=== PATIENT | male | born 1955 | race Caucasian/White ===

== ENCOUNTER 2018-01-29 08:08 | Day surgery (SDC) | payer MEDICAID ==
[~2018-01-29 08:08] MED LIST: Bupivacaine 0.5% 50 ML MDV ONE; Lidocaine 1% with EPINEPHrine 1:100,000 50 ML MDV ONE
[2018-01-29] MEDS ORDERED: fentaNYL 100 MCG/2 ML SDV ONE (08:54)
[2018-01-29] MEDS ORDERED: Propofol 200 MG/20 ML SDV ONE ×2 (08:54→10:40)
[2018-01-29] MEDS ORDERED: Midazolam 1 MG/ML 2 ML SDV ONE (08:54)
[2018-01-29] MEDS ORDERED: Lactated Ringers 1,000 ML IV SCH (09:00)
[2018-01-29] MEDS ORDERED: ceFAZolin 2 GM in Sodium Chloride 0.9% 50 ML IV ONE (09:30)
[2018-01-29] MEDS ORDERED: Acetaminophen/HYDROcodone 325-5 MG Tab PO ONE (11:59)
[2018-01-29 12:17] VITALS: BP 117/72
--- NOTE | 2018-02-01 07:41 | OR ---
DATE OF PROCEDURE: 01/29/2018 PREOPERATIVE DIAGNOSIS: Reducible umbilical hernia. POSTOPERATIVE DIAGNOSIS: Reducible umbilical hernia. PROCEDURE: Repair of reducible umbilical hernia with a 6.4-cm Ventralex mesh patch with straps. SURGEON: Joaquin Carpio MD. ANESTHESIA: IV anesthesia with monitored anesthesia care. INDICATION: This 62-year-old white male has a reducible umbilical hernia. He also has a diastasis recti. He is more concerned about the diastasis recti than the umbilical hernia. He is here for umbilical hernia repair, possibly with mesh. I counseled him for surgery, including risks and alternatives, and he gave his informed consent to proceed. DESCRIPTION OF PROCEDURE: After adequate IV anesthesia was obtained, the patient's abdomen was prepped and draped in the usual sterile fashion. Time-out was held. Lidocaine 1% with epinephrine in a 50:50 mix with 0.5% Marcaine was infiltrated about the umbilicus. An infraumbilical semicircular umbilical incision was made. The umbilicus was divided from the underlying hernia sac and retracted superiorly. The hernia defect was large enough to allow index finger to be passed through it. The sac was excised and sent to pathology. A 6.4-cm Ventralex mesh patch with straps was obtained. This was placed down under the fascia through the defect. The straps were pulled up bringing the mesh to sit nicely against the posterior aspect of the anterior abdominal wall. The straps were cut to appropriate length and anchored to the anterior fascia with interrupted stitches of 2-0 Vicryl. An interrupted stitch of 2-0 Vicryl was used to close the fascia over the mesh. The umbilicus was reattached to the underlying fascia with interrupted stitch of 2-0 Vicryl; 4-0 Vicryl using a subcuticular stitch was placed to approximate the skin. Dermabond was applied. The patient tolerated the procedure well and was brought to the recovery room in good condition. Joaquin Carpio MD /[id number] MTDD
== END 2018-01-29 12:47 | disposition home or self-care (01) ==
LOC: JP.SDS 08:08
PROVIDERS: ATTEND Surgery
DX: K42.9 Umbilical hernia without obstruction or gangrene (principal); I10 Essential (primary) hypertension; E11.9 Type 2 diabetes mellitus without complications; E66.01 Morbid (severe) obesity due to excess calories; E78.5 Hyperlipidemia, unspecified; E03.9 Hypothyroidism, unspecified; G47.33 Obstructive sleep apnea (adult) (pediatric); Z99.89 Dependence on other enabling machines and devices; Z88.8 Allergy status to other drugs, medicaments and biological substances
CPT/HCPCS: 49585; A9270; C1781; J0690; J2250; J2704; J3010; J7050; J7120; 88302

== ENCOUNTER 2019-03-25 15:12 | Emergency (ER) | payer MEDICAID ==
[2019-03-25 15:27] VITALS: BP 126/77; PULSE 116
[2019-03-25] MEDS ORDERED: Lidocaine 2% Jelly 10 ML Urojet MUCMEM ONE (15:40)
--- NOTE | 2019-03-25 15:59 | EDM.PDOC ---
ED HPI GENERAL MEDICAL PROBLEM - General Chief Complaint: Genitourinary Problem Stated Complaint: HAVING TROUBLE GOING THE RESTROOM Time Seen by Provider: 03/25/19 15:45 Source of Information: Reports: Patient History Limitations: Reports: No Limitations - History of Present Illness INITIAL COMMENTS - FREE TEXT/NARRATIVE: Farrukh is a 63 year old male, presents to the ED today with urinary retention. Patient had a TURP procedure done on Thursday, has not been able to urinate since this morning, is passing some blood/clots. Patient denies any fever. Patient is on warfarin, hx of PE, states INR this morning was 3.1. Has not taken daily warfarin dose yet today. Onset: Today - Related Data Allergies Allergy/AdvReac Type Severity Reaction Status Date / Time buspirone HCl [From BuSpar] AdvReac Nausea Verified 03/25/19 15:29 Home Meds: Home Meds Benztropine [Cogentin] 1 mg PO BID 07/17/15 [History] Finasteride 5 mg PO DAILY 07/17/15 [History] Levothyroxine [Synthroid] 50 mcg PO DAILY 07/17/15 [History] Metoprolol Succinate [Toprol XL] 25 tab PO DAILY 07/17/15 [History] Miconazole [Miconazole 2% Crm] 1 dose TOP BID 07/17/15 [History] Sertraline HCl 50 mg PO DAILY 07/17/15 [History] Simvastatin [Zocor] 40 mg PO DAILY 07/17/15 [History] Tamsulosin [Flomax] 0.4 tab PO DAILY 07/17/15 [History] Triamcinolone Acetonide [Triamcinolone Acetonide 0.1% Crm] 1 dose TOP BID [History] Ziprasidone HCl [Geodon] 160 mg PO BID 07/17/15 [History] hydrOXYzine HCl [Atarax] 25 mg PO QID PRN 07/17/15 [History] Cholecalciferol (Vitamin D3) [Vitamin D3] 2,000 unit PO DAILY 11/03/17 [History] Clotrimazole [Clotrimazole 1%] 1 applic TOP BID 11/03/17 [History] Fesoterodine Fumarate [Toviaz] 1 tab PO DAILY 11/03/17 [History] Furosemide [Lasix] 1 - 2 tab PO DAILY PRN 11/03/17 [History] Ketoconazole [Nizoral 2% Crm] 1 applic TOP BID 11/03/17 [History] LORazepam [Ativan] 1 tab PO TID PRN 11/03/17 [History] Multivitamin [Multi-Vitamin Daily] 1 tab PO DAILY 11/03/17 [History] OLANZapine [ZyPREXA] 5 mg PO DAILY PRN 11/03/17 [History] Polyethylene Glycol 3350 [Miralax] 1 pack PO DAILY 11/03/17 [History] Potassium Chloride [Klor-Con M15] 15 meq PO TID 11/03/17 [History] Ranitidine HCl [Zantac] 150 mg PO DAILY 11/03/17 [History] Sertraline HCl [Zoloft] 100 mg PO DAILY 11/03/17 [History] Warfarin [Coumadin] 5 mg PO ASDIRECTED 11/03/17 [History] metFORMIN HCl [Metformin HCl] 500 mg PO BID 11/03/17 [History] metOLazone [Zaroxolyn] 2.5 tab PO ASDIRECTED 11/03/17 [History] Hydrogen Peroxide [Peroxyl Oral Cleanser] 236 ml MM ASDIRECTED 01/27/18 [History ] Triamterene/Hydrochlorothiazid [Dyazide 37.5-25] 1 cap PO DAILY 01/27/18 [ History] Vitamin B Complex [B Complex] 1 each PO DAILY 01/27/18 [History] Ziprasidone HCl [Geodon] 40 mg PO DAILY 01/27/18 [History] Past Medical History HEENT History: Reports: Cataract, Impaired Vision Cardiovascular History: Reports: High Cholesterol, Hypertension Respiratory History: Reports: Sleep Apnea Gastrointestinal History: Reports: Colon Polyp, Hiatal Hernia Other Genitourinary History: patient states "swollen prostate". Musculoskeletal History: Reports: Gout Neurological History: Reports: Vertigo Psychiatric History: Reports: Panic Attack Endocrine/Metabolic History: Reports: Diabetes, Type II, Hypothyroidism, Obesity /BMI 30+ Dermatologic History: Reports: Eczema - Infectious Disease History Infectious Disease History: Reports: Chicken Pox, Measles, Shingles - Past Surgical History Head Surgeries/Procedures: Reports: None HEENT Surgical History: Reports: None Cardiovascular Surgical History: Reports: None Respiratory Surgical History: Reports: None GI Surgical History: Reports: Colonoscopy, Hernia, Inguinal Male Surgical History: Reports: TURP-Transurethral Resection of Prostate Endocrine Surgical History: Reports: None Neurological Surgical History: Reports: None Musculoskeletal Surgical History: Reports: Arthroscopic Procedure, Other (See Below) Other Musculoskeletal Surgeries/Procedures:: right elbow Dermatological Surgical History: Reports: None Social & Family History - Family History Family Medical History: Noncontributory - Tobacco Use Smoking Status *Q: Never Smoker Second Hand Smoke Exposure: No - Caffeine Use Caffeine Use: Reports: Coffee - Recreational Drug Use Recreational Drug Use: No ED ROS GENERAL - Review of Systems Review Of Systems: ROS reveals no pertinent complaints other than HPI. ED EXAM, RENAL/ - Physical Exam Exam: See Below Exam Limited By: No Limitations General Appearance: Alert, WD/WN, Other (appears uncomfortable) Nose: Normal Inspection Throat/Mouth: Normal Inspection Head: Atraumatic Neck: Normal Inspection Respiratory/Chest: No Respiratory Distress Cardiovascular: Tachycardia GI/Abdominal: Normal Bowel Sounds, Soft, Tender (mild, supra-pubic, with mild distention, resolved after null) (Male) Exam: Circumcised, Other (Null catheter placed by nursing staff, clots returned followed by blood tinged urine, some blood from meatus, draining freely, patient tolerated well). No: Scrotum Tenderness (L), Scrotum Tenderness (R) Extremities: Normal Inspection Neurological: Alert, Oriented, CN II-XII Intact Psychiatric: Normal Affect, Normal Mood Skin Exam: Warm, Dry, Intact Course - Vital Signs Last Recorded V/S: Last Vital Signs Temp 35.8 C 03/25/19 15:34 Pulse 116 H 03/25/19 15:34 Resp 16 03/25/19 15:34 BP 126/77 03/25/19 15:34 Pulse Ox 94 L 03/25/19 15:34 Farrukh is a 63 year old male, hx of TURP on Thursday, had catheter removed Thursday , voiding fine until today then only passed clots into toilet this morning, mildly supratherapeutic INR at 3.1 per patient report with lab done this am. Patient tolerated null placement here without difficulty, blood tinged urine present, drainage freely at present time. UA obtained and sent, returns with 5- 10 WBC and small leukocyte esterase no bacteria to indicate contamination. Patient instructed to hold warfarin dose today and resume normal dosing tomorrow. INR recheck on Thursday as well as Null removal with primary or urological surgeon. Will cover for UTI pending culture with Cefdinir Hydration encouraged as well as reasons to return to the ED discussed. Patient agreeable to plan of care and discharged in stable condition. - Orders/Labs/Meds Orders: Active Orders 24 hr Category Date Time Status Bladder Scan [RC] ASDIRECTED Care 03/25/19 15:40 Active Null Catheter Insertion [Insert Urinary Catheter] [OM. Care 03/25/19 15:45 Ordered PC] Q24H Urinary Catheter Assessment [RC] ASDIRECTED Care 03/25/19 15:41 Active CULTURE URINE [RM] Stat Lab 03/25/19 16:18 Ordered Labs: Laboratory Tests 03/25/19 Range/Units 16:03 Urine Color Red A (YELLOW) Urine Appearance Cloudy A (CLEAR) Urine pH 7.0 (5.0-8.0) Ur Specific [place] 1.025 (1.008-1.030) Urine Protein >=300 H (NEGATIVE) mg/dL Urine Glucose (UA) Normal (NEGATIVE) mg/dL Urine Ketones Negative (NEGATIVE) mg/dL Urine Occult Blood Large (NEGATIVE) Urine Nitrite Negative (NEGATIVE) Urine Bilirubin Negative (NEGATIVE) Urine Urobilinogen 0.2 (0.2-1.0) EU/dL Ur Leukocyte Esterase Small (NEGATIVE) Urine RBC Packed H (0-5) Urine WBC 5-10 H (0-5) Ur Epithelial Cells Not seen Amorphous Sediment Few Urine Bacteria Not seen Urine Mucus Not seen Meds: Medications Discontinued Medications Generic Name Dose Route Start Last Admin Trade Name Freq PRN Reason Stop Dose Admin Lidocaine HCl 10 ml 03/25/19 15:40 03/25/19 15:50 Xylocaine 2% Jelly MUCMEM 03/25/19 15:41 10 ml ONETIME ONE Administration Departure - Departure Time of Disposition: 17:00 Disposition: Home, Self-Care 01 Condition: Good Clinical Impression: Urinary retention - Discharge Information Instructions: Acute Urinary Retention, Male, Urinary Tract Infection, Adult, [id number], Indwelling Urinary Catheter Care, Adult Referrals: Jourdan Fraser MD [Primary Care Provider] - Forms: ED Department Discharge Additional Instructions: You have a small infection in the urine, I am going to put you on Omnicef for 3 days, start this this afternoon. Do not take your Coumadin (Warfarin) today, you can resume your regular dosing tomorrow evening. Keep very well hydrated. Follow up on Thursday either at primary care clinic or primary urology clinic to have catheter removed. IF you develop any worsening or new symptoms please return here. Take care and good luck with everything. - My Orders Last 24 Hours: My Active Orders 03/25/19 15:40 Bladder Scan [RC] ASDIRECTED 03/25/19 15:41 Urinary Catheter Assessment [RC] ASDIRECTED 03/25/19 15:45 Null Catheter Insertion [Insert Urinary Catheter] [OM.PC] Q24H 03/25/19 16:18 CULTURE URINE [RM] Stat - Assessment/Plan Last 24 Hours: My Active Orders 03/25/19 15:40 Bladder Scan [RC] ASDIRECTED 03/25/19 15:41 Urinary Catheter Assessment [RC] ASDIRECTED 03/25/19 15:45 Null Catheter Insertion [Insert Urinary Catheter] [OM.PC] Q24H 03/25/19 16:18 CULTURE URINE [RM] Stat
== END 2019-03-25 16:48 | disposition home or self-care (01) ==
LOC: JP.ED 15:12
DX: R33.9 Retention of urine, unspecified (principal); I10 Essential (primary) hypertension; E11.9 Type 2 diabetes mellitus without complications; E03.9 Hypothyroidism, unspecified; M10.9 Gout, unspecified; Z68.36 Body mass index [BMI] 36.0-36.9, adult; E66.9 Obesity, unspecified; Z88.8 Allergy status to other drugs, medicaments and biological substances; Z79.899 Other long term (current) drug therapy; Z79.890 Hormone replacement therapy; Z79.83 Long term (current) use of bisphosphonates; Z79.84 Long term (current) use of oral hypoglycemic drugs; Z79.891 Long term (current) use of opiate analgesic; Z79.01 Long term (current) use of anticoagulants
CPT/HCPCS: 51702; 51798; 81001; 87086; 99283

== ENCOUNTER 2019-08-15 08:40 | Inpatient (IN) | payer MEDICAID ==
[~2019-08-15 08:40] MED LIST changes: -Bupivacaine 0.5% 50 ML MDV ONE; -Lidocaine 1% with EPINEPHrine 1:100,000 50 ML MDV ONE; +Povidone-Iodine 10% Soln 118.25 ML Bottle ONE
[2019-08-15] MEDS ORDERED: ceFAZolin 2 GM in Sodium Chloride 0.9% 50 ML IV ONE (09:15)
[2019-08-15] MEDS ORDERED: Lactated Ringers 1,000 ML IV SCH (09:15)
[2019-08-15] MEDS: Nozin Nasal Sanitizer NASBOTH SCH ×2 (09:45→21:40)
[2019-08-15] MEDS ORDERED: fentaNYL 100 MCG/2 ML SDV ONE (10:19)
[2019-08-15] MEDS ORDERED: Neostigmine Methylsulfate 1 MG/ML 5 ML Syringe ONE (10:20)
[2019-08-15] MEDS ORDERED: Dexamethasone 4 MG/ML SDV ONE (10:20)
[2019-08-15] MEDS ORDERED: Rocuronium 50 MG/5 ML Vial ONE (10:20)
[2019-08-15] MEDS ORDERED: Ondansetron 4 MG/2 ML SDV ONE (10:20)
[2019-08-15] MEDS ORDERED: Glycopyrrolate 0.2 MG/ML 5 ML MDV ONE (10:20)
[2019-08-15] MEDS ORDERED: Succinylcholine 200 MG/10 ML MDV ONE (10:20)
[2019-08-15] MEDS ORDERED: Propofol 200 MG/20 ML SDV ONE (10:20)
[2019-08-15] MEDS ORDERED: Bupivacaine 0.5% 30 ML SDV ONE ×2 (10:21→10:41)
[2019-08-15] MEDS ORDERED: Ondansetron 4 MG/2 ML SDV IVPUSH PRN (15:31)
[2019-08-15] MEDS ORDERED: Acetaminophen/oxyCODONE 325-5 MG Tab PO PRN (15:31)
[2019-08-15] MEDS ORDERED: Acetaminophen 325 MG Tab PO PRN (15:31)
[2019-08-15] MEDS ORDERED: Morphine 2 MG/ML Syringe IVPUSH PRN (15:31)
[2019-08-15] MEDS ORDERED: Furosemide 40 MG Tab PO PRN (15:41)
[2019-08-15] MEDS ORDERED: Ziprasidone HCl 20 MG Cap PO PRN (15:41)
[2019-08-15] MEDS ORDERED: LORazepam 1 MG Tab PO PRN (15:41)
[2019-08-15] MEDS ORDERED: hydrOXYzine HCl 25 MG Tab PO PRN (15:41)
[2019-08-15] MEDS ORDERED: Ketorolac 30 MG/ML SDV IVPUSH SCH (15:45)
[2019-08-15] MEDS ORDERED: Metolazone 2.5 MG Tab PO SCH (15:45)
[2019-08-15] MEDS: Sodium Chloride 0.9% 1,000 ML IV SCH (17:41)
[2019-08-15] MEDS: Ketorolac 30 MG/ML SDV IVPUSH SCH (17:42)
[2019-08-15] MEDS: metFORMIN 500 MG Tab PO SCH (17:42)
[2019-08-15] MEDS: ceFAZolin 1 GM in Premix Bag 1 BAG IV SCH (19:58)
[2019-08-15] MEDS ORDERED: metFORMIN 500 MG Tab PO SCH (21:00)
[2019-08-15] MEDS ORDERED: Ziprasidone HCl 20 MG Cap PO SCH (21:00)
[2019-08-15] MEDS ORDERED: ZIPRASIDONE HCL PO SCH (21:00)
[2019-08-15] MEDS: Benztropine 1 MG Tab PO SCH (21:41)
[2019-08-16] MEDS: Ketorolac 30 MG/ML SDV IVPUSH SCH ×2 (01:41→09:06)
[2019-08-16] MEDS: Sodium Chloride 0.9% 1,000 ML IV SCH (01:57)
[2019-08-16] MEDS: ceFAZolin 1 GM in Premix Bag 1 BAG IV SCH ×2 (04:09→11:13)
[2019-08-16] MEDS ORDERED: Levothyroxine 50 MCG Tab PO SCH ×2 (07:30→09:00)
[2019-08-16] MEDS: Acetaminophen/HYDROcodone 325-5 MG Tab PO PRN ×3 (08:46→14:49)
[2019-08-16] MEDS: metFORMIN 500 MG Tab PO SCH (08:48)
[2019-08-16] MEDS: Nozin Nasal Sanitizer NASBOTH SCH (08:51)
[2019-08-16] MEDS: Benztropine 1 MG Tab PO SCH (08:52)
[2019-08-16] MEDS ORDERED: Non-Formulary Medication 1 Each (Fesoterodine Fumarate [Toviaz] 8 MG) PO SCH (09:00)
[2019-08-16] MEDS ORDERED: Warfarin 5 MG Tab PO ONE (09:00)
[2019-08-16] MEDS ORDERED: Simvastatin 20 MG Tab PO SCH (09:00)
[2019-08-16] MEDS ORDERED: Non-Formulary Medication 1 Each (Simvastatin [Zocor] 40 MG) PO SCH (09:00)
[2019-08-16] MEDS ORDERED: Sertraline 50 MG Tab PO SCH (09:00)
[2019-08-16] MEDS ORDERED: Non-Formulary Medication 1 Each (Sertraline Hcl [Zoloft] 200 MG) PO SCH (09:00)
[2019-08-16] MEDS ORDERED: Metolazone 2.5 MG Tab PO SCH (09:00)
[2019-08-16] MEDS ORDERED: Finasteride 5 MG Tab PO SCH ×2 (09:00)
[2019-08-16] MEDS ORDERED: Enoxaparin 30 MG/0.3 ML Syringe SUBCUT SCH (09:00)
[2019-08-16] MEDS ORDERED: Polyethylene Glycol 3350 Powder 17 GM Packet PO SCH (09:00)
[2019-08-16] MEDS ORDERED: Famotidine 20 MG Tab PO SCH (09:00)
[2019-08-16] MEDS ORDERED: Trospium 20 MG Tab PO SCH (09:00)
[2019-08-16] MEDS ORDERED: Metoprolol Succinate 25 MG Tab.ER PO SCH (09:00)
[2019-08-16] MEDS ORDERED: FESOTERODINE FUMARATE 8 MG PO SCH (09:00)
[2019-08-16] MEDS ORDERED: Metoprolol Succinate 50 MG Tab.ER PO SCH (09:00)
[2019-08-16] MEDS ORDERED: Spironolactone 25 MG Tab PO SCH ×2 (09:00)
[2019-08-16 11:08] VITALS: BP 103/56; PULSE 82
--- NOTE | 2019-08-16 11:20 | CRLCR ---
INDICATION: Postoperative evaluation of shoulder repair. COMPARISON: 07/28/2019. TECHNIQUE: Left shoulder single portable view. IMPRESSION: Hardware components of left shoulder arthroplasty are seen on single view without evidence of immediate hardware complication. The glenoid component is incompletely imaged. AC joint osseous hypertrophy is again noted. Dictated by Sanjay Juan MD @ Aug 16 2019 11:14AM Signed by Dr. Sanjay Juan @ Aug 16 2019 11:17AM
--- NOTE | 2019-08-24 11:12 | PCM.DCSUM1 ---
Discharge Summary - Hospital Course HPI Initial Comments: 64 year old male with history of left reverse total shoulder and progressive pain. Work up is consistent with loosening of the glenoid component. He is admitted for removal and possible revision of the glenoid. Diagnosis: Stroke: No Modified Bridget Scale: No Symptoms at All Modified Dodge Scale Score: 0 - Discharge Data Discharge Date: 08/16/19 Discharge Disposition: Home, Self-Care 01 Condition: Good - Referral to Home Health Date of Face to Face Encounter: 08/16/19 Primary Care Physician: Jourdan Fraser MD - Discharge Diagnosis/Problem(s) (1) Aseptic loosening of prosthetic joint SNOMED Code(s): 631613574 ICD Code: T84.039A - MECHANICAL LOOSENING OF UNSP INTERNAL PROSTHETIC JOINT, INIT Status: Acute (2) S/p reverse total shoulder arthroplasty SNOMED Code(s): 521917301, 731528425 ICD Code: Z96.619 - PRESENCE OF UNSPECIFIED ARTIFICIAL SHOULDER JOINT Status: Acute Qualifiers: Laterality: left Qualified Code(s): Z96.612 - Presence of left artificial shoulder joint - Patient Summary/Data Operative Procedure(s) Performed: Removal of glenoid component, bone grafting of glenoid, conversion of humeral insert to humeral head Complications: none Consults: Consultations 08/15/19 15:31 OT Evaluation and Treatment [CONS] Routine Please Evaluate and Treat. OT Reason for Consult: ADL's Special Instructions: ROM to hand/wrist/elbow This query below is only for informational purposes and is not editable. 08/15/19 15:32 Consult to Case Management/Social Sciences Chair [CONS] Routine Comment: Physician Instructions: Service(s) to be Consulted: Case Management Reason for Consult: Plan for Discharge PT Evaluation and Treatment [CONS] Routine Please Evaluate and Treat. PT Reason for Consult: s/p LT total shoulder revision Pending Discharge: Yes, 1- 2 days Special Instructions: Schedule first outpatient PT appointment in 3-5 day post discharge. This query below is only for informational purposes and is not editable. PT Evaluation and Treatment [CONS] Routine Please Evaluate and Treat. PT Reason for Consult: Post op Ortho Surgery Special Instructions: ambulation This query below is only for informational purposes and is not editable. Hospital Course: Patient underwent procedure without complications and tolerated it well. Had no significant difficulties post-operatively. His pain was controlled and he was able to be up independently on POD#1. His dressing was changed and drain removed on POD#1. He was discharged to home. - Patient Instructions Diet: Usual Diet as Tolerated Activity: As Tolerated, No Lifting Over 10 Pounds Showering/Bathing: Shower in AM Notify Provider of: Fever, Increased Pain, Swelling and Redness, Drainage, Nausea and/or Vomiting - Discharge Plan *PRESCRIPTION DRUG MONITORING PROGRAM REVIEWED*: No *COPY OF PRESCRIPTION DRUG MONITORING REPORT IN PATIENT MARGARET: No Prescriptions/Med Rec: oxyCODONE HCl/Acetaminophen [Percocet 5-325 mg Tablet] 2 each PO Q6HR PRN #40 tablet PRN Reason: Pain Home Medications: Home Meds Benztropine [Cogentin] 1 mg PO BID 07/17/15 [History] Finasteride 5 mg PO DAILY 07/17/15 [History] Levothyroxine [Synthroid] 50 mcg PO DAILY 07/17/15 [History] Metoprolol Succinate [Toprol XL] 25 tab PO DAILY 07/17/15 [History] Miconazole [Miconazole 2% Crm] 1 dose TOP BID 07/17/15 [History] Simvastatin [Zocor] 40 mg PO DAILY 07/17/15 [History] Ziprasidone HCl [Geodon] 120 mg PO BEDTIME 07/17/15 [History] hydrOXYzine HCL [Atarax] 25 mg PO QID PRN 07/17/15 [History] Cholecalciferol (Vitamin D3) [Vitamin D3] 2,000 unit PO DAILY 11/03/17 [History] Clotrimazole [Clotrimazole 1%] 1 applic TOP BID 11/03/17 [History] Fesoterodine Fumarate [Toviaz] 8 mg PO DAILY 11/03/17 [History] Furosemide [Lasix] 1 - 2 tab PO DAILY PRN 18 [History] LORazepam [Ativan] 1 tab PO TID PRN 18 [History] Multivitamin [Multi-Vitamin Daily] 1 tab PO DAILY 11/03/17 [History] Polyethylene Glycol 3350 [Miralax] 1 pack PO DAILY 11/03/17 [History] Ranitidine HCl [Zantac] 150 mg PO DAILY 11/03/17 [History] Sertraline HCl [Zoloft] 200 mg PO DAILY 11/03/17 [History] Warfarin [Coumadin] 5 mg PO ASDIRECTED 11/03/17 [History] metFORMIN HCl [Metformin HCl] 500 mg PO BID 11/03/17 [History] metOLazone [Zaroxolyn] 2.5 tab PO ASDIRECTED 11/03/17 [History] Vitamin B Complex [B Complex] 1 each PO DAILY 01/27/18 [History] Ziprasidone HCl [Geodon] 40 mg PO DAILY PRN 01/27/18 [History] Ascorbic Acid [Vitamin C] 100 mg PO DAILY 06/09/19 [History] Calcium Carb/D3/Magnesium/Zinc [Luis Mag Zinc + D Tablet] 1 each PO DAILY [History] Clindamycin Phosphate 1 applic TOP BID 06/09/19 [History] Desonide 1 applic TOP DAILY 06/09/19 [History] Magnesium Oxide 400 mg PO DAILY 06/09/19 [History] Spironolactone [Aldactone] 25 mg PO DAILY 06/09/19 [History] Enoxaparin [Lovenox] 120 mg SUBCUT DAILY 08/15/19 [History] oxyCODONE HCl/Acetaminophen [Percocet 5-325 mg Tablet] 2 each PO Q6HR PRN #40 tablet 08/16/19 [Rx] Other Amb Orders: PT Evaluation and Treatment [CONS] Time Frame: 3 Days, Location: None Selected Oxygen Therapy Mode: Room Air Referrals: Damon Little MD [Physician] - 08/30/19 10:30 am - Discharge Summary/Plan Comment DC Time >30 min.: No - General Info Functional Status: Reports: Pain Controlled, Tolerating Diet, Ambulating, Urinating - Review of Systems General: Reports: No Symptoms HEENT: Reports: No Symptoms Pulmonary: Reports: No Symptoms Cardiovascular: Reports: No Symptoms Gastrointestinal: Reports: No Symptoms Genitourinary: Reports: No Symptoms Musculoskeletal: Reports: Arm Pain Skin: Reports: No Symptoms Neurological: Reports: No Symptoms Psychiatric: Reports: No Symptoms - Patient Data Vitals - Most Recent: Last Vital Signs Temp 36.1 C 08/16/19 11:07 Pulse 82 08/16/19 11:07 Resp 18 08/16/19 11:07 BP 103/56 L 08/16/19 11:07 Pulse Ox 93 L 08/16/19 11:07 Weight - Most Recent: 117.027 kg Med Orders - Current: Current Medications Discontinued Medications Acetaminophen (Tylenol) 650 mg PO Q4H PRN PRN Reason: Pain/Fever Last Admin: 08/16/19 02:00 Dose: 650 mg Hydrocodone Bitart/Acetaminophen ([place] 325-5 Mg) 1 tab PO Q3H PRN PRN Reason: Pain Last Admin: 08/16/19 14:49 Dose: 1 tab Bandage/Support Products ( Nasal Agricultural Adviser) 1 applic NASBOTH BID [facility] Last Admin: 08/16/19 08:51 Dose: 1 swab Benztropine Mesylate (Cogentin) 1 mg PO BID [facility] Last Admin: 08/16/19 08:52 Dose: 1 mg Bupivacaine HCl (Marcaine 0.5%) Confirm Administered Dose 60 ml .ROUTE .STK-MED ONE Stop: 08/15/19 10:22 Bupivacaine HCl (Marcaine 0.5%) Confirm Administered Dose 30 ml .ROUTE .STK-MED ONE Stop: 08/15/19 10:42 Dexamethasone (Dexamethasone) Confirm Administered Dose 4 mg .ROUTE .STK-MED ONE Stop: 08/15/19 10:21 Enoxaparin Sodium (Lovenox) 30 mg SUBCUT DAILY [facility] Last Admin: 08/16/19 08:50 Dose: 30 mg Famotidine (Pepcid) 20 mg PO DAILY [facility] Last Admin: 08/16/19 08:50 Dose: 20 mg Fentanyl (Sublimaze) Confirm Administered Dose 100 mcg .ROUTE .STK-MED ONE Stop: 08/15/19 10:20 Finasteride (Proscar) 5 mg PO DAILY [facility] Finasteride (Proscar) 5 mg PO DAILY [facility] Last Admin: 08/16/19 09:05 Dose: 5 mg Furosemide (Lasix) 40 mg PO DAILY PRN PRN Reason: Edema Glycopyrrolate (Robinul) Confirm Administered Dose 1 mg .ROUTE .STK-MED ONE Stop: 08/15/19 10:21 Hydroxyzine HCl (Atarax) 25 mg PO QID PRN PRN Reason: itching Cefazolin Sodium 2 gm/ Sodium (Chloride) 50 mls @ 100 mls/hr IV ONETIME ONE Stop: 08/15/19 09:44 Last Admin: 08/15/19 13:30 Dose: 100 mls/hr Lactated Ringer's (Ringers, Lactated) 1,000 mls @ 75 mls/hr IV ASDIRECTED [facility] Last Admin: 08/15/19 10:51 Dose: 75 mls/hr Cefazolin Sodium/Dextrose 1 gm (/ Premix) 50 mls @ 100 mls/hr IV Q8H [facility] Stop: 08/16/19 12:29 Last Admin: 08/16/19 11:13 Dose: 100 mls/hr Sodium Chloride (Normal Saline) 1,000 mls @ 125 mls/hr IV ASDIRECTED [facility] Last Admin: 08/16/19 01:57 Dose: 125 mls/hr Ketorolac Tromethamine (Toradol) 15 mg IVPUSH Q8H [facility] Stop: 08/16/19 07:46 Last Admin: 08/15/19 17:39 Dose: Not Given Ketorolac Tromethamine (Toradol) 15 mg IVPUSH Q8H [facility] Stop: 08/16/19 09:01 Last Admin: 08/16/19 09:06 Dose: 15 mg Levothyroxine Sodium (Synthroid) 50 mcg PO DAILY [facility] Levothyroxine Sodium (Synthroid) 50 mcg PO DAILY@0730 [facility] Last Admin: 08/16/19 07:17 Dose: 50 mcg Lorazepam (Ativan) 1 mg PO TID PRN PRN Reason: Anxiety Metformin HCl (Glucophage) 500 mg PO BID [facility] Metformin HCl (Glucophage) 500 mg PO BIDMEALS [facility] Last Admin: 08/16/19 08:48 Dose: 500 mg Metolazone (Zaroxolyn) 6.25 mg PO ASDIRECTED [facility] Metolazone (Zaroxolyn) 2.5 mg PO TuTh@0900 [facility] Last Admin: 08/16/19 09:07 Dose: 2.5 mg Metoprolol Succinate (Toprol Xl) 1,250 mg PO DAILY [facility] Metoprolol Succinate (Toprol Xl) 25 mg PO DAILY [facility] Last Admin: 08/16/19 08:49 Dose: 25 mg Morphine Sulfate (Morphine) 2 mg IVPUSH Q1H PRN PRN Reason: Breakthrough Pain Neostigmine Methylsulfate (Neostigmine) Confirm Administered Dose 5 mg .ROUTE .STK-MED ONE Stop: 08/15/19 10:21 Non-Formulary Medication (Fesoterodine Fumarate [Toviaz]) 8 mg PO DAILY [facility] Non-Formulary Medication (Sertraline Hcl [Zoloft]) 200 mg PO DAILY [facility] Non-Formulary Medication (Simvastatin [Zocor]) 40 mg PO DAILY [facility] Non-Formulary Medication (Ziprasidone Hcl [Geodon]) 120 mg PO BEDTIME [facility] Ondansetron HCl (Zofran) Confirm Administered Dose 4 mg .ROUTE .STK-MED ONE Stop: 08/15/19 10:21 Ondansetron HCl (Zofran) 4 mg IVPUSH Q6H PRN PRN Reason: Nausea/Vomiting Oxycodone/Acetaminophen (Percocet 325-5 Mg) 2 tab PO Q4H PRN PRN Reason: Pain Polyethylene Glycol (Miralax) 17 gm PO DAILY [facility] Last Admin: 08/16/19 08:50 Dose: 17 gm Povidone Iodine (Betadine 10% Soln) Confirm Administered Dose 1 ml .ROUTE .STK- MED ONE Stop: 08/15/19 06:54 Propofol (Diprivan 20 Ml) Confirm Administered Dose 200 mg .ROUTE .STK-MED ONE Stop: 08/15/19 10:21 Rocuronium [place] (Zemuron) Confirm Administered Dose 50 mg .ROUTE .STK-MED ONE Stop: 08/15/19 10:21 Sertraline HCl (Zoloft) 200 mg PO DAILY [facility] Last Admin: 08/16/19 09:08 Dose: 200 mg Simvastatin (Zocor) 40 mg PO DAILY [facility] Last Admin: 08/16/19 08:47 Dose: 40 mg Spironolactone (Aldactone) 25 mg PO DAILY [facility] Spironolactone (Aldactone) 25 mg PO DAILY [facility] Last Admin: 08/16/19 09:05 Dose: 25 mg Succinylcholine Chloride (Quelicin) Confirm Administered Dose 200 mg .ROUTE .STK -MED ONE Stop: 08/15/19 10:21 Trospium (Sanctura) 20 mg PO BID [facility] Last Admin: 08/16/19 10:05 Dose: 20 mg Warfarin Sodium (Coumadin) 10 mg PO ONETIME ONE Stop: 08/16/19 09:01 Last Admin: 08/16/19 08:52 Dose: 10 mg Ziprasidone (Geodon) 40 mg PO DAILY PRN PRN Reason: Hallucinations Ziprasidone (Geodon) 120 mg PO BEDTIME [facility] Last Admin: 08/15/19 21:41 Dose: 120 mg - Exam General: Reports: Alert, Oriented HEENT: Reports: Pupils Equal, Pupils Reactive, EOMI, Mucous Membr. Moist/[place] Neck: Reports: Supple Lungs: Reports: Clear to Auscultation, Normal Respiratory Effort Cardiovascular: Reports: Regular Rate, Regular Rhythm GI/Abdominal Exam: Normal Bowel Sounds, Non-Tender, No Distention (Male) Exam: Deferred Rectal (Males) Exam: Deferred Back Exam: Reports: Normal Inspection, Full Range of Motion Extremities: Arm Pain, Limited Range of Motion Skin: Reports: Warm, Dry Wound/Incisions: Reports: Healing Well, No Drainage Neurological: Reports: No New Focal Deficit Psy/Mental Status: Reports: Alert, Normal Affect, Normal Mood
--- NOTE | 2019-08-24 13:32 | OR ---
DATE OF PROCEDURE: 08/15/2019 SURGEON: Damon Little MD PREOPERATIVE DIAGNOSIS: Mechanical loosening, aseptic, glenoid component, left reverse total shoulder arthroplasty. POSTOPERATIVE DIAGNOSIS: PREOPERATIVE DIAGNOSIS: Mechanical loosening, aseptic, glenoid component, left reverse total shoulder arthroplasty. PROCEDURE: 1. Removal of glenoid component, left shoulder. 2. Bone grafting of the glenoid using allograft bone. 3. Conversion of humerus from reverse implant to a standard humeral head. ANESTHESIA: Interscalene block with general. INDICATIONS: Farrukh is a very pleasant 64-year-old gentleman, who underwent a left reverse total shoulder arthroplasty at another facility little over a year ago. Initially, he did fairly well, but has been having increasing pain over the past several months, particularly in the last 1 to 2 months where he has had difficulty with even any light motion or activities of daily living. Workup has revealed no evidence of infection and failure of ingrowth of the glenoid component with aseptic loosening. He now presents for evaluation of the left shoulder for potential revision of the total shoulder arthroplasty or removal of the glenoid component and conversion of the cup implant on the humerus to a standard humeral head implant leaving the glenoid component out. Risks, benefits, and potential complications of both these procedures were discussed at some length and indicated that decision would be made intraoperatively regarding the possibility of revision. PROCEDURE IN DETAIL: The patient was placed in a modified beach-chair position. Left arm was then prepped and draped in a sterile fashion. Previous incision was utilized on the anterior shoulder. This was carried down to the subcutaneous tissues. Significant scarring was noted in the deltopectoral interval. The cephalic vein could not be identified and was presumed to have clotted off either with previous surgery or subsequent to it. Deltopectoral interval was developed and significant scarring also noted in the joint capsule. A thick pseudocapsule was present. This was excised exposing the joint. Cultures were taken of the fluid. This did not have the gross appearance of any infection. Significant time was taken to excise the capsule and expose the prosthesis. He also has heterotopic bone present. Portions of this were removed for visualization, but no attempt was made to completely excise this. Once the prosthesis could be visualized, arm was taken through range of motion and obvious motion of the glenosphere was present. Humerus was dislocated from the glenosphere and the polyethylene was removed. The glenoid was then further exposed. Once the capsule was completely excised from around the glenosphere, the glenoid sphere was found to be completely loose and disengaged from the baseplate. This was removed. One of the locking caps the screw was also loose and this was removed. The inferior screw was completely loose and was removed without difficulty. The superior screw was broken and the head portion was removed. No attempt was made to retrieve the buried broken deeper portion of the screw. The area around the baseplate was then loosened with the [place] elevator. This did show gross motion. A [employer] was placed on the edge of the baseplate and the component was removed. This showed only some soft tissue growth around the trabecular metal peg with no bony ingrowth at all. Again, no evidence of any gross infection. Glenoid was thoroughly irrigated. Glenoid was then evaluated for bone stock. Due to the significant motion that had occurred both around the trabecular metal Peg and inferior screw, significant defect was present. It was felt that there was not enough bone to allow revision. Crushed cancellous bone allograft was then utilized. This was packed into the defects in the central portion of the glenoid creating a flush surface. Trial humeral heads were then placed into the humeral component, which was well fixed. A 52 mm diameter x 27 mm high modular humeral head was selected. The trials were removed. The glenoid graft was protected and the humerus was irrigated. A Dual Taper insert was then placed into the reverse humeral component. An offset modular 52 mm diameter head was then placed onto the taper and tapped into position. This was reduced and again taken through range of motion and found to be stable within the pseudoglenoid. It was irrigated again, again protecting the graft. The deltopectoral interval was then lightly closed with 0 Vicryl. There was no remaining subscapularis to repair. Skin was closed with 2 -0 Vicryl and a running 3-0 Monocryl. Prior to closure, a drain was placed and brought out through a separate stab incision. The wound was dressed with a sterile dressing. The patient tolerated the procedure very well. There were no complications. He was taken from the operating room in stable condition. Damon Little MD /[id number] KAREEM
== END 2019-08-16 16:07 | disposition home or self-care (01) | DRG 483 ==
LOC: JP.SDS 08:40 → JP.SDSSCHI 08:40 → EDSTATUS 09:30 → JP.MS 15:32
PROVIDERS: ADMIT Specialist; ATTEND Specialist
PROC: 0RRK0J7 Replacement of Left Shoulder Joint with Synthetic Substitute, Glenoid Surface, Open Approach (ICD-10-PCS; principal; 2019-08-15)
PROC: 0RPK0JZ Removal of Synthetic Substitute from Left Shoulder Joint, Open Approach (ICD-10-PCS; 2019-08-15)
DX: T84.038A Mechanical loosening of other internal prosthetic joint, initial encounter (principal); E11.9 Type 2 diabetes mellitus without complications; I10 Essential (primary) hypertension; E78.5 Hyperlipidemia, unspecified; E03.9 Hypothyroidism, unspecified; F25.9 Schizoaffective disorder, unspecified; G47.33 Obstructive sleep apnea (adult) (pediatric); Z86.711 Personal history of pulmonary embolism; Z86.718 Personal history of other venous thrombosis and embolism; Z79.890 Hormone replacement therapy; Z79.01 Long term (current) use of anticoagulants; Z79.899 Other long term (current) drug therapy
CPT/HCPCS: 36415; 73020-LT; 80053; 85027; 85610; 86850; 86900; 86901; 87070; 87075; 87077; 87186; 87205; 88304; 97161-GP; 97165-GO; 97530-GP; 97535-GP; A9270-GY; J0330; J0690; J1100; J1650; J1885; J2405; J2704; J2710; J3010; J3490; J7030; J7050; J7120

== ENCOUNTER 2020-06-27 17:24 | Emergency (ER) | payer MEDICAID ==
[2020-06-27] MEDS ORDERED: Sodium Chloride 0.9% 10 ML Syringe FLUSH PRN (17:42)
--- NOTE | 2020-06-27 18:37 | CRLCT ---
INDICATION: neuro deficit patient felt facial weirdness and slight lisp CT HEAD WITHOUT CONTRAST TECHNIQUE: Multiple axial CT images were performed through the head without intravenous contrast administration. COMPARISON: 06/25/[address] FINDINGS: No acute intracranial hemorrhage is identified. No extra-axial collections are evident and there is no mass effect or midline shift. There is mild diffuse age-related brain atrophy, as before. Ventricular size and configuration are within normal limits for the patient`s age. Hugo-white differentiation is within normal limits. There is unchanged very mild patchy hypodensity in the periventricular white matter, a nonspecific finding which most likely reflects chronic small vessel ischemic change. Osseous structures are within normal limits and no fractures are seen. Included portions of the paranasal sinuses and mastoid air cells are normally aerated. IMPRESSION: 1. No acute intracranial abnormality identified. 2. Mild age-related brain atrophy and white matter hypodensity consistent with chronic small vessel ischemic change. Results were called to Dr. Shaw at 6:26 p.m. on 06/27/2020. ROVERTO DOUGLASS MD [facility] Dictated by Sebastian Douglass MD @ 06/27/2020 6:36:05 PM Dictated by: Sebastian Douglass MD @ 06/27/2020 18:36:32 (Electronically Signed)
[2020-06-27] MEDS ORDERED: Sodium Chloride 0.9% 100 ML IV SCH (19:00)
[2020-06-27] MEDS ORDERED: Iopamidol 755 Mg/ML 100 ML Bottle IV SCH (19:00)
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
--- NOTE | 2020-06-27 20:27 | CRLCT ---
DATE: 06/27/2020. CLINICAL HISTORY: Patient with acute neurological deficit. TECHNIQUE: Standard helical CT image acquisition through the head and neck was performed after intravenous contrast bolus enhancement. Multiplanar reconstructed images were performed and interpreted. COMPARISON: None available. FINDINGS: The origins of the great vessels from the aortic arch are patent. The origins of the right and left vertebral arteries are patent. The common carotid arteries are patent. There is no significant stenosis at the origin of the right internal carotid artery. There is no significant stenosis at the origin of the left internal carotid artery. The rest of the cervical segments of the internal carotid arteries are patent up to their intracranial segments. The intracranial segments of the internal carotid arteries are patent. The right vertebral artery is dominant. The cervical segments of the vertebral arteries are patent. The intracranial segments of the vertebral arteries are patent, noting mild, non flow limiting atherosclerotic stenosis of the intracranial right vertebral artery. The anterior and middle cerebral arteries are patent. The anterior communicating artery is visualized and within normal limits. The basilar trunk and posterior cerebral arteries are patent. There is normal opacification of major intracranial venous structures. The visualized lung apices are unremarkable The thyroid gland is unremarkable. There are degenerative changes in the cervical spine. IMPRESSION: 1. No intracranial proximal large vessel occlusion or flow-limiting luminal stenosis. 2. Widely patent cervical arterial vasculature with no evidence of hemodynamically significant luminal stenosis. Please note that all CT scans at this facility use dose modulation, iterative reconstruction, and/or weight-based dosing when appropriate to reduce radiation dose to as low as reasonably achievable. Dictated by Caleb Scruggs MD @ Jun 28 2020 1:48PM Signed by Dr. Caleb Scruggs @ Jun 28 2020 1:56PM
[2020-06-27 21:06] VITALS: BP 140/82; PULSE 92
== END 2020-06-27 22:31 ==
LOC: JP.ED 17:24
DX: G45.9 Transient cerebral ischemic attack, unspecified (principal); E78.00 Pure hypercholesterolemia, unspecified; I10 Essential (primary) hypertension; M10.9 Gout, unspecified; F41.9 Anxiety disorder, unspecified; E11.9 Type 2 diabetes mellitus without complications; E03.9 Hypothyroidism, unspecified; E66.9 Obesity, unspecified; Z68.35 Body mass index [BMI] 35.0-35.9, adult; Z86.711 Personal history of pulmonary embolism; Z88.8 Allergy status to other drugs, medicaments and biological substances; Z79.899 Other long term (current) drug therapy; Z79.84 Long term (current) use of oral hypoglycemic drugs; Z79.01 Long term (current) use of anticoagulants
CPT/HCPCS: 36415; 70450; 70496; 70498; 80053; 81001; 85025; 85610; 93005; 99285; Q9967

== ENCOUNTER 2020-07-06 12:26 | Emergency (ER) | payer MEDICAID ==
[2020-07-06 12:46] VITALS: BP 120/82; PULSE 117
--- NOTE | 2020-07-06 13:05 | EDM.PDOC ---
ED HPI GENERAL MEDICAL PROBLEM - General Chief Complaint: General Stated Complaint: CONFUSED, MEDICATION ISSUES Time Seen by Provider: 07/06/20 12:59 Source of Information: Reports: Patient, Family, RN Notes Reviewed History Limitations: Reports: No Limitations - History of Present Illness INITIAL COMMENTS - FREE TEXT/NARRATIVE: 65-year-old gentleman presents emergency department a complaint of confusion, he was recently admitted to [facility] last week for stroke work-up CT CTA MRI echo no indication of stroke side effects was discharged with medications he does have medication list however they are not set up for ampm or time dosing. He was evaluated by home health care who recommended he report to the emergency department for his confusion about his medications - Related Data Allergies Allergy/AdvReac Type Severity Reaction Status Date / Time buspirone HCl [From BuSpar] AdvReac Nausea Verified 06/27/20 19:02 Home Meds: Home Meds Benztropine [Cogentin] 1 mg PO BID 07/17/15 [History] Finasteride 5 mg PO DAILY 07/17/15 [History] Levothyroxine [Synthroid] 50 mcg PO DAILY 07/17/15 [History] Metoprolol Succinate [Toprol XL] 25 tab PO DAILY 07/17/15 [History] Miconazole [Miconazole 2% Crm] 1 dose TOP BID 07/17/15 [History] Simvastatin [Zocor] 40 mg PO DAILY 07/17/15 [History] hydrOXYzine HCL [Atarax] 25 mg PO QID PRN 07/17/15 [History] ziprasidone HCL [Geodon] 120 mg PO BEDTIME 07/17/15 [History] Cholecalciferol (Vitamin D3) [Vitamin D3] 2,000 unit PO DAILY 11/03/17 [History] Clotrimazole [Clotrimazole 1%] 1 applic TOP BID 11/03/17 [History] Fesoterodine Fumarate [Toviaz] 8 mg PO DAILY 11/03/17 [History] Furosemide [Lasix] 1 - 2 tab PO DAILY PRN 11/03/17 [History] LORazepam [Ativan] 1 tab PO TID PRN 11/03/17 [History] Multivitamin [Multi-Vitamin Daily] 1 tab PO DAILY 11/03/17 [History] Ranitidine HCl [Zantac] 150 mg PO DAILY 11/03/17 [History] Sertraline HCl [Zoloft] 200 mg PO DAILY 11/03/17 [History] Warfarin [Coumadin] 5 mg PO ASDIRECTED 11/03/17 [History] metFORMIN HCl [Metformin HCl] 500 mg PO BID 11/03/17 [History] metOLazone [Zaroxolyn] 2.5 tab PO ASDIRECTED 11/03/17 [History] polyethylene glycoL 3350 [Miralax] 1 pack PO DAILY 11/03/17 [History] Vitamin B Complex [B Complex] 1 each PO DAILY 01/27/18 [History] ziprasidone HCL [Geodon] 40 mg PO DAILY PRN 01/27/18 [History] Ascorbic Acid [Vitamin C] 100 mg PO DAILY 06/09/19 [History] Calcium Carb/D3/Magnesium/Zinc [Luis Mag Zinc + D Tablet] 1 each PO DAILY 06/09/19 [History] Clindamycin Phosphate 1 applic TOP BID 06/09/19 [History] Desonide 1 applic TOP DAILY 06/09/19 [History] Magnesium Oxide 400 mg PO DAILY 06/09/19 [History] Spironolactone [Aldactone] 25 mg PO DAILY 06/09/19 [History] Enoxaparin [Lovenox] 120 mg SUBCUT DAILY 08/15/19 [History] Doxycycline [Vibramycin] 100 mg PO DAILY 30 Days #30 cap 08/30/19 [Rx] Past Medical History HEENT History: Reports: Cataract, Impaired Vision Cardiovascular History: Reports: High Cholesterol, Hypertension Respiratory History: Reports: PE, Sleep Apnea Gastrointestinal History: Reports: Chronic Constipation, Colon Polyp, GERD, Hiatal Hernia, Other (See Below) Other Gastrointestinal History: abdominal hernia Genitourinary History: Reports: BPH, Prostate Disorder, Urinary Incontinence Other Genitourinary History: patient states "swollen prostate". Musculoskeletal History: Reports: Fracture, Gout, Osteoarthritis Other Musculoskeletal History: left shoulder pain Neurological History: Reports: Vertigo Psychiatric History: Reports: Antisocial Behaviors, Anxiety, Hallucinations, Panic Attack, Schizophrenia Endocrine/Metabolic History: Reports: Diabetes, Type II, Hypothyroidism, Obesity/BMI 30+ Hematologic History: Reports: None Immunologic History: Reports: None Oncologic (Cancer) History: Reports: None Dermatologic History: Reports: Eczema, Psoriasis, Seborrheic Dermatitis - Infectious Disease History Infectious Disease History: Reports: Chicken Pox, Measles, Shingles - Past Surgical History Head Surgeries/Procedures: Reports: None HEENT Surgical History: Reports: None Cardiovascular Surgical History: Reports: None Respiratory Surgical History: Reports: None GI Surgical History: Reports: Colonoscopy, EGD, Hernia, Abdominal, Hernia, Inguinal Male Surgical History: Reports: TURP-Transurethral Resection of Prostate Endocrine Surgical History: Reports: None Neurological Surgical History: Reports: None Musculoskeletal Surgical History: Reports: Shoulder Replacement Other Musculoskeletal Surgeries/Procedures:: revision left total shoulder 08/15/19 Dermatological Surgical History: Reports: None Social & Family History - Family History Family Medical History: No Pertinent Family History - Tobacco Use Tobacco Use Status *Q: Never Tobacco User - Caffeine Use Caffeine Use: Reports: None - Recreational Drug Use Recreational Drug Use: No ED ROS GENERAL - Review of Systems Review Of Systems: See Below Constitutional: Reports: No Symptoms HEENT: Reports: No Symptoms Respiratory: Reports: No Symptoms Cardiovascular: Reports: No Symptoms GI/Abdominal: Reports: No Symptoms Neurological: Reports: No Symptoms ED EXAM, GENERAL - Physical Exam Exam: See Below Exam Limited By: No Limitations General Appearance: Alert, WD/WN, No Apparent Distress, Other (Orientated x3) Respiratory/Chest: No Respiratory Distress Neurological: Oriented Course - Vital Signs Last Recorded V/S: Last Vital Signs Temp 97.9 F 07/06/20 12:46 Pulse 117 H 07/06/20 12:46 Resp 16 07/06/20 12:46 BP 120/82 07/06/20 12:46 Pulse Ox 98 07/06/20 12:46 Departure - Departure Time of Disposition: 13:06 Disposition: Home, Self-Care 01 Condition: Fair Clinical Impression: Medication care plan discussed with patient - Discharge Information Referrals: Jourdan Frasre MD [Primary Care Provider] - Additional Instructions: Please report to your primary care at 130 take your current medication list and all your pills from home so the Drs. Fraser can help set up your medications Sepsis Event Note (ED) - Evaluation Sepsis Screening Result: No Definite Risk - Focused Exam Vital Signs: Vital Signs Temp Pulse Resp BP Pulse Ox 07/06/20 12:46 97.9 F 117 H 16 120/82 98 07/06/20 12:45 97.9 F 117 H 16 120/82 98 - Assessment/Plan Plan: Assessment Acuity = acute Site and laterality = confusion about medication list Etiology = poor discharge planning Manifestations = none Location of injury = Home Lab values = none Plan We did update his medication list he has a correct list he is can report to his primary care at 130 today with all of his medications from home and they are going to set up his pillboxes This note was dictated using [employer] voice recognition software please call with any questions on syntax or grammar.
== END 2020-07-06 13:19 | disposition home or self-care (01) ==
LOC: JP.ED 12:26
DX: I10 Essential (primary) hypertension (principal); E78.00 Pure hypercholesterolemia, unspecified; E11.9 Type 2 diabetes mellitus without complications; E03.9 Hypothyroidism, unspecified; F41.9 Anxiety disorder, unspecified; F20.9 Schizophrenia, unspecified; E66.9 Obesity, unspecified; Z68.35 Body mass index [BMI] 35.0-35.9, adult; Z88.8 Allergy status to other drugs, medicaments and biological substances; Z79.899 Other long term (current) drug therapy
CPT/HCPCS: 99281

== ENCOUNTER 2020-07-06 20:23 | Emergency (ER) | payer MEDICAID ==
--- NOTE | 2020-07-06 20:29 | EDM.PDOC ---
ED HPI GENERAL MEDICAL PROBLEM - General Chief Complaint: General Stated Complaint: MEDICAL [facility] Time Seen by Provider: 07/06/20 20:29 Source of Information: Reports: Patient, EMS History Limitations: Reports: No Limitations - History of Present Illness INITIAL COMMENTS - FREE TEXT/NARRATIVE: 65-year-old male who was seen 9 days ago for confusion, a thorough work-up was done for stroke which was negative. He still is having some persistent confusion and was seen earlier in the emergency room with some medication issues. He went over to see his primary provider and some blood was drawn, he was called [facility] and told to come into the emergency room because he had a critical value. Apparently his potassium returned 2.4. 9 days ago when he was in the emergency room it was 3.4, but he has been feeling constipated and taking laxatives over the past several days and according to his sister he has had loose stools. He really does not have any personal complaints. Onset: Unknown/Unsure Associated Symptoms: Reports: Confusion (Confusion has been ongoing for several weeks), Other (Patient has been treating constipation at home with laxatives) - Related Data Allergies Allergy/AdvReac Type Severity Reaction Status Date / Time buspirone HCl [From BuSpar] AdvReac Nausea Verified 07/06/20 20:27 Home Meds: Home Meds Benztropine [Cogentin] 1 mg PO BID 07/17/15 [History] Finasteride 5 mg PO DAILY 07/17/15 [History] Levothyroxine [Synthroid] 50 mcg PO DAILY 07/17/15 [History] Metoprolol Succinate [Toprol XL] 25 tab PO DAILY 07/17/15 [History] Simvastatin [Zocor] 40 mg PO DAILY 07/17/15 [History] hydrOXYzine HCL [Atarax] 25 mg PO QID PRN 07/17/15 [History] Cholecalciferol (Vitamin D3) [Vitamin D3] 2,000 unit PO DAILY 11/03/17 [History] Clotrimazole [Clotrimazole 1%] 1 applic TOP BID 11/03/17 [History] Fesoterodine Fumarate [Toviaz] 8 mg PO DAILY 11/03/17 [History] Furosemide [Lasix] 1 - 2 tab PO DAILY PRN 11/03/17 [History] LORazepam [Ativan] 1 tab PO TID PRN 11/03/17 [History] Sertraline HCl [Zoloft] 200 mg PO DAILY 11/03/17 [History] Warfarin [Coumadin] 5 mg PO ASDIRECTED 11/03/17 [History] metFORMIN HCl [Metformin HCl] 500 mg PO DAILY 11/03/17 [History] metOLazone [Zaroxolyn] 2.5 tab PO ASDIRECTED 11/03/17 [History] polyethylene glycoL 3350 [Miralax] 1 pack PO DAILY 11/03/17 [History] Vitamin B Complex [B Complex] 1 each PO DAILY 01/27/18 [History] Calcium Carb/D3/Magnesium/Zinc [Luis Mag Zinc + D Tablet] 1 each PO DAILY 06/09/19 [History] Magnesium Oxide 400 mg PO DAILY 06/09/19 [History] ARIPiprazole [Aripiprazole] 2.5 mg PO DAILY 07/06/20 [History] Lumateperone Tosylate [Caplyta] 42 mg PO WITHDINNER 07/06/20 [History] Potassium Chloride 20 meq PO QAM #14 tab.er.prt 07/06/20 [Rx] Spironolactone [Aldactone] 25 mg PO BID 07/06/20 [History] Past Medical History HEENT History: Reports: Cataract, Impaired Vision Cardiovascular History: Reports: High Cholesterol, Hypertension Respiratory History: Reports: PE, Sleep Apnea Gastrointestinal History: Reports: Chronic Constipation, Colon Polyp, GERD, Hiatal Hernia, Other (See Below) Other Gastrointestinal History: abdominal hernia Genitourinary History: Reports: BPH, Prostate Disorder, Urinary Incontinence Other Genitourinary History: patient states "swollen prostate". Musculoskeletal History: Reports: Fracture, Gout, Osteoarthritis Other Musculoskeletal History: left shoulder pain Neurological History: Reports: Vertigo Psychiatric History: Reports: Antisocial Behaviors, Anxiety, Hallucinations, Panic Attack, Schizophrenia Endocrine/Metabolic History: Reports: Diabetes, Type II, Hypothyroidism, Obesity/BMI 30+ Hematologic History: Reports: None Immunologic History: Reports: None Oncologic (Cancer) History: Reports: None Dermatologic History: Reports: Eczema, Psoriasis, Seborrheic Dermatitis - Infectious Disease History Infectious Disease History: Reports: Chicken Pox, Measles, Shingles - Past Surgical History Head Surgeries/Procedures: Reports: None HEENT Surgical History: Reports: None Cardiovascular Surgical History: Reports: None Respiratory Surgical History: Reports: None GI Surgical History: Reports: Colonoscopy, EGD, Hernia, Abdominal, Hernia, Inguinal Male Surgical History: Reports: TURP-Transurethral Resection of Prostate Endocrine Surgical History: Reports: None Neurological Surgical History: Reports: None Musculoskeletal Surgical History: Reports: Shoulder Replacement Other Musculoskeletal Surgeries/Procedures:: revision left total shoulder 08/15/19 Dermatological Surgical History: Reports: None Social & Family History - Family History Family Medical History: No Pertinent Family History - Caffeine Use Caffeine Use: Reports: None ED ROS GENERAL - Review of Systems Review Of Systems: See Below Constitutional: Denies: Fever, Chills, Malaise Respiratory: Denies: Shortness of Breath Cardiovascular: Denies: Chest Pain, Palpitations GI/Abdominal: Reports: Constipation : Reports: No Symptoms Neurological: Denies: Dizziness, Headache ED EXAM, GENERAL - Physical Exam Exam: See Below Exam Limited By: No Limitations General Appearance: Alert, No Apparent Distress Head: Atraumatic Respiratory/Chest: No Respiratory Distress, Lungs Clear Cardiovascular: Regular Rate, Rhythm Neurological: Alert, Oriented Psychiatric: Normal Affect, Normal Mood Skin Exam: Warm, Dry Course - Vital Signs Last Recorded V/S: Last Vital Signs Temp 95.5 F L 07/06/20 20:45 Pulse 85 07/06/20 21:50 Resp 19 07/06/20 21:50 BP 126/77 07/06/20 21:50 Pulse Ox 94 L 07/06/20 21:50 - Orders/Labs/Meds Labs: Laboratory Tests 07/06/20 Range/Units 20:28 Sodium 128 L (140-148) mmol/L Potassium 2.5 L* (3.6-5.2) mmol/L Chloride 87 L (100-108) mmol/L Carbon Dioxide 28 (21-32) mmol/L Anion Gap 15.5 H (5.0-14.0) mmol/L BUN 44 H D (7-18) mg/dL Creatinine 1.5 H (0.8-1.3) mg/dL Est Cr Clr Drug Dosing 49.10 mL/min Estimated GFR (MDRD) 47 L (>60) Glucose 120 H (74-106) mg/dL Calcium 9.2 (8.5-10.1) mg/dL Meds: Medications Discontinued Medications Generic Name Dose Route Start Last Admin Trade Name Freq PRN Reason Stop Dose Admin Potassium Chloride 20 meq/ 100 mls @ 50 mls/hr 07/06/20 21:06 07/06/20 21:16 Premix IV 07/06/20 23:05 50 mls/hr ONETIME ONE Administration Lidocaine HCl 2 ml 07/06/20 21:08 07/06/20 21:16 Xylocaine-Mpf 1% INJECT 07/06/20 21:09 2 ml ONETIME ONE Administration Potassium Chloride 20 meq 07/06/20 21:06 07/06/20 21:15 Klor-Con M20 PO 07/06/20 21:07 20 meq ONETIME ONE Administration Potassium Chloride 20 meq 07/06/20 23:10 07/06/20 23:14 Klor-Con M20 PO 07/06/20 23:11 20 meq ONETIME ONE Administration - Re-Assessments/Exams Free Text/Narrative Re-Assessment/Exam: 07/06/20 23:23 Patient was placed on cardiac monitoring and he is in a normal sinus rhythm without any obvious T wave abnormalities. He was kept on cardiac monitoring for 2 hours and had no ectopic or irregular rhythms. His potassium was redrawn for accuracy, it was 2.5. He was given 20 mEq orally of potassium, 20 mEq of IV potassium over 2 hours, and an additional 20 mEq orally prior to discharge. He had no symptoms while in the emergency room. 14 20 mEq doses were sent electronically to [facility] which he will fill tomorrow and take 1 daily until his potassium is rechecked next week at his primary care office. I encouraged the patient not to take any more laxatives as I think it is driving down his potassium level. He can return to the emergency room at any time if he develops palpitations, shortness of breath, chest pain, nausea or vomiting or other concerns. Departure - Departure Time of Disposition: 23:28 Disposition: Home, Self-Care 01 Clinical Impression: Hypokalemia - Discharge Information Prescriptions: Potassium Chloride 20 meq PO QAM #14 tab.er.prt Instructions: Hypokalemia Referrals: PCP,None [Primary Care Provider] - Forms: ED Department Discharge Care Plan Goals: Fill your potassium prescription tomorrow at [facility] and take 1 daily until you recheck with Dr. Fraser next week to recheck your potassium level. This can be done any day next week that he can fill you in for a recheck. Continue your other medications. Avoid any further laxatives while replacing your potassium. Return to the emergency room if any concerns or new symptoms such as chest pain or shortness of breath. Sepsis Event Note (ED) - Focused Exam Vital Signs: Vital Signs Temp Pulse Resp BP Pulse Ox 07/06/20 21:50 85 19 126/77 94 L 07/06/20 20:45 95.5 F L 88 20 139/74 97
[2020-07-06] MEDS ORDERED: Potassium Chloride 20 MEQ in Premix Bag 1 BAG IV ONE (21:06)
[2020-07-06] MEDS ORDERED: Potassium Chloride 20 MEQ Tab.ER PO ONE ×2 (21:06→23:10)
[2020-07-06 22:09] VITALS: BP 126/77; PULSE 85
== END 2020-07-06 23:33 | disposition home or self-care (01) ==
LOC: JP.ED 20:23
DX: E87.6 Hypokalemia (principal); I10 Essential (primary) hypertension; E78.00 Pure hypercholesterolemia, unspecified; F41.9 Anxiety disorder, unspecified; F20.9 Schizophrenia, unspecified; E11.9 Type 2 diabetes mellitus without complications; E03.9 Hypothyroidism, unspecified; E66.9 Obesity, unspecified; Z68.32 Body mass index [BMI] 32.0-32.9, adult; Z88.8 Allergy status to other drugs, medicaments and biological substances; Z79.899 Other long term (current) drug therapy
CPT/HCPCS: 36415; 80048; 96365; 96366; 99285; A9270; J2001; J3480

== ENCOUNTER 2020-07-24 13:13 | Inpatient (IN) | payer MEDICARE ==
[2020-07-24] MEDS ORDERED: Sodium Chloride 0.9% 10 ML Syringe FLUSH PRN ×2 (14:08→16:26)
--- NOTE | 2020-07-24 14:41 | EDM.PDOC ---
ED HPI GENERAL MEDICAL PROBLEM - General Chief Complaint: General Stated Complaint: LOSS OF APPETITE,WEAK Time Seen by Provider: 07/24/20 13:43 Source of Information: Reports: Patient, Family History Limitations: Reports: Other (poor historian) - History of Present Illness INITIAL COMMENTS - FREE TEXT/NARRATIVE: patient presents to ER today at request of his mental health provider (who called several hours ago to alert ER she was requesting him to come to ER for evaluation due to her concern about reported weakness/poor appetite/decreased ability to get around at home). Patient is a very poor historian and really can not give me much information about why he is here today. His sister (is also very limited and does not provide much more information than already known) states that she feels he is somewhat incoherent/confused the last couple of days, difficulty walking and decreased eating. although on further questioning regarding his eating this may be related to his teeth/dentures as she states if soft foods that can be mashed or soups he can eat just fine but when I point out his dry tongue she states he won't drink much because he's up during the night to the bathroom. the sister lives next door, he lives with his younger brother. patient does not provide his primary care but per sister relies on his siblings for his ADLs as well as assistance getting around house and his meals. PMH (as per EMR/medication list)--HTN, HLP, ELEANOR, DM2, GERD, Obesity, depression/anxiety/MH disorders otherwise unknown, hypothyroidism, constipation, BPH, chronic anticoagulation Meds--aripirazole, cogentin, toviaz, zoloft, potassium, magnesium, toprol, caplyta, syntorid, ativan, lasix, finasteride, calcium, vit D, colace, miralax, zaroxolyn, metformin, atarax, coumadin, B-complex, aldactone, zocor Allergies--buspirone - Related Data Allergies Allergy/AdvReac Type Severity Reaction Status Date / Time buspirone HCl [From BuSpar] AdvReac Nausea Verified 07/06/20 20:27 Home Meds: Home Meds Benztropine [Cogentin] 1 mg PO BID 07/17/15 [History] Finasteride 5 mg PO DAILY 07/17/15 [History] Levothyroxine [Synthroid] 50 mcg PO DAILY 07/17/15 [History] Metoprolol Succinate [Toprol XL] 25 tab PO DAILY 07/17/15 [History] Simvastatin [Zocor] 40 mg PO DAILY 07/17/15 [History] hydrOXYzine HCL [Atarax] 25 mg PO QID PRN 07/17/15 [History] Cholecalciferol (Vitamin D3) [Vitamin D3] 2,000 unit PO DAILY 11/03/17 [History] Clotrimazole [Clotrimazole 1%] 1 applic TOP BID 11/03/17 [History] Fesoterodine Fumarate [Toviaz] 8 mg PO DAILY 11/03/17 [History] Furosemide [Lasix] 1 - 2 tab PO DAILY PRN 11/03/17 [History] LORazepam [Ativan] 1 tab PO TID PRN 11/03/17 [History] Sertraline HCl [Zoloft] 200 mg PO DAILY 11/03/17 [History] Warfarin [Coumadin] 5 mg PO ASDIRECTED 11/03/17 [History] metFORMIN HCl [Metformin HCl] 500 mg PO DAILY 11/03/17 [History] metOLazone [Zaroxolyn] 2.5 tab PO ASDIRECTED 11/03/17 [History] polyethylene glycoL 3350 [Miralax] 1 pack PO DAILY 11/03/17 [History] Vitamin B Complex [B Complex] 1 each PO DAILY 01/27/18 [History] Calcium Carb/D3/Magnesium/Zinc [Luis Mag Zinc + D Tablet] 1 each PO DAILY 06/09/19 [History] Magnesium Oxide 400 mg PO DAILY 06/09/19 [History] ARIPiprazole [Aripiprazole] 2.5 mg PO DAILY 07/06/20 [History] Lumateperone Tosylate [Caplyta] 42 mg PO WITHDINNER 07/06/20 [History] Potassium Chloride 20 meq PO QAM #14 tab.er.prt 07/06/20 [Rx] Spironolactone [Aldactone] 25 mg PO BID 07/06/20 [History] Docusate Sodium [Dulcolax Stool Softener] 100 mg PO DAILY 07/24/20 [History] Past Medical History HEENT History: Reports: Cataract, Impaired Vision Cardiovascular History: Reports: High Cholesterol, Hypertension Respiratory History: Reports: PE, Sleep Apnea Gastrointestinal History: Reports: Chronic Constipation, Colon Polyp, GERD, Hiatal Hernia, Other (See Below) Other Gastrointestinal History: abdominal hernia Genitourinary History: Reports: BPH, Prostate Disorder, Urinary Incontinence Other Genitourinary History: patient states "swollen prostate". Musculoskeletal History: Reports: Fracture, Gout, Osteoarthritis Other Musculoskeletal History: left shoulder pain Neurological History: Reports: Vertigo Psychiatric History: Reports: Antisocial Behaviors, Anxiety, Hallucinations, Panic Attack, Schizophrenia Endocrine/Metabolic History: Reports: Diabetes, Type II, Hypothyroidism, Obesity/BMI 30+, Vitamin D Deficiency Hematologic History: Reports: Anticoagulation Therapy Immunologic History: Reports: None Oncologic (Cancer) History: Reports: None Dermatologic History: Reports: Eczema, Psoriasis, Seborrheic Dermatitis - Infectious Disease History Infectious Disease History: Reports: Chicken Pox, Measles, Shingles - Past Surgical History Head Surgeries/Procedures: Reports: None HEENT Surgical History: Reports: None Cardiovascular Surgical History: Reports: None Respiratory Surgical History: Reports: None GI Surgical History: Reports: Colonoscopy, EGD, Hernia, Abdominal, Hernia, Inguinal Male Surgical History: Reports: TURP-Transurethral Resection of Prostate Endocrine Surgical History: Reports: None Neurological Surgical History: Reports: None Musculoskeletal Surgical History: Reports: Shoulder Replacement Other Musculoskeletal Surgeries/Procedures:: revision left total shoulder 08/15/19 Dermatological Surgical History: Reports: None Social & Family History - Family History Family Medical History: No Pertinent Family History - Tobacco Use Tobacco Use Status *Q: Former Tobacco User Used Tobacco, but Quit: Yes Month/Year Tobacco Last Used: 08/1973 - Caffeine Use Caffeine Use: Reports: None ED ROS GENERAL - Review of Systems Review Of Systems: See Below Reason Not Obtained: poor historian, patient unable to provide complaints-see HPI ED EXAM, GENERAL - Physical Exam Exam: See Below Exam Limited By: Other (poor historian) General Appearance: Alert, No Apparent Distress Eye Exam: Bilateral Eye: EOMI, Normal Inspection, PERRL Ears: Normal External Exam, Hearing Grossly Normal, Normal TMs Nose: Normal Inspection Throat/Mouth: Normal Inspection, Normal Lips, Other (dry mucosa/tongue) Head: Atraumatic, Normocephalic Neck: Normal Inspection, Supple, Non-Tender, Full Range of Motion. No: Lymphadenopathy (R), Lymphadenopathy (L) Respiratory/Chest: No Respiratory Distress, Lungs Clear, Normal Breath Sounds, No Accessory Muscle Use Cardiovascular: Normal Peripheral Pulses, Regular Rate, Rhythm, No Edema, No Murmur Peripheral Pulses: 2+: Radial (L), Radial (R) GI/Abdominal: Normal Bowel Sounds, Soft, Non-Tender, No Distention (Male) Exam: Deferred Rectal (Males) Exam: Deferred Back Exam: Other (mild thoracic kyphosis). No: Paraspinal Tenderness, Vertebral Tenderness Extremities: No Pedal Edema, Normal Capillary Refill, Limited Range of Motion (gait was observed, slow steady with assistance of DIRECTOR OF OPERATIONS back from BR to bed with some assistance) Neurological: Alert, Oriented, Slow to Respond, Other (gait was observed, slow steady with assistance of DIRECTOR OF OPERATIONS back from BR to bed with some assistance) Psychiatric: Normal Affect, Normal Mood Skin Exam: Warm, Dry, Intact, Normal Color #1 Interpretation EKG Date: 07/24/20 Time: 14:13 (read @ 1416 no STEMI) Rhythm: NSR Rate (Beats/Min): 77 Hasty: Normal P-Wave: Present (DE 165) QRS: Other (QRS-127, nonspecific intraventricular conduction delay) ST-T: Depressed (anterior lateral depressed, minimaly I, aVL V2-6) QT: Normal (QT/QTc-512/580) Course - Vital Signs Text/Narrative:: 1448--received call from lab regarding critical labs Na-119 & K-2.5. will start IVF re-hydration and replace K; add Mag to labs; Head CT final report noted for no acute process 1500--d/w patient and sister at bedside today's ER findings and recommendation for admission at this time. verbalized understanding/agreement with plan of care 1525--call placed to hospitalist for admission, awaiting call back 1555--recieved call back from Dr Collins, Hospitalist. case was discussed and he accepts at this time for admission Last Recorded V/S: Last Vital Signs Temp 96.4 F L 07/24/20 14:08 Pulse 83 07/24/20 15:23 Resp 16 07/24/20 14:08 BP 91/65 07/24/20 15:23 Pulse Ox 96 07/24/20 15:23 - Orders/Labs/Meds Orders: Active Orders 24 hr Category Date Time Status EKG Documentation Completion [RC] ASDIRECTED Care 07/24/20 14:06 Active Magnesium Sulfate/Water [Magnesium Sulfate in Water Med 07/24/20 15:21 Active Premix] 2 gm in 50 ml IV ONETIME Potassium Chloride [KCL 20 MEQ in Water 100 ML] 20 meq Med 07/24/20 14:55 Active Premix Bag 1 bag IV ONETIME Potassium Chloride [Klor-Con M20] Med 07/24/20 15:54 Once 40 meq PO ONETIME ONE Sodium Chloride 0.9% [Normal Saline] 1,000 ml Med 07/24/20 15:00 Active IV ASDIRECTED Sodium Chloride 0.9% [Saline Flush] Med 07/24/20 14:08 Active 10 ml FLUSH ASDIRECTED PRN Saline Lock Insert [OM.PC] Routine Oth 07/24/20 14:08 Ordered EKG 12 Lead [EK] Routine Ther 07/24/20 14:06 Ordered Medication Orders Sodium Chloride (Normal Saline) 1,000 mls @ 125 mls/hr IV ASDIRECTED KENNEDY Last Admin: 07/24/20 15:20 Dose: 125 mls/hr Documented by: [id number] Potassium Chloride 20 meq/ (Premix) 100 mls @ 50 mls/hr IV ONETIME ONE Stop: 07/24/20 16:54 Last Admin: 07/24/20 15:20 Dose: 50 mls/hr Documented by: [id number] Magnesium Sulfate (Magnesium Sulfate In Water Premix) 2 gm in 50 mls @ 25 mls/hr IV ONETIME ONE Stop: 07/24/20 17:20 Last Admin: 07/24/20 15:46 Dose: 25 mls/hr Documented by: [id number] Potassium Chloride (Klor-Con M20) 40 meq PO ONETIME ONE Stop: 07/24/20 15:55 Sodium Chloride (Saline Flush) 10 ml FLUSH ASDIRECTED PRN PRN Reason: Keep Vein Open Last Admin: 07/24/20 14:21 Dose: 10 ml Documented by: [id number] Labs: Laboratory Tests 07/24/20 07/24/20 07/24/20 Range/Units 14:18 14:18 14:18 WBC 13.7 H (4.5-11.0) K/uL RBC 4.80 (4.30-5.90) M/uL Hgb 12.8 (12.0-15.0) g/dL Hct 37.3 L (40.0-54.0) % MCV 78 L (80-98) fL MCH 27 (27-31) pg MCHC 34 (32-36) % Plt Count 294 (150-400) K/uL Neut % (Auto) 82 H (36-66) % Lymph % (Auto) 9 L (24-44) % [place] % (Auto) 9 H (2-6) % Eos % (Auto) 0 L (2-4) % Baso % (Auto) 0 (0-1) % Sodium 119 L* (140-148) mmol/L Potassium 2.5 L* (3.6-5.2) mmol/L Chloride 75 L (100-108) mmol/L Carbon Dioxide 35 H (21-32) mmol/L Anion Gap 11.5 (5.0-14.0) mmol/L BUN 31 H (7-18) mg/dL Creatinine 1.3 (0.8-1.3) mg/dL Est Cr Clr Drug Dosing 56.65 mL/min Estimated GFR (MDRD) 55 L (>60) Glucose 120 H (74-106) mg/dL Calcium 9.7 (8.5-10.1) mg/dL Magnesium (1.8-2.4) mg/dL Total Bilirubin 0.6 D (0.2-1.0) mg/dL AST 30 (15-37) U/L ALT 26 (12-78) U/L Alkaline Phosphatase 91 (46-116) U/L Troponin I < 0.017 (0.000-0.056) ng/mL NT-Pro-B Natriuret Pep (5-125) pg/mL Total Protein 8.1 (6.4-8.2) g/dL Albumin 3.7 (3.4-5.0) g/dL Globulin 4.4 H (2.3-3.5) g/dL Albumin/Globulin Ratio 0.8 L (1.2-2.2) Urine Color (YELLOW) Urine Appearance (CLEAR) Urine pH (5.0-8.0) Ur Specific Howard (1.008-1.030) Urine Protein (NEGATIVE) mg/dL Urine Glucose (UA) (NEGATIVE) mg/dL Urine Ketones (NEGATIVE) mg/dL Urine Occult Blood (NEGATIVE) Urine Nitrite (NEGATIVE) Urine Bilirubin (NEGATIVE) Urine Urobilinogen (0.2-1.0) EU/dL Ur Leukocyte Esterase (NEGATIVE) Urine RBC (0-5) Urine WBC (0-5) Ur Epithelial Cells Amorphous Sediment Urine Bacteria Urine Mucus 07/24/20 07/24/20 07/24/20 Range/Units 14:18 14:18 15:36 WBC (4.5-11.0) K/uL RBC (4.30-5.90) M/uL Hgb (12.0-15.0) g/dL Hct (40.0-54.0) % MCV (80-98) fL MCH (27-31) pg MCHC (32-36) % Plt Count (150-400) K/uL Neut % (Auto) (36-66) % Lymph % (Auto) (24-44) % [place] % (Auto) (2-6) % Eos % (Auto) (2-4) % Baso % (Auto) (0-1) % Sodium (140-148) mmol/L Potassium (3.6-5.2) mmol/L Chloride (100-108) mmol/L Carbon Dioxide (21-32) mmol/L Anion Gap (5.0-14.0) mmol/L BUN (7-18) mg/dL Creatinine (0.8-1.3) mg/dL Est Cr Clr Drug Dosing mL/min Estimated GFR (MDRD) (>60) Glucose (74-106) mg/dL Calcium (8.5-10.1) mg/dL Magnesium 1.5 L (1.8-2.4) mg/dL Total Bilirubin (0.2-1.0) mg/dL AST (15-37) U/L ALT (12-78) U/L Alkaline Phosphatase (46-116) U/L Troponin I (0.000-0.056) ng/mL NT-Pro-B Natriuret Pep 155 H (5-125) pg/mL Total Protein (6.4-8.2) g/dL Albumin (3.4-5.0) g/dL Globulin (2.3-3.5) g/dL Albumin/Globulin Ratio (1.2-2.2) Urine Color Yellow (YELLOW) Urine Appearance Clear (CLEAR) Urine pH 6.5 (5.0-8.0) Ur Specific [place] 1.015 (1.008-1.030) Urine Protein Negative (NEGATIVE) mg/dL Urine Glucose (UA) Negative (NEGATIVE) mg/dL Urine Ketones Negative (NEGATIVE) mg/dL Urine Occult Blood Trace-intact H (NEGATIVE) Urine Nitrite Negative (NEGATIVE) Urine Bilirubin Negative (NEGATIVE) Urine Urobilinogen 0.2 (0.2-1.0) EU/dL Ur Leukocyte Esterase Negative (NEGATIVE) Urine RBC 0-5 (0-5) Urine WBC Not seen (0-5) Ur Epithelial Cells Not seen Amorphous Sediment Few Urine Bacteria Not seen Urine Mucus Not seen Meds: Medications Generic Name Dose Route Start Last Admin Trade Name Freq PRN Reason Stop Dose Admin Sodium Chloride 1,000 mls @ 125 mls/hr 07/24/20 15:00 07/24/20 15:20 Normal Saline IV 125 mls/hr ASDIRECTED KENNEDY Administration Potassium Chloride 20 meq/ 100 mls @ 50 mls/hr 07/24/20 14:55 07/24/20 15:20 Premix IV 07/24/20 16:54 50 mls/hr ONETIME ONE Administration Magnesium Sulfate 2 gm in 50 mls @ 25 mls/hr 07/24/20 15:21 07/24/20 15:46 Magnesium Sulfate In Water Premix IV 07/24/20 17:20 25 mls/hr ONETIME ONE Administration Potassium Chloride 40 meq 07/24/20 15:54 Klor-Con M20 PO 07/24/20 15:55 ONETIME ONE Sodium Chloride 10 ml 07/24/20 14:08 07/24/20 14:21 Saline Flush FLUSH 10 ml ASDIRECTED PRN Administration Keep Vein Open Departure - Departure Time of Disposition: 15:55 Disposition: Admitted As Inpatient 66 Clinical Impression: Generalized weakness, Hyponatremia, Hypomagnesemia, Hypokalemia, Leukocytosis, Dehydration - Discharge Information Referrals: Jourdan Fraser MD [Primary Care Provider] - Forms: ED Department Discharge Sepsis Event Note (ED) - Evaluation Sepsis Screening Result: No Definite Risk - Focused Exam Vital Signs: Vital Signs Temp Pulse Resp BP Pulse Ox 07/24/20 15:23 83 91/65 96 07/24/20 14:08 96.4 F L 88 16 123/77 97 07/24/20 13:56 88 16 123/77 97 07/24/20 13:32 96.4 F L 84 16 112/73 95 - My Orders Last 24 Hours: My Active Orders 07/24/20 14:06 EKG Documentation Completion [RC] ASDIRECTED EKG 12 Lead [EK] Routine 07/24/20 14:08 Sodium Chloride 0.9% [Saline Flush] 10 ml FLUSH ASDIRECTED PRN Saline Lock Insert [OM.PC] Routine 07/24/20 14:55 Potassium Chloride [KCL 20 MEQ in Water 100 ML] 20 meq Premix Bag 1 bag IV ONETIME 07/24/20 15:00 Sodium Chloride 0.9% [Normal Saline] 1,000 ml IV ASDIRECTED 07/24/20 15:21 Magnesium Sulfate/Water [Magnesium Sulfate in Water Premix] 2 gm in 50 ml IV ONETIME - Assessment/Plan Last 24 Hours: My Active Orders 07/24/20 14:06 EKG Documentation Completion [RC] ASDIRECTED EKG 12 Lead [EK] Routine 07/24/20 14:08 Sodium Chloride 0.9% [Saline Flush] 10 ml FLUSH ASDIRECTED PRN Saline Lock Insert [OM.PC] Routine 07/24/20 14:55 Potassium Chloride [KCL 20 MEQ in Water 100 ML] 20 meq Premix Bag 1 bag IV ONETIME 07/24/20 15:00 Sodium Chloride 0.9% [Normal Saline] 1,000 ml IV ASDIRECTED 07/24/20 15:21 Magnesium Sulfate/Water [Magnesium Sulfate in Water Premix] 2 gm in 50 ml IV ONETIME
--- NOTE | 2020-07-24 14:46 | CT ---
Head wo Cont CLINICAL HISTORY: Screening COMPARISON: June 2020 TECHNIQUE: Transverse scans were obtained from the base of the skull through the vertex without IV contrast on a multislice, multidetector CT scanner. Prescribed dose FINDINGS: No focal abnormal parenchymal density is identified. There is no mass effect, hemorrhage, or extraaxial collection. The basal cisterns and sulci over the convexities are prominent. The ventricles are mildly prominent. IMPRESSION: Mild age-related atrophy No acute intracranial findings
[2020-07-24] MEDS ORDERED: Potassium Chloride 20 MEQ in Premix Bag 1 BAG IV ONE (14:55)
--- NOTE | 2020-07-24 14:58 | CR ---
CHEST: Portable 07/24/2020 at 1431 CLINICAL HISTORY:Weakness COMPARISON:None FINDINGS: Heart size is upper limits of normal. There is mild vascular cephalization. This is exaggerated by portable level. There is mild generalized prominence the lung markings. This may be due to inspiration. IMPRESSION: Limited portable chest report for a level Borderline cardiomegaly with some mild vascular cephalization. This may represent some pulmonary venous hypertension.
[2020-07-24] MEDS ORDERED: Sodium Chloride 0.9% 1,000 ML IV SCH (15:00)
[2020-07-24] MEDS ORDERED: Magnesium Sulfate/Water 2 GM/50 ML BAG IV ONE (15:21)
--- NOTE | 2020-07-24 16:10 | PCM.HP.2 ---
H&P History of Present Illness - General Date of Service: 07/24/20 Admit Problem/Dx: Admission Diagnosis/Problem Admission Diagnosis/Problem Hyponatremia Source of Information: Patient, Old Records, Provider, RN Notes Reviewed History Limitations: Reports: No Limitations - History of Present Illness Initial Comments - Free Text/Narative: Mr. Apple is a 65-year-old gentleman who was admitted through the emergency department with progressive weakness and anorexia secondary to severe electrolyte abnormalities including hyponatremia, hypokalemia, and hypomagnesemia. He has struggled with electrolyte abnormalities for some time. Over the last 2 days has become progressively more weak with very poor appetite. He was seen and evaluated in the psychiatry clinic this morning and noted to be profoundly weak. He was referred to the emergency department for further evaluation and management. CT scan of the head obtained in the emergency department was unremarkable and there was no evidence of significant underlying infection. Sodium level was found to be low at 119, with a potassium level of 2.5, and a magnesium level of 1.5. - Related Data Allergies/Adverse Reactions: Allergies Allergy/AdvReac Type Severity Reaction Status Date / Time buspirone HCl [From BuSpar] AdvReac Nausea Verified 07/06/20 20:27 Home Medications: Home Meds Benztropine [Cogentin] 1 mg PO BID 07/17/15 [History] Finasteride 5 mg PO DAILY 07/17/15 [History] Levothyroxine [Synthroid] 50 mcg PO DAILY 07/17/15 [History] Metoprolol Succinate [Toprol XL] 25 tab PO DAILY 07/17/15 [History] Simvastatin [Zocor] 40 mg PO DAILY 07/17/15 [History] hydrOXYzine HCL [Atarax] 25 mg PO QID PRN 07/17/15 [History] Cholecalciferol (Vitamin D3) [Vitamin D3] 2,000 unit PO DAILY 11/03/17 [History] Clotrimazole [Clotrimazole 1%] 1 applic TOP BID 11/03/17 [History] Fesoterodine Fumarate [Toviaz] 8 mg PO DAILY 11/03/17 [History] Furosemide [Lasix] 1 - 2 tab PO DAILY PRN 11/03/17 [History] LORazepam [Ativan] 1 tab PO TID PRN 11/03/17 [History] Sertraline HCl [Zoloft] 200 mg PO DAILY 11/03/17 [History] Warfarin [Coumadin] 5 mg PO ASDIRECTED 11/03/17 [History] metFORMIN HCl [Metformin HCl] 500 mg PO DAILY 11/03/17 [History] metOLazone [Zaroxolyn] 2.5 tab PO ASDIRECTED 11/03/17 [History] polyethylene glycoL 3350 [Miralax] 1 pack PO DAILY 11/03/17 [History] Vitamin B Complex [B Complex] 1 each PO DAILY 01/27/18 [History] Calcium Carb/D3/Magnesium/Zinc [Luis Mag Zinc + D Tablet] 1 each PO DAILY 06/09/19 [History] Magnesium Oxide 400 mg PO DAILY 06/09/19 [History] ARIPiprazole [Aripiprazole] 2.5 mg PO DAILY 07/06/20 [History] Lumateperone Tosylate [Caplyta] 42 mg PO WITHDINNER 07/06/20 [History] Potassium Chloride 20 meq PO QAM #14 tab.er.prt 07/06/20 [Rx] Spironolactone [Aldactone] 25 mg PO BID 07/06/20 [History] Docusate Sodium [Dulcolax Stool Softener] 100 mg PO DAILY 07/24/20 [History] Past Medical History HEENT History: Reports: Cataract, Impaired Vision Cardiovascular History: Reports: High Cholesterol, Hypertension Respiratory History: Reports: PE, Sleep Apnea Gastrointestinal History: Reports: Chronic Constipation, Colon Polyp, GERD, Hiatal Hernia, Other (See Below) Other Gastrointestinal History: abdominal hernia Genitourinary History: Reports: BPH, Prostate Disorder, Urinary Incontinence Other Genitourinary History: patient states "swollen prostate". Musculoskeletal History: Reports: Fracture, Gout, Osteoarthritis Other Musculoskeletal History: left shoulder pain Neurological History: Reports: Vertigo Psychiatric History: Reports: Antisocial Behaviors, Anxiety, Hallucinations, Panic Attack, Schizophrenia Endocrine/Metabolic History: Reports: Diabetes, Type II, Hypothyroidism, Obesity/BMI 30+, Vitamin D Deficiency Hematologic History: Reports: Anticoagulation Therapy Immunologic History: Reports: None Oncologic (Cancer) History: Reports: None Dermatologic History: Reports: Eczema, Psoriasis, Seborrheic Dermatitis - Infectious Disease History Infectious Disease History: Reports: Chicken Pox, Measles, Shingles - Past Surgical History Head Surgeries/Procedures: Reports: None HEENT Surgical History: Reports: None Cardiovascular Surgical History: Reports: None Respiratory Surgical History: Reports: None GI Surgical History: Reports: Colonoscopy, EGD, Hernia, Abdominal, Hernia, Inguinal Male Surgical History: Reports: TURP-Transurethral Resection of Prostate Endocrine Surgical History: Reports: None Neurological Surgical History: Reports: None Musculoskeletal Surgical History: Reports: Shoulder Replacement Other Musculoskeletal Surgeries/Procedures:: revision left total shoulder 08/15/19 Dermatological Surgical History: Reports: None Social & Family History - Family History Family Medical History: No Pertinent Family History - Tobacco Use Tobacco Use Status *Q: Former Tobacco User Used Tobacco, but Quit: Yes Month/Year Tobacco Last Used: 08/1973 - Caffeine Use Caffeine Use: Reports: None H&P Review of Systems - Review of Systems: Review Of Systems: See Below General: Reports: Weakness, Fatigue, Decreased Appetite. Denies: Fever, Chills, Diaphoresis HEENT: Reports: No Symptoms Pulmonary: Reports: No Symptoms Cardiovascular: Reports: No Symptoms Gastrointestinal: Reports: No Symptoms Genitourinary: Reports: No Symptoms Musculoskeletal: Reports: No Symptoms Skin: Reports: No Symptoms Psychiatric: Reports: Hallucinations (Auditory), Hallucinations (Visual). Denies: Suicidal Ideation, Homicidal Ideation Neurological: Reports: Difficulty Walking, Weakness (Generalized). Denies: Confusion, Dizziness, Numbness, Paresthesia, Change in Speech Hematologic/Lymphatic: Reports: No Symptoms Immunologic: Reports: No Symptoms Exam - Exam Exam: See Below - Vital Signs Vital Signs: Last Vital Signs Temp 96.4 F L 07/24/20 14:08 Pulse 71 07/24/20 15:57 Resp 16 07/24/20 14:08 BP 102/71 07/24/20 15:57 Pulse Ox 96 07/24/20 15:57 Weight: 222 lb - Exam Quality Assessment: DVT Prophylaxis General: Alert, Oriented, Cooperative, Mild Distress HEENT: Conjunctiva Clear, Hearing Intact, Normal Nasal Septum, Posterior Pharynx Clear, Pupils Equal. No: Mucosa Moist & [place] Neck: Supple, Trachea Midline, +2 Carotid Pulse wo Bruit Lungs: Clear to Auscultation, Normal Respiratory Effort Cardiovascular: Regular Rate, Regular Rhythm, Normal S1, Normal S2. No: Systolic Murmur, Diastolic Murmur GI/Abdominal Exam: Soft, Non-Tender, No Organomegaly, No Distention Extremities: Non-Tender, No Pedal Edema Skin: Warm, Dry, Intact Neurological: Cranial Nerves Intact, Strength Equal Bilateral, Normal Speech, Normal Tone, Sensation Intact, Other (Generalized weakness). No: Focal Deficit - Patient Data Lab Results Last 24 hrs: Laboratory Results - last 24 hr 07/24/20 07/24/20 07/24/20 Range/Units 14:18 14:18 14:18 WBC 13.7 H (4.5-11.0) K/uL RBC 4.80 (4.30-5.90) M/uL Hgb 12.8 (12.0-15.0) g/dL Hct 37.3 L (40.0-54.0) % MCV 78 L (80-98) fL MCH 27 (27-31) pg MCHC 34 (32-36) % Plt Count 294 (150-400) K/uL Neut % (Auto) 82 H (36-66) % Lymph % (Auto) 9 L (24-44) % Mclean % (Auto) 9 H (2-6) % Eos % (Auto) 0 L (2-4) % Baso % (Auto) 0 (0-1) % Sodium 119 L* (140-148) mmol/L Potassium 2.5 L* (3.6-5.2) mmol/L Chloride 75 L (100-108) mmol/L Carbon Dioxide 35 H (21-32) mmol/L Anion Gap 11.5 (5.0-14.0) mmol/L BUN 31 H (7-18) mg/dL Creatinine 1.3 (0.8-1.3) mg/dL Est Cr Clr Drug Dosing 56.65 mL/min Estimated GFR (MDRD) 55 L (>60) Glucose 120 H (74-106) mg/dL Calcium 9.7 (8.5-10.1) mg/dL Magnesium (1.8-2.4) mg/dL Total Bilirubin 0.6 D (0.2-1.0) mg/dL AST 30 (15-37) U/L ALT 26 (12-78) U/L Alkaline Phosphatase 91 (46-116) U/L Troponin I < 0.017 (0.000-0.056) ng/mL NT-Pro-B Natriuret Pep (5-125) pg/mL Total Protein 8.1 (6.4-8.2) g/dL Albumin 3.7 (3.4-5.0) g/dL Globulin 4.4 H (2.3-3.5) g/dL Albumin/Globulin Ratio 0.8 L (1.2-2.2) Urine Color (YELLOW) Urine Appearance (CLEAR) Urine pH (5.0-8.0) Ur Specific [place] (1.008-1.030) Urine Protein (NEGATIVE) mg/dL Urine Glucose (UA) (NEGATIVE) mg/dL Urine Ketones (NEGATIVE) mg/dL Urine Occult Blood (NEGATIVE) Urine Nitrite (NEGATIVE) Urine Bilirubin (NEGATIVE) Urine Urobilinogen (0.2-1.0) EU/dL Ur Leukocyte Esterase (NEGATIVE) Urine RBC (0-5) Urine WBC (0-5) Ur Epithelial Cells Amorphous Sediment Urine Bacteria Urine Mucus 07/24/20 07/24/20 07/24/20 Range/Units 14:18 14:18 15:36 WBC (4.5-11.0) K/uL RBC (4.30-5.90) M/uL Hgb (12.0-15.0) g/dL Hct (40.0-54.0) % MCV (80-98) fL MCH (27-31) pg MCHC (32-36) % Plt Count (150-400) K/uL Neut % (Auto) (36-66) % Lymph % (Auto) (24-44) % Mclean % (Auto) (2-6) % Eos % (Auto) (2-4) % Baso % (Auto) (0-1) % Sodium (140-148) mmol/L Potassium (3.6-5.2) mmol/L Chloride (100-108) mmol/L Carbon Dioxide (21-32) mmol/L Anion Gap (5.0-14.0) mmol/L BUN (7-18) mg/dL Creatinine (0.8-1.3) mg/dL Est Cr Clr Drug Dosing mL/min Estimated GFR (MDRD) (>60) Glucose (74-106) mg/dL Calcium (8.5-10.1) mg/dL Magnesium 1.5 L (1.8-2.4) mg/dL Total Bilirubin (0.2-1.0) mg/dL AST (15-37) U/L ALT (12-78) U/L Alkaline Phosphatase (46-116) U/L Troponin I (0.000-0.056) ng/mL NT-Pro-B Natriuret Pep 155 H (5-125) pg/mL Total Protein (6.4-8.2) g/dL Albumin (3.4-5.0) g/dL Globulin (2.3-3.5) g/dL Albumin/Globulin Ratio (1.2-2.2) Urine Color Yellow (YELLOW) Urine Appearance Clear (CLEAR) Urine pH 6.5 (5.0-8.0) Ur Specific [place] 1.015 (1.008-1.030) Urine Protein Negative (NEGATIVE) mg/dL Urine Glucose (UA) Negative (NEGATIVE) mg/dL Urine Ketones Negative (NEGATIVE) mg/dL Urine Occult Blood Trace-intact H (NEGATIVE) Urine Nitrite Negative (NEGATIVE) Urine Bilirubin Negative (NEGATIVE) Urine Urobilinogen 0.2 (0.2-1.0) EU/dL Ur Leukocyte Esterase Negative (NEGATIVE) Urine RBC 0-5 (0-5) Urine WBC Not seen (0-5) Ur Epithelial Cells Not seen Amorphous Sediment Few Urine Bacteria Not seen Urine Mucus Not seen Result Diagrams: 07/24/20 14:18 07/24/20 14:18 Sepsis Event Note - Evaluation Sepsis Screening Result: No Definite Risk - Focused Exam Vital Signs: Vital Signs Temp Pulse Resp BP Pulse Ox 07/24/20 15:57 71 102/71 96 07/24/20 15:23 83 91/65 96 07/24/20 14:08 96.4 F L 88 16 123/77 97 07/24/20 13:56 88 16 123/77 97 07/24/20 13:32 96.4 F L 84 16 112/73 95 *Q Meaningful Use (ADM) - VTE Risk Assess *Q Each Risk Factor Represents 1 Point: Obesity ( BMI > 25 kg/m2) Total Score 1 Point Risk Factors: 1 Each Risk Factor Represents 2 Points: Age 60 - 74 Years Total Score 2 Point Risk Factors: 2 Each Risk Factor Represents 3 Points: None Total Score 3 Point Risk Factors: 0 Each Risk Factor Represents 5 Points: None Total Score 5 Point Risk Factors: 0 Venous Thromboembolism Risk Factor Score *Q: 3 Problem List Initiated/Reviewed/Updated: Yes Orders Last 24hrs: Active Orders 24 hr Category Date Time Status Patient Status Manage Transfer [TRANSFER] Routine ADT 07/24/20 15:55 Ordered EKG Documentation Completion [RC] ASDIRECTED Care 07/24/20 14:06 Active Magnesium Sulfate/Water [Magnesium Sulfate in Water Med 07/24/20 15:21 Active Premix] 2 gm in 50 ml IV ONETIME Potassium Chloride [KCL 20 MEQ in Water 100 ML] 20 meq Med 07/24/20 14:55 Active Premix Bag 1 bag IV ONETIME Potassium Chloride [Klor-Con M20] Med 07/24/20 16:15 Once 40 meq PO ONETIME ONE Sodium Chloride 0.9% [Normal Saline] 1,000 ml Med 07/24/20 15:00 Active IV ASDIRECTED Sodium Chloride 0.9% [Saline Flush] Med 07/24/20 14:08 Active 10 ml FLUSH ASDIRECTED PRN Saline Lock Insert [OM.PC] Routine Oth 07/24/20 14:08 Ordered Resuscitation Status Routine Resus Stat 07/24/20 16:03 Ordered EKG 12 Lead [EK] Routine Ther 07/24/20 14:06 Ordered Medication Orders Sodium Chloride (Normal Saline) 1,000 mls @ 125 mls/hr IV ASDIRECTED KENNEDY Last Admin: 07/24/20 15:20 Dose: 125 mls/hr Documented by: [email or web address] Potassium Chloride 20 meq/ (Premix) 100 mls @ 50 mls/hr IV ONETIME ONE Stop: 07/24/20 16:54 Last Admin: 07/24/20 15:20 Dose: 50 mls/hr Documented by: [id number] Magnesium Sulfate (Magnesium Sulfate In Water Premix) 2 gm in 50 mls @ 25 mls/hr IV ONETIME ONE Stop: 07/24/20 17:20 Last Admin: 07/24/20 15:46 Dose: 25 mls/hr Documented by: [email or web address] Potassium Chloride (Klor-Con M20) 40 meq PO ONETIME ONE Stop: 07/24/20 16:16 Sodium Chloride (Saline Flush) 10 ml FLUSH ASDIRECTED PRN PRN Reason: Keep Vein Open Last Admin: 07/24/20 14:21 Dose: 10 ml Documented by: VICKIE Assessment/Plan Comment:: ASSESSMENT AND PLAN GENERALIZED WEAKNESS-likely multifactorial related to severe electrolyte abnormalities and dehydration. -Correct underlying abnormalities HYPONATREMIA-likely associated with dehydration and diuretic use -IV normal saline -Closely monitor serial sodium levels HYPOKALEMIA-likely secondary to ongoing diuretic therapy and poor intake -IV and oral potassium replacement -Reassess potassium level later tonight and in a.m. HYPOMAGNESEMIA -IV and oral magnesium replacement -Reassess magnesium level in a.m. 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 At the time of this admission I do not reasonably expected evaluation and management of this problem will require more than a 96 hour hospital stay. DISPOSITION-anticipate discharge to home after the hospital stay. PRIMARY CARE PROVIDER-Drs. Fraser - Mortality Measure Prognosis:: Good
[2020-07-24] MEDS ORDERED: Potassium Chloride 20 MEQ Tab.ER PO ONE ×3 (16:15→22:22)
[2020-07-24] MEDS ORDERED: Glucose Gel 15 GM in 37.5 GM Tube PO PRN (16:26)
[2020-07-24] MEDS ORDERED: 50% Dextrose in Water 50 ML Syringe IV PRN (16:26)
[2020-07-24] MEDS ORDERED: Polyethylene Glycol 3350 Powder 17 GM Packet PO PRN (16:26)
[2020-07-24] MEDS ORDERED: Acetaminophen 325 MG Tab PO PRN (16:26)
[2020-07-24] MEDS ORDERED: LORazepam 2 MG/ML SDV IV PRN (16:26)
[2020-07-24] MEDS ORDERED: LUMATEPERONE TOSYLATE 42 MG PO SCH (17:00)
[2020-07-24] MEDS: Insulin Lispro 100 Unit/ML 3 ML KwikPen SUBCUT SCH ×2 (17:04→21:34)
[2020-07-24] MEDS: Magnesium Sulfate/Water 2 GM in Premix Bag 1 BAG IV SCH ×2 (17:29→22:12)
[2020-07-24] MEDS ORDERED: Pneumococcal Polyvalent-23 Vaccine 0.5 ML SDV SUBCUT ONE (17:32)
[2020-07-24] MEDS: Spironolactone 25 MG Tab PO SCH (21:35)
[2020-07-24] MEDS: Benztropine 1 MG Tab PO SCH (21:36)
[2020-07-24] MEDS: Simvastatin 20 MG Tab PO SCH (21:36)
[2020-07-24] MEDS: Magnesium Oxide 400 MG Tab PO SCH (21:36)
[2020-07-24] MEDS: Sodium Chloride 0.9% 1,000 ML IV SCH (23:26)
[2020-07-24] MEDS: Potassium Chloride 20 MEQ in Premix Bag 2 BAG IV SCH (23:46)
[2020-07-25] MEDS: Potassium Chloride 20 MEQ in Premix Bag 2 BAG IV SCH (01:53)
[2020-07-25] MEDS: Insulin Lispro 100 Unit/ML 3 ML KwikPen SUBCUT SCH ×4 (07:41→21:36)
[2020-07-25] MEDS: Levothyroxine 50 MCG Tab PO SCH (07:42)
[2020-07-25] MEDS: Sodium Chloride 0.9% 1,000 ML IV SCH (07:52)
[2020-07-25] MEDS ORDERED: Potassium Chloride 20 MEQ Tab.ER PO ONE ×3 (08:15→14:00)
[2020-07-25] MEDS: Sertraline 50 MG Tab PO SCH (09:32)
[2020-07-25] MEDS: Metoprolol Succinate 25 MG Tab.ER PO SCH (09:32)
[2020-07-25] MEDS: Benztropine 1 MG Tab PO SCH ×2 (09:35→21:40)
[2020-07-25] MEDS: Finasteride 5 MG Tab PO SCH (09:35)
[2020-07-25] MEDS: Docusate Sodium 100 MG Cap PO SCH (09:36)
[2020-07-25] MEDS: ARIPiprazole 10 MG Tab PO SCH (09:36)
[2020-07-25] MEDS: Trospium 20 MG Tab PO SCH ×2 (09:36→21:40)
[2020-07-25] MEDS: Magnesium Oxide 400 MG Tab PO SCH ×2 (09:36→21:40)
[2020-07-25] MEDS: metFORMIN 500 MG Tab PO SCH (09:36)
[2020-07-25] MEDS: Spironolactone 25 MG Tab PO SCH ×2 (09:37→21:40)
[2020-07-25] MEDS: Potassium Chloride 20 MEQ Tab.ER PO SCH (09:37)
[2020-07-25] MEDS: Polyethylene Glycol 3350 Powder 17 GM Packet PO SCH (09:37)
[2020-07-25] MEDS ORDERED: Warfarin 5 MG Tab PO SCH (13:00)
--- NOTE | 2020-07-25 13:27 | PCM.PN ---
- General Info Date of Service: 07/25/20 Subjective Update: Mr. Apple is somewhat improved with increase in energy and overall strength. Appetite is much better than it had been. Electrolyte abnormalities slowly correcting with current management. Functional Status: Reports: Tolerating Diet, Urinating. Denies: Ambulating - Review of Systems General: Reports: Weakness, Fatigue. Denies: Fever, Chills Pulmonary: Reports: No Symptoms Cardiovascular: Reports: No Symptoms Gastrointestinal: Reports: No Symptoms - Patient Data Vitals - Most Recent: Last Vital Signs Temp 96.8 F L 07/25/20 10:38 Pulse 67 07/25/20 10:38 Resp 16 07/25/20 10:38 BP 95/64 07/25/20 10:38 Pulse Ox 98 07/25/20 10:38 Weight - Most Recent: 206 lb I&O - Last 24 Hours: Intake & Output 07/24/20 07/25/20 07/25/20 22:59 06:59 14:59 Intake Total 716 337 4439 Output Total 350 1600 850 Balance 490 -1400 470 Lab Results Last 24 Hours: Laboratory Results - last 24 hr 07/24/20 07/24/20 07/24/20 Range/Units 14:18 14:18 14:18 WBC 13.7 H (4.5-11.0) K/uL RBC 4.80 (4.30-5.90) M/uL Hgb 12.8 (12.0-15.0) g/dL Hct 37.3 L (40.0-54.0) % MCV 78 L (80-98) fL MCH 27 (27-31) pg MCHC 34 (32-36) % Plt Count 294 (150-400) K/uL Neut % (Auto) 82 H (36-66) % Lymph % (Auto) 9 L (24-44) % [place] % (Auto) 9 H (2-6) % Eos % (Auto) 0 L (2-4) % Baso % (Auto) 0 (0-1) % PT (9.5-12.0) sec INR (0.80-1.20) Sodium 119 L* (140-148) mmol/L Potassium 2.5 L* (3.6-5.2) mmol/L Chloride 75 L (100-108) mmol/L Carbon Dioxide 35 H (21-32) mmol/L Anion Gap 11.5 (5.0-14.0) mmol/L BUN 31 H (7-18) mg/dL Creatinine 1.3 (0.8-1.3) mg/dL Est Cr Clr Drug Dosing 56.65 mL/min Estimated GFR (MDRD) 55 L (>60) Glucose 120 H (74-106) mg/dL POC Glucose (74-106) MG/DL Calcium 9.7 (8.5-10.1) mg/dL Magnesium (1.8-2.4) mg/dL Total Bilirubin 0.6 D (0.2-1.0) mg/dL AST 30 (15-37) U/L ALT 26 (12-78) U/L Alkaline Phosphatase 91 (46-116) U/L Troponin I < 0.017 (0.000-0.056) ng/mL NT-Pro-B Natriuret Pep (5-125) pg/mL Total Protein 8.1 (6.4-8.2) g/dL Albumin 3.7 (3.4-5.0) g/dL Globulin 4.4 H (2.3-3.5) g/dL Albumin/Globulin Ratio 0.8 L (1.2-2.2) Urine Color (YELLOW) Urine Appearance (CLEAR) Urine pH (5.0-8.0) Ur Specific [place] (1.008-1.030) Urine Protein (NEGATIVE) mg/dL Urine Glucose (UA) (NEGATIVE) mg/dL Urine Ketones (NEGATIVE) mg/dL Urine Occult Blood (NEGATIVE) Urine Nitrite (NEGATIVE) Urine Bilirubin (NEGATIVE) Urine Urobilinogen (0.2-1.0) EU/dL Ur Leukocyte Esterase (NEGATIVE) Urine RBC (0-5) Urine WBC (0-5) Ur Epithelial Cells Amorphous Sediment Urine Bacteria Urine Mucus 07/24/20 07/24/20 07/24/20 Range/Units 14:18 14:18 15:36 WBC (4.5-11.0) K/uL RBC (4.30-5.90) M/uL Hgb (12.0-15.0) g/dL Hct (40.0-54.0) % MCV (80-98) fL MCH (27-31) pg MCHC (32-36) % Plt Count (150-400) K/uL Neut % (Auto) (36-66) % Lymph % (Auto) (24-44) % [place] % (Auto) (2-6) % Eos % (Auto) (2-4) % Baso % (Auto) (0-1) % PT (9.5-12.0) sec INR (0.80-1.20) Sodium (140-148) mmol/L Potassium (3.6-5.2) mmol/L Chloride (100-108) mmol/L Carbon Dioxide (21-32) mmol/L Anion Gap (5.0-14.0) mmol/L BUN (7-18) mg/dL Creatinine (0.8-1.3) mg/dL Est Cr Clr Drug Dosing mL/min Estimated GFR (MDRD) (>60) Glucose (74-106) mg/dL POC Glucose (74-106) MG/DL Calcium (8.5-10.1) mg/dL Magnesium 1.5 L (1.8-2.4) mg/dL Total Bilirubin (0.2-1.0) mg/dL AST (15-37) U/L ALT (12-78) U/L Alkaline Phosphatase (46-116) U/L Troponin I (0.000-0.056) ng/mL NT-Pro-B Natriuret Pep 155 H (5-125) pg/mL Total Protein (6.4-8.2) g/dL Albumin (3.4-5.0) g/dL Globulin (2.3-3.5) g/dL Albumin/Globulin Ratio (1.2-2.2) Urine Color Yellow (YELLOW) Urine Appearance Clear (CLEAR) Urine pH 6.5 (5.0-8.0) Ur Specific [place] 1.015 (1.008-1.030) Urine Protein Negative (NEGATIVE) mg/dL Urine Glucose (UA) Negative (NEGATIVE) mg/dL Urine Ketones Negative (NEGATIVE) mg/dL Urine Occult Blood Trace-intact H (NEGATIVE) Urine Nitrite Negative (NEGATIVE) Urine Bilirubin Negative (NEGATIVE) Urine Urobilinogen 0.2 (0.2-1.0) EU/dL Ur Leukocyte Esterase Negative (NEGATIVE) Urine RBC 0-5 (0-5) Urine WBC Not seen (0-5) Ur Epithelial Cells Not seen Amorphous Sediment Few Urine Bacteria Not seen Urine Mucus Not seen 07/24/20 07/24/20 07/24/20 Range/Units 16:30 18:07 21:00 WBC (4.5-11.0) K/uL RBC (4.30-5.90) M/uL Hgb (12.0-15.0) g/dL Hct (40.0-54.0) % MCV (80-98) fL MCH (27-31) pg MCHC (32-36) % Plt Count (150-400) K/uL Neut % (Auto) (36-66) % Lymph % (Auto) (24-44) % [place] % (Auto) (2-6) % Eos % (Auto) (2-4) % Baso % (Auto) (0-1) % PT (9.5-12.0) sec INR (0.80-1.20) Sodium 119 L* (140-148) mmol/L Potassium (3.6-5.2) mmol/L Chloride (100-108) mmol/L Carbon Dioxide (21-32) mmol/L Anion Gap (5.0-14.0) mmol/L BUN (7-18) mg/dL Creatinine (0.8-1.3) mg/dL Est Cr Clr Drug Dosing mL/min Estimated GFR (MDRD) (>60) Glucose (74-106) mg/dL POC Glucose 125 H 117 H (74-106) MG/DL Calcium (8.5-10.1) mg/dL Magnesium (1.8-2.4) mg/dL Total Bilirubin (0.2-1.0) mg/dL AST (15-37) U/L ALT (12-78) U/L Alkaline Phosphatase (46-116) U/L Troponin I (0.000-0.056) ng/mL NT-Pro-B Natriuret Pep (5-125) pg/mL Total Protein (6.4-8.2) g/dL Albumin (3.4-5.0) g/dL Globulin (2.3-3.5) g/dL Albumin/Globulin Ratio (1.2-2.2) Urine Color (YELLOW) Urine Appearance (CLEAR) Urine pH (5.0-8.0) Ur Specific [place] (1.008-1.030) Urine Protein (NEGATIVE) mg/dL Urine Glucose (UA) (NEGATIVE) mg/dL Urine Ketones (NEGATIVE) mg/dL Urine Occult Blood (NEGATIVE) Urine Nitrite (NEGATIVE) Urine Bilirubin (NEGATIVE) Urine Urobilinogen (0.2-1.0) EU/dL Ur Leukocyte Esterase (NEGATIVE) Urine RBC (0-5) Urine WBC (0-5) Ur Epithelial Cells Amorphous Sediment Urine Bacteria Urine Mucus 07/24/20 07/25/20 07/25/20 Range/Units 21:57 05:35 05:35 WBC 10.3 (4.5-11.0) K/uL RBC 4.10 L (4.30-5.90) M/uL Hgb 11.0 L (12.0-15.0) g/dL Hct 32.7 L (40.0-54.0) % MCV 80 (80-98) fL MCH 27 (27-31) pg MCHC 34 (32-36) % Plt Count 236 (150-400) K/uL Neut % (Auto) 75 H (36-66) % Lymph % (Auto) 15 L (24-44) % [place] % (Auto) 9 H (2-6) % Eos % (Auto) 0 L (2-4) % Baso % (Auto) 0 (0-1) % PT 12.5 H (9.5-12.0) sec INR 1.15 (0.80-1.20) Sodium 119 L* (140-148) mmol/L Potassium 2.5 L* (3.6-5.2) mmol/L Chloride (100-108) mmol/L Carbon Dioxide (21-32) mmol/L Anion Gap (5.0-14.0) mmol/L BUN (7-18) mg/dL Creatinine (0.8-1.3) mg/dL Est Cr Clr Drug Dosing mL/min Estimated GFR (MDRD) (>60) Glucose (74-106) mg/dL POC Glucose (74-106) MG/DL Calcium (8.5-10.1) mg/dL Magnesium (1.8-2.4) mg/dL Total Bilirubin (0.2-1.0) mg/dL AST (15-37) U/L ALT (12-78) U/L Alkaline Phosphatase (46-116) U/L Troponin I (0.000-0.056) ng/mL NT-Pro-B Natriuret Pep (5-125) pg/mL Total Protein (6.4-8.2) g/dL Albumin (3.4-5.0) g/dL Globulin (2.3-3.5) g/dL Albumin/Globulin Ratio (1.2-2.2) Urine Color (YELLOW) Urine Appearance (CLEAR) Urine pH (5.0-8.0) Ur Specific [place] (1.008-1.030) Urine Protein (NEGATIVE) mg/dL Urine Glucose (UA) (NEGATIVE) mg/dL Urine Ketones (NEGATIVE) mg/dL Urine Occult Blood (NEGATIVE) Urine Nitrite (NEGATIVE) Urine Bilirubin (NEGATIVE) Urine Urobilinogen (0.2-1.0) EU/dL Ur Leukocyte Esterase (NEGATIVE) Urine RBC (0-5) Urine WBC (0-5) Ur Epithelial Cells Amorphous Sediment Urine Bacteria Urine Mucus 07/25/20 07/25/20 07/25/20 Range/Units 05:35 07:39 11:34 WBC (4.5-11.0) K/uL RBC (4.30-5.90) M/uL Hgb (12.0-15.0) g/dL Hct (40.0-54.0) % MCV (80-98) fL MCH (27-31) pg MCHC (32-36) % Plt Count (150-400) K/uL Neut % (Auto) (36-66) % Lymph % (Auto) (24-44) % [place] % (Auto) (2-6) % Eos % (Auto) (2-4) % Baso % (Auto) (0-1) % PT (9.5-12.0) sec INR (0.80-1.20) Sodium 122 L (140-148) mmol/L Potassium 3.0 L (3.6-5.2) mmol/L Chloride 83 L (100-108) mmol/L Carbon Dioxide 34 H (21-32) mmol/L Anion Gap 8.0 (5.0-14.0) mmol/L BUN 21 H (7-18) mg/dL Creatinine 1.1 (0.8-1.3) mg/dL Est Cr Clr Drug Dosing 66.95 mL/min Estimated GFR (MDRD) > 60 (>60) Glucose 99 (74-106) mg/dL POC Glucose 104 103 (74-106) MG/DL Calcium 8.4 L (8.5-10.1) mg/dL Magnesium 2.8 H (1.8-2.4) mg/dL Total Bilirubin (0.2-1.0) mg/dL AST (15-37) U/L ALT (12-78) U/L Alkaline Phosphatase (46-116) U/L Troponin I (0.000-0.056) ng/mL NT-Pro-B Natriuret Pep (5-125) pg/mL Total Protein (6.4-8.2) g/dL Albumin (3.4-5.0) g/dL Globulin (2.3-3.5) g/dL Albumin/Globulin Ratio (1.2-2.2) Urine Color (YELLOW) Urine Appearance (CLEAR) Urine pH (5.0-8.0) Ur Specific [place] (1.008-1.030) Urine Protein (NEGATIVE) mg/dL Urine Glucose (UA) (NEGATIVE) mg/dL Urine Ketones (NEGATIVE) mg/dL Urine Occult Blood (NEGATIVE) Urine Nitrite (NEGATIVE) Urine Bilirubin (NEGATIVE) Urine Urobilinogen (0.2-1.0) EU/dL Ur Leukocyte Esterase (NEGATIVE) Urine RBC (0-5) Urine WBC (0-5) Ur Epithelial Cells Amorphous Sediment Urine Bacteria Urine Mucus Med Orders - Current: Current Medications Acetaminophen (Tylenol) 650 mg PO Q4H PRN PRN Reason: Pain (Mild 1-3)/fever Aripiprazole (Abilify) 2.5 mg PO DAILY [facility] Last Admin: 07/25/20 09:36 Dose: 2.5 mg Documented by: Benztropine Mesylate (Cogentin) 1 mg PO BID [facility] Last Admin: 07/25/20 09:35 Dose: 1 mg Documented by: Dextrose (Glutose 15) 15 gm PO ONETIME PRN PRN Reason: Hypoglycemia Dextrose/Water (Dextrose 50% In Water) 50 ml IV ONETIME PRN PRN Reason: Hypoglycemia Docusate Sodium (Colace) 100 mg PO DAILY [facility] Last Admin: 07/25/20 09:36 Dose: 100 mg Documented by: Finasteride (Proscar) 5 mg PO DAILY [facility] Last Admin: 07/25/20 09:35 Dose: 5 mg Documented by: Insulin Human Lispro (Humalog) 0 unit SUBCUT QIDACANDBED [facility]; Protocol Last Admin: 07/25/20 11:41 Dose: Not Given Documented by: Levothyroxine Sodium (Synthroid) 50 mcg PO DAILY@0730 [facility] Last Admin: 07/25/20 07:42 Dose: 50 mcg Documented by: Lorazepam (Ativan) 0.5 mg IV Q4H PRN PRN Reason: Nausea/Vomiting Magnesium Oxide (Magnesium Oxide) 400 mg PO BID [facility] Last Admin: 07/25/20 09:36 Dose: 400 mg Documented by: Metformin HCl (Glucophage) 500 mg PO DAILY@0800 [facility] Last Admin: 07/25/20 09:36 Dose: 500 mg Documented by: Metoprolol Succinate (Toprol Xl) 12.5 mg PO DAILY [facility] Last Admin: 07/25/20 09:32 Dose: 12.5 mg Documented by: Non-Formulary Medication (Lumateperone Tosylate [Caplyta]) [facility] Polyethylene Glycol (Miralax) 17 gm PO DAILY [facility] Last Admin: 07/25/20 09:37 Dose: 17 gm Documented by: Polyethylene Glycol (Miralax) 17 gm PO DAILY PRN PRN Reason: Constipation Potassium Chloride (Klor-Con M20) 20 meq PO QAM [facility] Last Admin: 07/25/20 09:37 Dose: 20 meq Documented by: Potassium Chloride (Klor-Con M20) 40 meq PO ONETIME ONE Stop: 07/25/20 13:20 Sertraline HCl (Zoloft) 200 mg PO DAILY [facility] Last Admin: 07/25/20 09:32 Dose: 200 mg Documented by: Simvastatin (Zocor) 40 mg PO BEDTIME [facility] Last Admin: 07/24/20 21:36 Dose: 40 mg Documented by: Sodium Chloride (Saline Flush) 10 ml FLUSH ASDIRECTED PRN PRN Reason: Keep Vein Open Spironolactone (Aldactone) 25 mg PO BID [facility] Last Admin: 07/25/20 09:37 Dose: 25 mg Documented by: Trospium (Sanctura) 20 mg PO BID [facility] Last Admin: 12/09/20 09:36 Dose: 20 mg Documented by: Warfarin Sodium (Coumadin) 5 mg PO DAILY@1300 [facility] Discontinued Medications Sodium Chloride (Normal Saline) 1,000 mls @ 125 mls/hr IV ASDIRECTED [facility] Last Admin: 07/24/20 15:20 Dose: 125 mls/hr Documented by: Potassium Chloride 20 meq/ (Premix) 100 mls @ 50 mls/hr IV ONETIME ONE Stop: 07/24/20 16:54 Last Admin: 07/24/20 15:20 Dose: 50 mls/hr Documented by: Magnesium Sulfate (Magnesium Sulfate In Water Premix) 2 gm in 50 mls @ 25 mls/hr IV ONETIME ONE Stop: 07/24/20 17:20 Last Admin: 07/24/20 15:46 Dose: 25 mls/hr Documented by: Magnesium Sulfate 2 gm/ Premix 50 mls @ 25 mls/hr IV Q6H [facility] Stop: 07/25/20 00:59 Last Admin: 07/24/20 22:12 Dose: 25 mls/hr Documented by: Sodium Chloride (Normal Saline) 1,000 mls @ 125 mls/hr IV ASDIRECTED [facility] Last Admin: 07/25/20 07:52 Dose: 125 mls/hr Documented by: Potassium Chloride 20 meq/ (Premix) 0 mls @ 50 mls/hr IV ONETIME [facility] Last Admin: 07/25/20 01:53 Dose: 50 mls/hr Documented by: Lidocaine HCl (Xylocaine-Mpf 1%) 5 ml INJECT ONETIME [facility] Last Admin: 07/24/20 23:47 Dose: 2 ml Documented by: Pneumococcal Polyvalent Vaccine (Pneumovax 23) 0.5 ml SUBCUT .ONCE ONE Stop: 07/24/20 17:33 Last Admin: 07/24/20 19:37 Dose: 0.5 ml Documented by: Potassium Chloride (Klor-Con M20) 40 meq PO ONETIME ONE Stop: 07/24/20 16:16 Last Admin: 07/24/20 16:35 Dose: 40 meq Documented by: Potassium Chloride (Klor-Con M20) 40 meq PO ONETIME ONE Stop: 07/24/20 19:01 Last Admin: 07/24/20 19:24 Dose: 40 meq Documented by: Potassium Chloride (Klor-Con M20) 40 meq PO ONETIME ONE Stop: 07/24/20 22:23 Last Admin: 07/24/20 23:23 Dose: 40 meq Documented by: Potassium Chloride (Klor-Con M20) 40 meq PO ONETIME ONE Stop: 07/25/20 11:46 Last Admin: 07/25/20 11:40 Dose: 40 meq Documented by: Sodium Chloride (Saline Flush) 10 ml FLUSH ASDIRECTED PRN PRN Reason: Keep Vein Open Last Admin: 07/24/20 14:21 Dose: 10 ml Documented by: - Exam Quality Assessment: DVT Prophylaxis General: Alert, Oriented, Cooperative, Mild Distress Lungs: Clear to Auscultation, Normal Respiratory Effort Cardiovascular: Regular Rate, Regular Rhythm, No Murmurs GI/Abdominal Exam: Soft, Non-Tender, No Organomegaly, No Distention Extremities: Non-Tender, No Pedal Edema Sepsis Event Note - Evaluation Sepsis Screening Result: No Definite Risk - Focused Exam Vital Signs: Vital Signs Temp Pulse Pulse Resp BP BP Pulse Ox 07/25/20 10:38 96.8 F L 67 16 95/64 98 07/25/20 09:32 66 106/59 L 07/25/20 07:02 96.4 F L 61 16 106/67 94 L 07/25/20 03:00 97.4 F 64 15 107/67 96 - Problem List Review Problem List Initiated/Reviewed/Updated: Yes - My Orders Last 24 Hours: My Active Orders 07/24/20 16:03 Resuscitation Status Routine 07/24/20 16:26 Acetaminophen [TylenoL] 650 mg PO Q4H PRN Dextrose 50% in Water 50 ml IV ONETIME PRN Dextrose [Glutose 15] 15 gm PO ONETIME PRN LORazepam [Ativan] 0.5 mg IV Q4H PRN Sodium Chloride 0.9% [Saline Flush] 10 ml FLUSH ASDIRECTED PRN polyethylene glycoL 3350 [MiraLAX] 17 gm PO DAILY PRN 07/24/20 16:26 Patient Status [ADT] Routine Ambulate [RC] QID Cardiac Monitoring [RC] .As Directed Communication Order [RC] STAT Diabetes Education [RC] Click to Edit Height and Weight [RC] DAILY Intake and Output [RC] Q12H Notify Provider Vital Signs [RC] ASDIRECTED Notify Provider [RC] PRN Oxygen Therapy [RC] PRN Peripheral IV Care [RC] . DIRECTED Up With Assistance [RC] ASDIRECTED Up to Chair [RC] QID VTE/DVT Education [RC] Per Unit Routine Vital Signs [RC] Q4H Peripheral IV Insertion Adult [OM.PC] Routine 07/24/20 17:00 Insulin Lispro [HumaLOG] See Protocol SUBCUT QIDACANDBED Lumateperone Tosylate [Caplyta] 42 mg PO WITHDINNER 07/24/20 18:40 Communication Order [RC] ASDIRECTED 07/24/20 21:00 Benztropine [Cogentin] 1 mg PO BID Magnesium Oxide 400 mg PO BID Simvastatin [Zocor] 40 mg PO BEDTIME Spironolactone [Aldactone] 25 mg PO BID 07/25/20 07:30 Levothyroxine [Synthroid] 50 mcg PO DAILY@0730 07/25/20 08:00 metFORMIN [Glucophage] 500 mg PO DAILY@0800 07/25/20 09:00 ARIPiprazole [Abilify] 2.5 mg PO DAILY Docusate Sodium [Colace] 100 mg PO DAILY Finasteride [Proscar] 5 mg PO DAILY Metoprolol Succinate [Toprol XL] 12.5 mg PO DAILY Potassium Chloride [Klor-Con M20] 20 meq PO QAM Sertraline [Zoloft] 200 mg PO DAILY Trospium [Sanctura] 20 mg PO BID polyethylene glycoL 3350 [MiraLAX] 17 gm PO DAILY 07/25/20 13:00 Warfarin [Coumadin] 5 mg PO DAILY@1300 07/25/20 13:10 Consult to Physical Therapy [PT Evaluation and Treatment] [CONS] Routine 07/25/20 13:19 Potassium Chloride [Klor-Con M20] 40 meq PO ONETIME ONE 07/25/20 13:30 Sodium Chloride 0.9% @ 75 MLS/HR(1000ml) Sodium Chloride 0.9% [Normal Saline] 1,000 ml IV ASDIRECTED 07/25/20 16:30 GLUCOSE POC LAB TO COLLECT JPM [POC] QIDACANDBED 07/25/20 17:00 BASIC METABOLIC PANEL,BMP [CHEM] Stat 07/25/20 21:00 GLUCOSE POC LAB TO COLLECT JPM [POC] QIDACANDBED 07/26/20 05:00 BASIC METABOLIC PANEL,BMP [CHEM] Timed INR,PT,PROTHROMBIN TIME [COAG] Timed 07/26/20 07:30 GLUCOSE POC LAB TO COLLECT JPM [POC] QIDACANDBED 07/26/20 11:30 GLUCOSE POC LAB TO COLLECT JPM [POC] QIDACANDBED 07/26/20 16:30 GLUCOSE POC LAB TO COLLECT JPM [POC] QIDACANDBED 07/26/20 21:00 GLUCOSE POC LAB TO COLLECT JPM [POC] QIDACANDBED 07/27/20 07:30 GLUCOSE POC LAB TO COLLECT JPM [POC] QIDACANDBED 07/27/20 11:30 GLUCOSE POC LAB TO COLLECT JPM [POC] QIDACANDBED 07/27/20 16:30 GLUCOSE POC LAB TO COLLECT JPM [POC] QIDACANDBED 07/27/20 21:00 GLUCOSE POC LAB TO COLLECT JPM [POC] QIDACANDBED 07/28/20 07:30 GLUCOSE POC LAB TO COLLECT JPM [POC] QIDACANDBED 07/28/20 11:30 GLUCOSE POC LAB TO COLLECT JPM [POC] QIDACANDBED 07/28/20 16:30 GLUCOSE POC LAB TO COLLECT JPM [POC] QIDACANDBED 07/28/20 21:00 GLUCOSE POC LAB TO COLLECT JPM [POC] QIDACANDBED 07/29/20 07:30 GLUCOSE POC LAB TO COLLECT JPM [POC] QIDACANDBED 07/29/20 11:30 GLUCOSE POC LAB TO COLLECT JPM [POC] QIDACANDBED - Plan Plan:: ASSESSMENT AND PLAN GENERALIZED WEAKNESS-likely multifactorial related to severe electrolyte abnorm alities and dehydration. Overall strength mildly to moderately improved from admission -Correct underlying abnormalities -Physical therapy consult HYPONATREMIA-likely associated with dehydration and diuretic use -IV normal saline -Closely monitor serial sodium levels HYPOKALEMIA-likely secondary to ongoing diuretic therapy and poor intake -IV and oral potassium replacement -Reassess potassium level later tonight and in a.m. HYPOMAGNESEMIA -IV and oral magnesium replacement -Reassess magnesium level in a.m. 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 At the time of this admission I do not reasonably expected evaluation and management of this problem will require more than a 96 hour hospital stay. DISPOSITION-anticipate discharge to home after the hospital stay. PRIMARY CARE PROVIDER-Drs. Fraser
[2020-07-25] MEDS ORDERED: Sodium Chloride 0.9% 1,000 ML IV SCH (13:30)
[2020-07-25] MEDS: Simvastatin 20 MG Tab PO SCH (21:41)
[2020-07-26] MEDS: Magnesium Oxide 400 MG Tab PO SCH ×2 (08:12→21:28)
[2020-07-26] MEDS: Docusate Sodium 100 MG Cap PO SCH (08:12)
[2020-07-26] MEDS: Potassium Chloride 20 MEQ Tab.ER PO SCH (08:12)
[2020-07-26] MEDS: ARIPiprazole 10 MG Tab PO SCH (08:13)
[2020-07-26] MEDS: metFORMIN 500 MG Tab PO SCH (08:13)
[2020-07-26] MEDS: Trospium 20 MG Tab PO SCH ×2 (08:13→21:28)
[2020-07-26] MEDS: Levothyroxine 50 MCG Tab PO SCH (08:13)
[2020-07-26] MEDS: Finasteride 5 MG Tab PO SCH (08:13)
[2020-07-26] MEDS: Polyethylene Glycol 3350 Powder 17 GM Packet PO SCH (08:13)
[2020-07-26] MEDS: Spironolactone 25 MG Tab PO SCH ×2 (08:13→21:29)
[2020-07-26] MEDS: Benztropine 1 MG Tab PO SCH ×2 (08:13→21:28)
[2020-07-26] MEDS: Sertraline 50 MG Tab PO SCH (08:14)
[2020-07-26] MEDS: Metoprolol Succinate 25 MG Tab.ER PO SCH (08:14)
[2020-07-26] MEDS ORDERED: Potassium Chloride 20 MEQ Tab.ER PO ONE ×2 (09:00→17:00)
[2020-07-26] MEDS: Insulin Lispro 100 Unit/ML 3 ML KwikPen SUBCUT SCH ×4 (10:26→21:27)
--- NOTE | 2020-07-26 12:10 | PCM.PN ---
- General Info Date of Service: 07/26/20 Subjective Update: Mr. Apple experienced further improvement in overall strength over the last 24 hours. There have been recent difficulties with swallowing as well as progressive gait disturbance, which precedes current electrolyte abnormalities. Appetite has been somewhat poor and he has lost significant amount of weight over the past several months. CT scans obtained recently have shown no acute abnormalities, including recent CTA of the head and neck. Functional Status: Reports: Urinating - Review of Systems General: Reports: Weakness, Fatigue. Denies: Fever, Chills Pulmonary: Reports: No Symptoms Cardiovascular: Reports: No Symptoms Gastrointestinal: Reports: No Symptoms Neurological: Reports: Weakness, Gait Disturbance, Other (Difficulty swallowing) - Patient Data Vitals - Most Recent: Last Vital Signs Temp 97.5 F 07/26/20 10:52 Pulse 77 07/26/20 10:52 Resp 16 07/26/20 10:52 BP 104/63 07/26/20 10:52 Pulse Ox 98 07/26/20 10:52 Weight - Most Recent: 212 lb I&O - Last 24 Hours: Intake & Output 07/25/20 07/26/20 07/26/20 22:59 06:59 14:59 Intake Total 2900 948 900 Output Total 1450 1025 600 Balance 1450 -77 300 Lab Results Last 24 Hours: Laboratory Results - last 24 hr 07/25/20 07/25/20 07/25/20 Range/Units 16:30 16:59 21:00 PT (9.5-12.0) sec INR (0.80-1.20) Sodium 122 L (140-148) mmol/L Potassium 3.7 (3.6-5.2) mmol/L Chloride 84 L (100-108) mmol/L Carbon Dioxide 32 (21-32) mmol/L Anion Gap 9.7 (5.0-14.0) mmol/L BUN 18 (7-18) mg/dL Creatinine 0.9 (0.8-1.3) mg/dL Est Cr Clr Drug Dosing 81.83 mL/min Estimated GFR (MDRD) > 60 (>60) Glucose 101 (74-106) mg/dL POC Glucose 125 H 82 (74-106) MG/DL Calcium 8.2 L (8.5-10.1) mg/dL 07/26/20 07/26/20 07/26/20 Range/Units 05:30 05:30 07:30 PT 12.0 (9.5-12.0) sec INR 1.10 (0.80-1.20) Sodium 126 L (140-148) mmol/L Potassium 3.4 L (3.6-5.2) mmol/L Chloride 90 L (100-108) mmol/L Carbon Dioxide 30 (21-32) mmol/L Anion Gap 9.4 (5.0-14.0) mmol/L BUN 13 (7-18) mg/dL Creatinine 0.9 (0.8-1.3) mg/dL Est Cr Clr Drug Dosing 81.83 mL/min Estimated GFR (MDRD) > 60 (>60) Glucose 96 (74-106) mg/dL POC Glucose 92 (74-106) MG/DL Calcium 8.3 L (8.5-10.1) mg/dL 07/26/20 Range/Units 11:30 PT (9.5-12.0) sec INR (0.80-1.20) Sodium (140-148) mmol/L Potassium (3.6-5.2) mmol/L Chloride (100-108) mmol/L Carbon Dioxide (21-32) mmol/L Anion Gap (5.0-14.0) mmol/L BUN (7-18) mg/dL Creatinine (0.8-1.3) mg/dL Est Cr Clr Drug Dosing mL/min Estimated GFR (MDRD) (>60) Glucose (74-106) mg/dL POC Glucose 102 (74-106) MG/DL Calcium (8.5-10.1) mg/dL Med Orders - Current: Current Medications Acetaminophen (Tylenol) 650 mg PO Q4H PRN PRN Reason: Pain (Mild 1-3)/fever Aripiprazole (Abilify) 2.5 mg PO DAILY PENDING SALE TO [facility] Last Admin: 07/26/20 08:13 Dose: 2.5 mg Documented by: Benztropine Mesylate (Cogentin) 1 mg PO BID PENDING SALE TO [facility] Last Admin: 07/26/20 08:13 Dose: 1 mg Documented by: Dextrose (Glutose 15) 15 gm PO ONETIME PRN PRN Reason: Hypoglycemia Dextrose/Water (Dextrose 50% In Water) 50 ml IV ONETIME PRN PRN Reason: Hypoglycemia Docusate Sodium (Colace) 100 mg PO DAILY PENDING SALE TO [facility] Last Admin: 07/26/20 08:12 Dose: 100 mg Documented by: Finasteride (Proscar) 5 mg PO DAILY PENDING SALE TO [facility] Last Admin: 07/26/20 08:13 Dose: 5 mg Documented by: Insulin Human Lispro (Humalog) 0 unit SUBCUT QIDACANDBED PENDING SALE TO [facility]; Protocol Last Admin: 07/26/20 11:38 Dose: Not Given Documented by: Levothyroxine Sodium (Synthroid) 50 mcg PO DAILY@0730 PENDING SALE TO [facility] Last Admin: 07/26/20 08:13 Dose: 50 mcg Documented by: Lorazepam (Ativan) 0.5 mg IV Q4H PRN PRN Reason: Nausea/Vomiting Magnesium Oxide (Magnesium Oxide) 400 mg PO BID PENDING SALE TO [facility] Last Admin: 07/26/20 08:12 Dose: 400 mg Documented by: Metformin HCl (Glucophage) 500 mg PO DAILY@0800 PENDING SALE TO [facility] Last Admin: 07/26/20 08:13 Dose: 500 mg Documented by: Metoprolol Succinate (Toprol Xl) 12.5 mg PO DAILY PENDING SALE TO [facility] Last Admin: 07/26/20 08:14 Dose: 12.5 mg Documented by: Polyethylene Glycol (Miralax) 17 gm PO DAILY PENDING SALE TO [facility] Last Admin: 07/26/20 08:13 Dose: 17 gm Documented by: Polyethylene Glycol (Miralax) 17 gm PO DAILY PRN PRN Reason: Constipation Potassium Chloride (Klor-Con M20) 20 meq PO QAM PENDING SALE TO [facility] Last Admin: 07/26/20 08:12 Dose: 20 meq Documented by: Potassium Chloride (Klor-Con M20) 40 meq PO ONETIME ONE Stop: 07/26/20 17:01 Sertraline HCl (Zoloft) 200 mg PO DAILY PENDING SALE TO [facility] Last Admin: 07/26/20 08:14 Dose: 200 mg Documented by: Simvastatin (Zocor) 40 mg PO BEDTIME PENDING SALE TO [facility] Last Admin: 07/25/20 21:41 Dose: 40 mg Documented by: Sodium Chloride (Saline Flush) 10 ml FLUSH ASDIRECTED PRN PRN Reason: Keep Vein Open Spironolactone (Aldactone) 25 mg PO BID PENDING SALE TO [facility] Last Admin: 07/26/20 08:13 Dose: 25 mg Documented by: Trospium (Sanctura) 20 mg PO BID PENDING SALE TO [facility] Last Admin: 07/26/20 08:13 Dose: 20 mg Documented by: Warfarin Sodium (Coumadin) 5 mg PO DAILY PENDING SALE TO [facility] Discontinued Medications Sodium Chloride (Normal Saline) 1,000 mls @ 125 mls/hr IV ASDIRECTED PENDING SALE TO [facility] Last Admin: 07/24/20 15:20 Dose: 125 mls/hr Documented by: Potassium Chloride 20 meq/ (Premix) 100 mls @ 50 mls/hr IV ONETIME ONE Stop: 07/24/20 16:54 Last Admin: 07/24/20 15:20 Dose: 50 mls/hr Documented by: Magnesium Sulfate (Magnesium Sulfate In Water Premix) 2 gm in 50 mls @ 25 mls/hr IV ONETIME ONE Stop: 07/24/20 17:20 Last Admin: 07/24/20 15:46 Dose: 25 mls/hr Documented by: Magnesium Sulfate 2 gm/ Premix 50 mls @ 25 mls/hr IV Q6H PENDING SALE TO [facility] Stop: 07/25/20 00:59 Last Admin: 07/24/20 22:12 Dose: 25 mls/hr Documented by: Sodium Chloride (Normal Saline) 1,000 mls @ 125 mls/hr IV ASDIRECTED PENDING SALE TO [facility] Last Admin: 07/25/20 07:52 Dose: 125 mls/hr Documented by: Potassium Chloride 20 meq/ (Premix) 0 mls @ 50 mls/hr IV ONETIME PENDING SALE TO [facility] Last Admin: 07/25/20 01:53 Dose: 50 mls/hr Documented by: Sodium Chloride (Normal Saline) 1,000 mls @ 75 mls/hr IV ASDIRECTED PENDING SALE TO [facility] Last Admin: 07/25/20 16:40 Dose: 75 mls/hr Documented by: Lidocaine HCl (Xylocaine-Mpf 1%) 5 ml INJECT ONETIME PENDING SALE TO [facility] Last Admin: 07/24/20 23:47 Dose: 2 ml Documented by: Non-Formulary Medication (Lumateperone Tosylate [Caplyta]) 42 mg PO WITHDINNER PENDING SALE TO [facility] Last Admin: 07/25/20 15:34 Dose: Not Given Documented by: Pneumococcal Polyvalent Vaccine (Pneumovax 23) 0.5 ml SUBCUT .ONCE ONE Stop: 07/24/20 17:33 Last Admin: 07/24/20 19:37 Dose: 0.5 ml Documented by: Potassium Chloride (Klor-Con M20) 40 meq PO ONETIME ONE Stop: 07/24/20 16:16 Last Admin: 07/24/20 16:35 Dose: 40 meq Documented by: Potassium Chloride (Klor-Con M20) 40 meq PO ONETIME ONE Stop: 07/24/20 19:01 Last Admin: 07/24/20 19:24 Dose: 40 meq Documented by: Potassium Chloride (Klor-Con M20) 40 meq PO ONETIME ONE Stop: 07/24/20 22:23 Last Admin: 07/24/20 23:23 Dose: 40 meq Documented by: Potassium Chloride (Klor-Con M20) 40 meq PO ONETIME ONE Stop: 07/25/20 11:46 Last Admin: 07/25/20 11:40 Dose: 40 meq Documented by: Potassium Chloride (Klor-Con M20) 40 meq PO ONETIME ONE Stop: 07/25/20 14:01 Last Admin: 07/25/20 14:08 Dose: 40 meq Documented by: Potassium Chloride (Klor-Con M20) 40 meq PO ONETIME ONE Stop: 07/26/20 09:01 Last Admin: 07/26/20 11:38 Dose: 40 meq Documented by: Sodium Chloride (Saline Flush) 10 ml FLUSH ASDIRECTED PRN PRN Reason: Keep Vein Open Last Admin: 07/24/20 14:21 Dose: 10 ml Documented by: Warfarin Sodium (Coumadin) 5 mg PO DAILY@1300 PENDING SALE TO [facility] Stop: 07/25/20 16:00 Last Admin: 07/25/20 14:09 Dose: 5 mg Documented by: Warfarin Sodium (Coumadin) 5 mg PO MoWe@1300 PENDING SALE TO [facility] Warfarin Sodium (Coumadin) 2.5 mg PO SuTuThFrSa@1300 PENDING SALE TO [facility] - Exam Quality Assessment: DVT Prophylaxis General: Alert, Oriented, Cooperative, Mild Distress Lungs: Clear to Auscultation, Normal Respiratory Effort Cardiovascular: Regular Rate, Regular Rhythm, No Murmurs GI/Abdominal Exam: Soft, Non-Tender, No Organomegaly, No Distention Sepsis Event Note - Evaluation Sepsis Screening Result: No Definite Risk - Focused Exam Vital Signs: Vital Signs Temp Pulse Pulse Resp BP BP Pulse Ox 07/26/20 10:52 97.5 F 77 16 104/63 98 07/26/20 08:14 70 105/61 07/26/20 07:02 96.9 F 70 16 105/61 99 07/26/20 02:53 97.8 F 74 18 108/60 98 - Problem List Review Problem List Initiated/Reviewed/Updated: Yes - My Orders Last 24 Hours: My Active Orders 07/25/20 13:10 Consult to Physical Therapy [PT Evaluation and Treatment] [CONS] Routine 07/26/20 11:58 [employer]ENTICE Evaluation and Treatment [CONS] Routine 07/26/20 12:05 Convert IV to Saline Lock [OM.PC] Routine 07/26/20 16:30 GLUCOSE POC LAB TO COLLECT JPM [POC] QIDACANDBED 07/26/20 17:00 Potassium Chloride [Klor-Con M20] 40 meq PO ONETIME ONE 07/26/20 21:00 GLUCOSE POC LAB TO COLLECT JPM [POC] QIDACANDBED 07/27/20 05:00 BASIC METABOLIC PANEL,BMP [CHEM] Timed INR,PT,PROTHROMBIN TIME [COAG] Timed 07/27/20 07:30 GLUCOSE POC LAB TO COLLECT JPM [POC] QIDACANDBED 07/27/20 08:00 Brain w Cont [MR] Urgent 07/27/20 09:00 Warfarin [Coumadin] 5 mg PO DAILY 07/27/20 11:30 GLUCOSE POC LAB TO COLLECT JPM [POC] QIDACANDBED 07/27/20 16:30 GLUCOSE POC LAB TO COLLECT JPM [POC] QIDACANDBED 07/27/20 21:00 GLUCOSE POC LAB TO COLLECT JPM [POC] QIDACANDBED 07/28/20 07:30 GLUCOSE POC LAB TO COLLECT JPM [POC] QIDACANDBED 07/28/20 11:30 GLUCOSE POC LAB TO COLLECT JPM [POC] QIDACANDBED 07/28/20 16:30 GLUCOSE POC LAB TO COLLECT JPM [POC] QIDACANDBED 07/28/20 21:00 GLUCOSE POC LAB TO COLLECT JPM [POC] QIDACANDBED 07/29/20 07:30 GLUCOSE POC LAB TO COLLECT JPM [POC] QIDACANDBED 07/29/20 11:30 GLUCOSE POC LAB TO COLLECT JPM [POC] QIDACANDBED - Plan Plan:: ASSESSMENT AND PLAN GENERALIZED WEAKNESS-likely multifactorial related to severe electrolyte abnormalities and dehydration. Overall strength mildly to moderately improved from admission. History of progressive gait difficulty as well as swallowing abnormalities. -MRI of the brain -Speech pathology consult to evaluate swallowing -Correct underlying abnormalities -Physical therapy consult HYPONATREMIA-still low but improved from admission -Saline lock IV -Closely monitor serial sodium levels HYPOKALEMIA-mildly low today -oral potassium replacement -Reassess potassium level in a.m. 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 At the time of this admission I do not reasonably expected evaluation and management of this problem will require more than a 96 hour hospital stay. DISPOSITION-anticipate discharge to home after the hospital stay. PRIMARY CARE PROVIDER-Drs. Fraser
[2020-07-26] MEDS ORDERED: Warfarin 2.5 MG Tab PO SCH (13:00)
[2020-07-26] MEDS ORDERED: Gadoteridol 279.3 MG/ML 20 ML SDV IV SCH (13:15)
--- NOTE | 2020-07-26 14:29 | MR ---
Brain w wo Cont CLINICAL HISTORY: Progressive dysphagia and gait instability COMPARISON: CT brain 07/24/2020 TECHNIQUE: Multiple pulse sequences were obtained through the brain in the axial, coronal, and sagittal planes both pre-and post IV contrast infusion gadolinium-based contrast. All images were obtained on a 1.5 [place] unit. FINDINGS: Diffusion images show no abnormal signal. There is no focal mass lesion. There is no hemorrhage, edema, or extraaxial collection. There are scattered the T2 hyperintensities in the septum cortical and periventricular white matter. The basal cisterns and sulci over the convexities are prominent. The ventricles are mildly prominent. Postcontrast images show no enhancing lesions or abnormal vascular patterns. No cerebellar pontine angle lesions are seen IMPRESSION: Age-related atrophy. Scattered chronic ischemic microvascular changes
[2020-07-26] MEDS: Warfarin 5 MG Tab PO SCH (14:33)
[2020-07-26] MEDS: Simvastatin 20 MG Tab PO SCH (21:28)
[2020-07-26] MEDS ORDERED: Ondansetron 4 MG Tab.DIS PO PRN (23:18)
[2020-07-27] MEDS: Levothyroxine 50 MCG Tab PO SCH (07:12)
[2020-07-27] MEDS: Insulin Lispro 100 Unit/ML 3 ML KwikPen SUBCUT SCH (08:10)
[2020-07-27] MEDS: Docusate Sodium 100 MG Cap PO SCH (08:29)
[2020-07-27] MEDS: Potassium Chloride 20 MEQ Tab.ER PO SCH (08:29)
[2020-07-27] MEDS: Metoprolol Succinate 25 MG Tab.ER PO SCH (08:29)
[2020-07-27] MEDS: Sertraline 50 MG Tab PO SCH (08:29)
[2020-07-27] MEDS: Magnesium Oxide 400 MG Tab PO SCH (08:29)
[2020-07-27] MEDS: Benztropine 1 MG Tab PO SCH (08:29)
[2020-07-27] MEDS: Finasteride 5 MG Tab PO SCH (08:29)
[2020-07-27] MEDS: Polyethylene Glycol 3350 Powder 17 GM Packet PO SCH (08:30)
[2020-07-27] MEDS: Spironolactone 25 MG Tab PO SCH (08:30)
[2020-07-27] MEDS: metFORMIN 500 MG Tab PO SCH (08:30)
[2020-07-27] MEDS: Trospium 20 MG Tab PO SCH (08:30)
[2020-07-27] MEDS: ARIPiprazole 10 MG Tab PO SCH (08:30)
--- NOTE | 2020-07-27 09:43 | PCM.DCSUM1 ---
Discharge Summary - Hospital Course Brief History: Mr. Apple is a 65-year-old gentleman who was admitted through the emergency department with profound weakness secondary to electrolyte abnormalities including severe hyponatremia and hypokalemia, as well as hypomagnesemia. - Discharge Data Discharge Date: 07/27/20 Discharge Disposition: Home, W Home Health Agency 06 Condition: - Referral to Home Health Date of Face to Face Encounter: 07/27/20 Reason for Homebound Status: Generalized weakness, schizophrenia Primary Care Physician: Jourdan Fraser MD Skilled Need: Nursing care for medication regulation, home health aide, physical therapy and Occupational Therapy - Patient Summary/Data Consults: Consultations 07/25/20 13:10 Consult to Physical Therapy [PT Evaluation and Treatment] [CONS] Routine Please Evaluate and Treat. PT Reason for Consult: weakness This query below is only for informational purposes and is not editable. Admission Diagnosis/Problem: Hyponatremia 07/26/20 11:58 [employer] Evaluation and Treatment [CONS] Routine Please Evaluate and Treat [employer] Reason for Consult: Please evaluate swallowing This query below is only for informational purposes and is not editable. Admission Diagnosis/Problem: Hyponatremia Hospital Course: Mr. Apple is a 65-year-old gentleman who was admitted through the emergency department with progressive weakness and anorexia secondary to severe electrolyte abnormalities including hyponatremia, hypokalemia, and hypomagnesemia. He has struggled with electrolyte abnormalities for some time. Over the last 2 days has become progressively more weak with very poor appetite. He was seen and evaluated in the psychiatry clinic this morning and noted to be profoundly weak. He was referred to the emergency department for further evaluation and management. CT scan of the head obtained in the emergency department was unremarkable and there was no evidence of significant underlying infection. Sodium level was found to be low at 119, with a potassium level of 2.5, and a magnesium level of 1.5. On admission he was given IV fluids with normal saline as well as oral and IV potassium replacement, oral and IV magnesium replacement. Over the next few days of hospitalization sodium level improved significantly but had not normalized by the time of discharge. Potassium and magnesium levels had normalized. He will be discharged home with increased doses of oral potassium and magnesium replacement. He was seen and evaluated by physical therapy during his hospital stay. Speech pathology consult was also ordered to evaluate swallowing difficulties. He had had tyrel jaimes recent CT scans but because of his difficulty with ambulation and weakness as well as swallowing difficulty MRI of the brain was obtained with contrast. This showed age-related changes as well as changes related to microvascular disease but no other acute abnormalities. He has been prescribed long-term oral anticoagulation with warfarin. INR was normal at the time of admission indicating that he has not been taking this on a regular basis. He was restarted on warfarin during hospital stay, INR was still subtherapeutic at the time of discharge. Follow-up INR will be scheduled for July 30. He will be discharged home with home care including home physical therapy and Occupational Therapy. Given difficulties that he has had with progressive weakness and swallowing consider outpatient neurology assessment. Follow-up appointment will be scheduled with his primary care provider within 1 week, BMP and magnesium level should be obtained at the time of follow-up appointment. Activity will be as tolerated and he will resume his usual diet. - Patient Instructions Diet: Usual Diet as Tolerated Activity: As Tolerated Other/Special Instructions: Please arrange for home care services after discharge including home physical therapy and Occupational Therapy. Please schedule follow-up appointment with Drs. Fraser within 1 week. BMP and magnesium level should be obtained at the time of follow-up appointment. Please arrange for INR level to be obtained on July 30. - Discharge Plan *PRESCRIPTION DRUG MONITORING PROGRAM REVIEWED*: Not Applicable *COPY OF PRESCRIPTION DRUG MONITORING REPORT IN PATIENT MARGARET: Not Applicable Prescriptions/Med Rec: Magnesium Oxide 400 mg PO BID #60 tab Potassium Chloride 40 meq PO BID #120 tablet.er Home Medications: Home Meds Benztropine [Cogentin] 1 mg PO BID 07/17/15 [History] Finasteride 5 mg PO DAILY 07/17/15 [History] Levothyroxine [Synthroid] 50 mcg PO DAILY 07/17/15 [History] Metoprolol Succinate [Toprol XL] 25 tab PO DAILY 07/17/15 [History] Simvastatin [Zocor] 40 mg PO DAILY 07/17/15 [History] hydrOXYzine HCL [hydrOXYzine] 25 mg PO QID PRN 07/17/15 [History] Cholecalciferol (Vitamin D3) [Vitamin D3] 2,000 unit PO DAILY 11/03/17 [History] Clotrimazole [Clotrimazole 1%] 1 applic TOP BID 11/03/17 [History] Fesoterodine Fumarate [Toviaz] 8 mg PO DAILY 11/03/17 [History] Furosemide [Lasix] 2 tab PO DAILY 11/03/17 [History] LORazepam [Ativan] 1 tab PO TID PRN 11/03/17 [History] Sertraline HCl [Zoloft] 200 mg PO DAILY 11/03/17 [History] Warfarin [Coumadin] 5 mg PO ASDIRECTED 11/03/17 [History] metFORMIN HCl [Metformin HCl] 500 mg PO DAILY 11/03/17 [History] metOLazone [Zaroxolyn] 2.5 tab PO ASDIRECTED 11/03/17 [History] polyethylene glycoL 3350 [Miralax] 1 pack PO DAILY 11/03/17 [History] Vitamin B Complex [B Complex] 1 each PO DAILY 01/27/18 [History] Calcium Carb/D3/Magnesium/Zinc [Luis Mag Zinc + D Tablet] 1 each PO DAILY 06/09/19 [History] ARIPiprazole [Aripiprazole] 2.5 mg PO DAILY 07/06/20 [History] Potassium Chloride 20 meq PO QAM #14 tab.er.prt 07/06/20 [Rx] Spironolactone [Aldactone] 25 mg PO BID 07/06/20 [History] Docusate Sodium [Dulcolax Stool Softener] 100 mg PO DAILY 07/24/20 [History] OLANZapine [Olanzapine] 5 mg PO PRN 07/25/20 [History] Warfarin [Coumadin] 2.5 mg PO ASDIRECTED 07/25/20 [History] Magnesium Oxide 400 mg PO BID #60 tab 07/27/20 [Rx] Potassium Chloride 40 meq PO BID #120 tablet.er 07/27/20 [Rx] Referrals: Jourdan Fraser MD [Primary Care Provider] - - Discharge Summary/Plan Comment DC Time >30 min.: No - Patient Data Vitals - Most Recent: Last Vital Signs Temp 97 F 07/27/20 07:14 Pulse 77 07/27/20 08:29 Resp 16 07/27/20 07:14 BP 109/67 07/27/20 08:29 Pulse Ox 99 07/27/20 07:14 Weight - Most Recent: 212 lb I&O - Last 24 hours: Intake & Output 07/26/20 07/27/20 07/27/20 22:59 06:59 14:59 Intake Total 1030 0 480 Output Total 900 300 Balance 130 -300 480 Lab Results - Last 24 hrs: Laboratory Results - last 24 hr 07/26/20 07/26/20 07/26/20 Range/Units 11:30 16:30 21:00 PT (9.5-12.0) sec INR (0.80-1.20) Sodium (140-148) mmol/L Potassium (3.6-5.2) mmol/L Chloride (100-108) mmol/L Carbon Dioxide (21-32) mmol/L Anion Gap (5.0-14.0) mmol/L BUN (7-18) mg/dL Creatinine (0.8-1.3) mg/dL Est Cr Clr Drug Dosing mL/min Estimated GFR (MDRD) (>60) Glucose (74-106) mg/dL POC Glucose 102 94 91 (74-106) MG/DL Calcium (8.5-10.1) mg/dL 07/27/20 07/27/20 07/27/20 Range/Units 01:53 04:00 04:00 PT 13.8 H (9.5-12.0) sec INR 1.27 H (0.80-1.20) Sodium 131 L (140-148) mmol/L Potassium 4.2 (3.6-5.2) mmol/L Chloride 94 L (100-108) mmol/L Carbon Dioxide 27 (21-32) mmol/L Anion Gap 14.2 H (5.0-14.0) mmol/L BUN 9 (7-18) mg/dL Creatinine 0.9 (0.8-1.3) mg/dL Est Cr Clr Drug Dosing 81.83 mL/min Estimated GFR (MDRD) > 60 (>60) Glucose 93 (74-106) mg/dL POC Glucose 107 H (74-106) MG/DL Calcium 8.4 L (8.5-10.1) mg/dL 07/27/20 Range/Units 07:32 PT (9.5-12.0) sec INR (0.80-1.20) Sodium (140-148) mmol/L Potassium (3.6-5.2) mmol/L Chloride (100-108) mmol/L Carbon Dioxide (21-32) mmol/L Anion Gap (5.0-14.0) mmol/L BUN (7-18) mg/dL Creatinine (0.8-1.3) mg/dL Est Cr Clr Drug Dosing mL/min Estimated GFR (MDRD) (>60) Glucose (74-106) mg/dL POC Glucose 102 (74-106) MG/DL Calcium (8.5-10.1) mg/dL Med Orders - Current: Current Medications Acetaminophen (Tylenol) 650 mg PO Q4H PRN PRN Reason: Pain (Mild 1-3)/fever Aripiprazole (Abilify) 2.5 mg PO DAILY [facility] Last Admin: 07/27/20 08:30 Dose: 2.5 mg Documented by: Benztropine Mesylate (Cogentin) 1 mg PO BID [facility] Last Admin: 07/27/20 08:29 Dose: 1 mg Documented by: Dextrose (Glutose 15) 15 gm PO ONETIME PRN PRN Reason: Hypoglycemia Dextrose/Water (Dextrose 50% In Water) 50 ml IV ONETIME PRN PRN Reason: Hypoglycemia Docusate Sodium (Colace) 100 mg PO DAILY [facility] Last Admin: 07/27/20 08:29 Dose: 100 mg Documented by: Finasteride (Proscar) 5 mg PO DAILY [facility] Last Admin: 07/27/20 08:29 Dose: 5 mg Documented by: Insulin Human Lispro (Humalog) 0 unit SUBCUT QIDACANDBED [facility]; Protocol Last Admin: 07/27/20 08:10 Dose: Not Given Documented by: Levothyroxine Sodium (Synthroid) 50 mcg PO DAILY@0730 [facility] Last Admin: 07/27/20 07:12 Dose: 50 mcg Documented by: Lorazepam (Ativan) 0.5 mg IV Q4H PRN PRN Reason: Nausea/Vomiting Magnesium Oxide (Magnesium Oxide) 400 mg PO BID [facility] Last Admin: 07/27/20 08:29 Dose: 400 mg Documented by: Metformin HCl (Glucophage) 500 mg PO DAILY@0800 [facility] Last Admin: 07/27/20 08:30 Dose: 500 mg Documented by: Metoprolol Succinate (Toprol Xl) 12.5 mg PO DAILY [facility] Last Admin: 07/27/20 08:29 Dose: 12.5 mg Documented by: Ondansetron HCl (Zofran Odt) 4 mg PO Q4H PRN PRN Reason: Nausea/Vomiting Last Admin: 07/26/20 23:42 Dose: 4 mg Documented by: Polyethylene Glycol (Miralax) 17 gm PO DAILY [facility] Last Admin: 07/27/20 08:30 Dose: 17 gm Documented by: Polyethylene Glycol (Miralax) 17 gm PO DAILY PRN PRN Reason: Constipation Potassium Chloride (Klor-Con M20) 20 meq PO QAM [facility] Last Admin: 07/27/20 08:29 Dose: 20 meq Documented by: Sertraline HCl (Zoloft) 200 mg PO DAILY [facility] Last Admin: 07/27/20 08:29 Dose: 200 mg Documented by: Simvastatin (Zocor) 40 mg PO BEDTIME [facility] Last Admin: 07/26/20 21:28 Dose: 40 mg Documented by: Sodium Chloride (Saline Flush) 10 ml FLUSH ASDIRECTED PRN PRN Reason: Keep Vein Open Spironolactone (Aldactone) 25 mg PO BID [facility] Last Admin: 07/27/20 08:30 Dose: 25 mg Documented by: Trospium (Sanctura) 20 mg PO BID [facility] Last Admin: 07/27/20 08:30 Dose: 20 mg Documented by: Warfarin Sodium (Coumadin) 5 mg PO DAILY@1300 [facility] Last Admin: 07/26/20 14:33 Dose: 5 mg Documented by: Discontinued Medications Gadoteridol (Prohance) 20 ml IV . DIRECTED [facility] Stop: 07/26/20 14:00 Last Admin: 07/26/20 13:38 Dose: 20 ml Documented by: Sodium Chloride (Normal Saline) 1,000 mls @ 125 mls/hr IV ASDIRECTED [facility] Last Admin: 07/24/20 15:20 Dose: 125 mls/hr Documented by: Potassium Chloride 20 meq/ (Premix) 100 mls @ 50 mls/hr IV ONETIME ONE Stop: 07/24/20 16:54 Last Admin: 07/24/20 15:20 Dose: 50 mls/hr Documented by: Magnesium Sulfate (Magnesium Sulfate In Water Premix) 2 gm in 50 mls @ 25 mls/hr IV ONETIME ONE Stop: 07/24/20 17:20 Last Admin: 07/24/20 15:46 Dose: 25 mls/hr Documented by: Magnesium Sulfate 2 gm/ Premix 50 mls @ 25 mls/hr IV Q6H [facility] Stop: 07/25/20 00:59 Last Admin: 07/24/20 22:12 Dose: 25 mls/hr Documented by: Sodium Chloride (Normal Saline) 1,000 mls @ 125 mls/hr IV ASDIRECTED [facility] Last Admin: 07/25/20 07:52 Dose: 125 mls/hr Documented by: Potassium Chloride 20 meq/ (Premix) 0 mls @ 50 mls/hr IV ONETIME [facility] Last Admin: 07/25/20 01:53 Dose: 50 mls/hr Documented by: Sodium Chloride (Normal Saline) 1,000 mls @ 75 mls/hr IV ASDIRECTED [facility] Last Admin: 07/25/20 16:40 Dose: 75 mls/hr Documented by: Lidocaine HCl (Xylocaine-Mpf 1%) 5 ml INJECT ONETIME [facility] Last Admin: 07/24/20 23:47 Dose: 2 ml Documented by: Non-Formulary Medication (Lumateperone Tosylate [Caplyta]) 42 mg PO WITHDINNER [facility] Last Admin: 07/25/20 15:34 Dose: Not Given Documented by: Pneumococcal Polyvalent Vaccine (Pneumovax 23) 0.5 ml SUBCUT .ONCE ONE Stop: 07/24/20 17:33 Last Admin: 07/24/20 19:37 Dose: 0.5 ml Documented by: Potassium Chloride (Klor-Con M20) 40 meq PO ONETIME ONE Stop: 07/24/20 16:16 Last Admin: 07/24/20 16:35 Dose: 40 meq Documented by: Potassium Chloride (Klor-Con M20) 40 meq PO ONETIME ONE Stop: 07/24/20 19:01 Last Admin: 07/24/20 19:24 Dose: 40 meq Documented by: Potassium Chloride (Klor-Con M20) 40 meq PO ONETIME ONE Stop: 07/24/20 22:23 Last Admin: 07/24/20 23:23 Dose: 40 meq Documented by: Potassium Chloride (Klor-Con M20) 40 meq PO ONETIME ONE Stop: 07/25/20 11:46 Last Admin: 07/25/20 11:40 Dose: 40 meq Documented by: Potassium Chloride (Klor-Con M20) 40 meq PO ONETIME ONE Stop: 07/25/20 14:01 Last Admin: 07/25/20 14:08 Dose: 40 meq Documented by: Potassium Chloride (Klor-Con M20) 40 meq PO ONETIME ONE Stop: 07/26/20 09:01 Last Admin: 07/26/20 11:38 Dose: 40 meq Documented by: Potassium Chloride (Klor-Con M20) 40 meq PO ONETIME ONE Stop: 07/26/20 17:01 Last Admin: 07/26/20 17:25 Dose: 40 meq Documented by: Sodium Chloride (Saline Flush) 10 ml FLUSH ASDIRECTED PRN PRN Reason: Keep Vein Open Last Admin: 07/24/20 14:21 Dose: 10 ml Documented by: Warfarin Sodium (Coumadin) 5 mg PO DAILY@1300 [facility] Stop: 07/25/20 16:00 Last Admin: 07/25/20 14:09 Dose: 5 mg Documented by: Warfarin Sodium (Coumadin) 5 mg PO MoWe@1300 [facility] Warfarin Sodium (Coumadin) 2.5 mg PO SuTuThFrSa@1300 [facility] - Exam General: Reports: Alert, Oriented, Cooperative, No Acute Distress Lungs: Reports: Clear to Auscultation, Normal Respiratory Effort Cardiovascular: Reports: Regular Rate, Regular Rhythm, No Murmurs GI/Abdominal Exam: Soft, Non-Tender, No Organomegaly, No Distention Extremities: Non-Tender, No Pedal Edema
[2020-07-27 10:36] VITALS: BP 102/69; PULSE 76
[2020-07-27] MEDS: Warfarin 5 MG Tab PO SCH (11:34)
[2020-07-30] MEDS ORDERED: Warfarin 5 MG Tab PO SCH (13:00)
== END 2020-07-27 11:50 | disposition home health service (06) | DRG 641 ==
LOC: JP.ED 13:13 → JP.MS 15:55
PROVIDERS: ADMIT Hospitalist; ATTEND Hospitalist
DX: E87.1 Hypo-osmolality and hyponatremia (principal); R53.1 Weakness; E83.42 Hypomagnesemia; H54.7 Unspecified visual loss; E87.6 Hypokalemia; K59.09 Other constipation; K21.9 Gastro-esophageal reflux disease without esophagitis; E86.0 Dehydration; K44.9 Diaphragmatic hernia without obstruction or gangrene; Z88.8 Allergy status to other drugs, medicaments and biological substances; N39.498 Other specified urinary incontinence; M10.9 Gout, unspecified; Z79.01 Long term (current) use of anticoagulants; F41.0 Panic disorder [episodic paroxysmal anxiety]; E11.9 Type 2 diabetes mellitus without complications; E66.9 Obesity, unspecified; E03.9 Hypothyroidism, unspecified; Z96.619 Presence of unspecified artificial shoulder joint; Z79.84 Long term (current) use of oral hypoglycemic drugs; F20.9 Schizophrenia, unspecified; E78.5 Hyperlipidemia, unspecified; Z79.890 Hormone replacement therapy; F32.9 Major depressive disorder, single episode, unspecified; Z79.899 Other long term (current) drug therapy; E78.00 Pure hypercholesterolemia, unspecified; I10 Essential (primary) hypertension; Z87.891 Personal history of nicotine dependence; Z68.31 Body mass index [BMI] 31.0-31.9, adult; N40.1 Benign prostatic hyperplasia with lower urinary tract symptoms; R32 Unspecified urinary incontinence; M19.90 Unspecified osteoarthritis, unspecified site; Z86.711 Personal history of pulmonary embolism; G47.33 Obstructive sleep apnea (adult) (pediatric)
CPT/HCPCS: 36415; 70450 ×2; 71045 ×2; 80053; 81001; 83735; 83880; 84484; 85025; 93005; 93010; 96365; 96375; 99285 ×2; J3475; J3480; J7030; 70553; 70553-26; 80048; 82962; 84132; 84295; 85610; 90732; 92610-GN; 97110-GP; 97162-GP; 97530-GP; 97535-GP; 99222-AI; 99232; 99238; A9270-GY; A9579; G0009; J2001

== ENCOUNTER 2020-08-10 11:36 | Observation (INO) | payer MEDICAID, MEDICARE ==
[2020-08-10] MEDS ORDERED: Sodium Chloride 0.9% 1,000 ML IV SCH ×2 (13:15→14:30)
--- NOTE | 2020-08-10 14:08 | EDM.PDOC ---
ED HPI GENERAL MEDICAL PROBLEM - General Chief Complaint: General Stated Complaint: MENTAL HEALTH Time Seen by Provider: 08/10/20 11:50 Source of Information: Reports: Patient, EMS, Family History Limitations: Reports: No Limitations - History of Present Illness INITIAL COMMENTS - FREE TEXT/NARRATIVE: pt has not been taking his meds, he has not been drinking and eating normally. The family has been caring for him. He has been out of his thyroid meds. Onset: Gradual, Other ( this has been going on for several days. ) Duration: Hour(s): Location: Reports: Generalized Associated Symptoms: Reports: Weakness, Other (poor oral intake. ) - Related Data Allergies Allergy/AdvReac Type Severity Reaction Status Date / Time buspirone HCl [From BuSpar] AdvReac Nausea Verified 07/06/20 20:27 Home Meds: Home Meds Benztropine [Cogentin] 1 mg PO BID 07/17/15 [History] Finasteride 5 mg PO DAILY 07/17/15 [History] Levothyroxine [Synthroid] 50 mcg PO DAILY 07/17/15 [History] Metoprolol Succinate [Toprol XL] 25 tab PO DAILY 07/17/15 [History] Simvastatin [Zocor] 40 mg PO DAILY 07/17/15 [History] hydrOXYzine HCL [hydrOXYzine] 25 mg PO QID PRN 07/17/15 [History] Cholecalciferol (Vitamin D3) [Vitamin D3] 2,000 unit PO DAILY 11/03/17 [History] Clotrimazole [Clotrimazole 1%] 1 applic TOP BID 11/03/17 [History] Fesoterodine Fumarate [Toviaz] 8 mg PO DAILY 11/03/17 [History] Furosemide [Lasix] 20 - 40 tab PO DAILY 11/03/17 [History] LORazepam [Ativan] 1 tab PO TID PRN 11/03/17 [History] Sertraline HCl [Zoloft] 200 mg PO DAILY 11/03/17 [History] Warfarin [Coumadin] 5 mg PO ASDIRECTED 11/03/17 [History] metFORMIN HCl [Metformin HCl] 500 mg PO DAILY 11/03/17 [History] metOLazone [Zaroxolyn] 2.5 tab PO ASDIRECTED 11/03/17 [History] polyethylene glycoL 3350 [Miralax] 1 pack PO DAILY 11/03/17 [History] Vitamin B Complex [B Complex] 1 each PO DAILY 01/27/18 [History] Calcium Carb/D3/Magnesium/Zinc [Luis Mag Zinc + D Tablet] 1 each PO DAILY 06/09/19 [History] ARIPiprazole [Aripiprazole] 2.5 mg PO DAILY 07/06/20 [History] Spironolactone [Aldactone] 25 mg PO BID 07/06/20 [History] Docusate Sodium [Dulcolax Stool Softener] 100 mg PO DAILY 07/24/20 [History] OLANZapine [Olanzapine] 5 mg PO ASDIRECTED PRN 07/25/20 [History] Warfarin [Coumadin] 2.5 mg PO ASDIRECTED 07/25/20 [History] Magnesium Oxide 400 mg PO BID #60 tab 07/27/20 [Rx] Potassium Chloride 40 meq PO BID #120 tablet.er 07/27/20 [Rx] Ascorbic Acid [C-1000] 1,000 mg PO DAILY 08/10/20 [History] Cyanocobalamin (Vitamin B-12) [B-12] 500 mcg PO DAILY 08/10/20 [History] Lumateperone Tosylate [Caplyta] 42 mg PO ACDINNER 08/10/20 [History] Omeprazole 40 mg PO DAILY 08/10/20 [History] Past Medical History HEENT History: Reports: Cataract, Impaired Vision Cardiovascular History: Reports: High Cholesterol, Hypertension Respiratory History: Reports: PE, Sleep Apnea Gastrointestinal History: Reports: Chronic Constipation, Colon Polyp, GERD, Hiatal Hernia, Other (See Below) Other Gastrointestinal History: abdominal hernia Genitourinary History: Reports: BPH, Prostate Disorder, Urinary Incontinence Other Genitourinary History: patient states "swollen prostate". Musculoskeletal History: Reports: Fracture, Gout, Osteoarthritis Other Musculoskeletal History: left shoulder pain Neurological History: Reports: Vertigo Psychiatric History: Reports: Antisocial Behaviors, Anxiety, Hallucinations, Panic Attack, Schizophrenia Endocrine/Metabolic History: Reports: Diabetes, Type II, Hypothyroidism, Obesity/BMI 30+, Vitamin D Deficiency Hematologic History: Reports: Anticoagulation Therapy Immunologic History: Reports: None Oncologic (Cancer) History: Reports: None Dermatologic History: Reports: Eczema, Psoriasis, Seborrheic Dermatitis - Infectious Disease History Infectious Disease History: Reports: Chicken Pox, Measles, Shingles - Past Surgical History Head Surgeries/Procedures: Reports: None HEENT Surgical History: Reports: None Cardiovascular Surgical History: Reports: None Respiratory Surgical History: Reports: None GI Surgical History: Reports: Colonoscopy, EGD, Hernia, Abdominal, Hernia, Inguinal Male Surgical History: Reports: TURP-Transurethral Resection of Prostate Endocrine Surgical History: Reports: None Neurological Surgical History: Reports: None Musculoskeletal Surgical History: Reports: Shoulder Replacement Other Musculoskeletal Surgeries/Procedures:: revision left total shoulder 08/15/19 Dermatological Surgical History: Reports: None Social & Family History - Family History Family Medical History: No Pertinent Family History - Tobacco Use Tobacco Use Status *Q: Unknown Ever Used Tobacco - Caffeine Use Caffeine Use: Reports: None ED ROS GENERAL - Review of Systems Review Of Systems: See Below Constitutional: Reports: No Symptoms, Weakness HEENT: Reports: No Symptoms Respiratory: Reports: No Symptoms Cardiovascular: Reports: No Symptoms Endocrine: Reports: No Symptoms GI/Abdominal: Reports: Other (not eating and drinking , not taking his meds. Pt would not speak to any one this am. ) : Reports: No Symptoms Skin: Reports: Other ( Pt has an area of break down on his buttock area. ) ED EXAM, GENERAL - Physical Exam Exam: See Below Free Text/Narrative:: pt arrived with ahisorty of not eating and drinking and not taking his meds. The sister anfd brother take care of him. He would not speak to him. Exam Limited By: No Limitations General Appearance: Alert, No Apparent Distress, Anxious, Other (pt would not communicate at first but then did start to talk. The sister was here and she does not want him to go to the detention. ) Ears: Normal TMs Nose: Normal Inspection Throat/Mouth: Normal Inspection, Other (mouth does look very dry. ) Head: Atraumatic Neck: Normal Inspection Respiratory/Chest: No Respiratory Distress Cardiovascular: Regular Rate, Rhythm GI/Abdominal: Soft, No Mass (Male) Exam: Deferred Rectal (Males) Exam: Deferred Back Exam: Normal Inspection Extremities: Normal Inspection, Other (pt has generalized weakness. He was to have outpt neuro concult and he refused to go. ) Neurological: Alert, Other (pt will anser some questions. ) Psychiatric: Anxious Course - Vital Signs Last Recorded V/S: Last Vital Signs Temp 36.4 C 08/10/20 12:13 Pulse 78 08/10/20 14:41 Resp 14 08/10/20 12:13 BP 128/79 08/10/20 14:41 Pulse Ox 98 08/10/20 14:41 - Orders/Labs/Meds Orders: Active Orders 24 hr Category Date Time Status Chest 1V Frontal [CR] Stat Exams 08/10/20 13:11 Taken CORONAVIRUS COVID-19, SHANDA Stat Lab 08/10/20 14:54 Ordered CULTURE URINE [RM] Stat Lab 08/10/20 14:47 Ordered Sodium Chloride 0.9% [Normal Saline] 1,000 ml Med 08/10/20 13:15 Active IV ASDIRECTED Sodium Chloride 0.9% [Normal Saline] 1,000 ml Med 08/10/20 14:30 Active IV ASDIRECTED Medication Orders Sodium Chloride (Normal Saline) 1,000 mls @ 999 mls/hr IV ASDIRECTED KENNEDY Last Admin: 08/10/20 13:19 Dose: 999 mls/hr Documented by: [id number] Sodium Chloride (Normal Saline) 1,000 mls @ 500 mls/hr IV ASDIRECTED KENNEDY Last Admin: 08/10/20 14:27 Dose: 500 mls/hr Documented by: [id number] Labs: Laboratory Tests 08/10/20 08/10/20 08/10/20 Range/Units 12:18 12:28 12:28 WBC 11.1 H (4.5-11.0) K/uL RBC 4.29 L (4.30-5.90) M/uL Hgb 11.6 L (12.0-15.0) g/dL Hct 35.3 L (40.0-54.0) % MCV 82 (80-98) fL MCH 27 (27-31) pg MCHC 33 (32-36) % Plt Count 300 (150-400) K/uL Neut % (Auto) 80 H (36-66) % Lymph % (Auto) 11 L (24-44) % Benzie % (Auto) 9 H (2-6) % Eos % (Auto) 0 L (2-4) % Baso % (Auto) 0 (0-1) % PT (9.5-12.0) sec INR (0.80-1.20) Sodium (140-148) mmol/L Potassium (3.6-5.2) mmol/L Chloride (100-108) mmol/L Carbon Dioxide (21-32) mmol/L Anion Gap (5.0-14.0) mmol/L BUN (7-18) mg/dL Creatinine (0.8-1.3) mg/dL Est Cr Clr Drug Dosing mL/min Estimated GFR (MDRD) (>60) Glucose (74-106) mg/dL Calcium (8.5-10.1) mg/dL Magnesium (1.8-2.4) mg/dL Total Bilirubin (0.2-1.0) mg/dL AST (15-37) U/L ALT (12-78) U/L Alkaline Phosphatase (46-116) U/L Total Protein (6.4-8.2) g/dL Albumin (3.4-5.0) g/dL Globulin (2.3-3.5) g/dL Albumin/Globulin Ratio (1.2-2.2) TSH, Ultra Sensitive 1.711 (0.358-3.740) uIU/mL Urine Color Yellow (YELLOW) Urine Appearance Slightly cloudy A (CLEAR) Urine pH 6.5 (5.0-8.0) Ur Specific [place] 1.025 (1.008-1.030) Urine Protein Trace H (NEGATIVE) mg/dL Urine Glucose (UA) Negative (NEGATIVE) mg/dL Urine Ketones Trace H (NEGATIVE) mg/dL Urine Occult Blood Small H (NEGATIVE) Urine Nitrite Negative (NEGATIVE) Urine Bilirubin Negative (NEGATIVE) Urine Urobilinogen 0.2 (0.2-1.0) EU/dL Ur Leukocyte Esterase Negative (NEGATIVE) Urine RBC 10-20 H (0-5) Urine WBC 5-10 H (0-5) Ur Epithelial Cells Few Amorphous Sediment Not seen Urine Bacteria Moderate Urine Mucus Moderate 08/10/20 08/10/20 Range/Units 12:28 13:14 WBC (4.5-11.0) K/uL RBC (4.30-5.90) M/uL Hgb (12.0-15.0) g/dL Hct (40.0-54.0) % MCV (80-98) fL MCH (27-31) pg MCHC (32-36) % Plt Count (150-400) K/uL Neut % (Auto) (36-66) % Lymph % (Auto) (24-44) % Benzie % (Auto) (2-6) % Eos % (Auto) (2-4) % Baso % (Auto) (0-1) % PT 18.5 H (9.5-12.0) sec INR 1.72 H (0.80-1.20) Sodium 132 L (140-148) mmol/L Potassium 3.4 L (3.6-5.2) mmol/L Chloride 92 L (100-108) mmol/L Carbon Dioxide 31 (21-32) mmol/L Anion Gap 12.4 (5.0-14.0) mmol/L BUN 39 H D (7-18) mg/dL Creatinine 1.5 H D (0.8-1.3) mg/dL Est Cr Clr Drug Dosing 50.69 mL/min Estimated GFR (MDRD) 47 L (>60) Glucose 116 H (74-106) mg/dL Calcium 9.4 (8.5-10.1) mg/dL Magnesium 2.2 (1.8-2.4) mg/dL Total Bilirubin 0.4 (0.2-1.0) mg/dL AST 20 (15-37) U/L ALT 20 (12-78) U/L Alkaline Phosphatase 86 (46-116) U/L Total Protein 7.6 (6.4-8.2) g/dL Albumin 3.4 (3.4-5.0) g/dL Globulin 4.2 H (2.3-3.5) g/dL Albumin/Globulin Ratio 0.8 L (1.2-2.2) TSH, Ultra Sensitive (0.358-3.740) uIU/mL Urine Color (YELLOW) Urine Appearance (CLEAR) Urine pH (5.0-8.0) Ur Specific [place] (1.008-1.030) Urine Protein (NEGATIVE) mg/dL Urine Glucose (UA) (NEGATIVE) mg/dL Urine Ketones (NEGATIVE) mg/dL Urine Occult Blood (NEGATIVE) Urine Nitrite (NEGATIVE) Urine Bilirubin (NEGATIVE) Urine Urobilinogen (0.2-1.0) EU/dL Ur Leukocyte Esterase (NEGATIVE) Urine RBC (0-5) Urine WBC (0-5) Ur Epithelial Cells Amorphous Sediment Urine Bacteria Urine Mucus Meds: Medications Generic Name Dose Route Start Last Admin Trade Name Pretty PRN Reason Stop Dose Admin Sodium Chloride 1,000 mls @ 999 mls/hr 08/10/20 13:15 08/10/20 13:19 Normal Saline IV 999 mls/hr ASDIRECTED KENNEDY Administration Sodium Chloride 1,000 mls @ 500 mls/hr 08/10/20 14:30 08/10/20 14:27 Normal Saline IV 500 mls/hr ASDIRECTED KENNEDY Administration - Re-Assessments/Exams Free Text/Narrative Re-Assessment/Exam: 08/10/20 15:02 pt had no sig new findings on the chest xrya. His wbc is 11,000. His hg is 11. He is quite dehyudrated. He has been hydrated with 2 liters of fluid. His urine looks concentrated and possibly infected. He has some area of break down over the cocyx. Departure - Departure Time of Disposition: 15:04 Disposition: Admitted As Inpatient 66 Condition: Fair Clinical Impression: Dehydration, Poor compliance with medication, UTI (urinary tract infection), Decubitus skin ulcer - Discharge Information Referrals: PCP,None [Primary Care Provider] - Forms: ED Department Discharge Care Plan Goals: admit to Dr Collins Sepsis Event Note (ED) - Evaluation Sepsis Screening Result: No Definite Risk - Focused Exam Vital Signs: Vital Signs Temp Pulse Resp BP Pulse Ox 08/10/20 14:41 78 128/79 98 08/10/20 13:24 96 123/93 H 97 08/10/20 12:38 78 111/73 96 08/10/20 12:13 36.4 C 85 14 122/79 97 08/10/20 11:48 36.4 C 85 14 122/79 97 - My Orders Last 24 Hours: My Active Orders 08/10/20 13:11 Chest 1V Frontal [CR] Stat 08/10/20 13:15 Sodium Chloride 0.9% [Normal Saline] 1,000 ml IV ASDIRECTED 08/10/20 14:30 Sodium Chloride 0.9% [Normal Saline] 1,000 ml IV ASDIRECTED 08/10/20 14:47 CULTURE URINE [RM] Stat 08/10/20 14:54 CORONAVIRUS COVID-19, SHANDA Stat - Assessment/Plan Last 24 Hours: My Active Orders 08/10/20 13:11 Chest 1V Frontal [CR] Stat 08/10/20 13:15 Sodium Chloride 0.9% [Normal Saline] 1,000 ml IV ASDIRECTED 08/10/20 14:30 Sodium Chloride 0.9% [Normal Saline] 1,000 ml IV ASDIRECTED 08/10/20 14:47 CULTURE URINE [RM] Stat 08/10/20 14:54 CORONAVIRUS COVID-19, SHANDA Stat
[2020-08-10] MEDS ORDERED: Potassium Chloride 20 MEQ Tab.ER PO ONE ×2 (15:46→18:30)
--- NOTE | 2020-08-10 16:00 | PCM.HP.2 ---
H&P History of Present Illness - General Date of Service: 08/10/20 Admit Problem/Dx: Admission Diagnosis/Problem Admission Diagnosis/Problem Depression Source of Information: Old Records, Provider, RN Notes Reviewed. No: Patient History Limitations: Reports: Uncooperative - History of Present Illness Initial Comments - Free Text/Narative: Mr. Apple is a 65-year-old gentleman who was admitted through the emergency department to [facility] with weakness and dehydration, probable worsening depression. He is either unable or unwilling to provide much in the way of information concerning recent symptoms or events. Family reports that he has not been talking with them over the past few days and that he has not been eating or drinking. Because of progressive weakness he was brought into the emergency department for further evaluation. He was recently admitted to this facility with marked metabolic abnormalities including hyponatremia, hypokalemia, and hypomagnesemia. Labs obtained today show only mild hypokalemia with no other significant abnormalities. There are some white cells in the urine but no other evidence of significant infection. White blood cell count is only modestly elevated. There has been a history of aggressive physical decline with weakness and question of some swallowing difficulties. MRI of the brain was obtained during last admission and showed microvascular changes but no other significant abnormalities. No other focal neurologic abnormalities are identified on examination today. - Related Data Allergies/Adverse Reactions: Allergies Allergy/AdvReac Type Severity Reaction Status Date / Time buspirone HCl [From BuSpar] AdvReac Nausea Verified 07/06/20 20:27 Home Medications: Home Meds Benztropine [Cogentin] 1 mg PO BID 07/17/15 [History] Finasteride 5 mg PO DAILY 07/17/15 [History] Levothyroxine [Synthroid] 50 mcg PO DAILY 07/17/15 [History] Metoprolol Succinate [Toprol XL] 25 tab PO DAILY 07/17/15 [History] Simvastatin [Zocor] 40 mg PO DAILY 07/17/15 [History] hydrOXYzine HCL [hydrOXYzine] 25 mg PO QID PRN 07/17/15 [History] Cholecalciferol (Vitamin D3) [Vitamin D3] 2,000 unit PO DAILY 11/03/17 [History] Clotrimazole [Clotrimazole 1%] 1 applic TOP BID 11/03/17 [History] Fesoterodine Fumarate [Toviaz] 8 mg PO DAILY 11/03/17 [History] Furosemide [Lasix] 20 - 40 tab PO DAILY 11/03/17 [History] LORazepam [Ativan] 1 tab PO TID PRN 11/03/17 [History] Sertraline HCl [Zoloft] 200 mg PO DAILY 11/03/17 [History] Warfarin [Coumadin] 5 mg PO ASDIRECTED 11/03/17 [History] metFORMIN HCl [Metformin HCl] 500 mg PO DAILY 11/03/17 [History] metOLazone [Zaroxolyn] 2.5 tab PO ASDIRECTED 11/03/17 [History] polyethylene glycoL 3350 [Miralax] 1 pack PO DAILY 11/03/17 [History] Vitamin B Complex [B Complex] 1 each PO DAILY 01/27/18 [History] Calcium Carb/D3/Magnesium/Zinc [Luis Mag Zinc + D Tablet] 1 each PO DAILY 06/09/19 [History] ARIPiprazole [Aripiprazole] 2.5 mg PO DAILY 07/06/20 [History] Spironolactone [Aldactone] 25 mg PO BID 07/06/20 [History] Docusate Sodium [Dulcolax Stool Softener] 100 mg PO DAILY 07/24/20 [History] OLANZapine [Olanzapine] 5 mg PO ASDIRECTED PRN 07/25/20 [History] Warfarin [Coumadin] 2.5 mg PO ASDIRECTED 07/25/20 [History] Magnesium Oxide 400 mg PO BID #60 tab 07/27/20 [Rx] Potassium Chloride 40 meq PO BID #120 tablet.er 07/27/20 [Rx] Ascorbic Acid [C-1000] 1,000 mg PO DAILY 08/10/20 [History] Cyanocobalamin (Vitamin B-12) [B-12] 500 mcg PO DAILY 08/10/20 [History] Lumateperone Tosylate [Caplyta] 42 mg PO ACDINNER 08/10/20 [History] Omeprazole 40 mg PO DAILY 08/10/20 [History] Past Medical History HEENT History: Reports: Cataract, Impaired Vision Cardiovascular History: Reports: High Cholesterol, Hypertension Respiratory History: Reports: PE, Sleep Apnea Gastrointestinal History: Reports: Chronic Constipation, Colon Polyp, GERD, Hiatal Hernia, Other (See Below) Other Gastrointestinal History: abdominal hernia Genitourinary History: Reports: BPH, Prostate Disorder, Urinary Incontinence Other Genitourinary History: patient states "swollen prostate". Musculoskeletal History: Reports: Fracture, Gout, Osteoarthritis Other Musculoskeletal History: left shoulder pain Neurological History: Reports: Vertigo Psychiatric History: Reports: Antisocial Behaviors, Anxiety, Hallucinations, Panic Attack, Schizophrenia Endocrine/Metabolic History: Reports: Diabetes, Type II, Hypothyroidism, Obesity/BMI 30+, Vitamin D Deficiency Hematologic History: Reports: Anticoagulation Therapy Immunologic History: Reports: None Oncologic (Cancer) History: Reports: None Dermatologic History: Reports: Eczema, Psoriasis, Seborrheic Dermatitis - Infectious Disease History Infectious Disease History: Reports: Chicken Pox, Measles, Shingles - Past Surgical History Head Surgeries/Procedures: Reports: None HEENT Surgical History: Reports: None Cardiovascular Surgical History: Reports: None Respiratory Surgical History: Reports: None GI Surgical History: Reports: Colonoscopy, EGD, Hernia, Abdominal, Hernia, Inguinal Male Surgical History: Reports: TURP-Transurethral Resection of Prostate Endocrine Surgical History: Reports: None Neurological Surgical History: Reports: None Musculoskeletal Surgical History: Reports: Shoulder Replacement Other Musculoskeletal Surgeries/Procedures:: revision left total shoulder 08/15/19 Dermatological Surgical History: Reports: None Social & Family History - Family History Family Medical History: No Pertinent Family History - Tobacco Use Tobacco Use Status *Q: Unknown Ever Used Tobacco - Caffeine Use Caffeine Use: Reports: None H&P Review of Systems - Review of Systems: Review Of Systems: See Below General: Reports: ROS unobtainable (Is currently not communicating) Exam - Exam Exam: See Below - Vital Signs Vital Signs: Last Vital Signs Temp 97.6 F 08/10/20 12:13 Pulse 83 08/10/20 15:56 Resp 14 08/10/20 12:13 BP 125/80 08/10/20 15:56 Pulse Ox 99 08/10/20 15:56 Weight: 212 lb - Exam Quality Assessment: DVT Prophylaxis General: Alert, Mild Distress HEENT: Conjunctiva Clear, Hearing Intact, Normal Nasal Septum, Posterior Pharynx Clear, Pupils Equal. No: Mucosa Moist & [place] Neck: Supple, Trachea Midline, +2 Carotid Pulse wo Bruit Lungs: Clear to Auscultation, Normal Respiratory Effort Cardiovascular: Regular Rate, Regular Rhythm, Normal S1, Normal S2. No: Systolic Murmur, Diastolic Murmur GI/Abdominal Exam: Soft, Non-Tender, No Organomegaly, No Distention Back Exam: Normal Inspection, Full Range of Motion Extremities: Non-Tender, No Pedal Edema Skin: Warm, Dry, Intact Neurological: Cranial Nerves Intact, Strength Equal Bilateral, Normal Speech, Normal Tone, Sensation Intact. No: Focal Deficit Neuro Extensive - Mental Status: Alert, Oriented x3, Normal Mood/Affect, Normal Cognition, Memory Intact - Patient Data Lab Results Last 24 hrs: Laboratory Results - last 24 hr 08/10/20 08/10/20 08/10/20 Range/Units 12:18 12:28 12:28 WBC 11.1 H (4.5-11.0) K/uL RBC 4.29 L (4.30-5.90) M/uL Hgb 11.6 L (12.0-15.0) g/dL Hct 35.3 L (40.0-54.0) % MCV 82 (80-98) fL MCH 27 (27-31) pg MCHC 33 (32-36) % Plt Count 300 (150-400) K/uL Neut % (Auto) 80 H (36-66) % Lymph % (Auto) 11 L (24-44) % [place] % (Auto) 9 H (2-6) % Eos % (Auto) 0 L (2-4) % Baso % (Auto) 0 (0-1) % PT (9.5-12.0) sec INR (0.80-1.20) Sodium (140-148) mmol/L Potassium (3.6-5.2) mmol/L Chloride (100-108) mmol/L Carbon Dioxide (21-32) mmol/L Anion Gap (5.0-14.0) mmol/L BUN (7-18) mg/dL Creatinine (0.8-1.3) mg/dL Est Cr Clr Drug Dosing mL/min Estimated GFR (MDRD) (>60) Glucose (74-106) mg/dL Calcium (8.5-10.1) mg/dL Magnesium (1.8-2.4) mg/dL Total Bilirubin (0.2-1.0) mg/dL AST (15-37) U/L ALT (12-78) U/L Alkaline Phosphatase (46-116) U/L Total Protein (6.4-8.2) g/dL Albumin (3.4-5.0) g/dL Globulin (2.3-3.5) g/dL Albumin/Globulin Ratio (1.2-2.2) TSH, Ultra Sensitive 1.711 (0.358-3.740) uIU/mL Urine Color Yellow (YELLOW) Urine Appearance Slightly cloudy A (CLEAR) Urine pH 6.5 (5.0-8.0) Ur Specific [place] 1.025 (1.008-1.030) Urine Protein Trace H (NEGATIVE) mg/dL Urine Glucose (UA) Negative (NEGATIVE) mg/dL Urine Ketones Trace H (NEGATIVE) mg/dL Urine Occult Blood Small H (NEGATIVE) Urine Nitrite Negative (NEGATIVE) Urine Bilirubin Negative (NEGATIVE) Urine Urobilinogen 0.2 (0.2-1.0) EU/dL Ur Leukocyte Esterase Negative (NEGATIVE) Urine RBC 10-20 H (0-5) Urine WBC 5-10 H (0-5) Ur Epithelial Cells Few Amorphous Sediment Not seen Urine Bacteria Moderate Urine Mucus Moderate 08/10/20 08/10/20 Range/Units 12:28 13:14 WBC (4.5-11.0) K/uL RBC (4.30-5.90) M/uL Hgb (12.0-15.0) g/dL Hct (40.0-54.0) % MCV (80-98) fL MCH (27-31) pg MCHC (32-36) % Plt Count (150-400) K/uL Neut % (Auto) (36-66) % Lymph % (Auto) (24-44) % [place] % (Auto) (2-6) % Eos % (Auto) (2-4) % Baso % (Auto) (0-1) % PT 18.5 H (9.5-12.0) sec INR 1.72 H (0.80-1.20) Sodium 132 L (140-148) mmol/L Potassium 3.4 L (3.6-5.2) mmol/L Chloride 92 L (100-108) mmol/L Carbon Dioxide 31 (21-32) mmol/L Anion Gap 12.4 (5.0-14.0) mmol/L BUN 39 H D (7-18) mg/dL Creatinine 1.5 H D (0.8-1.3) mg/dL Est Cr Clr Drug Dosing 50.69 mL/min Estimated GFR (MDRD) 47 L (>60) Glucose 116 H (74-106) mg/dL Calcium 9.4 (8.5-10.1) mg/dL Magnesium 2.2 (1.8-2.4) mg/dL Total Bilirubin 0.4 (0.2-1.0) mg/dL AST 20 (15-37) U/L ALT 20 (12-78) U/L Alkaline Phosphatase 86 (46-116) U/L Total Protein 7.6 (6.4-8.2) g/dL Albumin 3.4 (3.4-5.0) g/dL Globulin 4.2 H (2.3-3.5) g/dL Albumin/Globulin Ratio 0.8 L (1.2-2.2) TSH, Ultra Sensitive (0.358-3.740) uIU/mL Urine Color (YELLOW) Urine Appearance (CLEAR) Urine pH (5.0-8.0) Ur Specific [place] (1.008-1.030) Urine Protein (NEGATIVE) mg/dL Urine Glucose (UA) (NEGATIVE) mg/dL Urine Ketones (NEGATIVE) mg/dL Urine Occult Blood (NEGATIVE) Urine Nitrite (NEGATIVE) Urine Bilirubin (NEGATIVE) Urine Urobilinogen (0.2-1.0) EU/dL Ur Leukocyte Esterase (NEGATIVE) Urine RBC (0-5) Urine WBC (0-5) Ur Epithelial Cells Amorphous Sediment Urine Bacteria Urine Mucus Result Diagrams: 08/10/20 12:28 08/10/20 12:28 Sepsis Event Note - Evaluation Sepsis Screening Result: No Definite Risk - Focused Exam Vital Signs: Vital Signs Temp Pulse Resp BP Pulse Ox 08/10/20 15:56 83 125/80 99 08/10/20 14:41 78 128/79 98 08/10/20 13:24 96 123/93 H 97 08/10/20 12:38 78 111/73 96 08/10/20 12:13 97.6 F 85 14 122/79 97 08/10/20 11:48 97.6 F 85 14 122/79 97 *Q Meaningful Use (ADM) - VTE Risk Assess *Q Each Risk Factor Represents 1 Point: None Total Score 1 Point Risk Factors: 0 Each Risk Factor Represents 2 Points: Age 60 - 74 Years Total Score 2 Point Risk Factors: 2 Each Risk Factor Represents 3 Points: None Total Score 3 Point Risk Factors: 0 Each Risk Factor Represents 5 Points: None Total Score 5 Point Risk Factors: 0 Venous Thromboembolism Risk Factor Score *Q: 2 Problem List Initiated/Reviewed/Updated: Yes Orders Last 24hrs: Active Orders 24 hr Category Date Time Status Patient Status Manage Transfer [TRANSFER] Routine ADT 08/10/20 15:48 Ordered Chest 1V Frontal [CR] Stat Exams 08/10/20 13:11 Taken CORONAVIRUS COVID-19, SHANDA Stat Lab 08/10/20 14:54 Ordered CULTURE URINE [RM] Stat Lab 08/10/20 14:54 Received Sodium Chloride 0.9% [Normal Saline] 1,000 ml Med 08/10/20 14:30 Active IV ASDIRECTED Resuscitation Status Routine Resus Stat 08/10/20 15:53 Ordered Medication Orders Sodium Chloride (Normal Saline) 1,000 mls @ 500 mls/hr IV ASDIRECTED KENNEDY Last Admin: 08/10/20 14:27 Dose: 500 mls/hr Documented by: CHARITY Assessment/Plan Comment:: ASSESSMENT AND PLAN WEAKNESS-unwilling or unable to eat or communicate over the past 3 days. Progressive weakness and dehydration. No significant evidence of underlying infection or metabolic abnormality. He has had a history of recent progression of weakness and possible swallowing difficulty. MRI obtained during his last admission showed only chronic changes and no acute abnormalities. Neurologic evaluation had been recommended which apparently the patient refused. -IV fluids for hydration -CT scan of the head without contrast -If no physical etiology identified consider transfer to [facility] unit TYPE 2 DIABETES MELLITUS -Continue Metformin -4 times daily glucometers -Low-dose sliding scale Humalog SCHIZOPHRENIA-he has not been taking his usual medications over the past 3 days -Resume usual outpatient medical therapy MAINTENANCE ISSUES -DVT prophylaxis; Lovenox 40 mg subcu daily -GI prophylaxis; not indicated -Cueva catheter; not indicated -Nutrition; consistent carbohydrate diet -Nicotine dependence; not indicated CODE STATUS-FULL CODE ADMISSION STATUS-this patient will be admitted to observation status, expect no more than a one night hospital stay for evaluation and management of problems as outlined above. DISPOSITION-anticipate discharge to home after the hospital stay. - Mortality Measure Prognosis:: Good
[2020-08-10] MEDS ORDERED: 50% Dextrose in Water 50 ML Syringe IV PRN (17:19)
[2020-08-10] MEDS ORDERED: LUMATEPERONE TOSYLATE 42 MG PO SCH (17:19)
[2020-08-10] MEDS ORDERED: OLANZapine 5 MG Tab PO PRN ×2 (17:19→21:08)
[2020-08-10] MEDS ORDERED: Ondansetron 4 MG/2 ML SDV IV PRN (17:19)
[2020-08-10] MEDS ORDERED: Glucose Gel 15 GM in 37.5 GM Tube PO PRN (17:19)
[2020-08-10] MEDS ORDERED: Sodium Chloride 0.9% 10 ML Syringe FLUSH PRN (17:19)
[2020-08-10] MEDS ORDERED: Acetaminophen 325 MG Tab PO PRN (17:19)
[2020-08-10] MEDS ORDERED: LORazepam 1 MG Tab PO PRN (17:19)
[2020-08-10] MEDS: Sodium Chloride 0.9% 1,000 ML IV SCH (17:24)
[2020-08-10] MEDS: Insulin Lispro 100 Unit/ML 3 ML KwikPen SUBCUT SCH ×2 (17:33→20:39)
--- NOTE | 2020-08-10 18:33 | CRLCT ---
Indication: New speech difficulty Technique: Noncontrast head CT Comparison: Head CT 06/27/2020 Findings: Axial images through the brain parenchyma demonstrates no acute intracranial hemorrhage or mass. There is no midline shift. No abnormal extra axial air-fluid collections. Paranasal sinuses mastoid air cells, skull and scalp appear unremarkable. Impression: No acute intracranial hemorrhage or mass. Please note that all CT scans at this facility use dose modulation, iterative reconstruction, and/or weight-based dosing when appropriate to reduce radiation dose to as low as reasonably achievable. Dictated by Ai Padilla MD @ Aug 10 2020 6:28PM Signed by Dr. Ai Padilla @ Aug 10 2020 6:31PM
[2020-08-10] MEDS: Magnesium Oxide 400 MG Tab PO SCH (20:40)
[2020-08-10] MEDS: Benztropine 1 MG Tab PO SCH (20:40)
[2020-08-10] MEDS: Spironolactone 25 MG Tab PO SCH (20:40)
[2020-08-10] MEDS ORDERED: Potassium Chloride 20 MEQ Tab.ER PO SCH (21:00)
[2020-08-11] MEDS: Sodium Chloride 0.9% 1,000 ML IV SCH (06:13)
[2020-08-11] MEDS: Pantoprazole 40 MG Tab.CR PO SCH (07:54)
[2020-08-11] MEDS: Levothyroxine 50 MCG Tab PO SCH (07:54)
[2020-08-11] MEDS ORDERED: Potassium Chloride 20 MEQ Tab.ER PO ONE ×2 (08:30→12:00)
[2020-08-11] MEDS: Insulin Lispro 100 Unit/ML 3 ML KwikPen SUBCUT SCH ×4 (08:48→21:46)
[2020-08-11] MEDS: Metoprolol Succinate 25 MG Tab.ER PO SCH (08:53)
[2020-08-11] MEDS: Potassium Chloride 20 MEQ Tab.ER PO SCH ×2 (08:53→16:57)
[2020-08-11] MEDS: Docusate Sodium 100 MG Cap PO SCH (08:53)
[2020-08-11] MEDS: Finasteride 5 MG Tab PO SCH (08:53)
[2020-08-11] MEDS: Sertraline 50 MG Tab PO SCH (08:54)
[2020-08-11] MEDS: Benztropine 1 MG Tab PO SCH ×2 (08:54→21:47)
[2020-08-11] MEDS: Magnesium Oxide 400 MG Tab PO SCH ×2 (08:54→21:47)
[2020-08-11] MEDS: metFORMIN 500 MG Tab PO SCH (08:54)
[2020-08-11] MEDS: Trospium 20 MG Tab PO SCH ×2 (08:54→21:48)
[2020-08-11] MEDS: Spironolactone 25 MG Tab PO SCH ×2 (08:54→21:47)
[2020-08-11] MEDS: ARIPiprazole 10 MG Tab PO SCH (08:55)
[2020-08-11] MEDS: Furosemide 20 MG Tab PO SCH (08:55)
[2020-08-11] MEDS ORDERED: Non-Formulary Medication 1 Each (Simvastatin [Zocor] 40 MG) PO SCH (09:00)
[2020-08-11] MEDS: Polyethylene Glycol 3350 Powder 17 GM Packet PO SCH (09:19)
--- NOTE | 2020-08-11 12:36 | PCM.PN ---
- General Info Date of Service: 08/11/20 Subjective Update: Mr. Apple has been stable since admission yesterday. CT scan of the head was obtained last night and showed no acute or new abnormalities. He is speaking somewhat more and did tell me today that he is choosing not to speak but that he is able to and has not noted any change in his speech. He has told nursing staff that he feels very depressed. Functional Status: Reports: Urinating - Review of Systems General: Reports: Weakness, Fatigue. Denies: Fever, Chills Pulmonary: Reports: No Symptoms Cardiovascular: Reports: No Symptoms Gastrointestinal: Reports: No Symptoms Psychiatric: Reports: Depression - Patient Data Vitals - Most Recent: Last Vital Signs Temp 98 F 08/11/20 11:49 Pulse 80 08/11/20 11:49 Resp 16 08/11/20 11:49 BP 114/78 08/11/20 11:49 Pulse Ox 93 L 08/11/20 11:49 Weight - Most Recent: 193 lb I&O - Last 24 Hours: Intake & Output 08/10/20 08/11/20 08/11/20 22:59 06:59 14:59 Intake Total 240 910 Output Total 275 350 Balance -35 560 Lab Results Last 24 Hours: Laboratory Results - last 24 hr 08/10/20 08/10/20 08/10/20 Range/Units 12:18 12:28 12:28 WBC 11.1 H (4.5-11.0) K/uL RBC 4.29 L (4.30-5.90) M/uL Hgb 11.6 L (12.0-15.0) g/dL Hct 35.3 L (40.0-54.0) % MCV 82 (80-98) fL MCH 27 (27-31) pg MCHC 33 (32-36) % Plt Count 300 (150-400) K/uL Neut % (Auto) 80 H (36-66) % Lymph % (Auto) 11 L (24-44) % [place] % (Auto) 9 H (2-6) % Eos % (Auto) 0 L (2-4) % Baso % (Auto) 0 (0-1) % PT (9.5-12.0) sec INR (0.80-1.20) Sodium (140-148) mmol/L Potassium (3.6-5.2) mmol/L Chloride (100-108) mmol/L Carbon Dioxide (21-32) mmol/L Anion Gap (5.0-14.0) mmol/L BUN (7-18) mg/dL Creatinine (0.8-1.3) mg/dL Est Cr Clr Drug Dosing mL/min Estimated GFR (MDRD) (>60) Glucose (74-106) mg/dL Calcium (8.5-10.1) mg/dL Magnesium (1.8-2.4) mg/dL Total Bilirubin (0.2-1.0) mg/dL AST (15-37) U/L ALT (12-78) U/L Alkaline Phosphatase (46-116) U/L Total Protein (6.4-8.2) g/dL Albumin (3.4-5.0) g/dL Globulin (2.3-3.5) g/dL Albumin/Globulin Ratio (1.2-2.2) TSH, Ultra Sensitive 1.711 (0.358-3.740) uIU/mL Urine Color Yellow (YELLOW) Urine Appearance Slightly cloudy A (CLEAR) Urine pH 6.5 (5.0-8.0) Ur Specific [place] 1.025 (1.008-1.030) Urine Protein Trace H (NEGATIVE) mg/dL Urine Glucose (UA) Negative (NEGATIVE) mg/dL Urine Ketones Trace H (NEGATIVE) mg/dL Urine Occult Blood Small H (NEGATIVE) Urine Nitrite Negative (NEGATIVE) Urine Bilirubin Negative (NEGATIVE) Urine Urobilinogen 0.2 (0.2-1.0) EU/dL Ur Leukocyte Esterase Negative (NEGATIVE) Urine RBC 10-20 H (0-5) Urine WBC 5-10 H (0-5) Ur Epithelial Cells Few Amorphous Sediment Not seen Urine Bacteria Moderate Urine Mucus Moderate SARS-CoV-2 RNA (SHANDA) (NEGATIVE) 08/10/20 08/10/20 08/10/20 Range/Units 12:28 13:14 16:11 WBC (4.5-11.0) K/uL RBC (4.30-5.90) M/uL Hgb (12.0-15.0) g/dL Hct (40.0-54.0) % MCV (80-98) fL MCH (27-31) pg MCHC (32-36) % Plt Count (150-400) K/uL Neut % (Auto) (36-66) % Lymph % (Auto) (24-44) % [place] % (Auto) (2-6) % Eos % (Auto) (2-4) % Baso % (Auto) (0-1) % PT 18.5 H (9.5-12.0) sec INR 1.72 H (0.80-1.20) Sodium 132 L (140-148) mmol/L Potassium 3.4 L (3.6-5.2) mmol/L Chloride 92 L (100-108) mmol/L Carbon Dioxide 31 (21-32) mmol/L Anion Gap 12.4 (5.0-14.0) mmol/L BUN 39 H D (7-18) mg/dL Creatinine 1.5 H D (0.8-1.3) mg/dL Est Cr Clr Drug Dosing 50.69 mL/min Estimated GFR (MDRD) 47 L (>60) Glucose 116 H (74-106) mg/dL Calcium 9.4 (8.5-10.1) mg/dL Magnesium 2.2 (1.8-2.4) mg/dL Total Bilirubin 0.4 (0.2-1.0) mg/dL AST 20 (15-37) U/L ALT 20 (12-78) U/L Alkaline Phosphatase 86 (46-116) U/L Total Protein 7.6 (6.4-8.2) g/dL Albumin 3.4 (3.4-5.0) g/dL Globulin 4.2 H (2.3-3.5) g/dL Albumin/Globulin Ratio 0.8 L (1.2-2.2) TSH, Ultra Sensitive (0.358-3.740) uIU/mL Urine Color (YELLOW) Urine Appearance (CLEAR) Urine pH (5.0-8.0) Ur Specific [place] (1.008-1.030) Urine Protein (NEGATIVE) mg/dL Urine Glucose (UA) (NEGATIVE) mg/dL Urine Ketones (NEGATIVE) mg/dL Urine Occult Blood (NEGATIVE) Urine Nitrite (NEGATIVE) Urine Bilirubin (NEGATIVE) Urine Urobilinogen (0.2-1.0) EU/dL Ur Leukocyte Esterase (NEGATIVE) Urine RBC (0-5) Urine WBC (0-5) Ur Epithelial Cells Amorphous Sediment Urine Bacteria Urine Mucus SARS-CoV-2 RNA (SHANDA) Negative (NEGATIVE) 08/11/20 08/11/20 08/11/20 Range/Units 04:16 04:16 04:16 WBC 8.1 (4.5-11.0) K/uL RBC 3.76 L (4.30-5.90) M/uL Hgb 10.1 L (12.0-15.0) g/dL Hct 31.6 L (40.0-54.0) % MCV 84 (80-98) fL MCH 27 (27-31) pg MCHC 32 (32-36) % Plt Count 268 (150-400) K/uL Neut % (Auto) 74 H (36-66) % Lymph % (Auto) 16 L (24-44) % [place] % (Auto) 9 H (2-6) % Eos % (Auto) 1 L (2-4) % Baso % (Auto) 0 (0-1) % PT 18.4 H (9.5-12.0) sec INR 1.71 H (0.80-1.20) Sodium 138 L (140-148) mmol/L Potassium 3.5 L (3.6-5.2) mmol/L Chloride 100 (100-108) mmol/L Carbon Dioxide 28 (21-32) mmol/L Anion Gap 13.5 (5.0-14.0) mmol/L BUN 31 H (7-18) mg/dL Creatinine 1.1 (0.8-1.3) mg/dL Est Cr Clr Drug Dosing 69.30 mL/min Estimated GFR (MDRD) > 60 (>60) Glucose 98 (74-106) mg/dL Calcium 8.7 (8.5-10.1) mg/dL Magnesium (1.8-2.4) mg/dL Total Bilirubin (0.2-1.0) mg/dL AST (15-37) U/L ALT (12-78) U/L Alkaline Phosphatase (46-116) U/L Total Protein (6.4-8.2) g/dL Albumin (3.4-5.0) g/dL Globulin (2.3-3.5) g/dL Albumin/Globulin Ratio (1.2-2.2) TSH, Ultra Sensitive (0.358-3.740) uIU/mL Urine Color (YELLOW) Urine Appearance (CLEAR) Urine pH (5.0-8.0) Ur Specific [place] (1.008-1.030) Urine Protein (NEGATIVE) mg/dL Urine Glucose (UA) (NEGATIVE) mg/dL Urine Ketones (NEGATIVE) mg/dL Urine Occult Blood (NEGATIVE) Urine Nitrite (NEGATIVE) Urine Bilirubin (NEGATIVE) Urine Urobilinogen (0.2-1.0) EU/dL Ur Leukocyte Esterase (NEGATIVE) Urine RBC (0-5) Urine WBC (0-5) Ur Epithelial Cells Amorphous Sediment Urine Bacteria Urine Mucus SARS-CoV-2 RNA (SHANDA) (NEGATIVE) Med Orders - Current: Current Medications Acetaminophen (Tylenol) 650 mg PO Q4H PRN PRN Reason: Pain (Mild 1-3)/fever Aripiprazole (Abilify) 2.5 mg PO DAILY [facility] Last Admin: 08/11/20 08:55 Dose: 2.5 mg Documented by: Benztropine Mesylate (Cogentin) 1 mg PO BID [facility] Last Admin: 08/11/20 08:54 Dose: 1 mg Documented by: Dextrose (Glutose 15) 15 gm PO ONETIME PRN PRN Reason: Hypoglycemia Dextrose/Water (Dextrose 50% In Water) 50 ml IV ONETIME PRN PRN Reason: Hypoglycemia Docusate Sodium (Colace) 100 mg PO DAILY [facility] Last Admin: 08/11/20 08:53 Dose: 100 mg Documented by: Finasteride (Proscar) 5 mg PO DAILY [facility] Last Admin: 08/11/20 08:53 Dose: 5 mg Documented by: Furosemide (Lasix) 20 mg PO DAILY [facility] Last Admin: 08/11/20 08:55 Dose: 20 mg Documented by: Insulin Human Lispro (Humalog) 0 unit SUBCUT QIDACANDBED [facility]; Protocol Last Admin: 08/11/20 12:07 Dose: Not Given Documented by: Levothyroxine Sodium (Synthroid) 50 mcg PO ACBREAKFAST [facility] Last Admin: 08/11/20 07:54 Dose: 50 mcg Documented by: Lorazepam (Ativan) 1 mg PO TID PRN PRN Reason: Anxiety Magnesium Oxide (Magnesium Oxide) 400 mg PO BID [facility] Last Admin: 08/11/20 08:54 Dose: 400 mg Documented by: Metformin HCl (Glucophage) 500 mg PO DAILY [facility] Last Admin: 08/11/20 08:54 Dose: 500 mg Documented by: Metoprolol Succinate (Toprol Xl) 25 mg PO DAILY [facility] Last Admin: 08/11/20 08:53 Dose: 25 mg Documented by: Non-Formulary Medication (Lumateperone Tosylate [Caplyta]) 42 mg PO ACDINNER [facility] Olanzapine (Zyprexa) 5 mg PO ASDIRECTED PRN PRN Reason: Hallucinations Ondansetron HCl (Zofran) 4 mg IV Q4H PRN PRN Reason: Nausea/Vomiting Pantoprazole Sodium (Protonix) 40 mg PO ACBREAKFAST [facility] Last Admin: 08/11/20 07:54 Dose: 40 mg Documented by: Polyethylene Glycol (Miralax) 17 gm PO DAILY [facility] Last Admin: 08/11/20 09:19 Dose: 17 gm Documented by: Potassium Chloride (Klor-Con M20) 40 meq PO BIDMEALS [facility] Last Admin: 08/11/20 08:53 Dose: 40 meq Documented by: Senna/Docusate Sodium (Senna Plus) 1 tab PO BID PRN PRN Reason: Constipation Sertraline HCl (Zoloft) 200 mg PO DAILY [facility] Last Admin: 08/11/20 08:54 Dose: 200 mg Documented by: Simvastatin (Zocor) 40 mg PO QPM [facility] Sodium Chloride (Saline Flush) 10 ml FLUSH ASDIRECTED PRN PRN Reason: Keep Vein Open Spironolactone (Aldactone) 25 mg PO BID [facility] Last Admin: 08/11/20 08:54 Dose: 25 mg Documented by: Trospium (Sanctura) 20 mg PO BID [facility] Last Admin: 08/11/20 08:54 Dose: 20 mg Documented by: Warfarin Sodium (Coumadin) 5 mg PO ONETIME ONE Stop: 08/11/20 12:27 Discontinued Medications Sodium Chloride (Normal Saline) 1,000 mls @ 999 mls/hr IV ASDIRECTED [facility] Last Admin: 08/10/20 13:19 Dose: 999 mls/hr Documented by: Sodium Chloride (Normal Saline) 1,000 mls @ 500 mls/hr IV ASDIRECTED [facility] Last Admin: 08/10/20 14:27 Dose: 500 mls/hr Documented by: Sodium Chloride (Normal Saline) 1,000 mls @ 75 mls/hr IV ASDIRECTED [facility] Last Admin: 08/11/20 06:13 Dose: 75 mls/hr Documented by: Olanzapine (Zyprexa) 5 mg PO ASDIRECTED PRN PRN Reason: Hallucinations Potassium Chloride (Klor-Con M20) 40 meq PO BID [facility] Last Admin: 08/10/20 20:40 Dose: 40 meq Documented by: Potassium Chloride (Klor-Con M20) 40 meq PO ONETIME ONE Stop: 08/10/20 18:31 Last Admin: 08/10/20 18:29 Dose: 40 meq Documented by: Potassium Chloride (Klor-Con M20) 40 meq PO ONETIME ONE Stop: 08/11/20 12:01 Last Admin: 08/11/20 12:09 Dose: 40 meq Documented by: - Exam Quality Assessment: DVT Prophylaxis General: Alert, Cooperative, Mild Distress Lungs: Clear to Auscultation, Normal Respiratory Effort Cardiovascular: Regular Rate, Regular Rhythm, No Murmurs GI/Abdominal Exam: Soft, Non-Tender, No Organomegaly, No Distention Extremities: Non-Tender, No Pedal Edema Sepsis Event Note - Evaluation Sepsis Screening Result: No Definite Risk - Focused Exam Vital Signs: Vital Signs Temp Pulse Pulse Resp BP BP Pulse Ox 08/11/20 11:49 98 F 80 16 114/78 93 L 08/11/20 08:53 83 133/78 08/11/20 07:56 97 F 75 16 133/78 93 L 08/11/20 04:00 97.5 F 81 14 117/75 96 - Problem List Review Problem List Initiated/Reviewed/Updated: Yes - My Orders Last 24 Hours: My Active Orders 08/10/20 Lunch Consistent Carbohydrate Diet [DIET] 08/10/20 15:53 Resuscitation Status Routine 08/10/20 17:19 Acetaminophen [TylenoL] 650 mg PO Q4H PRN Dextrose 50% in Water 50 ml IV ONETIME PRN Dextrose [Glutose 15] 15 gm PO ONETIME PRN Docusate Sodium/Sennosides [Senna Plus] 1 tab PO BID PRN Insulin Lispro [HumaLOG] See Protocol SUBCUT QIDACANDBED LORazepam [Ativan] 1 mg PO TID PRN Lumateperone Tosylate [Caplyta] 42 mg PO ACDINNER Ondansetron [Zofran] 4 mg IV Q4H PRN Sodium Chloride 0.9% [Saline Flush] 10 ml FLUSH ASDIRECTED PRN 08/10/20 17:19 Patient Status [ADT] Routine Ambulate [RC] QID Diabetes Education [RC] Click to Edit Height and Weight [RC] DAILY Intake and Output [RC] QSHIFT Notify Provider Vital Signs [RC] ASDIRECTED Notify Provider [RC] PRN Oxygen Therapy [RC] PRN Peripheral IV Care [RC] . DIRECTED Up With Assistance [RC] ASDIRECTED Up to Chair [RC] QID VTE/DVT Education [RC] Per Unit Routine Vital Signs [RC] Q4H Peripheral IV Insertion Adult [OM.PC] Routine VTE Pharmacological Contraindications [AST] Per Unit Routine 08/10/20 21:00 Benztropine [Cogentin] 1 mg PO BID Magnesium Oxide 400 mg PO BID Spironolactone [Aldactone] 25 mg PO BID 08/10/20 21:08 OLANZapine [ZyPREXA] 5 mg PO ASDIRECTED PRN 08/11/20 07:30 Levothyroxine [Synthroid] 50 mcg PO ACBREAKFAST Pantoprazole [ProTONIX] 40 mg PO ACBREAKFAST 08/11/20 08:00 Potassium Chloride [Klor-Con M20] 40 meq PO BIDMEALS 08/11/20 09:00 ARIPiprazole [Abilify] 2.5 mg PO DAILY Docusate Sodium [Colace] 100 mg PO DAILY Finasteride [Proscar] 5 mg PO DAILY Furosemide [Lasix] 20 mg PO DAILY Metoprolol Succinate [Toprol XL] 25 mg PO DAILY Sertraline [Zoloft] 200 mg PO DAILY Trospium [Sanctura] 20 mg PO BID metFORMIN [Glucophage] 500 mg PO DAILY polyethylene glycoL 3350 [MiraLAX] 17 gm PO DAILY 08/11/20 10:04 Air Mattress [Pressure Reduction Mattress] [OM.PC] Routine 08/11/20 12:26 Warfarin [Coumadin] 5 mg PO ONETIME ONE 08/11/20 12:27 Convert IV to Saline Lock [OM.PC] Routine 08/11/20 17:00 Simvastatin [Zocor] 40 mg PO QPM 08/12/20 05:00 BASIC METABOLIC PANEL,BMP [CHEM] Timed CBC WITH AUTO DIFF [HEME] Timed 08/12/20 05:11 INR,PT,PROTHROMBIN TIME [COAG] AM 08/12/20 07:30 GLUCOSE POC LAB TO COLLECT JPM [POC] QIDACANDBED 08/12/20 11:30 GLUCOSE POC LAB TO COLLECT JPM [POC] QIDACANDBED 08/12/20 16:30 GLUCOSE POC LAB TO COLLECT JPM [POC] QIDACANDBED 08/12/20 21:00 GLUCOSE POC LAB TO COLLECT JPM [POC] QIDACANDBED 08/13/20 07:30 GLUCOSE POC LAB TO COLLECT JPM [POC] QIDACANDBED 08/13/20 11:30 GLUCOSE POC LAB TO COLLECT JPM [POC] QIDACANDBED 08/13/20 16:30 GLUCOSE POC LAB TO COLLECT JPM [POC] QIDACANDBED 08/13/20 21:00 GLUCOSE POC LAB TO COLLECT JPM [POC] QIDACANDBED 08/14/20 07:30 GLUCOSE POC LAB TO COLLECT JPM [POC] QIDACANDBED 08/14/20 11:30 GLUCOSE POC LAB TO COLLECT JPM [POC] QIDACANDBED 08/14/20 16:30 GLUCOSE POC LAB TO COLLECT JPM [POC] QIDACANDBED 08/14/20 21:00 GLUCOSE POC LAB TO COLLECT JPM [POC] QIDACANDBED 08/15/20 07:30 GLUCOSE POC LAB TO COLLECT JPM [POC] QIDACANDBED 08/15/20 11:30 GLUCOSE POC LAB TO COLLECT JPM [POC] QIDACANDBED 08/15/20 16:30 GLUCOSE POC LAB TO COLLECT JPM [POC] QIDACANDBED - Plan Plan:: ASSESSMENT AND PLAN WEAKNESS-moderate oral intake, if fed by nursing staff. -Saline lock IV TYPE 2 DIABETES MELLITUS -Continue Metformin -4 times daily glucometers -Low-dose sliding scale Humalog SCHIZOPHRENIA-he has not been taking his usual medications over the past 3 days. He reports to nursing staff that he feels very depressed -Resume usual outpatient medical therapy -Inpatient psychiatric referral MAINTENANCE ISSUES -DVT prophylaxis; Lovenox 40 mg subcu daily -GI prophylaxis; not indicated -Cueva catheter; not indicated -Nutrition; consistent carbohydrate diet -Nicotine dependence; not indicated CODE STATUS-FULL CODE ADMISSION STATUS-this patient will be admitted to observation status, expect no more than a one night hospital stay for evaluation and management of problems as outlined above. DISPOSITION-anticipate discharge to home after the hospital stay.
[2020-08-11] MEDS ORDERED: Warfarin 5 MG Tab PO ONE (13:30)
[2020-08-11] MEDS ORDERED: OLANZapine 5 MG Tab PO PRN (13:54)
[2020-08-11] MEDS: CAPLYTA 42 MG PO SCH (16:57)
[2020-08-11] MEDS: Simvastatin 20 MG Tab PO SCH (16:58)
[2020-08-12] MEDS: Insulin Lispro 100 Unit/ML 3 ML KwikPen SUBCUT SCH ×4 (08:08→21:02)
[2020-08-12] MEDS: Polyethylene Glycol 3350 Powder 17 GM Packet PO SCH (08:17)
[2020-08-12] MEDS: Docusate Sodium 100 MG Cap PO SCH (08:17)
[2020-08-12] MEDS: Trospium 20 MG Tab PO SCH ×2 (08:17→21:03)
[2020-08-12] MEDS: Metoprolol Succinate 25 MG Tab.ER PO SCH (08:18)
[2020-08-12] MEDS: Pantoprazole 40 MG Tab.CR PO SCH (08:18)
[2020-08-12] MEDS: Benztropine 1 MG Tab PO SCH ×2 (08:18→21:02)
[2020-08-12] MEDS: Potassium Chloride 20 MEQ Tab.ER PO SCH ×2 (08:18→17:46)
[2020-08-12] MEDS: Magnesium Oxide 400 MG Tab PO SCH ×2 (08:18→21:02)
[2020-08-12] MEDS: ARIPiprazole 10 MG Tab PO SCH (08:18)
[2020-08-12] MEDS: Levothyroxine 50 MCG Tab PO SCH (08:19)
[2020-08-12] MEDS: metFORMIN 500 MG Tab PO SCH (08:19)
[2020-08-12] MEDS: Furosemide 20 MG Tab PO SCH (08:19)
[2020-08-12] MEDS: Finasteride 5 MG Tab PO SCH (08:19)
[2020-08-12] MEDS: Sertraline 50 MG Tab PO SCH (08:19)
[2020-08-12] MEDS: Spironolactone 25 MG Tab PO SCH ×2 (08:19→21:02)
[2020-08-12] MEDS ORDERED: Warfarin 5 MG Tab PO ONE (11:00)
--- NOTE | 2020-08-12 12:06 | PCM.PN ---
- General Info Date of Service: 08/12/20 Subjective Update: Mr. Apple has remained fairly stable over the last 24 hours. He is more conversant, but still minimal conversation. He is obviously confused and experiencing hallucinations. Oral intake has been somewhat better but staff needs to feed him and offer fluids on a regular basis. He is unable at this time to provide meaningful information concerning symptoms or review of systems. - Patient Data Vitals - Most Recent: Last Vital Signs Temp 98 F 08/12/20 10:55 Pulse 78 08/12/20 10:55 Resp 16 08/12/20 10:55 BP 96/63 08/12/20 10:55 Pulse Ox 96 08/12/20 10:55 Weight - Most Recent: 193 lb I&O - Last 24 Hours: Intake & Output 08/11/20 08/12/20 08/12/20 22:59 06:59 14:59 Intake Total 480 400 Balance 480 400 Lab Results Last 24 Hours: Laboratory Results - last 24 hr 08/11/20 08/11/20 08/12/20 Range/Units 16:58 21:00 04:00 WBC (4.5-11.0) K/uL RBC (4.30-5.90) M/uL Hgb (12.0-15.0) g/dL Hct (40.0-54.0) % MCV (80-98) fL MCH (27-31) pg MCHC (32-36) % Plt Count (150-400) K/uL Neut % (Auto) (36-66) % Lymph % (Auto) (24-44) % [place] % (Auto) (2-6) % Eos % (Auto) (2-4) % Baso % (Auto) (0-1) % PT 20.1 H (9.5-12.0) sec INR 1.87 H (0.80-1.20) Sodium (140-148) mmol/L Potassium (3.6-5.2) mmol/L Chloride (100-108) mmol/L Carbon Dioxide (21-32) mmol/L Anion Gap (5.0-14.0) mmol/L BUN (7-18) mg/dL Creatinine (0.8-1.3) mg/dL Est Cr Clr Drug Dosing mL/min Estimated GFR (MDRD) (>60) Glucose (74-106) mg/dL POC Glucose 86 100 (74-106) MG/DL Calcium (8.5-10.1) mg/dL 08/12/20 08/12/20 08/12/20 Range/Units 04:00 04:00 07:30 WBC 7.4 (4.5-11.0) K/uL RBC 3.78 L (4.30-5.90) M/uL Hgb 10.0 L (12.0-15.0) g/dL Hct 32.5 L (40.0-54.0) % MCV 86 (80-98) fL MCH 27 (27-31) pg MCHC 31 L (32-36) % Plt Count 244 (150-400) K/uL Neut % (Auto) 65 (36-66) % Lymph % (Auto) 23 L (24-44) % [place] % (Auto) 11 H (2-6) % Eos % (Auto) 2 (2-4) % Baso % (Auto) 0 (0-1) % PT (9.5-12.0) sec INR (0.80-1.20) Sodium 138 L (140-148) mmol/L Potassium 3.9 (3.6-5.2) mmol/L Chloride 103 (100-108) mmol/L Carbon Dioxide 30 (21-32) mmol/L Anion Gap 8.9 (5.0-14.0) mmol/L BUN 22 H (7-18) mg/dL Creatinine 1.0 (0.8-1.3) mg/dL Est Cr Clr Drug Dosing 76.23 mL/min Estimated GFR (MDRD) > 60 (>60) Glucose 91 (74-106) mg/dL POC Glucose 86 (74-106) MG/DL Calcium 8.8 (8.5-10.1) mg/dL 08/12/20 Range/Units 11:30 WBC (4.5-11.0) K/uL RBC (4.30-5.90) M/uL Hgb (12.0-15.0) g/dL Hct (40.0-54.0) % MCV (80-98) fL MCH (27-31) pg MCHC (32-36) % Plt Count (150-400) K/uL Neut % (Auto) (36-66) % Lymph % (Auto) (24-44) % [place] % (Auto) (2-6) % Eos % (Auto) (2-4) % Baso % (Auto) (0-1) % PT (9.5-12.0) sec INR (0.80-1.20) Sodium (140-148) mmol/L Potassium (3.6-5.2) mmol/L Chloride (100-108) mmol/L Carbon Dioxide (21-32) mmol/L Anion Gap (5.0-14.0) mmol/L BUN (7-18) mg/dL Creatinine (0.8-1.3) mg/dL Est Cr Clr Drug Dosing mL/min Estimated GFR (MDRD) (>60) Glucose (74-106) mg/dL POC Glucose 110 H (74-106) MG/DL Calcium (8.5-10.1) mg/dL Miquel Results Last 24 Hours: Microbiology 08/10/20 14:54 Urine Culture - Preliminary Urine, Bladder NO GROWTH AFTER 1 DAY Med Orders - Current: Current Medications Acetaminophen (Tylenol) 650 mg PO Q4H PRN PRN Reason: Pain (Mild 1-3)/fever Aripiprazole (Abilify) 2.5 mg PO DAILY [facility] Last Admin: 08/12/20 08:18 Dose: 2.5 mg Documented by: Benztropine Mesylate (Cogentin) 1 mg PO BID [facility] Last Admin: 08/12/20 08:18 Dose: 1 mg Documented by: Dextrose (Glutose 15) 15 gm PO ONETIME PRN PRN Reason: Hypoglycemia Dextrose/Water (Dextrose 50% In Water) 50 ml IV ONETIME PRN PRN Reason: Hypoglycemia Docusate Sodium (Colace) 100 mg PO DAILY [facility] Last Admin: 08/12/20 08:17 Dose: 100 mg Documented by: Finasteride (Proscar) 5 mg PO DAILY [facility] Last Admin: 08/12/20 08:19 Dose: 5 mg Documented by: Furosemide (Lasix) 20 mg PO DAILY [facility] Last Admin: 08/12/20 08:19 Dose: 20 mg Documented by: Insulin Human Lispro (Humalog) 0 unit SUBCUT QIDACANDBED [facility]; Protocol Last Admin: 08/12/20 08:08 Dose: Not Given Documented by: Levothyroxine Sodium (Synthroid) 50 mcg PO ACBREAKFAST [facility] Last Admin: 08/12/20 08:19 Dose: 50 mcg Documented by: Lorazepam (Ativan) 1 mg PO TID PRN PRN Reason: Anxiety Magnesium Oxide (Magnesium Oxide) 400 mg PO BID [facility] Last Admin: 08/12/20 08:18 Dose: 400 mg Documented by: Metformin HCl (Glucophage) 500 mg PO DAILY [facility] Last Admin: 08/12/20 08:19 Dose: 500 mg Documented by: Metoprolol Succinate (Toprol Xl) 25 mg PO DAILY [facility] Last Admin: 08/12/20 08:18 Dose: 25 mg Documented by: Olanzapine (Zyprexa) 5 mg PO BID PRN PRN Reason: Hallucinations Ondansetron HCl (Zofran) 4 mg IV Q4H PRN PRN Reason: Nausea/Vomiting Pantoprazole Sodium (Protonix) 40 mg PO ACBREAKFAST [facility] Last Admin: 08/12/20 08:18 Dose: 40 mg Documented by: Caplyta 42mg Cap ( (Ptom)) 1 each PO QPM [facility] Last Admin: 08/11/20 16:57 Dose: 1 each Documented by: Polyethylene Glycol (Miralax) 17 gm PO DAILY [facility] Last Admin: 08/12/20 08:17 Dose: 17 gm Documented by: Potassium Chloride (Klor-Con M20) 40 meq PO BIDMEALS [facility] Last Admin: 08/12/20 08:18 Dose: 40 meq Documented by: Senna/Docusate Sodium (Senna Plus) 1 tab PO BID PRN PRN Reason: Constipation Sertraline HCl (Zoloft) 200 mg PO DAILY [facility] Last Admin: 08/12/20 08:19 Dose: 200 mg Documented by: Simvastatin (Zocor) 40 mg PO QPM [facility] Last Admin: 08/11/20 16:58 Dose: 40 mg Documented by: Sodium Chloride (Saline Flush) 10 ml FLUSH ASDIRECTED PRN PRN Reason: Keep Vein Open Spironolactone (Aldactone) 25 mg PO BID [facility] Last Admin: 08/12/20 08:19 Dose: 25 mg Documented by: Trospium (Sanctura) 20 mg PO BID [facility] Last Admin: 08/12/20 08:17 Dose: 20 mg Documented by: Discontinued Medications Sodium Chloride (Normal Saline) 1,000 mls @ 999 mls/hr IV ASDIRECTED [facility] Last Admin: 08/10/20 13:19 Dose: 999 mls/hr Documented by: Sodium Chloride (Normal Saline) 1,000 mls @ 500 mls/hr IV ASDIRECTED [facility] Last Admin: 08/10/20 14:27 Dose: 500 mls/hr Documented by: Sodium Chloride (Normal Saline) 1,000 mls @ 75 mls/hr IV ASDIRECTED [facility] Last Admin: 08/11/20 06:13 Dose: 75 mls/hr Documented by: Olanzapine (Zyprexa) 5 mg PO ASDIRECTED PRN PRN Reason: Hallucinations Potassium Chloride (Klor-Con M20) 40 meq PO BID [facility] Last Admin: 08/10/20 20:40 Dose: 40 meq Documented by: Potassium Chloride (Klor-Con M20) 40 meq PO ONETIME ONE Stop: 08/10/20 18:31 Last Admin: 08/10/20 18:29 Dose: 40 meq Documented by: Potassium Chloride (Klor-Con M20) 40 meq PO ONETIME ONE Stop: 08/11/20 12:01 Last Admin: 08/11/20 12:09 Dose: 40 meq Documented by: Warfarin Sodium (Coumadin) 5 mg PO ONETIME ONE Stop: 08/11/20 13:31 Last Admin: 08/11/20 14:08 Dose: 5 mg Documented by: Warfarin Sodium (Coumadin) 5 mg PO ONETIME ONE Stop: 08/12/20 11:01 - Exam Quality Assessment: DVT Prophylaxis General: Alert, Mild Distress. No: Oriented, Cooperative Lungs: Clear to Auscultation, Normal Respiratory Effort Cardiovascular: Regular Rate, Regular Rhythm, No Murmurs GI/Abdominal Exam: Soft, Non-Tender, No Organomegaly, No Distention Extremities: Non-Tender, No Pedal Edema Sepsis Event Note - Evaluation Sepsis Screening Result: No Definite Risk - Focused Exam Vital Signs: Vital Signs Temp Temp Pulse Pulse Resp BP BP 08/12/20 10:55 98 F 78 16 96/63 08/12/20 08:18 72 109/68 08/12/20 07:17 96.8 F L 59 L 16 109/68 08/12/20 04:40 97.8 F 67 16 100/69 08/12/20 01:12 96.6 F L 75 18 112/73 Pulse Ox 12/27/20 10:55 96 08/12/20 08:18 08/12/20 07:17 95 08/12/20 04:40 91 L 08/12/20 01:12 98 - Problem List Review Problem List Initiated/Reviewed/Updated: Yes - My Orders Last 24 Hours: My Active Orders 08/11/20 12:27 Convert IV to Saline Lock [OM.PC] Routine 08/11/20 13:54 OLANZapine [ZyPREXA] 5 mg PO BID PRN 08/11/20 17:00 Patient's Own Medication [Ptom] 1 each PO QPM Simvastatin [Zocor] 40 mg PO QPM 08/12/20 16:30 GLUCOSE POC LAB TO COLLECT JPM [POC] QIDACANDBED 08/12/20 21:00 GLUCOSE POC LAB TO COLLECT JPM [POC] QIDACANDBED 08/13/20 05:11 INR,PT,PROTHROMBIN TIME [COAG] AM 08/13/20 07:30 GLUCOSE POC LAB TO COLLECT JPM [POC] QIDACANDBED GLUCOSE POC LAB TO COLLECT JPM [POC] QIDACANDBED 08/13/20 11:30 GLUCOSE POC LAB TO COLLECT JPM [POC] QIDACANDBED GLUCOSE POC LAB TO COLLECT JPM [POC] QIDACANDBED 08/13/20 16:30 GLUCOSE POC LAB TO COLLECT JPM [POC] QIDACANDBED GLUCOSE POC LAB TO COLLECT JPM [POC] QIDACANDBED 08/13/20 21:00 GLUCOSE POC LAB TO COLLECT JPM [POC] QIDACANDBED GLUCOSE POC LAB TO COLLECT JPM [POC] QIDACANDBED 08/14/20 07:30 GLUCOSE POC LAB TO COLLECT JPM [POC] QIDACANDBED GLUCOSE POC LAB TO COLLECT JPM [POC] QIDACANDBED 08/14/20 11:30 GLUCOSE POC LAB TO COLLECT JPM [POC] QIDACANDBED GLUCOSE POC LAB TO COLLECT JPM [POC] QIDACANDBED 08/14/20 16:30 GLUCOSE POC LAB TO COLLECT JPM [POC] QIDACANDBED GLUCOSE POC LAB TO COLLECT JPM [POC] QIDACANDBED 08/14/20 21:00 GLUCOSE POC LAB TO COLLECT JPM [POC] QIDACANDBED GLUCOSE POC LAB TO COLLECT JPM [POC] QIDACANDBED 08/15/20 07:30 GLUCOSE POC LAB TO COLLECT JPM [POC] QIDACANDBED GLUCOSE POC LAB TO COLLECT JPM [POC] QIDACANDBED 08/15/20 11:30 GLUCOSE POC LAB TO COLLECT JPM [POC] QIDACANDBED GLUCOSE POC LAB TO COLLECT JPM [POC] QIDACANDBED 08/15/20 16:30 GLUCOSE POC LAB TO COLLECT JPM [POC] QIDACANDBED GLUCOSE POC LAB TO COLLECT JPM [POC] QIDACANDBED 08/15/20 21:00 GLUCOSE POC LAB TO COLLECT JPM [POC] QIDACANDBED 08/16/20 07:30 GLUCOSE POC LAB TO COLLECT JPM [POC] QIDACANDBED 08/16/20 11:30 GLUCOSE POC LAB TO COLLECT JPM [POC] QIDACANDBED - Plan Plan:: ASSESSMENT AND PLAN WEAKNESS-oral intake, if fed by nursing staff. -Saline lock IV TYPE 2 DIABETES MELLITUS -Continue Metformin -4 times daily glucometers -Low-dose sliding scale Humalog SCHIZOPHRENIA-depressed and having difficulty with hallucinations -Resume usual outpatient medical therapy -Inpatient psychiatric referral MAINTENANCE ISSUES -DVT prophylaxis; Lovenox 40 mg subcu daily -GI prophylaxis; not indicated -Cueva catheter; not indicated -Nutrition; consistent carbohydrate diet -Nicotine dependence; not indicated CODE STATUS-FULL CODE ADMISSION STATUS-this patient will be admitted to observation status, expect no more than a one night hospital stay for evaluation and management of problems as outlined above. DISPOSITION-anticipate discharge to home after the hospital stay.
[2020-08-12] MEDS: CAPLYTA 42 MG PO SCH (17:45)
[2020-08-12] MEDS: Simvastatin 20 MG Tab PO SCH (17:46)
[2020-08-13] MEDS: Insulin Lispro 100 Unit/ML 3 ML KwikPen SUBCUT SCH ×4 (07:59→21:49)
[2020-08-13] MEDS: Sertraline 50 MG Tab PO SCH (08:21)
[2020-08-13] MEDS: Pantoprazole 40 MG Tab.CR PO SCH (08:21)
[2020-08-13] MEDS: metFORMIN 500 MG Tab PO SCH (08:21)
[2020-08-13] MEDS: Furosemide 20 MG Tab PO SCH (08:22)
[2020-08-13] MEDS: Potassium Chloride 20 MEQ Tab.ER PO SCH ×2 (08:22→16:19)
[2020-08-13] MEDS: Trospium 20 MG Tab PO SCH ×2 (08:22→21:25)
[2020-08-13] MEDS: Docusate Sodium 100 MG Cap PO SCH (08:22)
[2020-08-13] MEDS: Levothyroxine 50 MCG Tab PO SCH (08:22)
[2020-08-13] MEDS: Magnesium Oxide 400 MG Tab PO SCH ×2 (08:22→21:25)
[2020-08-13] MEDS: Spironolactone 25 MG Tab PO SCH ×2 (08:23→21:25)
[2020-08-13] MEDS: ARIPiprazole 10 MG Tab PO SCH (08:23)
[2020-08-13] MEDS: Benztropine 1 MG Tab PO SCH ×2 (08:23→21:25)
[2020-08-13] MEDS: Metoprolol Succinate 25 MG Tab.ER PO SCH (08:24)
[2020-08-13] MEDS: Polyethylene Glycol 3350 Powder 17 GM Packet PO SCH (08:24)
[2020-08-13] MEDS: Finasteride 5 MG Tab PO SCH (08:24)
--- NOTE | 2020-08-13 10:27 | CR ---
CHEST: Portable 08/10/2020 at 1:31 PM CLINICAL HISTORY:Weakness, cough COMPARISON:07/24/2020 FINDINGS: There is less than optimal lung expansion. Some mild patchy density in the left midlung. There are no effusions. There are atherosclerotic changes in the aorta. IMPRESSION: LESS than optimal study due to poor inspiratory level. Mild increase in left lung markings. This may be artifactual. Minimal infiltrate is not excluded. If clinical symptomatology persists or worsens a repeat exam is recommended.
--- NOTE | 2020-08-13 11:19 | PCM.PN ---
- General Info Date of Service: 08/13/20 Subjective Update: Mr. Apple pain stable over the last 24 hours. He has shown some improvement with more interaction. Now able to feed himself and take him liquids. Vital signs have remained stable and he has been afebrile. Reports ongoing difficulty with depression and hallucinations. Functional Status: Reports: Tolerating Diet, Urinating - Review of Systems General: Reports: Weakness Pulmonary: Reports: No Symptoms Cardiovascular: Reports: No Symptoms Gastrointestinal: Reports: No Symptoms - Patient Data Vitals - Most Recent: Last Vital Signs Temp 97.1 F 08/13/20 10:33 Pulse 75 08/13/20 10:33 Resp 18 08/13/20 10:33 BP 110/63 08/13/20 10:33 Pulse Ox 99 08/13/20 10:33 Weight - Most Recent: 193 lb I&O - Last 24 Hours: Intake & Output 08/12/20 08/13/20 08/13/20 22:59 06:59 14:59 Intake Total 640 720 Balance 640 720 Lab Results Last 24 Hours: Laboratory Results - last 24 hr 08/12/20 08/12/20 08/12/20 Range/Units 11:30 16:50 21:16 PT (9.5-12.0) sec INR (0.80-1.20) POC Glucose 110 H 87 102 (74-106) MG/DL 08/13/20 08/13/20 Range/Units 05:50 07:30 PT 33.4 H (9.5-12.0) sec INR 3.13 H (0.80-1.20) POC Glucose 82 (74-106) MG/DL Miquel Results Last 24 Hours: Microbiology 08/10/20 14:54 Urine Culture - Final Urine, Bladder NO GROWTH AFTER 2 DAYS Med Orders - Current: Current Medications Acetaminophen (Tylenol) 650 mg PO Q4H PRN PRN Reason: Pain (Mild 1-3)/fever Aripiprazole (Abilify) 2.5 mg PO DAILY [facility] Last Admin: 08/13/20 08:23 Dose: 2.5 mg Documented by: Benztropine Mesylate (Cogentin) 1 mg PO BID [facility] Last Admin: 08/13/20 08:23 Dose: 1 mg Documented by: Dextrose (Glutose 15) 15 gm PO ONETIME PRN PRN Reason: Hypoglycemia Dextrose/Water (Dextrose 50% In Water) 50 ml IV ONETIME PRN PRN Reason: Hypoglycemia Docusate Sodium (Colace) 100 mg PO DAILY [facility] Last Admin: 08/13/20 08:22 Dose: 100 mg Documented by: Finasteride (Proscar) 5 mg PO DAILY [facility] Last Admin: 08/13/20 08:24 Dose: 5 mg Documented by: Furosemide (Lasix) 20 mg PO DAILY [facility] Last Admin: 08/13/20 08:22 Dose: 20 mg Documented by: Insulin Human Lispro (Humalog) 0 unit SUBCUT QIDACANDBED [facility]; Protocol Last Admin: 08/13/20 07:59 Dose: Not Given Documented by: Levothyroxine Sodium (Synthroid) 50 mcg PO ACBREAKFAST [facility] Last Admin: 08/13/20 08:22 Dose: 50 mcg Documented by: Lorazepam (Ativan) 1 mg PO TID PRN PRN Reason: Anxiety Magnesium Oxide (Magnesium Oxide) 400 mg PO BID [facility] Last Admin: 08/13/20 08:22 Dose: 400 mg Documented by: Metformin HCl (Glucophage) 500 mg PO DAILY [facility] Last Admin: 08/13/20 08:21 Dose: 500 mg Documented by: Metoprolol Succinate (Toprol Xl) 25 mg PO DAILY [facility] Last Admin: 08/13/20 08:24 Dose: 25 mg Documented by: Olanzapine (Zyprexa) 5 mg PO BID PRN PRN Reason: Hallucinations Ondansetron HCl (Zofran) 4 mg IV Q4H PRN PRN Reason: Nausea/Vomiting Pantoprazole Sodium (Protonix) 40 mg PO ACBREAKFAST [facility] Last Admin: 08/13/20 08:21 Dose: 40 mg Documented by: Caplyta 42mg Cap ( (Ptom)) 1 each PO QPM [facility] Last Admin: 08/12/20 17:45 Dose: 1 each Documented by: Polyethylene Glycol (Miralax) 17 gm PO DAILY [facility] Last Admin: 08/13/20 08:24 Dose: 17 gm Documented by: Potassium Chloride (Klor-Con M20) 40 meq PO BIDMEALS [facility] Last Admin: 08/13/20 08:22 Dose: 40 meq Documented by: Senna/Docusate Sodium (Senna Plus) 1 tab PO BID PRN PRN Reason: Constipation Sertraline HCl (Zoloft) 200 mg PO DAILY [facility] Last Admin: 08/13/20 08:21 Dose: 200 mg Documented by: Simvastatin (Zocor) 40 mg PO QPM [facility] Last Admin: 08/12/20 17:46 Dose: 40 mg Documented by: Sodium Chloride (Saline Flush) 10 ml FLUSH ASDIRECTED PRN PRN Reason: Keep Vein Open Spironolactone (Aldactone) 25 mg PO BID [facility] Last Admin: 08/13/20 08:23 Dose: 25 mg Documented by: Trospium (Sanctura) 20 mg PO BID [facility] Last Admin: 08/13/20 08:22 Dose: 20 mg Documented by: Discontinued Medications Sodium Chloride (Normal Saline) 1,000 mls @ 999 mls/hr IV ASDIRECTED [facility] Last Admin: 08/10/20 13:19 Dose: 999 mls/hr Documented by: Sodium Chloride (Normal Saline) 1,000 mls @ 500 mls/hr IV ASDIRECTED [facility] Last Admin: 08/10/20 14:27 Dose: 500 mls/hr Documented by: Sodium Chloride (Normal Saline) 1,000 mls @ 75 mls/hr IV ASDIRECTED [facility] Last Admin: 08/11/20 06:13 Dose: 75 mls/hr Documented by: Olanzapine (Zyprexa) 5 mg PO ASDIRECTED PRN PRN Reason: Hallucinations Potassium Chloride (Klor-Con M20) 40 meq PO BID [facility] Last Admin: 08/10/20 20:40 Dose: 40 meq Documented by: Potassium Chloride (Klor-Con M20) 40 meq PO ONETIME ONE Stop: 08/10/20 18:31 Last Admin: 08/10/20 18:29 Dose: 40 meq Documented by: Potassium Chloride (Klor-Con M20) 40 meq PO ONETIME ONE Stop: 08/11/20 12:01 Last Admin: 08/11/20 12:09 Dose: 40 meq Documented by: Warfarin Sodium (Coumadin) 5 mg PO ONETIME ONE Stop: 08/11/20 13:31 Last Admin: 08/11/20 14:08 Dose: 5 mg Documented by: Warfarin Sodium (Coumadin) 5 mg PO ONETIME ONE Stop: 08/12/20 11:01 Last Admin: 08/12/20 12:18 Dose: 5 mg Documented by: - Exam Quality Assessment: DVT Prophylaxis General: Alert, Mild Distress Lungs: Clear to Auscultation, Normal Respiratory Effort Cardiovascular: Regular Rate, Regular Rhythm, No Murmurs GI/Abdominal Exam: Soft, Non-Tender, No Organomegaly, No Distention Extremities: Non-Tender, No Pedal Edema Sepsis Event Note - Evaluation Sepsis Screening Result: No Definite Risk - Focused Exam Vital Signs: Vital Signs Temp Pulse Pulse Resp BP BP Pulse Ox 08/13/20 10:33 97.1 F 75 18 110/63 99 08/13/20 08:24 65 126/76 08/13/20 07:00 97.1 F 65 18 126/76 94 L 08/13/20 03:00 96.4 F L 64 16 123/76 98 08/12/20 23:30 95.9 F L 89 18 123/79 98 - Problem List Review Problem List Initiated/Reviewed/Updated: Yes - My Orders Last 24 Hours: My Active Orders 08/13/20 11:30 GLUCOSE POC LAB TO COLLECT JPM [POC] QIDACANDBED 08/13/20 16:30 GLUCOSE POC LAB TO COLLECT JPM [POC] QIDACANDBED 08/13/20 21:00 GLUCOSE POC LAB TO COLLECT JPM [POC] QIDACANDBED 08/14/20 07:30 GLUCOSE POC LAB TO COLLECT JPM [POC] QIDACANDBED GLUCOSE POC LAB TO COLLECT JPM [POC] QIDACANDBED 08/14/20 11:30 GLUCOSE POC LAB TO COLLECT JPM [POC] QIDACANDBED GLUCOSE POC LAB TO COLLECT JPM [POC] QIDACANDBED 08/14/20 16:30 GLUCOSE POC LAB TO COLLECT JPM [POC] QIDACANDBED GLUCOSE POC LAB TO COLLECT JPM [POC] QIDACANDBED 08/14/20 21:00 GLUCOSE POC LAB TO COLLECT JPM [POC] QIDACANDBED GLUCOSE POC LAB TO COLLECT JPM [POC] QIDACANDBED 08/15/20 07:30 GLUCOSE POC LAB TO COLLECT JPM [POC] QIDACANDBED GLUCOSE POC LAB TO COLLECT JPM [POC] QIDACANDBED 08/15/20 11:30 GLUCOSE POC LAB TO COLLECT JPM [POC] QIDACANDBED GLUCOSE POC LAB TO COLLECT JPM [POC] QIDACANDBED 08/15/20 16:30 GLUCOSE POC LAB TO COLLECT JPM [POC] QIDACANDBED GLUCOSE POC LAB TO COLLECT JPM [POC] QIDACANDBED 08/15/20 21:00 GLUCOSE POC LAB TO COLLECT JPM [POC] QIDACANDBED 08/16/20 07:30 GLUCOSE POC LAB TO COLLECT JPM [POC] QIDACANDBED 08/16/20 11:30 GLUCOSE POC LAB TO COLLECT JPM [POC] QIDACANDBED - Plan Plan:: ASSESSMENT AND PLAN WEAKNESS-oral intake is improving and he is now feeding himself. He is medically stable and ready for transfer to inpatient psychiatric care once a bed is available. -Saline lock IV TYPE 2 DIABETES MELLITUS -Continue Metformin -4 times daily glucometers -Low-dose sliding scale Humalog SCHIZOPHRENIA-depressed and having difficulty with hallucinations -Resume usual outpatient medical therapy -Inpatient psychiatric referral MAINTENANCE ISSUES -DVT prophylaxis; Lovenox 40 mg subcu daily -GI prophylaxis; not indicated -Cueva catheter; not indicated -Nutrition; consistent carbohydrate diet -Nicotine dependence; not indicated CODE STATUS-FULL CODE ADMISSION STATUS-this patient will be admitted to observation status, expect no more than a one night hospital stay for evaluation and management of problems as outlined above. DISPOSITION-anticipate discharge to home after the hospital stay.
[2020-08-13] MEDS: CAPLYTA 42 MG PO SCH (16:18)
[2020-08-13] MEDS: Simvastatin 20 MG Tab PO SCH (16:19)
[2020-08-14] MEDS: Potassium Chloride 20 MEQ Tab.ER PO SCH ×2 (08:00→16:48)
[2020-08-14] MEDS: Levothyroxine 50 MCG Tab PO SCH (08:00)
[2020-08-14] MEDS: Pantoprazole 40 MG Tab.CR PO SCH (08:00)
[2020-08-14] MEDS: Insulin Lispro 100 Unit/ML 3 ML KwikPen SUBCUT SCH ×2 (08:15→12:16)
[2020-08-14] MEDS: Docusate Sodium 100 MG Cap PO SCH (09:07)
[2020-08-14] MEDS: Furosemide 20 MG Tab PO SCH (09:08)
[2020-08-14] MEDS: ARIPiprazole 10 MG Tab PO SCH (09:08)
[2020-08-14] MEDS: metFORMIN 500 MG Tab PO SCH (09:08)
[2020-08-14] MEDS: Benztropine 1 MG Tab PO SCH ×2 (09:08→21:18)
[2020-08-14] MEDS: Sertraline 50 MG Tab PO SCH (09:09)
[2020-08-14] MEDS: Spironolactone 25 MG Tab PO SCH ×2 (09:09→21:18)
[2020-08-14] MEDS: Finasteride 5 MG Tab PO SCH (09:09)
[2020-08-14] MEDS: Magnesium Oxide 400 MG Tab PO SCH ×2 (09:09→21:19)
[2020-08-14] MEDS: Trospium 20 MG Tab PO SCH ×2 (09:09→21:19)
[2020-08-14] MEDS: Metoprolol Succinate 25 MG Tab.ER PO SCH (09:10)
[2020-08-14] MEDS: Polyethylene Glycol 3350 Powder 17 GM Packet PO SCH (09:10)
[2020-08-14] MEDS: CAPLYTA 42 MG PO SCH (16:48)
--- NOTE | 2020-08-14 17:14 | PCM.PN ---
- General Info Date of Service: 08/14/20 Subjective Update: No acute events overnight. [place] is minimally interactive today and does not provide any reliable history. He does say that he does not feel too bad today but that was about all I got out of him. He sits and stares blankly. His vital signs have been stable. He has not had any fevers. He was more interactive earlier in the day but now is fairly quiet. His blood sugars have all been good. I did talk to the neurology folks over in [place] and they did not have any new ideas beyond what has already been done this far as a work-up other than possibly an MRI of the cervical spine to figure out why he has weak legs. - Patient Data Vitals - Most Recent: Last Vital Signs Temp 36.2 C 08/14/20 15:16 Pulse 87 08/14/20 15:16 Resp 20 08/14/20 15:16 BP 106/68 08/14/20 15:16 Pulse Ox 96 08/14/20 15:16 Weight - Most Recent: 90.038 kg I&O - Last 24 Hours: Intake & Output 08/14/20 08/14/20 08/14/20 06:59 14:59 22:59 Intake Total 725 Balance 725 Lab Results Last 24 Hours: Laboratory Results - last 24 hr 08/13/20 08/14/20 08/14/20 Range/Units 21:44 07:30 11:30 POC Glucose 97 84 94 (74-106) MG/DL Med Orders - Current: Current Medications Acetaminophen (Tylenol) 650 mg PO Q4H PRN PRN Reason: Pain (Mild 1-3)/fever Benztropine Mesylate (Cogentin) 1 mg PO BID [facility] Last Admin: 08/14/20 09:08 Dose: 1 mg Documented by: Dextrose (Glutose 15) 15 gm PO ONETIME PRN PRN Reason: Hypoglycemia Dextrose/Water (Dextrose 50% In Water) 50 ml IV ONETIME PRN PRN Reason: Hypoglycemia Docusate Sodium (Colace) 100 mg PO DAILY [facility] Last Admin: 08/14/20 09:07 Dose: 100 mg Documented by: Finasteride (Proscar) 5 mg PO DAILY [facility] Last Admin: 08/14/20 09:09 Dose: 5 mg Documented by: Furosemide (Lasix) 20 mg PO DAILY [facility] Last Admin: 08/14/20 09:08 Dose: 20 mg Documented by: Levothyroxine Sodium (Synthroid) 50 mcg PO ACBREAKFAST [facility] Last Admin: 08/14/20 08:00 Dose: 50 mcg Documented by: Lorazepam (Ativan) 1 mg PO TID PRN PRN Reason: Anxiety Magnesium Oxide (Magnesium Oxide) 400 mg PO BID [facility] Last Admin: 08/14/20 09:09 Dose: 400 mg Documented by: Metformin HCl (Glucophage) 500 mg PO DAILY [facility] Last Admin: 08/14/20 09:08 Dose: 500 mg Documented by: Metoprolol Succinate (Toprol Xl) 25 mg PO DAILY [facility] Last Admin: 08/14/20 09:10 Dose: 25 mg Documented by: Ondansetron HCl (Zofran) 4 mg IV Q4H PRN PRN Reason: Nausea/Vomiting Pantoprazole Sodium (Protonix) 40 mg PO ACBREAKFAST [facility] Last Admin: 08/14/20 08:00 Dose: 40 mg Documented by: Caplyta 42mg Cap ( (Ptom)) 1 each PO QPM [facility] Last Admin: 08/14/20 16:48 Dose: 1 each Documented by: Polyethylene Glycol (Miralax) 17 gm PO DAILY [facility] Last Admin: 08/14/20 09:10 Dose: 17 gm Documented by: Potassium Chloride (Klor-Con M20) 40 meq PO BIDMEALS [facility] Last Admin: 08/14/20 16:48 Dose: 40 meq Documented by: Senna/Docusate Sodium (Senna Plus) 1 tab PO BID PRN PRN Reason: Constipation Sertraline HCl (Zoloft) 200 mg PO DAILY [facility] Last Admin: 08/14/20 09:09 Dose: 200 mg Documented by: Sodium Chloride (Saline Flush) 10 ml FLUSH ASDIRECTED PRN PRN Reason: Keep Vein Open Spironolactone (Aldactone) 25 mg PO BID [facility] Last Admin: 08/14/20 09:09 Dose: 25 mg Documented by: Trospium (Sanctura) 20 mg PO BID [facility] Last Admin: 08/14/20 09:09 Dose: 20 mg Documented by: Discontinued Medications Aripiprazole (Abilify) 2.5 mg PO DAILY [facility] Last Admin: 08/14/20 09:08 Dose: 2.5 mg Documented by: Sodium Chloride (Normal Saline) 1,000 mls @ 999 mls/hr IV ASDIRECTED [facility] Last Admin: 08/10/20 13:19 Dose: 999 mls/hr Documented by: Sodium Chloride (Normal Saline) 1,000 mls @ 500 mls/hr IV ASDIRECTED [facility] Last Admin: 08/10/20 14:27 Dose: 500 mls/hr Documented by: Sodium Chloride (Normal Saline) 1,000 mls @ 75 mls/hr IV ASDIRECTED [facility] Last Admin: 08/11/20 06:13 Dose: 75 mls/hr Documented by: Insulin Human Lispro (Humalog) 0 unit SUBCUT QIDACANDBED [facility]; Protocol Last Admin: 08/14/20 12:16 Dose: Not Given Documented by: Olanzapine (Zyprexa) 5 mg PO ASDIRECTED PRN PRN Reason: Hallucinations Olanzapine (Zyprexa) 5 mg PO BID PRN PRN Reason: Hallucinations Potassium Chloride (Klor-Con M20) 40 meq PO BID [facility] Last Admin: 08/10/20 20:40 Dose: 40 meq Documented by: Potassium Chloride (Klor-Con M20) 40 meq PO ONETIME ONE Stop: 08/10/20 18:31 Last Admin: 08/10/20 18:29 Dose: 40 meq Documented by: Potassium Chloride (Klor-Con M20) 40 meq PO ONETIME ONE Stop: 08/11/20 12:01 Last Admin: 08/11/20 12:09 Dose: 40 meq Documented by: Simvastatin (Zocor) 40 mg PO QPM [facility] Last Admin: 08/13/20 16:19 Dose: 40 mg Documented by: Warfarin Sodium (Coumadin) 5 mg PO ONETIME ONE Stop: 08/11/20 13:31 Last Admin: 08/11/20 14:08 Dose: 5 mg Documented by: Warfarin Sodium (Coumadin) 5 mg PO ONETIME ONE Stop: 08/12/20 11:01 Last Admin: 08/12/20 12:18 Dose: 5 mg Documented by: - Exam Quality Assessment: No: Supplemental Oxygen General: Alert, No Acute Distress, Lethargic. No: Cooperative HEENT: Pupils Equal Lungs: Normal Respiratory Effort Cardiovascular: Regular Rate, Regular Rhythm GI/Abdominal Exam: Soft, No Distention Extremities: No Pedal Edema. No: Increased Warmth Skin: Warm, Dry Psy/Mental Status: Alert, Other (Flat affect). No: Agitated Sepsis Event Note - Evaluation Sepsis Screening Result: No Definite Risk - Focused Exam Vital Signs: Vital Signs Temp Pulse Pulse Resp BP BP Pulse Ox 08/14/20 15:16 36.2 C 87 20 106/68 96 08/14/20 10:07 36.1 C 87 18 111/72 95 08/14/20 09:10 70 108/67 08/14/20 07:00 36.3 C 67 18 108/67 95 - Problem List Review Problem List Initiated/Reviewed/Updated: Yes - My Orders Last 24 Hours: My Active Orders 08/14/20 09:35 OT Evaluation and Treatment [CONS] Routine PT Evaluation and Treatment [CONS] Routine 08/15/20 05:00 BASIC METABOLIC PANEL,BMP [CHEM] Timed CRP [C-REACTIVE PROTEIN] [CHEM] Timed INR,PT,PROTHROMBIN TIME [COAG] Timed - Plan Plan:: ASSESSMENT AND PLAN Neurodegenerative disorder versus exacerbation of mental illness-fairly rapid decline over the last few months. He has gait difficulty, concentration difficulties, apathy, difficulty swallowing at times as well as significant jose ght loss and hallucinations. I am concerned about neurodegenerative disorder such as dementia with Lewy bodies. Suboptimally controlled psychiatric illness could also be considered. -Consult with telepsychiatry tomorrow -Hold antipsychotics WEAKNESS-oral intake is improving and he is now feeding himself. -Saline lock IV TYPE 2 DIABETES MELLITUS-well controlled. -Continue Metformin SCHIZOPHRENIA-he does appear depressed and has been having difficulty with hallucinations. -Resume usual outpatient medical therapy other than antipsychotics and benzos -Tele psych tomorrow MAINTENANCE ISSUES -DVT prophylaxis; Lovenox 40 mg subcu daily -GI prophylaxis; not indicated -Cueva catheter; not indicated -Nutrition; consistent carbohydrate diet ADMISSION STATUS-this patient will be admitted to observation status, expect no more than a one night hospital stay for evaluation and management of problems as outlined above. DISPOSITION-anticipate discharge to home after the hospital stay. Frank Loera MD
[2020-08-15] MEDS: Levothyroxine 50 MCG Tab PO SCH (08:02)
[2020-08-15] MEDS: Potassium Chloride 20 MEQ Tab.ER PO SCH ×2 (08:05→17:44)
[2020-08-15] MEDS: Polyethylene Glycol 3350 Powder 17 GM Packet PO SCH (08:06)
[2020-08-15] MEDS: Metoprolol Succinate 25 MG Tab.ER PO SCH (09:50)
[2020-08-15] MEDS: Pantoprazole 40 MG Tab.CR PO SCH (09:50)
[2020-08-15] MEDS: Docusate Sodium 100 MG Cap PO SCH (09:51)
[2020-08-15] MEDS: metFORMIN 500 MG Tab PO SCH (09:51)
[2020-08-15] MEDS: Magnesium Oxide 400 MG Tab PO SCH ×2 (09:51→20:00)
[2020-08-15] MEDS: Sertraline 50 MG Tab PO SCH (09:52)
[2020-08-15] MEDS: Trospium 20 MG Tab PO SCH ×2 (09:52→20:00)
[2020-08-15] MEDS: Finasteride 5 MG Tab PO SCH (09:53)
--- NOTE | 2020-08-15 10:19 | PCM.PN ---
- General Info Date of Service: 08/15/20 Subjective Update: There were no acute events overnight. Patient is a little bit more interactive today but still minimally interactive. When I asked him if he is having pain he said something about a depth charge. He did not answer if he was having a headache. He was able to get up and walk with physical therapy in the hallway. His vital signs have been stable other than low normal blood pressures. No behavior issues. Functional Status: Reports: Pain Controlled - Review of Systems General: Reports: Weakness. Denies: Fever Neurological: Reports: Confusion - Patient Data Vitals - Most Recent: Last Vital Signs Temp 35.6 C L 08/15/20 08:03 Pulse 70 08/15/20 09:50 Resp 18 08/15/20 08:03 BP 106/69 08/15/20 09:50 Pulse Ox 96 08/15/20 08:03 Weight - Most Recent: 90.038 kg I&O - Last 24 Hours: Intake & Output 08/14/20 08/15/20 08/15/20 22:59 06:59 14:59 Intake Total 1365 Balance 1365 Lab Results Last 24 Hours: Laboratory Results - last 24 hr 08/14/20 08/15/20 08/15/20 Range/Units 11:30 05:30 05:30 PT 20.1 H (9.5-12.0) sec INR 1.87 H (0.80-1.20) Sodium 136 L (140-148) mmol/L Potassium 4.2 (3.6-5.2) mmol/L Chloride 101 (100-108) mmol/L Carbon Dioxide 26 (21-32) mmol/L Anion Gap 13.2 (5.0-14.0) mmol/L BUN 18 (7-18) mg/dL Creatinine 1.0 (0.8-1.3) mg/dL Est Cr Clr Drug Dosing 76.23 mL/min Estimated GFR (MDRD) > 60 (>60) Glucose 90 (74-106) mg/dL POC Glucose 94 (74-106) MG/DL Calcium 8.8 (8.5-10.1) mg/dL C-Reactive Protein 0.72 H (0.0-0.3) mg/dL Med Orders - Current: Current Medications Acetaminophen (Tylenol) 650 mg PO Q4H PRN PRN Reason: Pain (Mild 1-3)/fever Benztropine Mesylate (Cogentin) 1 mg PO BID [facility] Last Admin: 08/14/20 21:18 Dose: 1 mg Documented by: Dextrose (Glutose 15) 15 gm PO ONETIME PRN PRN Reason: Hypoglycemia Dextrose/Water (Dextrose 50% In Water) 50 ml IV ONETIME PRN PRN Reason: Hypoglycemia Docusate Sodium (Colace) 100 mg PO DAILY [facility] Last Admin: 08/15/20 09:51 Dose: 100 mg Documented by: Finasteride (Proscar) 5 mg PO DAILY [facility] Last Admin: 08/15/20 09:53 Dose: 5 mg Documented by: Furosemide (Lasix) 20 mg PO DAILY [facility] Last Admin: 08/14/20 09:08 Dose: 20 mg Documented by: Levothyroxine Sodium (Synthroid) 50 mcg PO ACBREAKFAST [facility] Last Admin: 08/15/20 08:02 Dose: 50 mcg Documented by: Magnesium Oxide (Magnesium Oxide) 400 mg PO BID [facility] Last Admin: 08/15/20 09:51 Dose: 400 mg Documented by: Metformin HCl (Glucophage) 500 mg PO DAILY [facility] Last Admin: 08/15/20 09:51 Dose: 500 mg Documented by: Metoprolol Succinate (Toprol Xl) 25 mg PO DAILY [facility] Last Admin: 08/15/20 09:50 Dose: 25 mg Documented by: Ondansetron HCl (Zofran) 4 mg IV Q4H PRN PRN Reason: Nausea/Vomiting Pantoprazole Sodium (Protonix) 40 mg PO ACBREAKFAST [facility] Last Admin: 08/15/20 09:50 Dose: 40 mg Documented by: Polyethylene Glycol (Miralax) 17 gm PO DAILY [facility] Last Admin: 08/15/20 08:06 Dose: 17 gm Documented by: Potassium Chloride (Klor-Con M20) 40 meq PO BIDMEALS [facility] Last Admin: 08/15/20 08:05 Dose: 40 meq Documented by: Senna/Docusate Sodium (Senna Plus) 1 tab PO BID PRN PRN Reason: Constipation Last Admin: 08/15/20 08:06 Dose: 1 tab Documented by: Sertraline HCl (Zoloft) 200 mg PO DAILY [facility] Last Admin: 08/15/20 09:52 Dose: 200 mg Documented by: Sodium Chloride (Saline Flush) 10 ml FLUSH ASDIRECTED PRN PRN Reason: Keep Vein Open Spironolactone (Aldactone) 25 mg PO BID [facility] Last Admin: 08/14/20 21:18 Dose: 25 mg Documented by: Trospium (Sanctura) 20 mg PO BID [facility] Last Admin: 08/15/20 09:52 Dose: 20 mg Documented by: Discontinued Medications Aripiprazole (Abilify) 2.5 mg PO DAILY [facility] Last Admin: 08/14/20 09:08 Dose: 2.5 mg Documented by: Sodium Chloride (Normal Saline) 1,000 mls @ 999 mls/hr IV ASDIRECTED [facility] Last Admin: 08/10/20 13:19 Dose: 999 mls/hr Documented by: Sodium Chloride (Normal Saline) 1,000 mls @ 500 mls/hr IV ASDIRECTED [facility] Last Admin: 08/10/20 14:27 Dose: 500 mls/hr Documented by: Sodium Chloride (Normal Saline) 1,000 mls @ 75 mls/hr IV ASDIRECTED [facility] Last Admin: 08/11/20 06:13 Dose: 75 mls/hr Documented by: Insulin Human Lispro (Humalog) 0 unit SUBCUT QIDACANDBED [facility]; Protocol Last Admin: 08/14/20 12:16 Dose: Not Given Documented by: Lorazepam (Ativan) 1 mg PO TID PRN PRN Reason: Anxiety Olanzapine (Zyprexa) 5 mg PO ASDIRECTED PRN PRN Reason: Hallucinations Olanzapine (Zyprexa) 5 mg PO BID PRN PRN Reason: Hallucinations Caplyta 42mg Cap ( (Ptom)) 1 each PO QPM [facility] Last Admin: 08/14/20 16:48 Dose: 1 each Documented by: Potassium Chloride (Klor-Con M20) 40 meq PO BID [facility] Last Admin: 08/10/20 20:40 Dose: 40 meq Documented by: Potassium Chloride (Klor-Con M20) 40 meq PO ONETIME ONE Stop: 08/10/20 18:31 Last Admin: 08/10/20 18:29 Dose: 40 meq Documented by: Potassium Chloride (Klor-Con M20) 40 meq PO ONETIME ONE Stop: 08/11/20 12:01 Last Admin: 08/11/20 12:09 Dose: 40 meq Documented by: Simvastatin (Zocor) 40 mg PO QPM [facility] Last Admin: 08/13/20 16:19 Dose: 40 mg Documented by: Warfarin Sodium (Coumadin) 5 mg PO ONETIME ONE Stop: 08/11/20 13:31 Last Admin: 08/11/20 14:08 Dose: 5 mg Documented by: Warfarin Sodium (Coumadin) 5 mg PO ONETIME ONE Stop: 08/12/20 11:01 Last Admin: 08/12/20 12:18 Dose: 5 mg Documented by: - Exam Quality Assessment: No: Supplemental Oxygen General: Alert, Cooperative, No Acute Distress HEENT: Pupils Equal Lungs: Normal Respiratory Effort GI/Abdominal Exam: Soft, No Distention Extremities: No Pedal Edema Psy/Mental Status: Alert. No: Agitated Sepsis Event Note - Evaluation Sepsis Screening Result: No Definite Risk - Focused Exam Vital Signs: Vital Signs Temp Pulse Pulse Resp BP BP Pulse Ox 08/15/20 09:50 70 106/69 08/15/20 08:03 35.6 C L 71 18 106/69 96 08/15/20 02:43 35.8 C L 71 16 88/61 L 95 08/15/20 00:00 100/60 08/14/20 23:05 90/60 08/14/20 22:49 35.3 C L 70 16 80/46 L 92 L - Problem List Review Problem List Initiated/Reviewed/Updated: Yes - My Orders Last 24 Hours: My Active Orders 08/14/20 09:35 OT Evaluation and Treatment [CONS] Routine PT Evaluation and Treatment [CONS] Routine 08/15/20 13:00 Warfarin [Coumadin] 5 mg PO ONETIME ONE - Plan Plan:: ASSESSMENT AND PLAN Neurodegenerative disorder versus exacerbation of mental illness-fairly rapid decline over the last few months. Antipsychotics were stopped. We are planning psychiatric evaluation with Dr. Payan today. -Consult with telepsychiatry today -Hold antipsychotics and statin WEAKNESS-oral intake is improving and he is now feeding himself intermittently. -Continue physical and occupational therapy TYPE 2 DIABETES MELLITUS-well controlled. -Continue Metformin SCHIZOPHRENIA-he does appear depressed and has been having difficulty with hallucinations. -Continue antidepressant -Tele psych today MAINTENANCE ISSUES -DVT prophylaxis; Lovenox 40 mg subcu daily -GI prophylaxis; not indicated -Cueva catheter; not indicated -Nutrition; consistent carbohydrate diet ADMISSION STATUS-this patient will be admitted to observation status, expect no more than a one night hospital stay for evaluation and management of problems as outlined above. DISPOSITION-anticipate discharge to home after the hospital stay. Frank Loera MD
[2020-08-15] MEDS: Benztropine 1 MG Tab PO SCH ×2 (10:28→20:00)
[2020-08-15] MEDS ORDERED: Warfarin 5 MG Tab PO ONE (13:00)
[2020-08-16] MEDS: Pantoprazole 40 MG Tab.CR PO SCH (07:48)
[2020-08-16] MEDS: Levothyroxine 50 MCG Tab PO SCH (07:48)
[2020-08-16] MEDS: Furosemide 20 MG Tab PO SCH (09:01)
[2020-08-16] MEDS: Potassium Chloride 20 MEQ Tab.ER PO SCH ×2 (09:01→17:17)
[2020-08-16] MEDS: Benztropine 1 MG Tab PO SCH ×2 (09:01→20:25)
[2020-08-16] MEDS: Magnesium Oxide 400 MG Tab PO SCH ×2 (09:01→20:25)
[2020-08-16] MEDS: Finasteride 5 MG Tab PO SCH (09:01)
[2020-08-16] MEDS: Sertraline 50 MG Tab PO SCH (09:01)
[2020-08-16] MEDS: Spironolactone 25 MG Tab PO SCH ×2 (09:02→20:25)
[2020-08-16] MEDS: Docusate Sodium 100 MG Cap PO SCH (09:02)
[2020-08-16] MEDS: Polyethylene Glycol 3350 Powder 17 GM Packet PO SCH (09:02)
[2020-08-16] MEDS: metFORMIN 500 MG Tab PO SCH (09:02)
[2020-08-16] MEDS: Trospium 20 MG Tab PO SCH ×2 (09:02→20:25)
[2020-08-16] MEDS: Metoprolol Succinate 25 MG Tab.ER PO SCH (09:03)
--- NOTE | 2020-08-16 16:51 | PCM.PN ---
- General Info Date of Service: 08/16/20 Subjective Update: No acute events overnight. Patient is more alert and interactive today but not back to baseline. He is responding to questions quicker though there is still a slight delay. He is able to laugh and joke a little bit today. We did have a family conference to update his brother and sister today. Vitals have been stable. He has not had any fevers. Functional Status: Reports: Pain Controlled, Tolerating Diet - Patient Data Vitals - Most Recent: Last Vital Signs Temp 35.0 C L 08/16/20 15:00 Pulse 87 08/16/20 15:00 Resp 18 08/16/20 15:00 BP 99/65 08/16/20 15:00 Pulse Ox 97 08/16/20 15:00 Weight - Most Recent: 88.904 kg I&O - Last 24 Hours: Intake & Output 08/16/20 08/16/20 08/16/20 06:59 14:59 22:59 Intake Total 700 Balance 700 Med Orders - Current: Current Medications Acetaminophen (Tylenol) 650 mg PO Q4H PRN PRN Reason: Pain (Mild 1-3)/fever Benztropine Mesylate (Cogentin) 1 mg PO BID [facility] Last Admin: 08/16/20 09:01 Dose: 1 mg Documented by: Dextrose (Glutose 15) 15 gm PO ONETIME PRN PRN Reason: Hypoglycemia Dextrose/Water (Dextrose 50% In Water) 50 ml IV ONETIME PRN PRN Reason: Hypoglycemia Docusate Sodium (Colace) 100 mg PO DAILY [facility] Last Admin: 08/16/20 09:02 Dose: 100 mg Documented by: Finasteride (Proscar) 5 mg PO DAILY [facility] Last Admin: 08/16/20 09:01 Dose: 5 mg Documented by: Furosemide (Lasix) 20 mg PO DAILY [facility] Last Admin: 08/16/20 09:01 Dose: 20 mg Documented by: Levothyroxine Sodium (Synthroid) 50 mcg PO ACBREAKFAST [facility] Last Admin: 08/16/20 07:48 Dose: 50 mcg Documented by: Magnesium Oxide (Magnesium Oxide) 400 mg PO BID [facility] Last Admin: 08/16/20 09:01 Dose: 400 mg Documented by: Metformin HCl (Glucophage) 500 mg PO DAILY [facility] Last Admin: 08/16/20 09:02 Dose: 500 mg Documented by: Metoprolol Succinate (Toprol Xl) 25 mg PO DAILY [facility] Last Admin: 08/16/20 09:03 Dose: 25 mg Documented by: Ondansetron HCl (Zofran) 4 mg IV Q4H PRN PRN Reason: Nausea/Vomiting Pantoprazole Sodium (Protonix) 40 mg PO ACBREAKFAST [facility] Last Admin: 08/16/20 07:48 Dose: 40 mg Documented by: Polyethylene Glycol (Miralax) 17 gm PO DAILY [facility] Last Admin: 08/16/20 09:02 Dose: 17 gm Documented by: Potassium Chloride (Klor-Con M20) 40 meq PO BIDMEALS [facility] Last Admin: 08/16/20 09:01 Dose: 40 meq Documented by: Senna/Docusate Sodium (Senna Plus) 1 tab PO BID PRN PRN Reason: Constipation Last Admin: 08/15/20 08:06 Dose: 1 tab Documented by: Sertraline HCl (Zoloft) 100 mg PO DAILY [facility] Last Admin: 08/16/20 09:01 Dose: 100 mg Documented by: Sodium Chloride (Saline Flush) 10 ml FLUSH ASDIRECTED PRN PRN Reason: Keep Vein Open Spironolactone (Aldactone) 25 mg PO BID [facility] Last Admin: 08/16/20 09:02 Dose: 25 mg Documented by: Trospium (Sanctura) 20 mg PO BID [facility] Last Admin: 08/16/20 09:02 Dose: 20 mg Documented by: Discontinued Medications Aripiprazole (Abilify) 2.5 mg PO DAILY [facility] Last Admin: 08/14/20 09:08 Dose: 2.5 mg Documented by: Sodium Chloride (Normal Saline) 1,000 mls @ 999 mls/hr IV ASDIRECTED [facility] Last Admin: 08/10/20 13:19 Dose: 999 mls/hr Documented by: Sodium Chloride (Normal Saline) 1,000 mls @ 500 mls/hr IV ASDIRECTED [facility] Last Admin: 08/10/20 14:27 Dose: 500 mls/hr Documented by: Sodium Chloride (Normal Saline) 1,000 mls @ 75 mls/hr IV ASDIRECTED [facility] Last Admin: 08/11/20 06:13 Dose: 75 mls/hr Documented by: Insulin Human Lispro (Humalog) 0 unit SUBCUT QIDACANDBED [facility]; Protocol Last Admin: 08/14/20 12:16 Dose: Not Given Documented by: Lorazepam (Ativan) 1 mg PO TID PRN PRN Reason: Anxiety Olanzapine (Zyprexa) 5 mg PO ASDIRECTED PRN PRN Reason: Hallucinations Olanzapine (Zyprexa) 5 mg PO BID PRN PRN Reason: Hallucinations Caplyta 42mg Cap ( (Ptom)) 1 each PO QPM [facility] Last Admin: 08/14/20 16:48 Dose: 1 each Documented by: Potassium Chloride (Klor-Con M20) 40 meq PO BID [facility] Last Admin: 08/10/20 20:40 Dose: 40 meq Documented by: Potassium Chloride (Klor-Con M20) 40 meq PO ONETIME ONE Stop: 08/10/20 18:31 Last Admin: 08/10/20 18:29 Dose: 40 meq Documented by: Potassium Chloride (Klor-Con M20) 40 meq PO ONETIME ONE Stop: 08/11/20 12:01 Last Admin: 08/11/20 12:09 Dose: 40 meq Documented by: Sertraline HCl (Zoloft) 200 mg PO DAILY [facility] Last Admin: 08/15/20 09:52 Dose: 200 mg Documented by: Simvastatin (Zocor) 40 mg PO QPM [facility] Last Admin: 08/13/20 16:19 Dose: 40 mg Documented by: Warfarin Sodium (Coumadin) 5 mg PO ONETIME ONE Stop: 08/11/20 13:31 Last Admin: 08/11/20 14:08 Dose: 5 mg Documented by: Warfarin Sodium (Coumadin) 5 mg PO ONETIME ONE Stop: 08/12/20 11:01 Last Admin: 08/12/20 12:18 Dose: 5 mg Documented by: Warfarin Sodium (Coumadin) 5 mg PO ONETIME ONE Stop: 08/15/20 13:01 Last Admin: 08/15/20 12:54 Dose: 5 mg Documented by: - Exam Quality Assessment: No: Supplemental Oxygen General: Alert, Cooperative, No Acute Distress. No: Oriented Lungs: Normal Respiratory Effort GI/Abdominal Exam: Soft, No Distention Extremities: No Pedal Edema Skin: Warm, Dry Psy/Mental Status: Alert, Normal Affect Sepsis Event Note - Evaluation Sepsis Screening Result: No Definite Risk - Focused Exam Vital Signs: Vital Signs Temp Pulse Pulse Resp BP BP Pulse Ox 08/16/20 15:00 35.0 C L 87 18 99/65 97 08/16/20 11:00 35.3 C L 82 18 103/65 94 L 08/16/20 09:03 73 107/68 08/16/20 07:00 35.9 C L 73 18 107/68 94 L - Problem List Review Problem List Initiated/Reviewed/Updated: Yes - My Orders Last 24 Hours: My Active Orders 08/16/20 09:00 Sertraline [Zoloft] 100 mg PO DAILY - Plan Plan:: ASSESSMENT AND PLAN Adverse reaction to medication/medications-fairly rapid decline over the last couple of months. Antipsychotics were stopped after discussion with Dr. Payan yesterday. His SSRI dose was also decreased. He seems to be doing better today and I hope that the trend continues. -Hold antipsychotics and statin -Reduce dose of Zoloft WEAKNESS-strength is improving. Ability to feed himself is improving. -Continue physical and occupational therapy TYPE 2 DIABETES MELLITUS-well controlled. -Continue Metformin SCHIZOPHRENIA-there have been no behavior issues during the hospital stay. Family does not report any episodes of agitation, paranoia or psychosis that they are aware of. -Continue antidepressant MAINTENANCE ISSUES -DVT prophylaxis; Lovenox 40 mg subcu daily -GI prophylaxis; not indicated -Cueva catheter; not indicated -Nutrition; consistent carbohydrate diet ADMISSION STATUS-this patient will be admitted to observation status, expect no more than a one night hospital stay for evaluation and management of problems as outlined above. DISPOSITION-anticipate discharge to home with home care after the hospital stay. Frank Loera MD
[2020-08-17] MEDS: Pantoprazole 40 MG Tab.CR PO SCH (07:43)
[2020-08-17] MEDS: Levothyroxine 50 MCG Tab PO SCH (07:43)
[2020-08-17] MEDS: Benztropine 1 MG Tab PO SCH (09:55)
[2020-08-17] MEDS: Magnesium Oxide 400 MG Tab PO SCH ×2 (09:55→20:48)
[2020-08-17] MEDS: Docusate Sodium 100 MG Cap PO SCH (09:55)
[2020-08-17] MEDS: Trospium 20 MG Tab PO SCH (09:55)
[2020-08-17] MEDS: Metoprolol Succinate 25 MG Tab.ER PO SCH (09:55)
[2020-08-17] MEDS: Sertraline 50 MG Tab PO SCH (09:55)
[2020-08-17] MEDS: Potassium Chloride 20 MEQ Tab.ER PO SCH ×2 (09:55→16:00)
[2020-08-17] MEDS: Finasteride 5 MG Tab PO SCH (09:56)
[2020-08-17] MEDS: metFORMIN 500 MG Tab PO SCH (09:56)
[2020-08-17] MEDS: Spironolactone 25 MG Tab PO SCH ×2 (09:56→20:48)
[2020-08-17] MEDS: Furosemide 20 MG Tab PO SCH (09:56)
[2020-08-17] MEDS: Polyethylene Glycol 3350 Powder 17 GM Packet PO SCH (09:57)
--- NOTE | 2020-08-17 10:14 | PCM.PN ---
- General Info Date of Service: 08/17/20 Subjective Update: There were no acute events overnight. Patient has been stable. Strength seems to be slowly improving. When I saw him today he was not as talkative as yesterday but the nurses report that he has been more alert and interactive again today. He was able to ambulate in the [place]. Vital signs have been stable. No behavior issues. Functional Status: Reports: Pain Controlled, Tolerating Diet - Review of Systems General: Denies: Fever - Patient Data Vitals - Most Recent: Last Vital Signs Temp 36.3 C 08/17/20 07:18 Pulse 79 08/17/20 09:55 Resp 16 08/17/20 07:18 BP 116/68 08/17/20 09:55 Pulse Ox 95 08/17/20 07:18 Weight - Most Recent: 90.265 kg I&O - Last 24 Hours: Intake & Output 08/16/20 08/17/20 08/17/20 22:59 06:59 14:59 Intake Total 400 Balance 400 Med Orders - Current: Current Medications Acetaminophen (Tylenol) 650 mg PO Q4H PRN PRN Reason: Pain (Mild 1-3)/fever Benztropine Mesylate (Cogentin) 1 mg PO BID [facility] Last Admin: 08/17/20 09:55 Dose: 1 mg Documented by: Dextrose (Glutose 15) 15 gm PO ONETIME PRN PRN Reason: Hypoglycemia Dextrose/Water (Dextrose 50% In Water) 50 ml IV ONETIME PRN PRN Reason: Hypoglycemia Docusate Sodium (Colace) 100 mg PO DAILY [facility] Last Admin: 08/17/20 09:55 Dose: 100 mg Documented by: Finasteride (Proscar) 5 mg PO DAILY [facility] Last Admin: 08/17/20 09:56 Dose: 5 mg Documented by: Furosemide (Lasix) 20 mg PO DAILY [facility] Last Admin: 08/17/20 09:56 Dose: 20 mg Documented by: Levothyroxine Sodium (Synthroid) 50 mcg PO ACBREAKFAST [facility] Last Admin: 08/17/20 07:43 Dose: 50 mcg Documented by: Magnesium Oxide (Magnesium Oxide) 400 mg PO BID [facility] Last Admin: 08/17/20 09:55 Dose: 400 mg Documented by: Metformin HCl (Glucophage) 500 mg PO DAILY [facility] Last Admin: 08/17/20 09:56 Dose: 500 mg Documented by: Metoprolol Succinate (Toprol Xl) 25 mg PO DAILY [facility] Last Admin: 08/17/20 09:55 Dose: 25 mg Documented by: Ondansetron HCl (Zofran) 4 mg IV Q4H PRN PRN Reason: Nausea/Vomiting Pantoprazole Sodium (Protonix) 40 mg PO ACBREAKFAST [facility] Last Admin: 08/17/20 07:43 Dose: 40 mg Documented by: Polyethylene Glycol (Miralax) 17 gm PO DAILY [facility] Last Admin: 08/17/20 09:57 Dose: Not Given Documented by: Potassium Chloride (Klor-Con M20) 40 meq PO BIDMEALS [facility] Last Admin: 08/17/20 09:55 Dose: 40 meq Documented by: Senna/Docusate Sodium (Senna Plus) 1 tab PO BID PRN PRN Reason: Constipation Last Admin: 08/15/20 08:06 Dose: 1 tab Documented by: Sertraline HCl (Zoloft) 100 mg PO DAILY [facility] Last Admin: 08/17/20 09:55 Dose: 100 mg Documented by: Sodium Chloride (Saline Flush) 10 ml FLUSH ASDIRECTED PRN PRN Reason: Keep Vein Open Spironolactone (Aldactone) 25 mg PO BID [facility] Last Admin: 08/17/20 09:56 Dose: 25 mg Documented by: Trospium (Sanctura) 20 mg PO BID [facility] Last Admin: 08/17/20 09:55 Dose: 20 mg Documented by: Discontinued Medications Aripiprazole (Abilify) 2.5 mg PO DAILY [facility] Last Admin: 08/14/20 09:08 Dose: 2.5 mg Documented by: Sodium Chloride (Normal Saline) 1,000 mls @ 999 mls/hr IV ASDIRECTED [facility] Last Admin: 08/10/20 13:19 Dose: 999 mls/hr Documented by: Sodium Chloride (Normal Saline) 1,000 mls @ 500 mls/hr IV ASDIRECTED [facility] Last Admin: 08/10/20 14:27 Dose: 500 mls/hr Documented by: Sodium Chloride (Normal Saline) 1,000 mls @ 75 mls/hr IV ASDIRECTED [facility] Last Admin: 08/11/20 06:13 Dose: 75 mls/hr Documented by: Insulin Human Lispro (Humalog) 0 unit SUBCUT QIDACANDBED [facility]; Protocol Last Admin: 08/14/20 12:16 Dose: Not Given Documented by: Lorazepam (Ativan) 1 mg PO TID PRN PRN Reason: Anxiety Olanzapine (Zyprexa) 5 mg PO ASDIRECTED PRN PRN Reason: Hallucinations Olanzapine (Zyprexa) 5 mg PO BID PRN PRN Reason: Hallucinations Caplyta 42mg Cap ( (Ptom)) 1 each PO QPM [facility] Last Admin: 08/14/20 16:48 Dose: 1 each Documented by: Potassium Chloride (Klor-Con M20) 40 meq PO BID [facility] Last Admin: 08/10/20 20:40 Dose: 40 meq Documented by: Potassium Chloride (Klor-Con M20) 40 meq PO ONETIME ONE Stop: 08/10/20 18:31 Last Admin: 08/10/20 18:29 Dose: 40 meq Documented by: Potassium Chloride (Klor-Con M20) 40 meq PO ONETIME ONE Stop: 08/11/20 12:01 Last Admin: 08/11/20 12:09 Dose: 40 meq Documented by: Sertraline HCl (Zoloft) 200 mg PO DAILY [facility] Last Admin: 08/15/20 09:52 Dose: 200 mg Documented by: Simvastatin (Zocor) 40 mg PO QPM [facility] Last Admin: 08/13/20 16:19 Dose: 40 mg Documented by: Warfarin Sodium (Coumadin) 5 mg PO ONETIME ONE Stop: 08/11/20 13:31 Last Admin: 08/11/20 14:08 Dose: 5 mg Documented by: Warfarin Sodium (Coumadin) 5 mg PO ONETIME ONE Stop: 08/12/20 11:01 Last Admin: 08/12/20 12:18 Dose: 5 mg Documented by: Warfarin Sodium (Coumadin) 5 mg PO ONETIME ONE Stop: 08/15/20 13:01 Last Admin: 08/15/20 12:54 Dose: 5 mg Documented by: - Exam Quality Assessment: No: Supplemental Oxygen General: Alert, Oriented, Cooperative, No Acute Distress Lungs: Normal Respiratory Effort GI/Abdominal Exam: Soft, No Distention Extremities: No Pedal Edema Psy/Mental Status: Alert, Normal Affect Sepsis Event Note - Evaluation Sepsis Screening Result: No Definite Risk - Focused Exam Vital Signs: Vital Signs Temp Temp Pulse Pulse Resp BP BP 08/17/20 09:55 79 116/68 08/17/20 07:18 36.3 C 84 16 116/68 08/17/20 03:00 36.1 C 70 16 90/44 L 08/16/20 22:39 36.4 C 75 16 115/68 Pulse Ox 08/17/20 09:55 08/17/20 07:18 95 08/17/20 03:00 90 L 08/16/20 22:39 90 L - Problem List Review Problem List Initiated/Reviewed/Updated: Yes - Plan Plan:: ASSESSMENT AND PLAN Adverse reaction to medication/medications-fairly rapid decline over the last couple of months. Antipsychotics were stopped after discussion with Dr. Payan 08/15. His SSRI dose was also decreased. Also planning to stop his antispasmodic in case the anticholinergic effect is contributing. -Hold antipsychotics and statin -Hold Sanctura -Reduce dose of Zoloft WEAKNESS-strength is improving. He has been ambulating in the hallway. Feeding himself well for the most part though less effective this morning. -Continue physical and occupational therapy TYPE 2 DIABETES MELLITUS-well controlled. -Continue Metformin SCHIZOPHRENIA-there have been no behavior issues during the hospital stay. Family does not report any episodes of agitation, paranoia or psychosis that they are aware of. -Continue antidepressant MAINTENANCE ISSUES -DVT prophylaxis; Lovenox 40 mg subcu daily -GI prophylaxis; not indicated -Cueva catheter; not indicated -Nutrition; consistent carbohydrate diet ADMISSION STATUS-this patient will be admitted to observation status, expect no more than a one night hospital stay for evaluation and management of problems as outlined above. DISPOSITION-anticipate discharge to home with home care after the hospital stay. Frank Loera MD
--- NOTE | 2020-08-17 12:02 | CONS ---
DATE OF SERVICE: 08/15/2020 REFERRING PHYSICIAN: CONSULTING PHYSICIAN: Sanjay Payan MD Site where the services are provided is [facility] in [place], [place]. Site where the services are provided, from our offices in [facility]. Length of service for this 60-minute inpatient telemedicine event is 60 minutes. IDENTIFICATION: The patient is a 65-year-old male who is admitted to the inpatient medical unit at [facility] in [place], [place]. He is seen for psychiatric consultation per the request staff of attending, Dr. Loera, and his treatment team. CHIEF COMPLAINT: The patient does not respond when asked. HISTORY OF PRESENT ILLNESS: The patient is a 65-year-old male who is admitted through the medical unit on August 10, 2020, secondary to increased confusion, weakness, dehydration, and loss of memory. He is assessed now for loss of memory and possible paranoia. On interview, the patient is alert and oriented x1 to his name. When asked where he is or what the date is, the patient is not able to respond. The patient is also not able to respond and give his date when asked. The patient is cooperative overall for the interview in terms of trying to answer to questions, but he is not able to answer the questions even with the assistance of nursing staff who are in the room for the interview. MEDICATIONS AT THE TIME OF PRESENTATION: 1. Benztropine 1 mg b.i.d. 2. Hydroxyzine p.r.n. 3. Lorazepam p.r.n. 4. Abilify 2.5 mg daily, which was actually discontinued on August 14, 2020, per staff report. 5. Zyprexa 5 mg at bedtime, which had not been given to the patient since he has been on the unit. a. It should be noted that all these are home medications, and the only one that the patient has been receiving since the Abilify was discontinued is benztropine. 6. He also is getting Caplyta 42 mg daily and that was also discontinued on the . 7. Zoloft 200 mg daily. 8. Metformin. 9. Warfarin. ALLERGIES: NO KNOWN DRUG ALLERGIES. THE PATIENT DOES HAVE BUSPAR INTOLERANCE. THE BUSPAR APPARENTLY CAUSES NAUSEA. PAST MEDICAL HISTORY: 1. Hypertension. 2. High cholesterol. 3. Type 2 diabetes. 4. BPH. 5. Status post PE in the past. 6. Possible history of Lewy body dementia per staff report. REVIEW OF SYSTEMS: Aside from cardiovascular, endocrine, genitourinary, pulmonary, and possibly neurologic, all other major organ systems are negative at this point in time for acute difficulties or complications. FAMILY PSYCHIATRIC AND CD HISTORY: The patient's father has a history of Parkinson and there is a report that patient's brother has a history of schizophrenia. PAST PSYCHIATRIC AND CD HISTORY: Per staff report, essentially negative for past psychiatric hospitalizations or chemical dependency treatments. The patient is a non- tobacco user. Has no CD history. He does carry a diagnosis of schizophrenia that was well controlled apparently with past psychiatric medication history of Garo. Appears that he was recently put on Caplyta couple of months ago per staff report and then also taking some p.r.n. Zyprexa. Staff is reporting that patient's primary outpatient care provider is a nurse practitioner named, Jeff Pérez out at [facility]. SOCIAL HISTORY: The patient is born and raised in the [place], [place] area. He resides at [place] next to his brother and sister. 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 The patient is single and never been . He has no children. MENTAL STATUS EXAMINATION: The patient is a 65-year-old soft spoken, pleasant white male in no apparent distress. Speech is with increased latency of response, shortened duration of utterance. Mood is characterized as okay. Affect is cooperative overall for the purposes of the followup interview. He is alert and oriented x1 for person but not to place or to date or even to his date, but he attempts to answer the questions when asked. He appears to be making a good chidi effort to answer the questions. Not clear if he completely understands the questions but does seem that he understands the verbal cues that he has being asked questions and he is trying to respond. There is no behavioral or stated evidence of acute suicidal or homicidal ideation or acute psychotic, delusional, or paranoid symptoms. Thought processes certainly are impaired, and there maybe a dementia process going on that is contributing to his impairment. There are no manic symptoms evident. Judgement and insight do appear impaired at this point in time again, maybe likely to pseudodementia process. Motivation for help appears fair. PHYSICAL EXAMINATION: VITAL SIGNS: At time of presentation, 100/60, 70, 98.6 degrees, and respirations are regular. IMPRESSION: Bellwood I: 1. Dementia, not otherwise specified. [id number]. 2. Rule out pseudodementia. 3. Rule out psychosis, not otherwise specified. Bellwood II: None. Bellwood III: 1. Hypertension. 2. High cholesterol. 3. Type 2 diabetes. 4. BPH. 5. Status post pulmonary embolism. 6. Possible history of Lewy body dementia. Bellwood IV: Severe. Bellwood V: 55. PLAN: 1. Recommend discontinuing Caplyta since this medication was just started recently, and it appears that his behavior changes started around the time that the Caplyta was begun a couple of months ago per staff report. 2. Discontinue Zyprexa p.r.n. as this medication really should not be given either with the Caplyta or the Abilify secondary to the chance of increased side effects or NMS. 3. Can hold the Abilify for the time being to see if this also helps patient's sensorium clear. 4. We will decrease the Zoloft from 200 mg to 100 mg daily. The patient does not appear to be acutely clinically depressed. 5. We will continue the benztropine for the time being at 1 mg b.i.d. 6. Other medications as dosing prescribed by patient's inpatient primary medical treatment team. 7. Recommend the patient maintain good hydration status. 8. Social Work can obtain collateral information from patient's outpatient care providers in particular his mental health treatment team that would likely be hopeful as treatment options are considered and implemented going forward to help with patient's overall condition. 9. If patient does began to develop breakthrough psychiatric symptoms or paranoia, can restart the Abilify medication that he was taking for many years with good results at low dose again pending hopefully collateral information that is received from patient's primary outpatient care mental health provider. 10.We will continue to follow up with patient on an as needed basis while he remains on inpatient medical unit at [facility] in [place], [place]. 11.We will follow up with patient sooner if any complications. 12.Crisis plan is in place. Sanjay Payan MD /[phone]
[2020-08-17] MEDS ORDERED: Warfarin 5 MG Tab PO SCH (15:00)
[2020-08-18] MEDS: Pantoprazole 40 MG Tab.CR PO SCH (08:20)
[2020-08-18] MEDS: Docusate Sodium 100 MG Cap PO SCH (08:20)
[2020-08-18] MEDS: Potassium Chloride 20 MEQ Tab.ER PO SCH ×2 (08:20→16:52)
[2020-08-18] MEDS: Levothyroxine 50 MCG Tab PO SCH (08:20)
[2020-08-18] MEDS: Magnesium Oxide 400 MG Tab PO SCH ×2 (08:20→20:58)
[2020-08-18] MEDS: Spironolactone 25 MG Tab PO SCH (08:20)
[2020-08-18] MEDS: metFORMIN 500 MG Tab PO SCH (08:20)
[2020-08-18] MEDS: Sertraline 50 MG Tab PO SCH (08:20)
[2020-08-18] MEDS: Metoprolol Succinate 25 MG Tab.ER PO SCH (08:21)
[2020-08-18] MEDS: Finasteride 5 MG Tab PO SCH (08:21)
[2020-08-18] MEDS: Furosemide 20 MG Tab PO SCH (08:21)
[2020-08-18] MEDS: Polyethylene Glycol 3350 Powder 17 GM Packet PO SCH (08:22)
--- NOTE | 2020-08-18 10:58 | PCM.PN ---
- General Info Date of Service: 08/18/20 Subjective Update: There were no acute events overnight. Patient is a little bit more interactive today than he was yesterday. He knows he is in [place] and he knows where his hometown is. He was not sure who he lived with. He is able to walk short distances in the hallway. Vital signs have been stable. No fevers. Labs unremarkable other than a subtherapeutic INR. No behavior issues. Functional Status: Reports: Pain Controlled, Tolerating Diet - Review of Systems General: Denies: Fever Neurological: Reports: Confusion - Patient Data Vitals - Most Recent: Last Vital Signs Temp 36.6 C 08/18/20 10:03 Pulse 84 08/18/20 10:03 Resp 18 08/18/20 10:03 BP 113/69 08/18/20 10:03 Pulse Ox 92 L 08/18/20 10:03 Weight - Most Recent: 90.038 kg I&O - Last 24 Hours: Intake & Output 08/17/20 08/18/20 08/18/20 22:59 06:59 14:59 Intake Total 740 Balance 740 Lab Results Last 24 Hours: Laboratory Results - last 24 hr 08/18/20 08/18/20 Range/Units 04:24 04:24 PT 14.5 H (9.5-12.0) sec INR 1.34 H (0.80-1.20) Sodium 135 L (140-148) mmol/L Potassium 3.9 (3.6-5.2) mmol/L Chloride 101 (100-108) mmol/L Carbon Dioxide 25 (21-32) mmol/L Anion Gap 12.9 (5.0-14.0) mmol/L BUN 17 (7-18) mg/dL Creatinine 0.8 (0.8-1.3) mg/dL Est Cr Clr Drug Dosing 95.29 mL/min Estimated GFR (MDRD) > 60 (>60) Glucose 92 (74-106) mg/dL Calcium 8.6 (8.5-10.1) mg/dL Med Orders - Current: Current Medications Acetaminophen (Tylenol) 650 mg PO Q4H PRN PRN Reason: Pain (Mild 1-3)/fever Dextrose (Glutose 15) 15 gm PO ONETIME PRN PRN Reason: Hypoglycemia Dextrose/Water (Dextrose 50% In Water) 50 ml IV ONETIME PRN PRN Reason: Hypoglycemia Docusate Sodium (Colace) 100 mg PO DAILY [facility] Last Admin: 08/18/20 08:20 Dose: 100 mg Documented by: Finasteride (Proscar) 5 mg PO DAILY [facility] Last Admin: 08/18/20 08:21 Dose: 5 mg Documented by: Furosemide (Lasix) 20 mg PO DAILY [facility] Last Admin: 08/18/20 08:21 Dose: 20 mg Documented by: Levothyroxine Sodium (Synthroid) 50 mcg PO ACBREAKFAST [facility] Last Admin: 08/18/20 08:20 Dose: 50 mcg Documented by: Magnesium Oxide (Magnesium Oxide) 400 mg PO BID [facility] Last Admin: 08/18/20 08:20 Dose: 400 mg Documented by: Metformin HCl (Glucophage) 500 mg PO DAILY [facility] Last Admin: 08/18/20 08:20 Dose: 500 mg Documented by: Metoprolol Succinate (Toprol Xl) 25 mg PO DAILY [facility] Last Admin: 08/18/20 08:21 Dose: 25 mg Documented by: Ondansetron HCl (Zofran) 4 mg IV Q4H PRN PRN Reason: Nausea/Vomiting Pantoprazole Sodium (Protonix) 40 mg PO ACBREAKFAST [facility] Last Admin: 08/18/20 08:20 Dose: 40 mg Documented by: Polyethylene Glycol (Miralax) 17 gm PO DAILY [facility] Last Admin: 08/18/20 08:22 Dose: Not Given Documented by: Potassium Chloride (Klor-Con M20) 40 meq PO BIDMEALS [facility] Last Admin: 08/18/20 08:20 Dose: 40 meq Documented by: Senna/Docusate Sodium (Senna Plus) 1 tab PO BID PRN PRN Reason: Constipation Last Admin: 08/15/20 08:06 Dose: 1 tab Documented by: Sertraline HCl (Zoloft) 100 mg PO DAILY [facility] Last Admin: 08/18/20 08:20 Dose: 100 mg Documented by: Sodium Chloride (Saline Flush) 10 ml FLUSH ASDIRECTED PRN PRN Reason: Keep Vein Open Warfarin Sodium (Coumadin) 5 mg PO DAILY@1300 [facility] Warfarin Sodium (Coumadin) 10 mg PO ONETIME ONE Stop: 08/18/20 13:01 Discontinued Medications Aripiprazole (Abilify) 2.5 mg PO DAILY [facility] Last Admin: 08/14/20 09:08 Dose: 2.5 mg Documented by: Benztropine Mesylate (Cogentin) 1 mg PO BID [facility] Last Admin: 08/17/20 09:55 Dose: 1 mg Documented by: Sodium Chloride (Normal Saline) 1,000 mls @ 999 mls/hr IV ASDIRECTED [facility] Last Admin: 08/10/20 13:19 Dose: 999 mls/hr Documented by: Sodium Chloride (Normal Saline) 1,000 mls @ 500 mls/hr IV ASDIRECTED [facility] Last Admin: 08/10/20 14:27 Dose: 500 mls/hr Documented by: Sodium Chloride (Normal Saline) 1,000 mls @ 75 mls/hr IV ASDIRECTED [facility] Last Admin: 08/11/20 06:13 Dose: 75 mls/hr Documented by: Insulin Human Lispro (Humalog) 0 unit SUBCUT QIDACANDBED [facility]; Protocol Last Admin: 08/14/20 12:16 Dose: Not Given Documented by: Lorazepam (Ativan) 1 mg PO TID PRN PRN Reason: Anxiety Olanzapine (Zyprexa) 5 mg PO ASDIRECTED PRN PRN Reason: Hallucinations Olanzapine (Zyprexa) 5 mg PO BID PRN PRN Reason: Hallucinations Caplyta 42mg Cap ( (Ptom)) 1 each PO QPM [facility] Last Admin: 08/14/20 16:48 Dose: 1 each Documented by: Potassium Chloride (Klor-Con M20) 40 meq PO BID [facility] Last Admin: 08/10/20 20:40 Dose: 40 meq Documented by: Potassium Chloride (Klor-Con M20) 40 meq PO ONETIME ONE Stop: 08/10/20 18:31 Last Admin: 08/10/20 18:29 Dose: 40 meq Documented by: Potassium Chloride (Klor-Con M20) 40 meq PO ONETIME ONE Stop: 08/11/20 12:01 Last Admin: 08/11/20 12:09 Dose: 40 meq Documented by: Sertraline HCl (Zoloft) 200 mg PO DAILY [facility] Last Admin: 08/15/20 09:52 Dose: 200 mg Documented by: Simvastatin (Zocor) 40 mg PO QPM [facility] Last Admin: 08/13/20 16:19 Dose: 40 mg Documented by: Spironolactone (Aldactone) 25 mg PO BID [facility] Last Admin: 08/18/20 08:20 Dose: 25 mg Documented by: Trospium (Sanctura) 20 mg PO BID [facility] Last Admin: 08/17/20 09:55 Dose: 20 mg Documented by: Warfarin Sodium (Coumadin) 5 mg PO ONETIME ONE Stop: 08/11/20 13:31 Last Admin: 08/11/20 14:08 Dose: 5 mg Documented by: Warfarin Sodium (Coumadin) 5 mg PO ONETIME ONE Stop: 08/12/20 11:01 Last Admin: 08/12/20 12:18 Dose: 5 mg Documented by: Warfarin Sodium (Coumadin) 5 mg PO ONETIME ONE Stop: 08/15/20 13:01 Last Admin: 08/15/20 12:54 Dose: 5 mg Documented by: Warfarin Sodium (Coumadin) 5 mg PO DAILY@1300 [facility] Last Admin: 08/17/20 16:00 Dose: 5 mg Documented by: - Exam Quality Assessment: No: Supplemental Oxygen General: Alert, Cooperative, No Acute Distress. No: Oriented Lungs: Normal Respiratory Effort GI/Abdominal Exam: Soft, No Distention Extremities: No Pedal Edema Psy/Mental Status: Alert. No: Agitated Sepsis Event Note - Evaluation Sepsis Screening Result: No Definite Risk - Focused Exam Vital Signs: Vital Signs Temp Pulse Pulse Resp BP BP Pulse Ox 08/18/20 10:03 36.6 C 84 18 113/69 92 L 08/18/20 08:21 71 109/70 08/18/20 07:00 36.3 C 71 18 109/70 93 L 08/18/20 03:00 36.6 C 66 16 131/76 96 08/17/20 23:00 36.2 C 62 16 114/66 96 - Problem List Review Problem List Initiated/Reviewed/Updated: Yes - My Orders Last 24 Hours: My Active Orders 08/18/20 13:00 Warfarin [Coumadin] 10 mg PO ONETIME ONE 08/19/20 05:00 BASIC METABOLIC PANEL,BMP [CHEM] Timed CBC W/O DIFF,HEMOGRAM [HEME] Timed (1) INR,PT,PROTHROMBIN TIME [COAG] Timed 08/19/20 15:00 Warfarin [Coumadin] 5 mg PO DAILY@1300 - Plan Plan:: ASSESSMENT AND PLAN Adverse reaction to medication/medications-fairly rapid decline over the last couple of months. Medication reaction versus neurodegenerative disorder versus profound depression/mental illness. Dr. Payan consulted on 08/15. Multiple medications have been stopped. No impressive changes over the past 48 hours. -Hold antipsychotics, lorazepam, Toviaz, statin and spironolactone -Reduced dose of Zoloft WEAKNESS-strength is improving. He has been making some improvements with strength but seems to be limited by his cognition and difficulty with attention. -Continue physical and occupational therapy TYPE 2 DIABETES MELLITUS-well controlled. -Continue Metformin SCHIZOPHRENIA-there have been no behavior issues during the hospital stay. Family does not report any episodes of agitation, paranoia or psychosis that they are aware of. -Continue antidepressant MAINTENANCE ISSUES -DVT prophylaxis; Lovenox 40 mg subcu daily -GI prophylaxis; not indicated -Diet; consistent carbohydrate DISPOSITION-anticipate discharge to home with home care after the hospital stay. Frank Loera MD
[2020-08-18] MEDS ORDERED: Warfarin 5 MG Tab PO ONE (13:00)
[2020-08-18] MEDS: Benztropine 1 MG Tab PO SCH (20:58)
[2020-08-19] MEDS: Finasteride 5 MG Tab PO SCH (08:30)
[2020-08-19] MEDS: metFORMIN 500 MG Tab PO SCH (08:30)
[2020-08-19] MEDS: Levothyroxine 50 MCG Tab PO SCH (08:30)
[2020-08-19] MEDS: Sertraline 50 MG Tab PO SCH (08:30)
[2020-08-19] MEDS: Potassium Chloride 20 MEQ Tab.ER PO SCH ×2 (08:30→17:44)
[2020-08-19] MEDS: Polyethylene Glycol 3350 Powder 17 GM Packet PO SCH (08:30)
[2020-08-19] MEDS: Magnesium Oxide 400 MG Tab PO SCH ×3 (08:30→20:03)
[2020-08-19] MEDS: Pantoprazole 40 MG Tab.CR PO SCH (08:30)
[2020-08-19] MEDS: Furosemide 20 MG Tab PO SCH (08:31)
[2020-08-19] MEDS: Docusate Sodium 100 MG Cap PO SCH (08:31)
[2020-08-19] MEDS: Benztropine 1 MG Tab PO SCH ×3 (08:31→20:03)
[2020-08-19] MEDS: Metoprolol Succinate 25 MG Tab.ER PO SCH (08:31)
--- NOTE | 2020-08-19 11:15 | PCM.PN ---
- General Info Date of Service: 08/19/20 Subjective Update: There were no acute events overnight. [place] is a little bit more alert and interactive today than yesterday but not back to baseline. He is able to respond to most of the questions but does have some difficulty with responses at times. His responses are delayed as if he is thinking about what he is going to say. Sometimes he is very quick with his responses and has some funny comments that are appropriate to the conversation. Vital signs have been stable. Strength seems to be a little better. He was able to feed himself easily this morning. Functional Status: Reports: Tolerating Diet - Review of Systems General: Reports: Weakness Neurological: Reports: Confusion - Patient Data Vitals - Most Recent: Last Vital Signs Temp 37.0 C 08/19/20 07:21 Pulse 65 08/19/20 08:31 Resp 18 08/19/20 07:21 BP 112/72 08/19/20 08:31 Pulse Ox 97 08/19/20 07:21 Weight - Most Recent: 90.038 kg I&O - Last 24 Hours: Intake & Output 08/18/20 08/19/20 08/19/20 22:59 06:59 14:59 Intake Total 296 Balance 296 Lab Results Last 24 Hours: Laboratory Results - last 24 hr 08/19/20 08/19/20 08/19/20 Range/Units 05:30 05:30 05:30 WBC 8.1 (4.5-11.0) K/uL RBC 3.73 L (4.30-5.90) M/uL Hgb 10.0 L (12.0-15.0) g/dL Hct 31.3 L (40.0-54.0) % MCV 84 (80-98) fL MCH 27 (27-31) pg MCHC 32 (32-36) % Plt Count 296 (150-400) K/uL PT 23.1 H (9.5-12.0) sec INR 2.15 H (0.80-1.20) Sodium 135 L (140-148) mmol/L Potassium 4.1 (3.6-5.2) mmol/L Chloride 100 (100-108) mmol/L Carbon Dioxide 26 (21-32) mmol/L Anion Gap 13.1 (5.0-14.0) mmol/L BUN 15 (7-18) mg/dL Creatinine 0.9 (0.8-1.3) mg/dL Est Cr Clr Drug Dosing 84.70 mL/min Estimated GFR (MDRD) > 60 (>60) Glucose 94 (74-106) mg/dL Calcium 9.0 (8.5-10.1) mg/dL Med Orders - Current: Current Medications Acetaminophen (Tylenol) 650 mg PO Q4H PRN PRN Reason: Pain (Mild 1-3)/fever Benztropine Mesylate (Cogentin) 1 mg PO BID [facility] Last Admin: 08/19/20 08:31 Dose: 1 mg Documented by: Dextrose (Glutose 15) 15 gm PO ONETIME PRN PRN Reason: Hypoglycemia Dextrose/Water (Dextrose 50% In Water) 50 ml IV ONETIME PRN PRN Reason: Hypoglycemia Docusate Sodium (Colace) 100 mg PO DAILY [facility] Last Admin: 08/19/20 08:31 Dose: 100 mg Documented by: Finasteride (Proscar) 5 mg PO DAILY [facility] Last Admin: 08/19/20 08:30 Dose: 5 mg Documented by: Furosemide (Lasix) 20 mg PO DAILY [facility] Last Admin: 08/19/20 08:31 Dose: 20 mg Documented by: Levothyroxine Sodium (Synthroid) 50 mcg PO ACBREAKFAST [facility] Last Admin: 08/19/20 08:30 Dose: 50 mcg Documented by: Magnesium Oxide (Magnesium Oxide) 400 mg PO BID [facility] Last Admin: 08/19/20 08:30 Dose: 400 mg Documented by: Metformin HCl (Glucophage) 500 mg PO DAILY [facility] Last Admin: 08/19/20 08:30 Dose: 500 mg Documented by: Metoprolol Succinate (Toprol Xl) 25 mg PO DAILY [facility] Last Admin: 08/19/20 08:31 Dose: 25 mg Documented by: Ondansetron HCl (Zofran) 4 mg IV Q4H PRN PRN Reason: Nausea/Vomiting Pantoprazole Sodium (Protonix) 40 mg PO ACBREAKFAST [facility] Last Admin: 08/19/20 08:30 Dose: 40 mg Documented by: Polyethylene Glycol (Miralax) 17 gm PO DAILY [facility] Last Admin: 08/19/20 08:30 Dose: 17 gm Documented by: Potassium Chloride (Klor-Con M20) 40 meq PO BIDMEALS [facility] Last Admin: 08/19/20 08:30 Dose: 40 meq Documented by: Senna/Docusate Sodium (Senna Plus) 1 tab PO BID PRN PRN Reason: Constipation Last Admin: 08/15/20 08:06 Dose: 1 tab Documented by: Sertraline HCl (Zoloft) 100 mg PO DAILY [facility] Last Admin: 08/19/20 08:30 Dose: 100 mg Documented by: Sodium Chloride (Saline Flush) 10 ml FLUSH ASDIRECTED PRN PRN Reason: Keep Vein Open Warfarin Sodium (Coumadin) 5 mg PO DAILY@1300 [facility] Discontinued Medications Aripiprazole (Abilify) 2.5 mg PO DAILY [facility] Last Admin: 08/14/20 09:08 Dose: 2.5 mg Documented by: Benztropine Mesylate (Cogentin) 1 mg PO BID [facility] Last Admin: 08/17/20 09:55 Dose: 1 mg Documented by: Sodium Chloride (Normal Saline) 1,000 mls @ 999 mls/hr IV ASDIRECTED [facility] Last Admin: 08/10/20 13:19 Dose: 999 mls/hr Documented by: Sodium Chloride (Normal Saline) 1,000 mls @ 500 mls/hr IV ASDIRECTED [facility] Last Admin: 08/10/20 14:27 Dose: 500 mls/hr Documented by: Sodium Chloride (Normal Saline) 1,000 mls @ 75 mls/hr IV ASDIRECTED [facility] Last Admin: 08/11/20 06:13 Dose: 75 mls/hr Documented by: Insulin Human Lispro (Humalog) 0 unit SUBCUT QIDACANDBED [facility]; Protocol Last Admin: 08/14/20 12:16 Dose: Not Given Documented by: Lorazepam (Ativan) 1 mg PO TID PRN PRN Reason: Anxiety Olanzapine (Zyprexa) 5 mg PO ASDIRECTED PRN PRN Reason: Hallucinations Olanzapine (Zyprexa) 5 mg PO BID PRN PRN Reason: Hallucinations Caplyta 42mg Cap ( (Ptom)) 1 each PO QPM [facility] Last Admin: 08/14/20 16:48 Dose: 1 each Documented by: Potassium Chloride (Klor-Con M20) 40 meq PO BID [facility] Last Admin: 08/10/20 20:40 Dose: 40 meq Documented by: Potassium Chloride (Klor-Con M20) 40 meq PO ONETIME ONE Stop: 08/10/20 18:31 Last Admin: 08/10/20 18:29 Dose: 40 meq Documented by: Potassium Chloride (Klor-Con M20) 40 meq PO ONETIME ONE Stop: 08/11/20 12:01 Last Admin: 08/11/20 12:09 Dose: 40 meq Documented by: Sertraline HCl (Zoloft) 200 mg PO DAILY [facility] Last Admin: 08/15/20 09:52 Dose: 200 mg Documented by: Simvastatin (Zocor) 40 mg PO QPM [facility] Last Admin: 08/13/20 16:19 Dose: 40 mg Documented by: Spironolactone (Aldactone) 25 mg PO BID [facility] Last Admin: 08/18/20 08:20 Dose: 25 mg Documented by: Trospium (Sanctura) 20 mg PO BID [facility] Last Admin: 08/17/20 09:55 Dose: 20 mg Documented by: Warfarin Sodium (Coumadin) 5 mg PO ONETIME ONE Stop: 08/11/20 13:31 Last Admin: 08/11/20 14:08 Dose: 5 mg Documented by: Warfarin Sodium (Coumadin) 5 mg PO ONETIME ONE Stop: 08/12/20 11:01 Last Admin: 08/12/20 12:18 Dose: 5 mg Documented by: Warfarin Sodium (Coumadin) 5 mg PO ONETIME ONE Stop: 08/15/20 13:01 Last Admin: 08/15/20 12:54 Dose: 5 mg Documented by: Warfarin Sodium (Coumadin) 5 mg PO DAILY@1300 [facility] Last Admin: 08/17/20 16:00 Dose: 5 mg Documented by: Warfarin Sodium (Coumadin) 10 mg PO ONETIME ONE Stop: 08/18/20 13:01 Last Admin: 08/18/20 12:26 Dose: 10 mg Documented by: - Exam Quality Assessment: No: Supplemental Oxygen General: Alert, Cooperative, No Acute Distress. No: Oriented Lungs: Normal Respiratory Effort GI/Abdominal Exam: Soft, No Distention Extremities: No Pedal Edema Skin: Warm, Dry Psy/Mental Status: Alert, Normal Affect, Other (slow response to most but not all questions). No: Agitated Sepsis Event Note - Evaluation Sepsis Screening Result: No Definite Risk - Focused Exam Vital Signs: Vital Signs Temp Pulse Pulse Resp BP BP Pulse Ox 08/19/20 08:31 65 112/72 08/19/20 07:21 37.0 C 65 18 112/72 97 08/19/20 02:56 36.5 C 69 20 127/80 96 08/18/20 23:24 36.2 C 67 20 126/83 98 - Problem List Review Problem List Initiated/Reviewed/Updated: Yes - My Orders Last 24 Hours: My Active Orders 08/18/20 21:00 Benztropine [Cogentin] 1 mg PO BID 08/19/20 15:00 Warfarin [Coumadin] 5 mg PO DAILY@1300 08/20/20 05:00 INR,PT,PROTHROMBIN TIME [COAG] Timed - Plan Plan:: ASSESSMENT AND PLAN Adverse reaction to medication/medications versus neurodegenerative disorder - fairly rapid decline over the last couple of months. Dr. Payan consulted on 08/15. Multiple medications have been stopped. He does seem to be slowly getting better. But is not back anywhere near his baseline yet. -Hold antipsychotics, lorazepam, Toviaz, statin and spironolactone -Reduced dose of Zoloft -Continue Cogentin for apparent tardive dyskinesia WEAKNESS-strength is improving. He has been making some improvements with strength but seems to be limited by his cognition and difficulty with attention. -Continue physical and occupational therapy TYPE 2 DIABETES MELLITUS-well controlled. -Continue Metformin SCHIZOPHRENIA-there have been no behavior issues during the hospital stay. Family does not report any episodes of agitation, paranoia or psychosis that they are aware of. -Continue antidepressant MAINTENANCE ISSUES -DVT prophylaxis; Lovenox 40 mg subcu daily -GI prophylaxis; not indicated -Diet; consistent carbohydrate DISPOSITION-anticipate discharge to home with home care after the hospital stay. Frank Loera MD
[2020-08-19] MEDS ORDERED: Warfarin 5 MG Tab PO SCH (15:00)
[2020-08-20] MEDS: Benztropine 1 MG Tab PO SCH (08:25)
[2020-08-20] MEDS: Levothyroxine 50 MCG Tab PO SCH (08:25)
[2020-08-20] MEDS: metFORMIN 500 MG Tab PO SCH (08:25)
[2020-08-20] MEDS: Polyethylene Glycol 3350 Powder 17 GM Packet PO SCH (08:25)
[2020-08-20] MEDS: Pantoprazole 40 MG Tab.CR PO SCH (08:25)
[2020-08-20] MEDS: Sertraline 50 MG Tab PO SCH (08:25)
[2020-08-20] MEDS: Potassium Chloride 20 MEQ Tab.ER PO SCH (08:25)
[2020-08-20] MEDS: Docusate Sodium 100 MG Cap PO SCH (08:25)
[2020-08-20] MEDS: Magnesium Oxide 400 MG Tab PO SCH (08:26)
[2020-08-20] MEDS: Furosemide 20 MG Tab PO SCH (08:26)
[2020-08-20] MEDS: Finasteride 5 MG Tab PO SCH (08:26)
[2020-08-20] MEDS: Metoprolol Succinate 25 MG Tab.ER PO SCH (08:28)
[2020-08-20] MEDS ORDERED: Warfarin 2.5 MG Tab PO SCH (13:00)
--- NOTE | 2020-08-20 13:53 | PCM.DCSUM1 ---
Discharge Summary - Hospital Course Brief History: Mr. Apple is a 65-year-old gentleman who was admitted through the emergency department with progressive weakness, poor oral intake, and decreased level of responsiveness. - Discharge Data Discharge Date: 08/20/20 Discharge Disposition: Home, Self-Care 01 Condition: Fair - Referral to Home Health Primary Care Physician: Jourdan Fraser MD - Discharge Diagnosis/Problem(s) (1) Medication side effects SNOMED Code(s): 462300751 ICD Code: T88.7XXA - UNSP ADVERSE EFFECT OF DRUG OR MEDICAMENT, INIT ENCNTR Status: Acute Current Visit: Yes (2) Schizophrenia SNOMED Code(s): 18152298 ICD Code: F20.9 - SCHIZOPHRENIA, UNSPECIFIED Status: Acute Current Visit: Yes - Patient Summary/Data Consults: Consultations 08/14/20 09:35 OT Evaluation and Treatment [CONS] Routine Please Evaluate and Treat. OT Reason for Consult: weakness Pending Discharge: Yes This query below is only for informational purposes and is not editable. Admission Diagnosis/Problem: Depression PT Evaluation and Treatment [CONS] Routine Please Evaluate and Treat. PT Reason for Consult: weakness Pending Discharge: Yes This query below is only for informational purposes and is not editable. Admission Diagnosis/Problem: Depression Hospital Course: Mr. Apple is a 65-year-old gentleman who was admitted through the emergency department to [facility] with weakness and dehydration, probable worsening depression. He is either unable or unwilling to provide much in the way of information concerning recent symptoms or events. Family reports that he has not been talking with them over the past few days and that he has not been eating or drinking. Because of progressive weakness he was brought into the emergency department for further evaluation. He was recently admitted to this facility with marked metabolic abnormalities including hyponatremia, hypokalemia, and hypomagnesemia. Labs obtained today show only mild hypokalemia with no other significant abnormalities. There are some white cells in the urine but no other evidence of significant infection. White blood cell count is only modestly elevated. There has been a history of progressive physical decline with weakness and question of some swallowing difficulties. MRI of the brain was obtained during last admission and showed microvascular changes but no other significant abnormalities. No other focal neurologic abnormalities are identified on examination. First several days after admission he really showed no significant improvement with very limited speech and physical abilities. Was felt likely that this may be related to progressive depression. Attempts were made to find placement for him on inpatient psychiatric facility were all unsuccessful. Over a period of time it appeared more likely that this could potentially be secondary to medication side effects. Psychiatry consult was obtained with Dr. Payan who agreed that patient's current physical symptoms could be related to multiple medications. Dr. Payan recommended stopping Caplyta, Zyprexa, and Abilify. Also discontinued was the lorazepam, Toviaz, statin, and Spironolactone. Through these medication changes were made patient showed marked improvement in all aspects of daily living. He became more alert and interactive with more lucid and easy speech. Appetite improved and he was feeding himself prior to discharge and walking in the hallways with minimal assistance. Dr. Payan did mention that if he should start develop difficulty with his schizophrenia that the Abilify could be restarted as the patient is tolerated this over the past several years. His dose of Zoloft was decreased to 100 mg daily and this will also be continued after discharge. Activity will be as tolerated and he will resume his usual diet. Follow-up appointment will be scheduled with his primary care provider within 1 week. Follow-up INR level will be obtained on August 22. - Patient Instructions Diet: Usual Diet as Tolerated Activity: As Tolerated Other/Special Instructions: Please schedule follow-up appointment with primary care provider within 1 week. Please obtain INR level on August 22. - Discharge Plan *PRESCRIPTION DRUG MONITORING PROGRAM REVIEWED*: Not Applicable *COPY OF PRESCRIPTION DRUG MONITORING REPORT IN PATIENT MARGARET: Not Applicable Home Medications: Home Meds Benztropine [Cogentin] 1 mg PO BID 07/17/15 [History] Finasteride 5 mg PO DAILY 07/17/15 [History] Levothyroxine [Synthroid] 50 mcg PO DAILY 07/17/15 [History] Metoprolol Succinate [Toprol XL] 25 tab PO DAILY 07/17/15 [History] Cholecalciferol (Vitamin D3) [Vitamin D3] 2,000 unit PO DAILY 11/03/17 [History] Clotrimazole [Clotrimazole 1%] 1 applic TOP BID 11/03/17 [History] Furosemide [Lasix] 20 - 40 tab PO DAILY 11/03/17 [History] metFORMIN HCl [Metformin HCl] 500 mg PO DAILY 11/03/17 [History] metOLazone [Zaroxolyn] 2.5 tab PO ASDIRECTED 11/03/17 [History] polyethylene glycoL 3350 [Miralax] 1 pack PO DAILY 11/03/17 [History] Vitamin B Complex [B Complex] 1 each PO DAILY 01/27/18 [History] Calcium Carb/D3/Magnesium/Zinc [Luis Mag Zinc + D Tablet] 1 each PO DAILY 06/09/19 [History] Docusate Sodium [Dulcolax Stool Softener] 100 mg PO DAILY 07/24/20 [History] Magnesium Oxide 400 mg PO BID #60 tab 07/27/20 [Rx] Potassium Chloride 40 meq PO BID #120 tablet.er 07/27/20 [Rx] Ascorbic Acid [C-1000] 1,000 mg PO DAILY 08/10/20 [History] Cyanocobalamin (Vitamin B-12) [B-12] 500 mcg PO DAILY 08/10/20 [History] Omeprazole 40 mg PO DAILY 08/10/20 [History] Sertraline HCl [Zoloft] 100 mg PO DAILY #0 08/20/20 [Rx] Warfarin [Coumadin] 2.5 mg PO DAILY #0 08/20/20 [Rx] - Discharge Summary/Plan Comment DC Time >30 min.: No - Patient Data Vitals - Most Recent: Last Vital Signs Temp 97.0 F 08/20/20 11:15 Pulse 77 08/20/20 11:15 Resp 16 08/20/20 11:15 BP 106/74 08/20/20 11:15 Pulse Ox 96 08/20/20 11:15 Weight - Most Recent: 199 lb 9.6 oz I&O - Last 24 hours: Intake & Output 08/19/20 08/20/20 08/20/20 22:59 06:59 14:59 Intake Total 600 1080 Balance 600 1080 Lab Results - Last 24 hrs: Laboratory Results - last 24 hr 08/20/20 Range/Units 05:53 PT 37.5 H (9.5-12.0) sec INR 3.53 H (0.80-1.20) Med Orders - Current: Current Medications Acetaminophen (Tylenol) 650 mg PO Q4H PRN PRN Reason: Pain (Mild 1-3)/fever Benztropine Mesylate (Cogentin) 1 mg PO BID [facility] Last Admin: 08/20/20 08:25 Dose: 1 mg Documented by: Dextrose (Glutose 15) 15 gm PO ONETIME PRN PRN Reason: Hypoglycemia Dextrose/Water (Dextrose 50% In Water) 50 ml IV ONETIME PRN PRN Reason: Hypoglycemia Docusate Sodium (Colace) 100 mg PO DAILY [facility] Last Admin: 08/20/20 08:25 Dose: 100 mg Documented by: Finasteride (Proscar) 5 mg PO DAILY [facility] Last Admin: 08/20/20 08:26 Dose: 5 mg Documented by: Furosemide (Lasix) 20 mg PO DAILY [facility] Last Admin: 08/20/20 08:26 Dose: 20 mg Documented by: Levothyroxine Sodium (Synthroid) 50 mcg PO ACBREAKFAST [facility] Last Admin: 08/20/20 08:25 Dose: 50 mcg Documented by: Magnesium Oxide (Magnesium Oxide) 400 mg PO BID [facility] Last Admin: 08/20/20 08:26 Dose: 400 mg Documented by: Metformin HCl (Glucophage) 500 mg PO DAILY [facility] Last Admin: 08/20/20 08:25 Dose: 500 mg Documented by: Metoprolol Succinate (Toprol Xl) 25 mg PO DAILY [facility] Last Admin: 08/20/20 08:28 Dose: 25 mg Documented by: Ondansetron HCl (Zofran) 4 mg IV Q4H PRN PRN Reason: Nausea/Vomiting Pantoprazole Sodium (Protonix) 40 mg PO ACBREAKFAST [facility] Last Admin: 08/20/20 08:25 Dose: 40 mg Documented by: Polyethylene Glycol (Miralax) 17 gm PO DAILY [facility] Last Admin: 08/20/20 08:25 Dose: 17 gm Documented by: Potassium Chloride (Klor-Con M20) 40 meq PO BIDMEALS [facility] Last Admin: 08/20/20 08:25 Dose: 40 meq Documented by: Senna/Docusate Sodium (Senna Plus) 1 tab PO BID PRN PRN Reason: Constipation Last Admin: 08/15/20 08:06 Dose: 1 tab Documented by: Sertraline HCl (Zoloft) 100 mg PO DAILY [facility] Last Admin: 08/20/20 08:25 Dose: 100 mg Documented by: Sodium Chloride (Saline Flush) 10 ml FLUSH ASDIRECTED PRN PRN Reason: Keep Vein Open Warfarin Sodium (Coumadin) 2.5 mg PO DAILY@1300 [facility] Last Admin: 08/20/20 13:17 Dose: 2.5 mg Documented by: Discontinued Medications Aripiprazole (Abilify) 2.5 mg PO DAILY [facility] Last Admin: 08/14/20 09:08 Dose: 2.5 mg Documented by: Benztropine Mesylate (Cogentin) 1 mg PO BID [facility] Last Admin: 08/17/20 09:55 Dose: 1 mg Documented by: Sodium Chloride (Normal Saline) 1,000 mls @ 999 mls/hr IV ASDIRECTED [facility] Last Admin: 08/10/20 13:19 Dose: 999 mls/hr Documented by: Sodium Chloride (Normal Saline) 1,000 mls @ 500 mls/hr IV ASDIRECTED [facility] Last Admin: 08/10/20 14:27 Dose: 500 mls/hr Documented by: Sodium Chloride (Normal Saline) 1,000 mls @ 75 mls/hr IV ASDIRECTED [facility] Last Admin: 08/11/20 06:13 Dose: 75 mls/hr Documented by: Insulin Human Lispro (Humalog) 0 unit SUBCUT QIDACANDBED [facility]; Protocol Last Admin: 08/14/20 12:16 Dose: Not Given Documented by: Lorazepam (Ativan) 1 mg PO TID PRN PRN Reason: Anxiety Olanzapine (Zyprexa) 5 mg PO ASDIRECTED PRN PRN Reason: Hallucinations Olanzapine (Zyprexa) 5 mg PO BID PRN PRN Reason: Hallucinations Caplyta 42mg Cap ( (Ptom)) 1 each PO QPM [facility] Last Admin: 08/14/20 16:48 Dose: 1 each Documented by: Potassium Chloride (Klor-Con M20) 40 meq PO BID [facility] Last Admin: 08/10/20 20:40 Dose: 40 meq Documented by: Potassium Chloride (Klor-Con M20) 40 meq PO ONETIME ONE Stop: 08/10/20 18:31 Last Admin: 08/10/20 18:29 Dose: 40 meq Documented by: Potassium Chloride (Klor-Con M20) 40 meq PO ONETIME ONE Stop: 08/11/20 12:01 Last Admin: 08/11/20 12:09 Dose: 40 meq Documented by: Sertraline HCl (Zoloft) 200 mg PO DAILY [facility] Last Admin: 08/15/20 09:52 Dose: 200 mg Documented by: Simvastatin (Zocor) 40 mg PO QPM [facility] Last Admin: 08/13/20 16:19 Dose: 40 mg Documented by: Spironolactone (Aldactone) 25 mg PO BID [facility] Last Admin: 08/18/20 08:20 Dose: 25 mg Documented by: Trospium (Sanctura) 20 mg PO BID [facility] Last Admin: 08/17/20 09:55 Dose: 20 mg Documented by: Warfarin Sodium (Coumadin) 5 mg PO ONETIME ONE Stop: 08/11/20 13:31 Last Admin: 08/11/20 14:08 Dose: 5 mg Documented by: Warfarin Sodium (Coumadin) 5 mg PO ONETIME ONE Stop: 08/12/20 11:01 Last Admin: 08/12/20 12:18 Dose: 5 mg Documented by: Warfarin Sodium (Coumadin) 5 mg PO ONETIME ONE Stop: 08/15/20 13:01 Last Admin: 08/15/20 12:54 Dose: 5 mg Documented by: Warfarin Sodium (Coumadin) 5 mg PO DAILY@1300 [facility] Last Admin: 08/17/20 16:00 Dose: 5 mg Documented by: Warfarin Sodium (Coumadin) 5 mg PO DAILY@1300 [facility] Last Admin: 08/19/20 15:17 Dose: 5 mg Documented by: Warfarin Sodium (Coumadin) 10 mg PO ONETIME ONE Stop: 08/18/20 13:01 Last Admin: 08/18/20 12:26 Dose: 10 mg Documented by: - Exam Quality Assessment: Reports: DVT Prophylaxis General: Reports: Alert, Cooperative, No Acute Distress Lungs: Reports: Clear to Auscultation, Normal Respiratory Effort Cardiovascular: Reports: Regular Rate, Regular Rhythm, No Murmurs GI/Abdominal Exam: Soft, Non-Tender, No Organomegaly, No Distention *Q Meaningful Use (DIS) - VTE *Q VTE Pharmacological Contraindications *Q: High INR Value
[2020-08-20 14:40] VITALS: BP 116/72; PULSE 82
== END 2020-08-20 16:33 | disposition home or self-care (01) ==
LOC: JP.ED 11:36 → INTOOBSV 16:22 → JP.ICU 16:22 → JP.MS 08-11 15:00
PROVIDERS: ADMIT Hospitalist; ATTEND Hospitalist
DX: R53.1 Weakness (principal); E86.0 Dehydration; F03.90 Unspecified dementia, unspecified severity, without behavioral disturbance, psychotic disturbance, mood disturbance, and anxiety; E11.9 Type 2 diabetes mellitus without complications; N40.0 Benign prostatic hyperplasia without lower urinary tract symptoms; E78.00 Pure hypercholesterolemia, unspecified; I10 Essential (primary) hypertension; G47.30 Sleep apnea, unspecified; K21.9 Gastro-esophageal reflux disease without esophagitis; E03.9 Hypothyroidism, unspecified; F41.9 Anxiety disorder, unspecified; E66.9 Obesity, unspecified; F20.9 Schizophrenia, unspecified; Z20.828 Contact with and (suspected) exposure to other viral communicable diseases; Z88.8 Allergy status to other drugs, medicaments and biological substances; Z79.899 Other long term (current) drug therapy; Z79.84 Long term (current) use of oral hypoglycemic drugs; Z79.890 Hormone replacement therapy; Z98.890 Other specified postprocedural states
CPT/HCPCS: 36415; 70450; 71045; 80048; 80053; 81001; 82962; 83735; 84443; 85025; 85027; 85610; 86140; 87086; 87635; 97110; 97116; 97162; 97166; 97530; 97535; 99284; A9270; J7030; J1815; U0002

== ENCOUNTER 2020-08-26 20:38 | Emergency (ER) | payer MEDICAID, MEDICARE ==
[2020-08-26 21:12] VITALS: BP 126/85; PULSE 95
--- NOTE | 2020-08-26 21:43 | EDM.PDOC ---
ED HPI GENERAL MEDICAL PROBLEM - General Chief Complaint: Abdominal Pain Stated Complaint: VOMITING Time Seen by Provider: 08/26/20 21:30 Source of Information: Reports: Patient, Old Records History Limitations: Reports: Other (poor historian) - History of Present Illness INITIAL COMMENTS - FREE TEXT/NARRATIVE: 65 yo male presents with intermittent abdominal pain and nausea with occasional emesis over the past couple of weeks. He has seen Dr. Fraser twice in the last week for it he says but can't tell me much about what transpired at those visits. He does not think he has been given any tx for his sx's. His stools have been at times loose and other times hard recently. He actually has no pain at the time I examined him. He has a complicated medical hx and is historically pretty noncompliant. Currently living with his brother and sister. Onset: Gradual Duration: Week(s):, Waxing/Waning Location: Reports: Abdomen Quality: Reports: Other (none now) Severity: Moderate (when he has it) Improves with: Reports: Other (unknown) Worsens with: Reports: Other (unknown) Context: Reports: Other (See HPI) Associated Symptoms: Reports: Nausea/Vomiting (intermittent). Denies: Diaphoresis, Fever/Chills, Loss of Appetite Treatments ORGAN FIXER: Reports: Other (see below) (none) Denies pain Pain Score (Numeric/FACES): 0 - Related Data Allergies Allergy/AdvReac Type Severity Reaction Status Date / Time buspirone HCl [From BuSpar] AdvReac Nausea Verified 08/26/20 21:55 Home Meds: Home Meds Benztropine [Cogentin] 1 mg PO BID 07/17/15 [History] Finasteride 5 mg PO DAILY 07/17/15 [History] Levothyroxine [Synthroid] 50 mcg PO DAILY 07/17/15 [History] Metoprolol Succinate [Toprol XL] 25 tab PO DAILY 07/17/15 [History] Cholecalciferol (Vitamin D3) [Vitamin D3] 2,000 unit PO DAILY 11/03/17 [History] Clotrimazole [Clotrimazole 1%] 1 applic TOP BID 11/03/17 [History] Furosemide [Lasix] 20 - 40 tab PO DAILY 11/03/17 [History] metFORMIN HCl [Metformin HCl] 500 mg PO DAILY 11/03/17 [History] metOLazone [Zaroxolyn] 2.5 tab PO ASDIRECTED 11/03/17 [History] polyethylene glycoL 3350 [Miralax] 1 pack PO DAILY 11/03/17 [History] Vitamin B Complex [B Complex] 1 each PO DAILY 01/27/18 [History] Calcium Carb/D3/Magnesium/Zinc [Luis Mag Zinc + D Tablet] 1 each PO DAILY 06/09/19 [History] Docusate Sodium [Dulcolax Stool Softener] 100 mg PO DAILY 07/24/20 [History] Magnesium Oxide 400 mg PO BID #60 tab 07/27/20 [Rx] Potassium Chloride 40 meq PO BID #120 tablet.er 07/27/20 [Rx] Ascorbic Acid [C-1000] 1,000 mg PO DAILY 08/10/20 [History] Cyanocobalamin (Vitamin B-12) [B-12] 500 mcg PO DAILY 08/10/20 [History] Omeprazole 40 mg PO DAILY 08/10/20 [History] Sertraline HCl [Zoloft] 100 mg PO DAILY #0 08/20/20 [Rx] Warfarin [Coumadin] 2.5 mg PO DAILY #0 08/20/20 [Rx] Past Medical History HEENT History: Reports: Cataract, Impaired Vision Cardiovascular History: Reports: High Cholesterol, Hypertension Respiratory History: Reports: PE, Sleep Apnea Gastrointestinal History: Reports: Chronic Constipation, Colon Polyp, GERD, Hiatal Hernia, Other (See Below) Other Gastrointestinal History: abdominal hernia Genitourinary History: Reports: BPH, Prostate Disorder, Urinary Incontinence Other Genitourinary History: patient states "swollen prostate". Musculoskeletal History: Reports: Fracture, Gout, Osteoarthritis Other Musculoskeletal History: left shoulder pain Neurological History: Reports: Vertigo Psychiatric History: Reports: Antisocial Behaviors, Anxiety, Hallucinations, Panic Attack, Schizophrenia Endocrine/Metabolic History: Reports: Diabetes, Type II, Hypothyroidism, Obesity/BMI 30+, Vitamin D Deficiency Hematologic History: Reports: Anticoagulation Therapy Immunologic History: Reports: None Oncologic (Cancer) History: Reports: None Dermatologic History: Reports: Eczema, Psoriasis, Seborrheic Dermatitis - Infectious Disease History Infectious Disease History: Reports: Chicken Pox, Measles, Shingles - Past Surgical History Head Surgeries/Procedures: Reports: None HEENT Surgical History: Reports: None Cardiovascular Surgical History: Reports: None Respiratory Surgical History: Reports: None GI Surgical History: Reports: Colonoscopy, EGD, Hernia, Abdominal, Hernia, Inguinal Male Surgical History: Reports: TURP-Transurethral Resection of Prostate Endocrine Surgical History: Reports: None Neurological Surgical History: Reports: None Musculoskeletal Surgical History: Reports: Shoulder Replacement Other Musculoskeletal Surgeries/Procedures:: revision left total shoulder 08/15/19 Dermatological Surgical History: Reports: None Social & Family History - Family History Family Medical History: No Pertinent Family History - Caffeine Use Caffeine Use: Reports: None ED ROS GENERAL - Review of Systems Review Of Systems: See Below Constitutional: Reports: No Symptoms HEENT: Reports: No Symptoms Respiratory: Reports: No Symptoms Cardiovascular: Reports: No Symptoms Endocrine: Reports: No Symptoms GI/Abdominal: Reports: Abdominal Pain (intermittent), Constipation (at times), Diarrhea (at times), Flatus, Nausea, Vomiting (at times, twice today). Denies: Black Stool, Bloody Stool, Decreased Appetite, Hematemesis, Hematochezia, Melena : Reports: No Symptoms Musculoskeletal: Reports: No Symptoms Skin: Reports: No Symptoms Neurological: Reports: No Symptoms Psychiatric: Reports: No Symptoms ED EXAM, GI/ABD - Physical Exam Exam: See Below Exam Limited By: No Limitations General Appearance: Alert, WD/WN, No Apparent Distress Eyes: Bilateral: Normal Appearance Ears: Normal External Exam, Normal Canal, Hearing Grossly Normal Nose: Normal Inspection, No Blood Throat/Mouth: Normal Inspection, Normal Lips, Normal Oropharynx, Normal Voice, No Airway Compromise Head: Atraumatic, Normocephalic Neck: Normal Inspection Respiratory/Chest: No Respiratory Distress, Lungs Clear, Normal Breath Sounds, No Accessory Muscle Use Cardiovascular: Regular Rate, Rhythm, No Edema GI/Abdominal Exam: Normal Bowel Sounds, Soft, Non-Tender, Distended (? acute vs chronic), Other (some dullness to percussion). No: No Distention, Guarding, Rigid, Rebound, Tender Back Exam: Normal Inspection. No: CVA Tenderness (R), CVA Tenderness (L) Extremities: Normal Inspection, Normal Range of Motion, Non-Tender, Pedal Edema (trace to both legs below the knees.). No: No Pedal Edema Neurological: Alert, Oriented, CN II-XII Intact, Normal Cognition, No Motor/Sensory Deficits Psychiatric: Normal Affect, Normal Mood Skin Exam: Warm, Dry, Intact, Normal Color, No Rash Course - Vital Signs Text/Narrative:: Fco Toro called @ 1325h, will have hospitalist call back when available. Accepted by Dr. Mckeon @ 6877h Last Recorded V/S: Last Vital Signs Temp 36.5 C 08/26/20 21:55 Pulse 95 08/26/20 21:55 Resp 16 08/26/20 21:55 BP 126/85 08/26/20 21:55 Pulse Ox 97 08/26/20 21:55 - Orders/Labs/Meds Orders: Active Orders 24 hr Category Date Time Status Abdomen 2V AP Flat Upright [CR] Stat Exams 08/26/20 21:42 Taken CORONAVIRUS COVID-19 RAPID [MOLEC] Routine Lab 08/27/20 01:37 Received INR,PT,PROTHROMBIN TIME [COAG] Stat Lab 08/27/20 02:14 Ordered UA W/MICROSCOPIC [URIN] Stat Lab 08/27/20 02:11 Ordered NS + KCl 20mEq/L [Normal Saline with 20 mEq KCl] 1,000 Med 08/26/20 23:30 Active ml IV ASDIRECTED Sodium Chloride 0.9% [Saline Flush] Med 08/26/20 22:20 Active 10 ml FLUSH ASDIRECTED PRN Saline Lock Insert [OM.PC] Routine Oth 08/26/20 22:20 Ordered Medication Orders Potassium Chloride/Sodium Chloride (Normal Saline With 20 Meq Kcl) 1,000 mls @ 500 mls/hr IV ASDIRECTED KENNEDY Last Admin: 08/26/20 23:45 Dose: 500 mls/hr Documented by: AUDI Sodium Chloride (Saline Flush) 10 ml FLUSH ASDIRECTED PRN PRN Reason: Keep Vein Open Last Admin: 08/26/20 22:38 Dose: 10 ml Documented by: MARGY Labs: Laboratory Tests 08/26/20 08/26/20 08/26/20 Range/Units 22:34 22:34 23:19 WBC 14.2 H (4.5-11.0) K/uL RBC 4.13 L (4.30-5.90) M/uL Hgb 10.9 L (12.0-15.0) g/dL Hct 34.1 L (40.0-54.0) % MCV 83 (80-98) fL MCH 26 L (27-31) pg MCHC 32 (32-36) % Plt Count 337 (150-400) K/uL Sodium 130 L (140-148) mmol/L Potassium 2.6 L* (3.6-5.2) mmol/L Chloride 89 L (100-108) mmol/L Carbon Dioxide 35 H (21-32) mmol/L Anion Gap 8.6 (5.0-14.0) mmol/L BUN 26 H D (7-18) mg/dL Creatinine 1.1 (0.8-1.3) mg/dL Est Cr Clr Drug Dosing 71.31 mL/min Estimated GFR (MDRD) > 60 (>60) Glucose 112 H (74-106) mg/dL Calcium 9.1 (8.5-10.1) mg/dL Magnesium 1.8 (1.8-2.4) mg/dL Meds: Medications Generic Name Dose Route Start Last Admin Trade Name Pretty PRN Reason Stop Dose Admin Potassium Chloride/Sodium Chloride 1,000 mls @ 500 mls/hr 08/26/20 23:30 08/26/20 23:45 Normal Saline With 20 Meq Kcl IV 500 mls/hr ASDIRECTED KENNEDY Administration Sodium Chloride 10 ml 08/26/20 22:20 08/26/20 22:38 Saline Flush FLUSH 10 ml ASDIRECTED PRN Administration Keep Vein Open Discontinued Medications Generic Name Dose Route Start Last Admin Trade Name Pretty PRN Reason Stop Dose Admin Diphenhydramine HCl 50 mg 08/27/20 00:50 08/27/20 00:57 Benadryl IVPUSH 08/27/20 00:51 50 mg ONETIME ONE Administration Sodium Chloride 81 mls @ 3.5 mls/sec 08/27/20 00:18 08/27/20 00:35 Normal Saline IV 08/27/20 00:19 3.5 mls/sec ASDIRECTED STA Administration Iopamidol 130 ml 08/27/20 00:16 08/27/20 00:35 Isovue-300 (61%) IV 08/27/20 00:17 150 ml . DIRECTED STA Administration Simethicone 160 mg 08/26/20 22:20 08/26/20 22:37 Simethicone PO 08/26/20 22:21 160 mg ONETIME ONE Administration - Radiology Interpretation Free Text/Narrative:: Flat/upright abdominal X-rays-lot of air, no apparent air/fluid levels. CT scan abdomen and pelvis-IMPRESSION: 1. Obstructing 7 x 4 x 5 millimeter stone in the proximal left ureter producing mild left hydronephrosis. 2. Nonobstructing right intrarenal stone. 3. Nonspecific mild increase in bowel gas, favored to represent a mild ileus or gastroenteritis. 4. Nonacute additional findings as detailed above. ROVERTO DOUGLASS MD [employer] CT Results Date: 08/26/20 CT Results Time: 01:17 Departure - Departure Time of Disposition: 02:40 Disposition: DC/Tfer to Acute Hospital 02 Clinical Impression: Left ureteral stone, Hypokalemia, Mild dehydration, Ileus - Discharge Information Referrals: Jourdan Fraser MD [Primary Care Provider] - Forms: ED Department Discharge Sepsis Event Note (ED) - Focused Exam Vital Signs: Vital Signs Temp Pulse Resp BP Pulse Ox 08/26/20 21:55 36.5 C 95 16 126/85 97 08/26/20 21:10 36.5 C 95 16 126/85 97 - My Orders Last 24 Hours: My Active Orders 08/26/20 21:42 Abdomen 2V AP Flat Upright [CR] Stat 08/26/20 22:20 Sodium Chloride 0.9% [Saline Flush] 10 ml FLUSH ASDIRECTED PRN Saline Lock Insert [OM.PC] Routine 08/26/20 23:30 NS + KCl 20mEq/L [Normal Saline with 20 mEq KCl] 1,000 ml IV ASDIRECTED 08/27/20 01:37 CORONAVIRUS COVID-19 RAPID [MOLEC] Routine 08/27/20 02:11 UA W/MICROSCOPIC [URIN] Stat 08/27/20 02:14 INR,PT,PROTHROMBIN TIME [COAG] Stat - Assessment/Plan Last 24 Hours: My Active Orders 08/26/20 21:42 Abdomen 2V AP Flat Upright [CR] Stat 08/26/20 22:20 Sodium Chloride 0.9% [Saline Flush] 10 ml FLUSH ASDIRECTED PRN Saline Lock Insert [OM.PC] Routine 08/26/20 23:30 NS + KCl 20mEq/L [Normal Saline with 20 mEq KCl] 1,000 ml IV ASDIRECTED 08/27/20 01:37 CORONAVIRUS COVID-19 RAPID [MOLEC] Routine 08/27/20 02:11 UA W/MICROSCOPIC [URIN] Stat 08/27/20 02:14 INR,PT,PROTHROMBIN TIME [COAG] Stat
[2020-08-26] MEDS: Simethicone 80 MG Tab.Chew PO ONE (22:37)
[2020-08-26] MEDS: Sodium Chloride 0.9% 10 ML Syringe FLUSH PRN (22:38)
[2020-08-26] MEDS: NS + KCl 20mEq/L 1,000 ML IV SCH (23:45)
[2020-08-27] MEDS: Iopamidol 612 MG/ML 150 ML Bottle IV STA (00:35)
[2020-08-27] MEDS: diphenhydrAMINE 50 MG/ML SDV IVPUSH ONE (00:57)
--- NOTE | 2020-08-27 01:17 | CRLCT ---
INDICATION: Abdominal pain and distention. Vomiting. Elevated WBC. CT ABDOMEN AND PELVIS WITH CONTRAST TECHNIQUE: Multidetector CT imaging was performed through the abdomen and pelvis following intravenous contrast administration using 136 mL Isovue-300. Coronal and sagittal reconstructions were generated. COMPARISON: 01/19/2018 CT abdomen and pelvis. FINDINGS: Lower chest: Mild bibasilar lung atelectasis. Liver: Small hypodensity in the inferior liver on image 33 of series 2 appears unchanged consistent with a liver cyst. Tiny subcentimeter hypodensity in the anterior dome of the right hepatic lobe on image 4 of series 2 is not well characterized but likely benign. Gallbladder and bile ducts: No gallbladder wall thickening or calcified gallstones. No biliary dilation identified. Pancreas: Unremarkable. Spleen: Unremarkable aside from calcified granulomas. Adrenals: No nodules or masses. Kidneys, ureters, and urinary bladder: Obstructing 7 x 4 x 5 millimeter stone in the proximal left ureter a few centimeters below the ureteropelvic junction, producing mild dilation of the proximal ureter and mild left hydronephrosis. A small nonobstructing right intrarenal stone is noted. Diffuse wall thickening of the urinary bladder, slightly less than on the previous exam. Gastrointestinal tract: Postoperative changes at the esophagogastric junction consistent with Fransisco fundoplication. Nonspecific mild increase in bowel gas involving small bowel loops and portions of the colon, without definite caliber transition, favored to represent a mild ileus. The appendix is normal. Vascular structures: Normal for age. Peritoneum: No free air, abscess, or significant free fluid. Lymph nodes: No pathologically enlarged nodes identified. Reproductive organs: Small or absent prostate. Bones: Spinal degenerative changes. IMPRESSION: 1. Obstructing 7 x 4 x 5 millimeter stone in the proximal left ureter producing mild left hydronephrosis. 2. Nonobstructing right intrarenal stone. 3. Nonspecific mild increase in bowel gas, favored to represent a mild ileus or gastroenteritis. 4. Nonacute additional findings as detailed above. ROVERTO DOUGLASS MD [employer] Dictated by Sebastian Douglass MD @ 08/27/2020 1:15:54 AM Dictated by: Sebastian Douglass MD @ 08/27/2020 01:16:05 (Electronically Signed)
--- NOTE | 2020-08-27 10:47 | CR ---
Abdomen 2V AP Flat Upright CLINICAL HISTORY: Abdominal pain and vomiting FINDINGS: There is diffuse gaseous distention of small bowel in a nonspecific pattern. No significant air-fluid levels are identified. There is gas and feces are the colon. No free air is seen IMPRESSION: Moderate gaseous distention in a nonspecific pattern
== END 2020-08-27 03:42 ==
LOC: JP.ED 20:38
DX: E86.0 Dehydration (principal); N13.2 Hydronephrosis with renal and ureteral calculous obstruction; E87.6 Hypokalemia; K56.7 Ileus, unspecified; I10 Essential (primary) hypertension; Z86.711 Personal history of pulmonary embolism; K21.9 Gastro-esophageal reflux disease without esophagitis; E11.9 Type 2 diabetes mellitus without complications; E03.9 Hypothyroidism, unspecified; E66.9 Obesity, unspecified; Z68.27 Body mass index [BMI] 27.0-27.9, adult; Z88.8 Allergy status to other drugs, medicaments and biological substances; Z79.01 Long term (current) use of anticoagulants; Z79.899 Other long term (current) drug therapy; Z20.822 Contact with and (suspected) exposure to COVID-19
CPT/HCPCS: 36415; 74019; 74019-26; 74177; 80048; 81001; 83735; 85027; 85610; 96365; 96366; 96375; 99285; 99285-25; A9270-GY; J1200; J3480; Q9967; U0002

== ENCOUNTER 2020-11-11 20:32 | Emergency (ER) | payer MEDICARE ==
[2020-11-11 21:00] VITALS: BP 138/72; PULSE 80
[2020-11-11] MEDS ORDERED: Ketorolac 30 MG/ML SDV IM ONE (21:18)
--- NOTE | 2020-11-11 22:07 | EDM.PDOC ---
ED HPI GENERAL MEDICAL PROBLEM - General Chief Complaint: Headache Stated Complaint: HEADACHE Time Seen by Provider: 11/11/20 21:48 Source of Information: Reports: Patient History Limitations: Reports: No Limitations - History of Present Illness INITIAL COMMENTS - FREE TEXT/NARRATIVE: Farrukh is a 65-year-old male presenting to the ED for evaluation of worsening right-sided headache. He states that the pain started sometime ago in his neck and upper back and is now continued to go up into his scalp and skull. He reports that he has had reduced range of motion of his right shoulder because of the pain. He denies any trauma. He denies any vision changes, change in taste or smell, ability to swallow or talk, ringing in the ears, nausea or vomiting. Patient does have a history for TIAs and is on chronic anticoagulation with Coumadin. Headache Pain Score (Numeric/FACES): 5 - Related Data Allergies Allergy/AdvReac Type Severity Reaction Status Date / Time buspirone HCl [From BuSpar] AdvReac Nausea Verified 08/26/20 21:55 Home Meds: Home Meds Benztropine [Cogentin] 1 mg PO BID 07/17/15 [History] Finasteride 5 mg PO DAILY 07/17/15 [History] Levothyroxine [Synthroid] 50 mcg PO DAILY 07/17/15 [History] Metoprolol Succinate [Toprol XL] 25 tab PO DAILY 07/17/15 [History] Cholecalciferol (Vitamin D3) [Vitamin D3] 2,000 unit PO DAILY 11/03/17 [History] Clotrimazole [Clotrimazole 1%] 1 applic TOP BID 11/03/17 [History] Furosemide [Lasix] 20 - 40 tab PO DAILY 11/03/17 [History] metFORMIN HCl [Metformin HCl] 500 mg PO DAILY 11/03/17 [History] metOLazone [Zaroxolyn] 2.5 tab PO ASDIRECTED 11/03/17 [History] polyethylene glycoL 3350 [Miralax] 1 pack PO DAILY 11/03/17 [History] Vitamin B Complex [B Complex] 1 each PO DAILY 01/27/18 [History] Calcium Carb/D3/Magnesium/Zinc [Luis Mag Zinc + D Tablet] 1 each PO DAILY 06/09/19 [History] Docusate Sodium [Dulcolax Stool Softener] 100 mg PO DAILY 07/24/20 [History] Magnesium Oxide 400 mg PO BID #60 tab 07/27/20 [Rx] Potassium Chloride 40 meq PO BID #120 tablet.er 07/27/20 [Rx] Ascorbic Acid [C-1000] 1,000 mg PO DAILY 08/10/20 [History] Cyanocobalamin (Vitamin B-12) [B-12] 500 mcg PO DAILY 08/10/20 [History] Omeprazole 40 mg PO DAILY 08/10/20 [History] Sertraline HCl [Zoloft] 100 mg PO DAILY #0 08/20/20 [Rx] Warfarin [Coumadin] 2.5 mg PO DAILY #0 08/20/20 [Rx] methocarbamoL [Methocarbamol] 500 mg PO QID PRN #30 tablet 11/11/20 [Rx] Past Medical History HEENT History: Reports: Cataract, Impaired Vision Cardiovascular History: Reports: High Cholesterol, Hypertension Respiratory History: Reports: PE, Sleep Apnea Gastrointestinal History: Reports: Chronic Constipation, Colon Polyp, GERD, Hiatal Hernia, Other (See Below) Other Gastrointestinal History: abdominal hernia Genitourinary History: Reports: BPH, Prostate Disorder, Urinary Incontinence Other Genitourinary History: patient states "swollen prostate". Musculoskeletal History: Reports: Fracture, Gout, Osteoarthritis Other Musculoskeletal History: left shoulder pain Neurological History: Reports: Vertigo Psychiatric History: Reports: Antisocial Behaviors, Anxiety, Hallucinations, Panic Attack, Schizophrenia Endocrine/Metabolic History: Reports: Diabetes, Type II, Hypothyroidism, Obesity/BMI 30+, Vitamin D Deficiency Hematologic History: Reports: Anticoagulation Therapy Immunologic History: Reports: None Oncologic (Cancer) History: Reports: None Dermatologic History: Reports: Eczema, Psoriasis, Seborrheic Dermatitis - Infectious Disease History Infectious Disease History: Reports: Chicken Pox, Measles, Shingles - Past Surgical History Head Surgeries/Procedures: Reports: None HEENT Surgical History: Reports: None Cardiovascular Surgical History: Reports: None Respiratory Surgical History: Reports: None GI Surgical History: Reports: Colonoscopy, EGD, Hernia, Abdominal, Hernia, Inguinal Male Surgical History: Reports: TURP-Transurethral Resection of Prostate Endocrine Surgical History: Reports: None Neurological Surgical History: Reports: None Musculoskeletal Surgical History: Reports: Shoulder Replacement Other Musculoskeletal Surgeries/Procedures:: revision left total shoulder 08/15/19 Dermatological Surgical History: Reports: None Social & Family History - Family History Family Medical History: No Pertinent Family History - Tobacco Use Tobacco Use Status *Q: Former Tobacco User Used Tobacco, but Quit: Yes Month/Year Tobacco Last Used: 08/1972 - Caffeine Use Caffeine Use: Reports: Coffee, Soda, Tea - Recreational Drug Use Recreational Drug Use: No ED ROS GENERAL - Review of Systems Review Of Systems: See Below Constitutional: Reports: No Symptoms HEENT: Reports: No Symptoms Respiratory: Reports: No Symptoms Cardiovascular: Reports: No Symptoms Endocrine: Reports: No Symptoms GI/Abdominal: Reports: No Symptoms : Reports: No Symptoms Musculoskeletal: Reports: Neck Pain (Right sided), Shoulder Pain (Right sided), Back Pain (Upper right back) Skin: Reports: No Symptoms Neurological: Reports: Headache (Right occipital and parietal and dee type headache) Psychiatric: Reports: No Symptoms Hematologic/Lymphatic: Reports: No Symptoms Immunologic: Reports: No Symptoms - Physical Exam Exam: See Below Exam Limited By: No Limitations General Appearance: Alert, Mild Distress Eye Exam: Bilateral Eye: EOMI, PERRL Ears: Normal External Exam Nose: Normal Inspection, Normal Mucosa Throat/Mouth: Normal Inspection, Normal Lips Neck: Limited Range of Motion (Limited range of motion with turning the head towards the right secondary to trapezius and strap muscle spasm on the right.), Tender Lateral, Other (Significant right trapezius tenderness and spasm.). No: Lymphadenopathy (R), Lymphadenopathy (L), Tender Midline Respiratory/Chest: No Respiratory Distress, Lungs Clear, Normal Breath Sounds Cardiovascular: Normal Peripheral Pulses, Regular Rate, Rhythm Neuro Exam (Abbreviated): Alert, Oriented, CN II-XII Intact, Normal Cognition, No Motor/Sensory Deficits Back Exam: Muscle Spasm, Other (Significant right trapezius muscle spasm). No: CVA Tenderness (R), CVA Tenderness (L), Decreased Range of Motion, Paraspinal Tenderness, Vertebral Tenderness Extremities: Normal Inspection Psychiatric: Normal Affect, Normal Mood Skin Exam: Warm, Dry, Intact, Normal Color Course - Vital Signs Last Recorded V/S: Last Vital Signs Temp 36.8 C 11/11/20 20:59 Pulse 80 11/11/20 20:59 Resp 16 11/11/20 20:59 BP 138/72 11/11/20 20:59 Pulse Ox 95 11/11/20 20:59 - Orders/Labs/Meds Labs: Laboratory Tests 11/11/20 11/11/20 Range/Units 21:20 21:20 WBC 10.2 (4.5-11.0) K/uL RBC 4.23 L (4.30-5.90) M/uL Hgb 11.6 L (12.0-15.0) g/dL Hct 35.2 L (40.0-54.0) % MCV 83 (80-98) fL MCH 27 (27-31) pg MCHC 33 (32-36) % Plt Count 303 (150-400) K/uL Neut % (Auto) 69 H (36-66) % Lymph % (Auto) 18 L (24-44) % Calvert % (Auto) 12 H (2-6) % Eos % (Auto) 2 (2-4) % Baso % (Auto) 0 (0-1) % ESR 86 H (0-20) mm/hr Sodium 136 L (140-148) mmol/L Potassium 3.4 L (3.6-5.2) mmol/L Chloride 93 L (100-108) mmol/L Carbon Dioxide 32 (21-32) mmol/L Anion Gap 14.4 H (5.0-14.0) mmol/L BUN 37 H (7-18) mg/dL Creatinine 2.3 H D (0.8-1.3) mg/dL Est Cr Clr Drug Dosing 32.02 mL/min Estimated GFR (MDRD) 29 L (>60) Glucose 113 H (74-106) mg/dL Calcium 9.1 (8.5-10.1) mg/dL Total Bilirubin 0.2 (0.2-1.0) mg/dL AST 18 (15-37) U/L ALT 18 (12-78) U/L Alkaline Phosphatase 91 (46-116) U/L C-Reactive Protein 1.21 H (0.0-0.3) mg/dL Total Protein 8.0 (6.4-8.2) g/dL Albumin 3.5 (3.4-5.0) g/dL Globulin 4.5 H (2.3-3.5) g/dL Albumin/Globulin Ratio 0.8 L (1.2-2.2) Meds: Medications Discontinued Medications Generic Name Dose Route Start Last Admin Trade Name Freq PRN Reason Stop Dose Admin Ketorolac Tromethamine 30 mg 11/11/20 21:18 11/11/20 21:49 Ketorolac 30 Mg/Ml Sdv IM 11/11/20 21:19 30 mg ONETIME ONE Administration Methocarbamol 500 mg 11/11/20 22:12 11/11/20 22:17 Methocarbamol 500 Mg Tab PO 11/11/20 22:13 500 mg ONETIME ONE Administration - Radiology Interpretation Free Text/Narrative:: CT of the head was reviewed by me. There is no evidence for acute intracranial hemorrhage. There is no mass-effect or midline shift. Cranium appears to be intact. - Re-Assessments/Exams Free Text/Narrative Re-Assessment/Exam: 11/11/20 22:17 Farrukh is a 65-year-old male with a history significant for TIAs on chronic anticoagulation presenting to the ED with headache that initially started with right-sided neck pain ascending up until it hit his scalp causing tension type headache. Patient reports that his headache started sometime ago indicating several weeks and has been slowly worsening. He denies any trauma. His exam is consistent with acute torticollis or trapezius muscle spasm with reduced range of motion of the neck and right shoulder. He has very significant tenderness and spasm of the right trapezius muscle. The labs are reviewed and what is worrisome as the patient's creatinine has jumped up to 2.3. I am not certain of the cause of this as he is run as high as 1.5. He should follow-up with his primary care provider next week for recheck. He did get 1 shot of Toradol for his neck pain which did improve his pain and should not be a physician dose to cause any further kidney injury. Unfortunately this was given before I received his at 9. Patient is encouraged to drink plenty of fluids. For the torticollis, we are going to put him on methocarbamol 500 mg 4 times daily for 10 days. At this time, I have patient is improved and I believe he is stable to go home. Again I had like him to follow-up with his primary care provider next week for a recheck especially concerning his kidney function. Departure - Departure Time of Disposition: 22:30 Disposition: Home, Self-Care 01 Clinical Impression: Acute torticollis, Acute kidney injury Tension type headache Qualifiers: Headache chronicity pattern: acute headache Intractability: not intractable Qualified Code(s): G44.209 - Tension-type headache, unspecified, not intractable - Discharge Information Prescriptions: methocarbamoL [Methocarbamol] 500 mg PO QID PRN #30 tablet PRN Reason: Muscle Spasm Instructions: Acute Kidney Injury, Adult, Acute Torticollis, Adult Referrals: Jourdan Fraser MD [Primary Care Provider] - Forms: ED Department Discharge Care Plan Goals: I have placed you on a muscle relaxer called methocarbamol which she will take 4 times a day for the next 7 days. Take Tylenol for pain control. I would hold off on any ibuprofen at this time. Your labs today show some minor reduction in the function of your kidney. I had like you to follow-up with your primary care provider this week for recheck both of your neck and your kidney function. Sepsis Event Note (ED) - Evaluation Sepsis Screening Result: No Definite Risk - Focused Exam Vital Signs: Vital Signs Temp Pulse Resp BP Pulse Ox 11/11/20 20:59 36.8 C 80 16 138/72 95 - Problem List & Annotations (1) Acute kidney injury SNOMED Code(s): 99456515, 73612694 Code(s): N17.9 - ACUTE KIDNEY FAILURE, UNSPECIFIED Status: Acute Priority: High Current Visit: Yes (2) Acute torticollis SNOMED Code(s): 85179206, 97420426 Code(s): M43.6 - TORTICOLLIS Status: Acute Priority: Medium Current Visit: Yes (3) Tension type headache Status: Acute Priority: Medium Current Visit: Yes Qualifiers: Headache chronicity pattern: acute headache Intractability: not intractable Qualified Code(s): G44.209 - Tension-type headache, unspecified, not intractable - Problem List Review Problem List Initiated/Reviewed/Updated: Yes
[2020-11-11] MEDS ORDERED: Methocarbamol 500 MG Tab PO ONE (22:12)
--- NOTE | 2020-11-11 22:25 | CRLCT ---
INDICATION: Acute right-sided headache TECHNIQUE: CT head without contrast. COMPARISON: 08/10/2020 FINDINGS: CSF spaces: Within normal limits for age. Brain parenchyma and extra-axial spaces: The simons-white differentiation is normal. No sign of mass, hemorrhage, or midline shift. No extra-axial fluid collection. Skull base and calvarium: The visualized paranasal sinuses and mastoid air cells demonstrate no acute or significant findings. The visualized orbits are grossly unremarkable. No skull fractures. IMPRESSION: Unremarkable noncontrast head CT. Please note that all CT scans at this facility use dose modulation, iterative reconstruction, and/or weight-based dosing when appropriate to reduce radiation dose to as low as reasonably achievable. Dictated by Joey Nash MD @ Nov 11 2020 10:19PM Signed by Dr. Joey Nash @ Nov 11 2020 10:22PM
== END 2020-11-11 22:43 | disposition home or self-care (01) ==
LOC: JP.ED 20:32
DX: G44.209 Tension-type headache, unspecified, not intractable (principal); M43.6 Torticollis; N17.9 Acute kidney failure, unspecified; I10 Essential (primary) hypertension; K21.9 Gastro-esophageal reflux disease without esophagitis; E11.9 Type 2 diabetes mellitus without complications; E03.9 Hypothyroidism, unspecified; E66.9 Obesity, unspecified; Z68.33 Body mass index [BMI] 33.0-33.9, adult; Z79.01 Long term (current) use of anticoagulants; Z79.84 Long term (current) use of oral hypoglycemic drugs; Z88.8 Allergy status to other drugs, medicaments and biological substances; Z79.899 Other long term (current) drug therapy
CPT/HCPCS: 36415; 70450; 80053; 85025; 85651; 86140; 96372; 99283; 99284-25; A9270-GY; J1885

== ENCOUNTER 2021-07-12 09:47 | Emergency (ER) | payer MEDICARE ==
[2021-07-12 10:10] VITALS: BP 142/88; PULSE 100
[2021-07-12] MEDS ORDERED: Bacitracin Oint 1 GM U/D Packet TOP ONE (10:27)
--- NOTE | 2021-07-12 10:29 | EDM.PDOC ---
ED HPI GENERAL MEDICAL PROBLEM - General Chief Complaint: General Stated Complaint: FELL THIS MORNING AND BLEEDING Time Seen by Provider: 07/12/21 10:22 Source of Information: Reports: Patient, RN Notes Reviewed History Limitations: Reports: No Limitations - History of Present Illness INITIAL COMMENTS - FREE TEXT/NARRATIVE: 66-year-old gentleman presents emergency department today with bleeding on a lesion on his buttocks, he does take Coumadin fell earlier today and had some bleeding he is concerned about the amount of bleeding he has had did not hit his head no other injuries states his Coumadin was checked last week he thought it was okay but he is unsure - Related Data Allergies Allergy/AdvReac Type Severity Reaction Status Date / Time buspirone HCl [From BuSpar] AdvReac Nausea Verified 07/12/21 09:59 Home Meds: Home Meds Benztropine [Cogentin] 1 mg PO BID 07/17/15 [History] Finasteride 5 mg PO DAILY 07/17/15 [History] Levothyroxine [Synthroid] 50 mcg PO DAILY 07/17/15 [History] Metoprolol Succinate [Toprol XL] 25 tab PO DAILY 07/17/15 [History] Cholecalciferol (Vitamin D3) [Vitamin D3] 2,000 unit PO DAILY 11/03/17 [History] Clotrimazole [Clotrimazole 1%] 1 applic TOP BID 11/03/17 [History] Furosemide [Lasix] 20 - 40 tab PO DAILY 11/03/17 [History] metFORMIN HCl [Metformin HCl] 500 mg PO DAILY 11/03/17 [History] metOLazone [Zaroxolyn] 2.5 tab PO ASDIRECTED 11/03/17 [History] polyethylene glycoL 3350 [Miralax] 1 pack PO DAILY 11/03/17 [History] Vitamin B Complex [B Complex] 1 each PO DAILY 01/27/18 [History] Calcium Carb/D3/Magnesium/Zinc [Luis Mag Zinc + D Tablet] 1 each PO DAILY 06/09/19 [History] Docusate Sodium [Dulcolax Stool Softener] 100 mg PO DAILY 07/24/20 [History] Magnesium Oxide 400 mg PO BID #60 tab 07/27/20 [Rx] Potassium Chloride 40 meq PO BID #120 tablet.er 07/27/20 [Rx] Ascorbic Acid [C-1000] 1,000 mg PO DAILY 08/10/20 [History] Cyanocobalamin (Vitamin B-12) [B-12] 500 mcg PO DAILY 08/10/20 [History] Omeprazole 40 mg PO DAILY 08/10/20 [History] Sertraline HCl [Zoloft] 100 mg PO DAILY #0 08/20/20 [Rx] Warfarin [Coumadin] 2.5 mg PO DAILY #0 08/20/20 [Rx] methocarbamoL [Methocarbamol] 500 mg PO QID PRN #30 tablet 11/11/20 [Rx] Past Medical History HEENT History: Reports: Cataract, Impaired Vision Cardiovascular History: Reports: High Cholesterol, Hypertension Respiratory History: Reports: PE, Sleep Apnea Gastrointestinal History: Reports: Chronic Constipation, Colon Polyp, GERD, Hiatal Hernia, Other (See Below) Other Gastrointestinal History: abdominal hernia Genitourinary History: Reports: BPH, Prostate Disorder, Urinary Incontinence Other Genitourinary History: patient states "swollen prostate". Musculoskeletal History: Reports: Fracture, Gout, Osteoarthritis Other Musculoskeletal History: left shoulder pain Neurological History: Reports: Vertigo Psychiatric History: Reports: Antisocial Behaviors, Anxiety, Hallucinations, Panic Attack, Schizophrenia Endocrine/Metabolic History: Reports: Diabetes, Type II, Hypothyroidism, Obesity/BMI 30+, Vitamin D Deficiency Hematologic History: Reports: Anticoagulation Therapy Immunologic History: Reports: None Oncologic (Cancer) History: Reports: None Dermatologic History: Reports: Eczema, Psoriasis, Seborrheic Dermatitis - Infectious Disease History Infectious Disease History: Reports: Chicken Pox, Measles, Shingles - Past Surgical History Head Surgeries/Procedures: Reports: None HEENT Surgical History: Reports: None Cardiovascular Surgical History: Reports: None Respiratory Surgical History: Reports: None GI Surgical History: Reports: Colonoscopy, EGD, Hernia, Abdominal, Hernia, Inguinal Male Surgical History: Reports: TURP-Transurethral Resection of Prostate Endocrine Surgical History: Reports: None Neurological Surgical History: Reports: None Musculoskeletal Surgical History: Reports: Shoulder Replacement Other Musculoskeletal Surgeries/Procedures:: revision left total shoulder 08/15/19 Dermatological Surgical History: Reports: None Social & Family History - Family History Family Medical History: No Pertinent Family History - Tobacco Use Tobacco Use Status *Q: Never Tobacco User - Caffeine Use Caffeine Use: Reports: Coffee, Soda, Tea - Recreational Drug Use Recreational Drug Use: No ED ROS GENERAL - Review of Systems Review Of Systems: See Below Constitutional: Reports: No Symptoms Skin: Reports: Wound ED EXAM, GENERAL - Physical Exam Exam: See Below Free Text/Narrative:: examination of the buttocks area reveals superficial abrasion no appreciable bleeding is noted at this time it is about the size of a golf ball Exam Limited By: No Limitations General Appearance: Alert, WD/WN, No Apparent Distress Course - Vital Signs Last Recorded V/S: Last Vital Signs Temp 98.2 F 07/12/21 10:09 Pulse 100 07/12/21 10:09 Resp 20 07/12/21 10:09 BP 142/88 H 07/12/21 10:09 Pulse Ox 94 L 07/12/21 10:09 - Orders/Labs/Meds Labs: Laboratory Tests 07/12/21 Range/Units 10:27 PT 22.2 H (9.2-10.6) sec INR 2.2 Meds: Medications Discontinued Medications Generic Name Dose Route Start Last Admin Trade Name Freq PRN Reason Stop Dose Admin Bacitracin 1 dose 07/12/21 10:27 07/12/21 10:37 Bacitracin Oint 1 Gm U/D Packet TOP 07/12/21 10:28 1 dose ONETIME ONE Administration Departure - Departure Time of Disposition: 11:26 Disposition: Home, Self-Care 01 Condition: Fair Clinical Impression: Abrasion of buttock Qualifiers: Encounter type: initial encounter Qualified Code(s): S30.810A - Abrasion of lower back and pelvis, initial encounter - Discharge Information Instructions: Abrasion Referrals: Jourdan Fraser MD [Primary Care Provider] - Forms: ED Department Discharge Additional Instructions: Follow-up primary care as needed continue with wound care at home call or return to the emergency department with worsening of symptoms Sepsis Event Note (ED) - Evaluation Sepsis Screening Result: No Definite Risk - Focused Exam Vital Signs: Vital Signs Temp Pulse Resp BP Pulse Ox 07/12/21 10:09 98.2 F 100 20 142/88 H 94 L - Assessment/Plan Plan: Assessment Acuity = acute Site and laterality = superficial abrasion with bleeding now controlled Etiology = secondary to fall Manifestations = none Location of injury = Home Lab values = INR 2.2 Plan Keep follow-up appointments with primary care continue wound care at home This note was dictated using dragon voice recognition software please call with any questions on syntax or grammar.
== END 2021-07-12 11:37 | disposition home or self-care (01) ==
LOC: JP.ED 09:47
DX: S30.810A Abrasion of lower back and pelvis, initial encounter (principal); E78.00 Pure hypercholesterolemia, unspecified; I10 Essential (primary) hypertension; E11.9 Type 2 diabetes mellitus without complications; E03.9 Hypothyroidism, unspecified; E66.9 Obesity, unspecified; Z68.38 Body mass index [BMI] 38.0-38.9, adult; Z88.8 Allergy status to other drugs, medicaments and biological substances; Z79.84 Long term (current) use of oral hypoglycemic drugs; Z79.899 Other long term (current) drug therapy; Z79.01 Long term (current) use of anticoagulants; W18.39XA Other fall on same level, initial encounter
CPT/HCPCS: 36415; 85610; 99283

== ENCOUNTER 2021-09-19 16:35 | Emergency (ER) | payer MEDICARE ==
[2021-09-19 17:01] VITALS: BP 133/77; PULSE 95
[2021-09-19] MEDS ORDERED: Levofloxacin/Dextrose 5%-Water 750 MG in Premix Bag 1 BAG IV ONE (17:30)
== END 2021-09-19 19:52 | disposition home or self-care (01) ==
LOC: JP.ED 16:35
DX: N45.1 Epididymitis (principal); E11.9 Type 2 diabetes mellitus without complications; E78.00 Pure hypercholesterolemia, unspecified; I10 Essential (primary) hypertension; E03.9 Hypothyroidism, unspecified; N40.0 Benign prostatic hyperplasia without lower urinary tract symptoms; M10.9 Gout, unspecified; M19.90 Unspecified osteoarthritis, unspecified site; E66.9 Obesity, unspecified; Z88.8 Allergy status to other drugs, medicaments and biological substances; Z79.899 Other long term (current) drug therapy; Z79.01 Long term (current) use of anticoagulants; Z79.84 Long term (current) use of oral hypoglycemic drugs; Z68.37 Body mass index [BMI] 37.0-37.9, adult
CPT/HCPCS: 96365; 99283; J1956; 99284

== ENCOUNTER 2021-11-10 11:32 | Emergency (ER) | payer MEDICARE ==
[2021-11-10 11:51] VITALS: PULSE 80
[2021-11-10] MEDS ORDERED: Ondansetron 4 MG Tab.DIS PO ONE (12:26)
[2021-11-10] MEDS ORDERED: Magnesium Sulfate/Water 2 GM in Premix Bag 1 BAG IV ONE (13:26)
[2021-11-10] MEDS ORDERED: Sodium Chloride 0.9% 10 ML Syringe FLUSH PRN (13:27)
[2021-11-10] MEDS ORDERED: Potassium Chloride 10% 20 MEQ/15 ML Soln 15 ML UD Cup PO ONE (13:27)
[2021-11-10] MEDS ORDERED: POTASSIUM CHLORIDE IV SCH (13:30)
[2021-11-10] MEDS ORDERED: Sodium Chloride 0.9% with KCl 1,000 ML IV SCH (13:30)
[2021-11-10] MEDS ORDERED: LIDOCAINE 1% IV SCH (13:30)
[2021-11-10] MEDS ORDERED: SODIUM CHLORIDE 0.9% IV SCH (13:30)
[2021-11-10] MEDS ORDERED: Potassium Chloride 20 MEQ, Lidocaine 1% 2 ML in Sodium Chloride 0.9% 100 ML IV SCH (13:30)
[2021-11-10] MEDS ORDERED: Potassium Chloride 20 MEQ Tab.ER PO ONE ×3 (13:45→17:00)
[2021-11-10 16:18] VITALS: BP 103/61
[2021-11-10] MEDS ORDERED: Promethazine 25 MG Tab PO ONE (17:53)
== END 2021-11-10 19:12 | disposition home or self-care (01) ==
LOC: JP.ED 11:32
DX: R19.7 Diarrhea, unspecified (principal); E87.6 Hypokalemia; E87.1 Hypo-osmolality and hyponatremia; R11.2 Nausea with vomiting, unspecified; E78.00 Pure hypercholesterolemia, unspecified; I10 Essential (primary) hypertension; K21.9 Gastro-esophageal reflux disease without esophagitis; E11.9 Type 2 diabetes mellitus without complications; N40.0 Benign prostatic hyperplasia without lower urinary tract symptoms; M10.9 Gout, unspecified; M19.90 Unspecified osteoarthritis, unspecified site; E66.9 Obesity, unspecified; Z68.31 Body mass index [BMI] 31.0-31.9, adult; Z79.899 Other long term (current) drug therapy; Z79.01 Long term (current) use of anticoagulants; Z79.84 Long term (current) use of oral hypoglycemic drugs; Z88.8 Allergy status to other drugs, medicaments and biological substances
CPT/HCPCS: 36415; 80048; 80076; 81001; 83690; 85025; 86140; 93005; 93010; 96365; 96366; 96367; 99283; 99284-25; A9270-GY; J3475; J3480; Q0162

== ENCOUNTER 2021-11-13 13:25 | Inpatient (IN) | payer MEDICARE ==
[2021-11-13] MEDS ORDERED: Pantoprazole 40 MG Vial IVPUSH ONE (14:31)
[2021-11-13] MEDS ORDERED: Sodium Chloride 0.9% 10 ML Syringe FLUSH PRN ×2 (14:31→14:35)
[2021-11-13] MEDS ORDERED: Ondansetron 4 MG/2 ML SDV IVPUSH ONE (14:34)
[2021-11-13] MEDS ORDERED: Sodium Chloride 0.9% 500 ML IV SCH (14:45)
[2021-11-13] MEDS ORDERED: Octreotide 500 MCG in Sodium Chloride 0.9% 497.5 ML IV SCH ×2 (14:45→17:00)
[2021-11-13] MEDS ORDERED: Sodium Chloride 0.9% 10 ML Syringe FLUSH ONE (15:04)
[2021-11-13] MEDS ORDERED: Iopamidol 612 MG/ML 100 ML Bottle IV SCH (15:15)
[2021-11-13] MEDS ORDERED: Sodium Chloride 0.9% 50 ML IV SCH (15:15)
[2021-11-13] MEDS ORDERED: Factor IX Complex Human 500 UNIT VIAL IVPUSH ONE ×2 (15:30→16:30)
[2021-11-13] MEDS ORDERED: Phytonadione 10 MG in Sodium Chloride 0.9% 50 ML IV ONE (15:30)
[2021-11-13] MEDS ORDERED: Potassium Chloride 20 MEQ in Premix Bag 1 BAG IV ONE (15:31)
[2021-11-13] MEDS ORDERED: Potassium Chloride 20 MEQ Tab.ER PO ONE (15:31)
[2021-11-13] MEDS: Pantoprazole 80 MG in Sodium Chloride 0.9% 100 ML IV SCH (16:43)
[2021-11-13] MEDS: Meropenem 1 GM in Sodium Chloride 0.9% 100 ML IV SCH (17:24)
[2021-11-13] MEDS ORDERED: Glucose Gel 15 GM in 37.5 GM Tube PO PRN (18:17)
[2021-11-13] MEDS ORDERED: Albuterol 0.083% 2.5 MG/3 ML Neb Soln NEB PRN (18:17)
[2021-11-13] MEDS ORDERED: 50% Dextrose in Water 50 ML Syringe IV PRN (18:17)
[2021-11-13] MEDS: Potassium Chloride 20 MEQ, Lidocaine 1% 2 ML in Sodium Chloride 0.9% 100 ML IV SCH ×2 (20:04→22:20)
[2021-11-13] MEDS: Potassium Chloride 20 MEQ Tab.ER PO SCH (22:50)
[2021-11-13] MEDS: Insulin Lispro 100 Unit/ML 3 ML KwikPen SUBCUT SCH (23:01)
[2021-11-14] MEDS ORDERED: Lidocaine 1% 20 ML MDV INJECT ONE
[2021-11-14] MEDS: Meropenem 1 GM in Sodium Chloride 0.9% 100 ML IV SCH ×3 (00:27→17:34)
[2021-11-14] MEDS: Benztropine 1 MG Tab PO SCH ×3 (00:27→21:41)
[2021-11-14] MEDS: Potassium Chloride 20 MEQ in Premix Bag 1 BAG IV SCH ×3 (00:28→04:33)
[2021-11-14] MEDS: Lidocaine 1% 5 ML VIAL ONE ×2 (00:28→00:29)
[2021-11-14] MEDS: Pantoprazole 80 MG in Sodium Chloride 0.9% 100 ML IV SCH ×2 (01:52→11:34)
[2021-11-14] MEDS: Sodium Chloride 0.9% 1,000 ML IV SCH ×2 (01:52→17:27)
[2021-11-14] MEDS: HYDROmorphone 0.5 MG/0.5 ML Syringe IVPUSH PRN (05:07)
[2021-11-14] MEDS: Ondansetron 4 MG/2 ML SDV IV PRN (05:07)
[2021-11-14] MEDS: Levothyroxine 50 MCG Tab PO SCH ×2 (09:21→14:28)
[2021-11-14] MEDS: ARIPiprazole 10 MG Tab PO SCH ×2 (09:21→14:30)
[2021-11-14] MEDS: Potassium Chloride 20 MEQ Tab.ER PO SCH ×2 (09:21→21:41)
[2021-11-14] MEDS: Finasteride 5 MG Tab PO SCH ×2 (09:22→14:30)
[2021-11-14] MEDS: Sertraline 50 MG Tab PO SCH ×2 (09:22→14:29)
[2021-11-14] MEDS: Metoprolol Succinate 25 MG Tab.ER PO SCH (09:22)
[2021-11-14] MEDS: Potassium Chloride 20 MEQ, Lidocaine 1% 2 ML in Sodium Chloride 0.9% 100 ML IV SCH ×3 (09:22→14:43)
[2021-11-14] MEDS: Insulin Lispro 100 Unit/ML 3 ML KwikPen SUBCUT SCH ×4 (09:24→21:32)
[2021-11-14] MEDS ORDERED: fentaNYL 100 MCG/2 ML SDV ONE (11:07)
[2021-11-14] MEDS ORDERED: Propofol 200 MG/20 ML SDV ONE (11:07)
[2021-11-14] MEDS ORDERED: Midazolam 1 MG/ML 2 ML SDV ONE (11:08)
[2021-11-14] MEDS: Pantoprazole 40 MG Vial IVPUSH SCH (21:33)
[2021-11-14] MEDS: Potassium Phos in 0.9 % NaCl 250 ML IV SCH (21:36)
[2021-11-15] MEDS: Meropenem 1 GM in Sodium Chloride 0.9% 100 ML IV SCH ×3 (00:35→17:46)
[2021-11-15] MEDS: Potassium Phos in 0.9 % NaCl 250 ML IV SCH ×3 (00:48→07:50)
[2021-11-15] MEDS: HYDROmorphone 0.5 MG/0.5 ML Syringe IVPUSH PRN ×3 (01:22→06:34)
[2021-11-15] MEDS ORDERED: Meropenem 500 MG SDV ONE ×3 (07:03→13:43)
[2021-11-15] MEDS ORDERED: Lidocaine 1% with EPINEPHrine 1:100,000 50 ML MDV ONE (07:03)
[2021-11-15] MEDS ORDERED: Bupivacaine 0.5% 50 ML MDV ONE (07:03)
[2021-11-15] MEDS ORDERED: Succinylcholine 200 MG/10 ML MDV ONE (08:10)
[2021-11-15] MEDS ORDERED: Glycopyrrolate 0.2 MG/ML 5 ML MDV ONE (08:10)
[2021-11-15] MEDS ORDERED: Neostigmine Methylsulfate 1 MG/ML 5 ML Syringe ONE (08:10)
[2021-11-15] MEDS ORDERED: Dexamethasone 4 MG/ML SDV ONE (08:10)
[2021-11-15] MEDS ORDERED: fentaNYL 250 MCG/5 ML SDV ONE (08:10)
[2021-11-15] MEDS ORDERED: Propofol 200 MG/20 ML SDV ONE ×2 (08:10→11:32)
[2021-11-15] MEDS ORDERED: Ondansetron 4 MG/2 ML SDV ONE (08:10)
[2021-11-15] MEDS ORDERED: Rocuronium 50 MG/5 ML Vial ONE ×2 (08:10→12:15)
[2021-11-15] MEDS: Insulin Lispro 100 Unit/ML 3 ML KwikPen SUBCUT SCH ×4 (09:17→21:08)
[2021-11-15] MEDS: Levothyroxine 50 MCG Tab PO SCH (10:09)
[2021-11-15] MEDS: ARIPiprazole 10 MG Tab PO SCH (10:09)
[2021-11-15] MEDS: Benztropine 1 MG Tab PO SCH ×2 (10:10→21:08)
[2021-11-15] MEDS: Potassium Chloride 20 MEQ Tab.ER PO SCH ×2 (10:10→21:08)
[2021-11-15] MEDS: Finasteride 5 MG Tab PO SCH (10:11)
[2021-11-15] MEDS: Sertraline 50 MG Tab PO SCH (10:11)
[2021-11-15] MEDS: Metoprolol Succinate 25 MG Tab.ER PO SCH (10:18)
[2021-11-15] MEDS: Pantoprazole 40 MG Vial IVPUSH SCH ×2 (10:32→21:09)
[2021-11-15] MEDS ORDERED: cefOXitin 2 GM in Sodium Chloride 0.9% 50 ML IV ONE (11:00)
[2021-11-15] MEDS ORDERED: Ketamine 21 MG in Sodium Chloride 0.9% 19.79 ML IV SCH (11:00)
[2021-11-15] MEDS ORDERED: Ketamine 500 MG/5 ML MDV IV SCH (11:00)
[2021-11-15] MEDS ORDERED: Lactated Ringers 1,000 ML ONE (12:51)
[2021-11-15] MEDS ORDERED: Sodium Chloride 0.9% 10 ML ONE (13:40)
[2021-11-15] MEDS ORDERED: Naloxone 0.4 MG/ML SDV IVPUSH PRN (14:19)
[2021-11-15] MEDS ORDERED: Ondansetron 4 MG/2 ML SDV IVPUSH PRN (14:19)
[2021-11-15] MEDS ORDERED: diphenhydrAMINE 25 MG Cap PO PRN (14:19)
[2021-11-15] MEDS ORDERED: diphenhydrAMINE 50 MG/ML SDV IVPUSH PRN (14:19)
[2021-11-15] MEDS: HYDROmorphone/Normal Saline 6 MG/30 ML PCA Vial IV PRN (14:26)
[2021-11-15] MEDS ORDERED: hydrOXYzine HCL 100 MG/2 ML SDV IM PRN (15:36)
[2021-11-15] MEDS: Dextrose 5%-Lactated Ringers 1,000 ML IV SCH (17:45)
[2021-11-15] MEDS: Lactated Ringers 1,000 ML IV SCH (17:45)
[2021-11-15] MEDS: cefOXitin 2 GM in Sodium Chloride 0.9% 50 ML IV SCH (21:21)
[2021-11-16] MEDS: Meropenem 1 GM in Sodium Chloride 0.9% 100 ML IV SCH ×3 (00:42→16:00)
[2021-11-16] MEDS: cefOXitin 2 GM in Sodium Chloride 0.9% 50 ML IV SCH ×4 (02:28→19:42)
[2021-11-16] MEDS: Lactated Ringers 1,000 ML IV SCH (04:05)
[2021-11-16] MEDS: Dextrose 5%-Lactated Ringers 1,000 ML IV SCH (07:26)
[2021-11-16] MEDS: Insulin Lispro 100 Unit/ML 3 ML KwikPen SUBCUT SCH ×4 (08:01→21:17)
[2021-11-16] MEDS: Sertraline 50 MG Tab PO SCH (09:33)
[2021-11-16] MEDS: ARIPiprazole 10 MG Tab PO SCH (09:33)
[2021-11-16] MEDS: Potassium Chloride 20 MEQ Tab.ER PO SCH ×2 (09:33→21:20)
[2021-11-16] MEDS: Metoprolol Succinate 25 MG Tab.ER PO SCH (09:33)
[2021-11-16] MEDS: Levothyroxine 50 MCG Tab PO SCH (09:34)
[2021-11-16] MEDS: Finasteride 5 MG Tab PO SCH (09:34)
[2021-11-16] MEDS: Pantoprazole 40 MG Vial IVPUSH SCH ×2 (09:35→21:23)
[2021-11-16] MEDS: Benztropine 1 MG Tab PO SCH ×2 (09:35→21:20)
[2021-11-16] MEDS: Potassium Phos in 0.9 % NaCl 15 MMOL in Premix Bag 1 BAG IV SCH ×8 (09:49→19:26)
[2021-11-16] MEDS: HYDROmorphone/Normal Saline 6 MG/30 ML PCA Vial IV PRN (19:24)
[2021-11-17] MEDS: Dextrose 5%-Lactated Ringers 1,000 ML IV SCH ×2 (01:11→20:09)
[2021-11-17] MEDS: Meropenem 1 GM in Sodium Chloride 0.9% 100 ML IV SCH ×3 (01:12→16:00)
[2021-11-17] MEDS ORDERED: Meropenem 500 MG SDV ONE (06:56)
[2021-11-17] MEDS ORDERED: Bupivacaine 0.5% 50 ML MDV ONE (06:57)
[2021-11-17] MEDS ORDERED: Lidocaine 1% with EPINEPHrine 1:100,000 50 ML MDV ONE (06:57)
[2021-11-17] MEDS ORDERED: Propofol 200 MG/20 ML SDV ONE (07:44)
[2021-11-17] MEDS ORDERED: fentaNYL 100 MCG/2 ML SDV ONE (07:44)
[2021-11-17] MEDS ORDERED: Midazolam 1 MG/ML 2 ML SDV ONE (07:45)
[2021-11-17] MEDS: Insulin Lispro 100 Unit/ML 3 ML KwikPen SUBCUT SCH ×4 (07:52→21:15)
[2021-11-17] MEDS ORDERED: Lidocaine 1% with EPINEPHrine 1:100,000 50 ML MDV INJECT ONE (07:57)
[2021-11-17] MEDS: Levothyroxine 50 MCG Tab PO SCH (12:33)
[2021-11-17] MEDS: Finasteride 5 MG Tab PO SCH (12:34)
[2021-11-17] MEDS: ARIPiprazole 10 MG Tab PO SCH (12:34)
[2021-11-17] MEDS: Potassium Chloride 20 MEQ Tab.ER PO SCH ×2 (12:34→21:13)
[2021-11-17] MEDS: Benztropine 1 MG Tab PO SCH ×2 (12:34→21:13)
[2021-11-17] MEDS: Sertraline 50 MG Tab PO SCH (12:35)
[2021-11-17] MEDS: Metoprolol Succinate 25 MG Tab.ER PO SCH (12:35)
[2021-11-17] MEDS: Enoxaparin 40 MG/0.4 ML Syringe SUBCUT SCH ×2 (12:36→21:13)
[2021-11-17] MEDS: metFORMIN 500 MG Tab PO SCH ×2 (12:36→21:16)
[2021-11-17] MEDS: Pantoprazole 40 MG Vial IVPUSH SCH ×2 (12:55→21:14)
[2021-11-17] MEDS ORDERED: Warfarin 5 MG Tab PO ONE (13:00)
[2021-11-17] MEDS: Ondansetron 4 MG/2 ML SDV IV PRN (21:53)
[2021-11-18] MEDS: Meropenem 1 GM in Sodium Chloride 0.9% 100 ML IV SCH ×3 (01:02→16:01)
[2021-11-18] MEDS: Dextrose 5%-Lactated Ringers 1,000 ML IV SCH ×2 (06:22→16:19)
[2021-11-18] MEDS: Insulin Lispro 100 Unit/ML 3 ML KwikPen SUBCUT SCH ×4 (08:02→21:05)
[2021-11-18] MEDS: Ondansetron 4 MG/2 ML SDV IV PRN (08:11)
[2021-11-18] MEDS: metFORMIN 500 MG Tab PO SCH ×2 (08:46→10:21)
[2021-11-18] MEDS: Docusate Sodium 100 MG Cap PO SCH ×2 (08:46→21:43)
[2021-11-18] MEDS: Bisacodyl 5 MG Tab PO SCH ×2 (08:46→21:42)
[2021-11-18] MEDS: Potassium Chloride 20 MEQ Tab.ER PO SCH ×2 (08:46→10:20)
[2021-11-18] MEDS: Benztropine 1 MG Tab PO SCH ×3 (08:46→21:43)
[2021-11-18] MEDS: ARIPiprazole 10 MG Tab PO SCH (08:46)
[2021-11-18] MEDS: Metoprolol Succinate 25 MG Tab.ER PO SCH (08:47)
[2021-11-18] MEDS: Levothyroxine 50 MCG Tab PO SCH ×2 (08:47→16:16)
[2021-11-18] MEDS: Sertraline 50 MG Tab PO SCH (08:47)
[2021-11-18] MEDS: Enoxaparin 40 MG/0.4 ML Syringe SUBCUT SCH ×2 (08:48→21:22)
[2021-11-18] MEDS: Finasteride 5 MG Tab PO SCH (08:52)
[2021-11-18] MEDS ORDERED: Metoclopramide 10 MG/2 ML SDV IVPUSH ONE (10:30)
[2021-11-18] MEDS: Pantoprazole 40 MG Vial IVPUSH SCH ×2 (10:33→21:22)
[2021-11-18] MEDS: Magnesium Sulfate/Water 50 ML IV SCH ×3 (10:36→22:17)
[2021-11-18] MEDS ORDERED: Warfarin 5 MG Tab PO ONE (13:00)
[2021-11-18] MEDS: Metoclopramide 10 MG/2 ML SDV IVPUSH SCH ×2 (16:01→22:18)
[2021-11-19] MEDS: Meropenem 1 GM in Sodium Chloride 0.9% 100 ML IV SCH ×3 (01:03→16:09)
[2021-11-19] MEDS: Dextrose 5%-Lactated Ringers 1,000 ML IV SCH ×2 (03:02→13:18)
[2021-11-19] MEDS: Magnesium Sulfate/Water 50 ML IV SCH ×4 (04:34→21:08)
[2021-11-19] MEDS: Metoclopramide 10 MG/2 ML SDV IVPUSH SCH ×4 (04:35→21:09)
[2021-11-19] MEDS: Insulin Lispro 100 Unit/ML 3 ML KwikPen SUBCUT SCH ×4 (08:20→21:07)
[2021-11-19] MEDS: Enoxaparin 40 MG/0.4 ML Syringe SUBCUT SCH ×2 (08:50→20:50)
[2021-11-19] MEDS ORDERED: Bisacodyl 10 MG Supp RECTAL ONE (09:00)
[2021-11-19] MEDS: Levothyroxine 50 MCG Tab PO SCH (09:06)
[2021-11-19] MEDS: ARIPiprazole 10 MG Tab PO SCH (09:06)
[2021-11-19] MEDS: Benztropine 1 MG Tab PO SCH ×2 (09:07→20:46)
[2021-11-19] MEDS: Sertraline 50 MG Tab PO SCH (09:13)
[2021-11-19] MEDS: Finasteride 5 MG Tab PO SCH (09:13)
[2021-11-19] MEDS: Bisacodyl 5 MG Tab PO SCH ×2 (09:14→20:46)
[2021-11-19] MEDS: Metoprolol Succinate 25 MG Tab.ER PO SCH (09:14)
[2021-11-19] MEDS: Docusate Sodium 100 MG Cap PO SCH ×2 (09:15→20:46)
[2021-11-19] MEDS: Pantoprazole 40 MG Vial IVPUSH SCH ×2 (10:03→20:47)
[2021-11-19] MEDS: HYDROmorphone/Normal Saline 6 MG/30 ML PCA Vial IV PRN (10:04)
[2021-11-19] MEDS ORDERED: Bisacodyl 10 MG Supp RECTAL PRN (15:00)
[2021-11-20] MEDS: Meropenem 1 GM in Sodium Chloride 0.9% 100 ML IV SCH (01:05)
[2021-11-20] MEDS: Magnesium Sulfate/Water 50 ML IV SCH (03:15)
[2021-11-20] MEDS: Metoclopramide 10 MG/2 ML SDV IVPUSH SCH ×4 (03:16→21:00)
[2021-11-20] MEDS: Insulin Lispro 100 Unit/ML 3 ML KwikPen SUBCUT SCH ×4 (08:06→21:03)
[2021-11-20] MEDS: Levothyroxine 50 MCG Tab PO SCH (08:08)
[2021-11-20] MEDS: Benztropine 1 MG Tab PO SCH ×2 (08:08→20:47)
[2021-11-20] MEDS: ARIPiprazole 10 MG Tab PO SCH (08:08)
[2021-11-20] MEDS: Metoprolol Succinate 25 MG Tab.ER PO SCH (09:57)
[2021-11-20] MEDS: Bisacodyl 5 MG Tab PO SCH ×2 (09:57→20:47)
[2021-11-20] MEDS: Finasteride 5 MG Tab PO SCH (09:57)
[2021-11-20] MEDS: Sertraline 50 MG Tab PO SCH (09:57)
[2021-11-20] MEDS: Docusate Sodium 100 MG Cap PO SCH ×2 (09:57→20:47)
[2021-11-20] MEDS: Enoxaparin 40 MG/0.4 ML Syringe SUBCUT SCH ×2 (09:58→20:48)
[2021-11-20] MEDS: Pantoprazole 40 MG Vial IVPUSH SCH ×2 (10:05→20:48)
[2021-11-20] MEDS: Dextrose 5%-Lactated Ringers 1,000 ML IV SCH ×2 (10:06→20:51)
[2021-11-20] MEDS: Azithromycin 125 MG in Sodium Chloride 0.9% 150 ML IV SCH ×2 (10:06→20:58)
[2021-11-20] MEDS: Bisacodyl 10 MG Supp RECTAL SCH ×2 (14:16→20:48)
[2021-11-21] MEDS: Metoclopramide 10 MG/2 ML SDV IVPUSH SCH ×4 (04:10→20:59)
[2021-11-21] MEDS: HYDROmorphone/Normal Saline 6 MG/30 ML PCA Vial IV PRN (04:28)
[2021-11-21] MEDS: Insulin Lispro 100 Unit/ML 3 ML KwikPen SUBCUT SCH ×4 (07:56→20:58)
[2021-11-21] MEDS: Levothyroxine 50 MCG Tab PO SCH (07:57)
[2021-11-21] MEDS: ARIPiprazole 10 MG Tab PO SCH (08:42)
[2021-11-21] MEDS: Sertraline 50 MG Tab PO SCH (08:42)
[2021-11-21] MEDS: Docusate Sodium 100 MG Cap PO SCH ×2 (08:42→20:57)
[2021-11-21] MEDS: Finasteride 5 MG Tab PO SCH (08:42)
[2021-11-21] MEDS: Metoprolol Succinate 25 MG Tab.ER PO SCH (08:42)
[2021-11-21] MEDS: Bisacodyl 5 MG Tab PO SCH ×2 (08:43→20:57)
[2021-11-21] MEDS: Benztropine 1 MG Tab PO SCH ×2 (08:43→20:58)
[2021-11-21] MEDS: Ondansetron 4 MG/2 ML SDV IV PRN (09:04)
[2021-11-21] MEDS: Pantoprazole 40 MG Vial IVPUSH SCH ×2 (09:34→20:57)
[2021-11-21] MEDS: Azithromycin 125 MG in Sodium Chloride 0.9% 150 ML IV SCH ×2 (09:50→20:56)
[2021-11-21] MEDS: Enoxaparin 40 MG/0.4 ML Syringe SUBCUT SCH ×2 (09:51→20:58)
[2021-11-21] MEDS: Bisacodyl 10 MG Supp RECTAL SCH ×2 (11:29→20:59)
[2021-11-21] MEDS: Potassium Phos in 0.9 % NaCl 15 MMOL in Premix Bag 1 BAG IV SCH ×8 (11:33→22:11)
[2021-11-21] MEDS ORDERED: Warfarin 5 MG Tab PO ONE (13:00)
[2021-11-21] MEDS: Dextrose 5%-Lactated Ringers 1,000 ML IV SCH (18:38)
[2021-11-22] MEDS: Metoclopramide 10 MG/2 ML SDV IVPUSH SCH ×4 (03:33→21:05)
[2021-11-22] MEDS: Insulin Lispro 100 Unit/ML 3 ML KwikPen SUBCUT SCH ×4 (08:02→20:55)
[2021-11-22] MEDS: ARIPiprazole 10 MG Tab PO SCH (08:04)
[2021-11-22] MEDS: Bisacodyl 5 MG Tab PO SCH ×2 (08:05→21:05)
[2021-11-22] MEDS: Docusate Sodium 100 MG Cap PO SCH ×2 (08:05→21:05)
[2021-11-22] MEDS: Benztropine 1 MG Tab PO SCH ×2 (08:05→21:05)
[2021-11-22] MEDS: Bisacodyl 10 MG Supp RECTAL SCH ×2 (08:05→21:04)
[2021-11-22] MEDS: Sertraline 50 MG Tab PO SCH (08:06)
[2021-11-22] MEDS: Pantoprazole 40 MG Vial IVPUSH SCH ×2 (08:06→21:04)
[2021-11-22] MEDS: Finasteride 5 MG Tab PO SCH (08:06)
[2021-11-22] MEDS: Metoprolol Succinate 25 MG Tab.ER PO SCH (08:06)
[2021-11-22] MEDS: Levothyroxine 50 MCG Tab PO SCH (08:07)
[2021-11-22] MEDS: Azithromycin 125 MG in Sodium Chloride 0.9% 150 ML IV SCH ×2 (08:17→21:04)
[2021-11-22] MEDS: Enoxaparin 40 MG/0.4 ML Syringe SUBCUT SCH (11:00)
[2021-11-22] MEDS: Dextrose 5%-Lactated Ringers 1,000 ML IV SCH (13:58)
[2021-11-23] MEDS: Metoclopramide 10 MG/2 ML SDV IVPUSH SCH ×4 (03:24→20:59)
[2021-11-23] MEDS: Dextrose 5%-Lactated Ringers 1,000 ML IV SCH ×3 (03:26→22:30)
[2021-11-23] MEDS: Insulin Lispro 100 Unit/ML 3 ML KwikPen SUBCUT SCH ×4 (07:28→20:58)
[2021-11-23] MEDS ORDERED: cefOXitin 2 GM in Sodium Chloride 0.9% 50 ML IV ONE (08:00)
[2021-11-23] MEDS ORDERED: Phytonadione 5 MG in Sodium Chloride 0.9% 50 ML IV ONE (08:30)
[2021-11-23] MEDS: Bisacodyl 10 MG Supp RECTAL SCH ×2 (08:42→20:58)
[2021-11-23] MEDS: Levothyroxine 50 MCG Tab PO SCH (08:46)
[2021-11-23] MEDS: Sertraline 50 MG Tab PO SCH (08:46)
[2021-11-23] MEDS: Bisacodyl 5 MG Tab PO SCH ×2 (08:46→20:58)
[2021-11-23] MEDS: Finasteride 5 MG Tab PO SCH (08:46)
[2021-11-23] MEDS: ARIPiprazole 10 MG Tab PO SCH (08:47)
[2021-11-23] MEDS: Docusate Sodium 100 MG Cap PO SCH ×2 (08:47→20:58)
[2021-11-23] MEDS: Benztropine 1 MG Tab PO SCH ×2 (08:47→20:58)
[2021-11-23] MEDS: Pantoprazole 40 MG Vial IVPUSH SCH ×2 (08:47→20:57)
[2021-11-23] MEDS: Metoprolol Succinate 25 MG Tab.ER PO SCH (08:48)
[2021-11-23] MEDS: Azithromycin 125 MG in Sodium Chloride 0.9% 150 ML IV SCH ×2 (10:05→20:57)
[2021-11-23] MEDS: Magnesium Sulfate/Water 50 ML IV SCH ×3 (11:49→22:30)
[2021-11-24] MEDS: Magnesium Sulfate/Water 50 ML IV SCH ×4 (03:54→21:41)
[2021-11-24] MEDS: Metoclopramide 10 MG/2 ML SDV IVPUSH SCH ×4 (03:54→21:20)
[2021-11-24] MEDS ORDERED: fentaNYL 100 MCG/2 ML SDV ONE (07:19)
[2021-11-24] MEDS ORDERED: Midazolam 1 MG/ML 2 ML SDV ONE (07:19)
[2021-11-24] MEDS ORDERED: Propofol 200 MG/20 ML SDV ONE ×3 (07:19→09:30)
[2021-11-24] MEDS ORDERED: cefOXitin 2 GM in Sodium Chloride 0.9% 50 ML IV ONE (08:00)
[2021-11-24] MEDS: Insulin Lispro 100 Unit/ML 3 ML KwikPen SUBCUT SCH ×4 (08:31→20:15)
[2021-11-24] MEDS ORDERED: Meropenem 500 MG SDV ONE (08:31)
[2021-11-24] MEDS ORDERED: Bupivacaine 0.5% 50 ML MDV ONE (08:31)
[2021-11-24] MEDS ORDERED: Lidocaine 1% with EPINEPHrine 1:100,000 50 ML MDV ONE (08:31)
[2021-11-24] MEDS ORDERED: Lactated Ringers 1,000 ML ONE (09:09)
[2021-11-24] MEDS: Pantoprazole 40 MG Vial IVPUSH SCH ×2 (11:36→21:20)
[2021-11-24] MEDS: ARIPiprazole 10 MG Tab PO SCH (11:52)
[2021-11-24] MEDS: Levothyroxine 50 MCG Tab PO SCH (11:52)
[2021-11-24] MEDS: Finasteride 5 MG Tab PO SCH (11:53)
[2021-11-24] MEDS: Bisacodyl 5 MG Tab PO SCH ×2 (11:53→21:20)
[2021-11-24] MEDS: Docusate Sodium 100 MG Cap PO SCH ×2 (11:53→21:20)
[2021-11-24] MEDS: Metoprolol Succinate 25 MG Tab.ER PO SCH (11:53)
[2021-11-24] MEDS: Benztropine 1 MG Tab PO SCH ×2 (11:53→21:20)
[2021-11-24] MEDS: Sertraline 50 MG Tab PO SCH (11:54)
[2021-11-24] MEDS: Azithromycin 125 MG in Sodium Chloride 0.9% 150 ML IV SCH ×2 (11:59→23:49)
[2021-11-24] MEDS: Bisacodyl 10 MG Supp RECTAL SCH (12:34)
[2021-11-24] MEDS ORDERED: Warfarin 2.5 MG, Warfarin 5 MG PO ONE ×2 (13:00)
[2021-11-24] MEDS: 1: AA 5%/Calcium/D15W/Lytes 1,000 ML with MVI, Adult with Vitamin K 10 ML, Zinc/Copper/M IV SCH ×3 (13:50)
[2021-11-24] MEDS: Enoxaparin 40 MG/0.4 ML Syringe SUBCUT SCH (13:52)
[2021-11-24] MEDS: Sodium Chloride 0.9% 1,000 ML IV SCH (13:56)
[2021-11-24] MEDS: Fat Emulsion 100 ML IV SCH (16:37)
[2021-11-24] MEDS: metFORMIN 500 MG Tab PO SCH (16:49)
[2021-11-25] MEDS: Enoxaparin 40 MG/0.4 ML Syringe SUBCUT SCH ×2 (02:08→14:36)
[2021-11-25] MEDS: 1: AA 5%/Calcium/D15W/Lytes 1,000 ML with MVI, Adult with Vitamin K 10 ML, Zinc/Copper/M IV SCH ×6 (02:23→15:34)
[2021-11-25] MEDS: Metoclopramide 10 MG/2 ML SDV IVPUSH SCH ×4 (03:50→21:12)
[2021-11-25] MEDS: Magnesium Sulfate/Water 50 ML IV SCH (03:55)
[2021-11-25] MEDS ORDERED: Central Total Parenteral Nutrition Bag SCH (07:00)
[2021-11-25] MEDS: Levothyroxine 50 MCG Tab PO SCH (07:20)
[2021-11-25] MEDS: Insulin Lispro 100 Unit/ML 3 ML KwikPen SUBCUT SCH ×2 (08:30→12:13)
[2021-11-25] MEDS: metFORMIN 500 MG Tab PO SCH ×2 (08:31→17:38)
[2021-11-25] MEDS: ARIPiprazole 10 MG Tab PO SCH (08:31)
[2021-11-25] MEDS: Benztropine 1 MG Tab PO SCH ×2 (08:32→21:10)
[2021-11-25] MEDS: Docusate Sodium 100 MG Cap PO SCH ×2 (08:32→21:10)
[2021-11-25] MEDS: Finasteride 5 MG Tab PO SCH (08:33)
[2021-11-25] MEDS: Metoprolol Succinate 25 MG Tab.ER PO SCH (08:33)
[2021-11-25] MEDS: Pantoprazole 40 MG Vial IVPUSH SCH ×2 (08:33→21:06)
[2021-11-25] MEDS: Bisacodyl 5 MG Tab PO SCH ×2 (08:33→21:10)
[2021-11-25] MEDS: Sertraline 50 MG Tab PO SCH (08:33)
[2021-11-25] MEDS: Albumin Human 25 GM in Premix Bag 1 BAG IV SCH (08:52)
[2021-11-25] MEDS ORDERED: Warfarin 2.5 MG Tab PO ONE (09:00)
[2021-11-25] MEDS: SODIUM CHLORIDE 0.9% IV SCH ×2 (10:39→14:06)
[2021-11-25] MEDS: POTASSIUM ACETATE IV SCH ×2 (10:39→14:06)
[2021-11-25] MEDS: HYDROmorphone/Normal Saline 6 MG/30 ML PCA Vial IV PRN (11:48)
[2021-11-25] MEDS: Azithromycin 125 MG in Sodium Chloride 0.9% 150 ML IV SCH ×2 (13:16→23:56)
[2021-11-25] MEDS: Fat Emulsion 100 ML IV SCH (15:37)
[2021-11-26] MEDS: Enoxaparin 40 MG/0.4 ML Syringe SUBCUT SCH ×2 (02:57→14:26)
[2021-11-26] MEDS: Metoclopramide 10 MG/2 ML SDV IVPUSH SCH ×4 (03:10→22:35)
[2021-11-26] MEDS: 1: AA 5%/Calcium/D15W/Lytes 1,000 ML with MVI, Adult with Vitamin K 10 ML, Zinc/Copper/M IV SCH ×6 (04:02→17:06)
[2021-11-26] MEDS ORDERED: Central Total Parenteral Nutrition Bag SCH (07:00)
[2021-11-26] MEDS: Levothyroxine 50 MCG Tab PO SCH (07:25)
[2021-11-26] MEDS: Albumin Human 25 GM in Premix Bag 1 BAG IV SCH (07:29)
[2021-11-26] MEDS: ARIPiprazole 10 MG Tab PO SCH (08:54)
[2021-11-26] MEDS: metFORMIN 500 MG Tab PO SCH ×2 (08:54→17:12)
[2021-11-26] MEDS: Docusate Sodium 100 MG Cap PO SCH ×2 (08:54→20:32)
[2021-11-26] MEDS: Benztropine 1 MG Tab PO SCH ×2 (08:54→20:32)
[2021-11-26] MEDS: Bisacodyl 5 MG Tab PO SCH ×2 (08:54→20:32)
[2021-11-26] MEDS: Finasteride 5 MG Tab PO SCH (08:55)
[2021-11-26] MEDS: Sertraline 50 MG Tab PO SCH (08:55)
[2021-11-26] MEDS: Pantoprazole 40 MG Vial IVPUSH SCH ×2 (08:55→20:33)
[2021-11-26] MEDS: Metoprolol Succinate 25 MG Tab.ER PO SCH (08:57)
[2021-11-26] MEDS: Bisacodyl 10 MG Supp RECTAL SCH ×2 (08:58→20:33)
[2021-11-26] MEDS ORDERED: Warfarin 5 MG Tab PO ONE (09:00)
[2021-11-26] MEDS: Azithromycin 125 MG in Sodium Chloride 0.9% 150 ML IV SCH ×2 (12:55→23:52)
[2021-11-26] MEDS: Fat Emulsion 100 ML IV SCH (15:48)
[2021-11-26] MEDS: Sodium Chloride 0.9% 1,000 ML IV SCH (23:50)
[2021-11-27] MEDS: Enoxaparin 40 MG/0.4 ML Syringe SUBCUT SCH ×2 (02:47→13:31)
[2021-11-27] MEDS: Metoclopramide 10 MG/2 ML SDV IVPUSH SCH ×4 (03:15→21:34)
[2021-11-27] MEDS: 1: AA 5%/Calcium/D15W/Lytes 1,000 ML with MVI, Adult with Vitamin K 10 ML, Zinc/Copper/M IV SCH ×6 (05:48→17:44)
[2021-11-27] MEDS ORDERED: Central Total Parenteral Nutrition Bag SCH (07:30)
[2021-11-27] MEDS: metFORMIN 500 MG Tab PO SCH ×2 (07:39→17:26)
[2021-11-27] MEDS: Levothyroxine 50 MCG Tab PO SCH (07:40)
[2021-11-27] MEDS: Albumin Human 25 GM in Premix Bag 1 BAG IV SCH (07:44)
[2021-11-27] MEDS: ARIPiprazole 10 MG Tab PO SCH (08:47)
[2021-11-27] MEDS: Benztropine 1 MG Tab PO SCH ×2 (08:48→21:29)
[2021-11-27] MEDS: Finasteride 5 MG Tab PO SCH (08:49)
[2021-11-27] MEDS: Pantoprazole 40 MG Vial IVPUSH SCH ×2 (08:50→21:33)
[2021-11-27] MEDS: Metoprolol Succinate 25 MG Tab.ER PO SCH (08:50)
[2021-11-27] MEDS: Sertraline 50 MG Tab PO SCH (08:51)
[2021-11-27] MEDS: Bisacodyl 5 MG Tab PO SCH ×2 (10:03→21:29)
[2021-11-27] MEDS: Docusate Sodium 100 MG Cap PO SCH ×2 (10:03→21:29)
[2021-11-27] MEDS: Bisacodyl 10 MG Supp RECTAL SCH ×2 (10:04→21:21)
[2021-11-27] MEDS: Azithromycin 125 MG in Sodium Chloride 0.9% 150 ML IV SCH ×2 (12:46→23:34)
[2021-11-27] MEDS: Fat Emulsion 100 ML IV SCH (15:53)
[2021-11-28] MEDS: Enoxaparin 40 MG/0.4 ML Syringe SUBCUT SCH ×2 (02:57→15:34)
[2021-11-28] MEDS: Metoclopramide 10 MG/2 ML SDV IVPUSH SCH ×4 (03:02→21:22)
[2021-11-28] MEDS: 1: AA 5%/Calcium/D15W/Lytes 1,000 ML with MVI, Adult with Vitamin K 10 ML, Zinc/Copper/M IV SCH ×6 (06:19→20:40)
[2021-11-28] MEDS: metFORMIN 500 MG Tab PO SCH ×2 (07:33→17:31)
[2021-11-28] MEDS: Levothyroxine 50 MCG Tab PO SCH (07:33)
[2021-11-28] MEDS: Albumin Human 25 GM in Premix Bag 1 BAG IV SCH (07:33)
[2021-11-28] MEDS ORDERED: Warfarin 5 MG Tab PO ONE (07:41)
[2021-11-28] MEDS ORDERED: Central Total Parenteral Nutrition Bag SCH (07:45)
[2021-11-28] MEDS: ARIPiprazole 10 MG Tab PO SCH (08:35)
[2021-11-28] MEDS: Metoprolol Succinate 25 MG Tab.ER PO SCH (08:35)
[2021-11-28] MEDS: Finasteride 5 MG Tab PO SCH (08:35)
[2021-11-28] MEDS: Pantoprazole 40 MG Vial IVPUSH SCH ×2 (08:36→21:22)
[2021-11-28] MEDS: Benztropine 1 MG Tab PO SCH ×2 (08:36→21:22)
[2021-11-28] MEDS: Docusate Sodium 100 MG Cap PO SCH ×2 (08:36→21:22)
[2021-11-28] MEDS: Bisacodyl 10 MG Supp RECTAL SCH ×2 (08:36→21:22)
[2021-11-28] MEDS: Sertraline 50 MG Tab PO SCH (08:36)
[2021-11-28] MEDS: Bisacodyl 5 MG Tab PO SCH ×2 (08:37→21:21)
[2021-11-28] MEDS: Azithromycin 125 MG in Sodium Chloride 0.9% 150 ML IV SCH ×2 (11:36→23:37)
[2021-11-28] MEDS: Fat Emulsion 100 ML IV SCH (15:33)
[2021-11-28] MEDS: Sodium Chloride 0.9% 1,000 ML IV SCH (17:31)
[2021-11-29] MEDS: Metoclopramide 10 MG/2 ML SDV IVPUSH SCH ×4 (03:02→21:07)
[2021-11-29] MEDS: Enoxaparin 40 MG/0.4 ML Syringe SUBCUT SCH ×2 (03:02→15:08)
[2021-11-29] MEDS ORDERED: Central Total Parenteral Nutrition Bag SCH (07:30)
[2021-11-29] MEDS: Sertraline 50 MG Tab PO SCH (08:18)
[2021-11-29] MEDS: Bisacodyl 5 MG Tab PO SCH ×2 (08:18→20:08)
[2021-11-29] MEDS: Levothyroxine 50 MCG Tab PO SCH (08:19)
[2021-11-29] MEDS: Benztropine 1 MG Tab PO SCH ×2 (08:19→20:09)
[2021-11-29] MEDS: metFORMIN 500 MG Tab PO SCH ×2 (08:19→18:09)
[2021-11-29] MEDS: Bisacodyl 10 MG Supp RECTAL SCH ×2 (08:19→20:09)
[2021-11-29] MEDS: Docusate Sodium 100 MG Cap PO SCH ×2 (08:19→20:08)
[2021-11-29] MEDS: ARIPiprazole 10 MG Tab PO SCH (08:19)
[2021-11-29] MEDS: Finasteride 5 MG Tab PO SCH (08:19)
[2021-11-29] MEDS: Metoprolol Succinate 25 MG Tab.ER PO SCH (08:19)
[2021-11-29] MEDS: Pantoprazole 40 MG Vial IVPUSH SCH ×2 (08:20→20:08)
[2021-11-29] MEDS ORDERED: Warfarin 5 MG Tab PO ONE (11:00)
[2021-11-29] MEDS: 1: AA 5%/Calcium/D15W/Lytes 1,000 ML with MVI, Adult with Vitamin K 10 ML, Zinc/Copper/M IV SCH ×3 (11:10)
[2021-11-29] MEDS: Sodium Chloride 0.9% 1,000 ML IV SCH (11:11)
[2021-11-29] MEDS: Azithromycin 125 MG in Sodium Chloride 0.9% 150 ML IV SCH (11:12)
[2021-11-29] MEDS: Fat Emulsion 100 ML IV SCH (15:08)
[2021-11-29] MEDS: HYDROmorphone/Normal Saline 6 MG/30 ML PCA Vial IV PRN (17:36)
[2021-11-30] MEDS: 1: AA 5%/Calcium/D15W/Lytes 1,000 ML with MVI, Adult with Vitamin K 10 ML, Zinc/Copper/M IV SCH ×6 (00:45→13:18)
[2021-11-30] MEDS: Azithromycin 125 MG in Sodium Chloride 0.9% 150 ML IV SCH ×2 (00:45→11:09)
[2021-11-30] MEDS: HYDROmorphone/Normal Saline 6 MG/30 ML PCA Vial IV PRN (01:36)
[2021-11-30] MEDS: Enoxaparin 40 MG/0.4 ML Syringe SUBCUT SCH ×2 (03:03→14:18)
[2021-11-30] MEDS: Metoclopramide 10 MG/2 ML SDV IVPUSH SCH ×4 (03:03→21:00)
[2021-11-30] MEDS: Levothyroxine 50 MCG Tab PO SCH (07:59)
[2021-11-30] MEDS: Benztropine 1 MG Tab PO SCH ×2 (08:00→20:49)
[2021-11-30] MEDS: Finasteride 5 MG Tab PO SCH (08:00)
[2021-11-30] MEDS: Docusate Sodium 100 MG Cap PO SCH ×2 (08:00→20:50)
[2021-11-30] MEDS: ARIPiprazole 10 MG Tab PO SCH (08:00)
[2021-11-30] MEDS: metFORMIN 500 MG Tab PO SCH ×2 (08:00→16:28)
[2021-11-30] MEDS: Metoprolol Succinate 25 MG Tab.ER PO SCH (08:01)
[2021-11-30] MEDS: Pantoprazole 40 MG Vial IVPUSH SCH ×2 (08:01→20:50)
[2021-11-30] MEDS: Sertraline 50 MG Tab PO SCH (08:01)
[2021-11-30] MEDS ORDERED: Warfarin 2.5 MG Tab PO ONE (13:00)
[2021-11-30] MEDS: Fat Emulsion 100 ML IV SCH (16:27)
[2021-12-01] MEDS: Azithromycin 125 MG in Sodium Chloride 0.9% 150 ML IV SCH ×3 (00:20→23:31)
[2021-12-01] MEDS: 1: AA 5%/Calcium/D15W/Lytes 1,000 ML with MVI, Adult with Vitamin K 10 ML, Zinc/Copper/M IV SCH ×9 (00:22→23:32)
[2021-12-01] MEDS: Enoxaparin 40 MG/0.4 ML Syringe SUBCUT SCH ×2 (03:55→14:15)
[2021-12-01] MEDS: Metoclopramide 10 MG/2 ML SDV IVPUSH SCH ×4 (03:55→21:25)
[2021-12-01] MEDS: Metoprolol Succinate 25 MG Tab.ER PO SCH (09:10)
[2021-12-01] MEDS: ARIPiprazole 10 MG Tab PO SCH (09:11)
[2021-12-01] MEDS: Sertraline 50 MG Tab PO SCH (09:11)
[2021-12-01] MEDS: Pantoprazole 40 MG Vial IVPUSH SCH ×2 (09:11→20:41)
[2021-12-01] MEDS: Benztropine 1 MG Tab PO SCH ×2 (09:11→20:42)
[2021-12-01] MEDS: Finasteride 5 MG Tab PO SCH (09:11)
[2021-12-01] MEDS: Levothyroxine 50 MCG Tab PO SCH (09:11)
[2021-12-01] MEDS: metFORMIN 500 MG Tab PO SCH ×2 (09:11→16:25)
[2021-12-01] MEDS: Docusate Sodium 100 MG Cap PO SCH ×2 (09:13→20:42)
[2021-12-01] MEDS: Magnesium Sulfate/Water 2 GM in Premix Bag 1 BAG IV SCH ×3 (11:04→21:25)
[2021-12-01] MEDS: SODIUM CHLORIDE 0.9% IV SCH ×2 (11:05→14:15)
[2021-12-01] MEDS: POTASSIUM ACETATE IV SCH ×2 (11:05→14:15)
[2021-12-01] MEDS ORDERED: Warfarin 2.5 MG Tab PO ONE (13:00)
[2021-12-01] MEDS: Fat Emulsion 100 ML IV SCH (16:26)
[2021-12-02] MEDS: Enoxaparin 40 MG/0.4 ML Syringe SUBCUT SCH ×2 (02:21→14:59)
[2021-12-02] MEDS: Magnesium Sulfate/Water 2 GM in Premix Bag 1 BAG IV SCH ×4 (04:06→22:05)
[2021-12-02] MEDS: Metoclopramide 10 MG/2 ML SDV IVPUSH SCH ×2 (04:07→10:26)
[2021-12-02] MEDS ORDERED: Central Total Parenteral Nutrition Bag SCH (07:30)
[2021-12-02] MEDS: metFORMIN 500 MG Tab PO SCH ×2 (07:59→17:13)
[2021-12-02] MEDS: Levothyroxine 50 MCG Tab PO SCH (07:59)
[2021-12-02] MEDS: ARIPiprazole 10 MG Tab PO SCH (07:59)
[2021-12-02] MEDS: Benztropine 1 MG Tab PO SCH ×2 (08:00→20:04)
[2021-12-02] MEDS: Docusate Sodium 100 MG Cap PO SCH ×2 (08:00→20:04)
[2021-12-02] MEDS: Finasteride 5 MG Tab PO SCH (08:01)
[2021-12-02] MEDS: Pantoprazole 40 MG Vial IVPUSH SCH ×2 (08:03→20:04)
[2021-12-02] MEDS: Metoprolol Succinate 25 MG Tab.ER PO SCH (08:03)
[2021-12-02] MEDS: Sertraline 50 MG Tab PO SCH (08:04)
[2021-12-02] MEDS ORDERED: Warfarin 2.5 MG Tab PO ONE (11:00)
[2021-12-02] MEDS: Azithromycin 125 MG in Sodium Chloride 0.9% 150 ML IV SCH (13:00)
[2021-12-02] MEDS: 1: AA 5%/Calcium/D15W/Lytes 1,000 ML with MVI, Adult with Vitamin K 10 ML, Zinc/Copper/M IV SCH ×3 (13:15)
[2021-12-02] MEDS: Fat Emulsion 100 ML IV SCH (15:12)
[2021-12-02] MEDS ORDERED: Metoclopramide 10 MG/2 ML SDV IVPUSH PRN (16:00)
[2021-12-03] MEDS: Azithromycin 125 MG in Sodium Chloride 0.9% 150 ML IV SCH ×2 (00:10→12:28)
[2021-12-03] MEDS: 1: AA 5%/Calcium/D15W/Lytes 1,000 ML with MVI, Adult with Vitamin K 10 ML, Zinc/Copper/M IV SCH ×6 (02:05→16:33)
[2021-12-03] MEDS: Enoxaparin 40 MG/0.4 ML Syringe SUBCUT SCH ×2 (02:59→15:24)
[2021-12-03] MEDS: Acetaminophen 500 MG Tab PO PRN (03:48)
[2021-12-03] MEDS: Magnesium Sulfate/Water 2 GM in Premix Bag 1 BAG IV SCH (04:29)
[2021-12-03] MEDS: Sodium Chloride 0.9% 1,000 ML IV SCH (04:36)
[2021-12-03] MEDS ORDERED: Central Total Parenteral Nutrition Bag SCH (07:30)
[2021-12-03] MEDS: Levothyroxine 50 MCG Tab PO SCH (08:01)
[2021-12-03] MEDS: Benztropine 1 MG Tab PO SCH ×2 (08:02→20:21)
[2021-12-03] MEDS: ARIPiprazole 10 MG Tab PO SCH (08:02)
[2021-12-03] MEDS: metFORMIN 500 MG Tab PO SCH ×2 (08:02→16:37)
[2021-12-03] MEDS: Docusate Sodium 100 MG Cap PO SCH ×2 (08:03→20:21)
[2021-12-03] MEDS: Metoprolol Succinate 25 MG Tab.ER PO SCH (08:03)
[2021-12-03] MEDS: Pantoprazole 40 MG Vial IVPUSH SCH ×2 (08:03→20:19)
[2021-12-03] MEDS: Finasteride 5 MG Tab PO SCH (08:03)
[2021-12-03] MEDS: Sertraline 50 MG Tab PO SCH (08:04)
[2021-12-03] MEDS ORDERED: Warfarin 2.5 MG Tab PO ONE (11:00)
[2021-12-03] MEDS: Fat Emulsion 100 ML IV SCH (15:20)
[2021-12-04] MEDS: Azithromycin 125 MG in Sodium Chloride 0.9% 150 ML IV SCH ×2 (00:40→11:23)
[2021-12-04] MEDS: Enoxaparin 40 MG/0.4 ML Syringe SUBCUT SCH (02:25)
[2021-12-04] MEDS: 1: AA 5%/Calcium/D15W/Lytes 1,000 ML with MVI, Adult with Vitamin K 10 ML, Zinc/Copper/M IV SCH ×6 (04:48→18:11)
[2021-12-04] MEDS: Levothyroxine 50 MCG Tab PO SCH (07:48)
[2021-12-04] MEDS ORDERED: Central Total Parenteral Nutrition Bag SCH (08:30)
[2021-12-04] MEDS: metFORMIN 500 MG Tab PO SCH ×2 (08:51→16:44)
[2021-12-04] MEDS: ARIPiprazole 10 MG Tab PO SCH (08:51)
[2021-12-04] MEDS: Benztropine 1 MG Tab PO SCH ×2 (08:52→20:36)
[2021-12-04] MEDS: Finasteride 5 MG Tab PO SCH (08:52)
[2021-12-04] MEDS: Docusate Sodium 100 MG Cap PO SCH ×2 (08:52→20:36)
[2021-12-04] MEDS: Metoprolol Succinate 25 MG Tab.ER PO SCH (08:53)
[2021-12-04] MEDS: Sertraline 50 MG Tab PO SCH (08:53)
[2021-12-04] MEDS: Pantoprazole 40 MG Vial IVPUSH SCH ×2 (08:59→20:36)
[2021-12-04] MEDS ORDERED: Warfarin 2.5 MG Tab PO ONE (13:00)
[2021-12-04] MEDS: Fat Emulsion 100 ML IV SCH (16:42)
[2021-12-04] MEDS: Sodium Chloride 0.9% 1,000 ML IV SCH (23:11)
[2021-12-05] MEDS: Azithromycin 125 MG in Sodium Chloride 0.9% 150 ML IV SCH ×3 (00:31→23:09)
[2021-12-05] MEDS: Levothyroxine 50 MCG Tab PO SCH (06:44)
[2021-12-05] MEDS ORDERED: Central Total Parenteral Nutrition Bag SCH (07:15)
[2021-12-05] MEDS: 1: AA 5%/Calcium/D15W/Lytes 1,000 ML with MVI, Adult with Vitamin K 10 ML, Zinc/Copper/M IV SCH ×3 (08:03)
[2021-12-05] MEDS: metFORMIN 500 MG Tab PO SCH ×2 (09:00→16:49)
[2021-12-05] MEDS: ARIPiprazole 10 MG Tab PO SCH (09:00)
[2021-12-05] MEDS: Docusate Sodium 100 MG Cap PO SCH ×2 (09:01→21:48)
[2021-12-05] MEDS: Benztropine 1 MG Tab PO SCH ×2 (09:01→21:47)
[2021-12-05] MEDS: Magnesium Oxide 400 MG Tab PO SCH (09:02)
[2021-12-05] MEDS: Finasteride 5 MG Tab PO SCH (09:03)
[2021-12-05] MEDS: Sertraline 50 MG Tab PO SCH (09:04)
[2021-12-05] MEDS: Metoprolol Succinate 25 MG Tab.ER PO SCH (09:06)
[2021-12-05] MEDS: Pantoprazole 40 MG Vial IVPUSH SCH (09:09)
[2021-12-05] MEDS ORDERED: Warfarin 2.5 MG Tab PO ONE (14:00)
[2021-12-05] MEDS: Fat Emulsion 100 ML IV SCH (15:16)
[2021-12-05] MEDS: Pantoprazole 40 MG Tab.CR PO SCH (16:49)
[2021-12-05] MEDS ORDERED: 1: AA 5%/Calcium/D15W/Lytes 1,000 ML with MVI, Adult with Vitamin K 10 ML, Zinc/Copper/M IV SCH ×3 (20:00)
[2021-12-06] MEDS: Levothyroxine 50 MCG Tab PO SCH (07:54)
[2021-12-06] MEDS: Pantoprazole 40 MG Tab.CR PO SCH ×2 (07:54→17:05)
[2021-12-06] MEDS: metFORMIN 500 MG Tab PO SCH ×2 (07:55→17:05)
[2021-12-06] MEDS: ARIPiprazole 10 MG Tab PO SCH (08:12)
[2021-12-06] MEDS: Benztropine 1 MG Tab PO SCH ×2 (08:12→20:26)
[2021-12-06] MEDS: Magnesium Oxide 400 MG Tab PO SCH (08:12)
[2021-12-06] MEDS: Sertraline 50 MG Tab PO SCH (08:12)
[2021-12-06] MEDS: Finasteride 5 MG Tab PO SCH (08:12)
[2021-12-06] MEDS: Docusate Sodium 100 MG Cap PO SCH ×2 (08:12→20:26)
[2021-12-06] MEDS: Metoprolol Succinate 25 MG Tab.ER PO SCH (08:13)
[2021-12-06] MEDS ORDERED: Central Total Parenteral Nutrition Bag SCH (10:00)
[2021-12-06] MEDS ORDERED: Warfarin 2.5 MG Tab PO ONE (13:00)
[2021-12-07] MEDS: Acetaminophen 500 MG Tab PO PRN (01:32)
[2021-12-07] MEDS: Pantoprazole 40 MG Tab.CR PO SCH ×2 (07:54→16:32)
[2021-12-07] MEDS: Levothyroxine 50 MCG Tab PO SCH (07:55)
[2021-12-07] MEDS: Docusate Sodium 100 MG Cap PO SCH ×2 (08:39→21:10)
[2021-12-07] MEDS: metFORMIN 500 MG Tab PO SCH ×2 (08:39→18:41)
[2021-12-07] MEDS: Finasteride 5 MG Tab PO SCH (08:39)
[2021-12-07] MEDS: Sertraline 50 MG Tab PO SCH (08:39)
[2021-12-07] MEDS: ARIPiprazole 10 MG Tab PO SCH (08:40)
[2021-12-07] MEDS: Benztropine 1 MG Tab PO SCH ×2 (08:40→21:10)
[2021-12-07] MEDS: Metoprolol Succinate 25 MG Tab.ER PO SCH (08:40)
[2021-12-07] MEDS: Magnesium Oxide 400 MG Tab PO SCH (08:40)
[2021-12-07] MEDS ORDERED: Warfarin 2.5 MG Tab PO ONE (09:00)
[2021-12-08] MEDS: Pantoprazole 40 MG Tab.CR PO SCH ×2 (07:27→17:32)
[2021-12-08] MEDS: Levothyroxine 50 MCG Tab PO SCH (07:27)
[2021-12-08] MEDS ORDERED: Warfarin 2.5 MG Tab PO ONE (09:00)
[2021-12-08] MEDS: metFORMIN 500 MG Tab PO SCH ×2 (09:15→17:32)
[2021-12-08] MEDS: ARIPiprazole 10 MG Tab PO SCH (09:16)
[2021-12-08] MEDS: Benztropine 1 MG Tab PO SCH ×2 (09:16→20:59)
[2021-12-08] MEDS: Finasteride 5 MG Tab PO SCH (09:17)
[2021-12-08] MEDS: Magnesium Oxide 400 MG Tab PO SCH (09:17)
[2021-12-08] MEDS: Docusate Sodium 100 MG Cap PO SCH ×2 (09:17→20:59)
[2021-12-08] MEDS: Metoprolol Succinate 25 MG Tab.ER PO SCH (09:18)
[2021-12-08] MEDS: Sertraline 50 MG Tab PO SCH (09:20)
[2021-12-09 07:44] VITALS: BP 135/60; PULSE 73
[2021-12-09] MEDS ORDERED: Lidocaine 1% with EPINEPHrine 1:100,000 50 ML MDV SUBCUT ONE (08:45)
[2021-12-09] MEDS: Sertraline 50 MG Tab PO SCH (08:52)
[2021-12-09] MEDS: Magnesium Oxide 400 MG Tab PO SCH (08:53)
[2021-12-09] MEDS: Levothyroxine 50 MCG Tab PO SCH (08:53)
[2021-12-09] MEDS: Docusate Sodium 100 MG Cap PO SCH (08:53)
[2021-12-09] MEDS: Finasteride 5 MG Tab PO SCH (08:53)
[2021-12-09] MEDS: Benztropine 1 MG Tab PO SCH (08:53)
[2021-12-09] MEDS: ARIPiprazole 10 MG Tab PO SCH (08:53)
[2021-12-09] MEDS: Pantoprazole 40 MG Tab.CR PO SCH (08:53)
[2021-12-09] MEDS: metFORMIN 500 MG Tab PO SCH (08:53)
[2021-12-09] MEDS: Metoprolol Succinate 25 MG Tab.ER PO SCH (08:54)
[2021-12-09] MEDS ORDERED: Metolazone 2.5 MG Tab PO SCH (09:00)
[2021-12-09 10:22] LABS: CORONAVIRUS COVID-19 NAA NEGATIVE (NEGATIVE)
[2021-12-09] MEDS ORDERED: Warfarin 2.5 MG Tab PO SCH (13:00)
== END 2021-12-09 14:30 | DRG 326 ==
LOC: JP.ED 13:25 → JP.2SS 16:31 → JP.MS 11-15 15:45
PROVIDERS: ADMIT Hospitalist; ATTEND Internal Medicine
PROC: 0DJ08ZZ Inspection of Upper Intestinal Tract, Via Natural or Artificial Opening Endoscopic (ICD-10-PCS; 2021-11-14)
PROC: 0DTF0ZZ Resection of Right Large Intestine, Open Approach (ICD-10-PCS; principal; 2021-11-15)
PROC: 0BQT0ZZ Repair Diaphragm, Open Approach (ICD-10-PCS; 2021-11-15)
PROC: 0D1B0ZP Bypass Ileum to Rectum, Open Approach (ICD-10-PCS; 2021-11-15)
PROC: 0WPF0JZ Removal of Synthetic Substitute from Abdominal Wall, Open Approach (ICD-10-PCS; 2021-11-15)
PROC: 0DBL0ZZ Excision of Transverse Colon, Open Approach (ICD-10-PCS; 2021-11-15)
PROC: 0D980ZZ Drainage of Small Intestine, Open Approach (ICD-10-PCS; 2021-11-15)
PROC: 3E0M05Z Introduction of Adhesion Barrier into Peritoneal Cavity, Open Approach (ICD-10-PCS; 2021-11-15)
PROC: 0D9670Z Drainage of Stomach with Drainage Device, Via Natural or Artificial Opening (ICD-10-PCS; 2021-11-15)
PROC: 0HQ7XZZ Repair Abdomen Skin, External Approach (ICD-10-PCS; 2021-11-17)
PROC: 30233K1 Transfusion of Nonautologous Frozen Plasma into Peripheral Vein, Percutaneous Approach (ICD-10-PCS; 2021-11-17)
PROC: 30233N1 Transfusion of Nonautologous Red Blood Cells into Peripheral Vein, Percutaneous Approach (ICD-10-PCS; 2021-11-17)
PROC: 0DH63UZ Insertion of Feeding Device into Stomach, Percutaneous Approach (ICD-10-PCS; 2021-11-24)
PROC: 3E0G76Z Introduction of Nutritional Substance into Upper GI, Via Natural or Artificial Opening (ICD-10-PCS; 2021-11-24)
PROC: 02H633Z Insertion of Infusion Device into Right Atrium, Percutaneous Approach (ICD-10-PCS; 2021-11-24)
DX: K59.39 Other megacolon (principal); K65.8 Other peritonitis; R14.0 Abdominal distension (gaseous); K56.609 Unspecified intestinal obstruction, unspecified as to partial versus complete obstruction; D68.9 Coagulation defect, unspecified; K91.89 Other postprocedural complications and disorders of digestive system; K56.7 Ileus, unspecified; E78.00 Pure hypercholesterolemia, unspecified; H54.7 Unspecified visual loss; I10 Essential (primary) hypertension; G47.30 Sleep apnea, unspecified; K59.09 Other constipation; K21.9 Gastro-esophageal reflux disease without esophagitis; K44.9 Diaphragmatic hernia without obstruction or gangrene; N40.1 Benign prostatic hyperplasia with lower urinary tract symptoms; R32 Unspecified urinary incontinence; F41.9 Anxiety disorder, unspecified; F31.9 Bipolar disorder, unspecified; E11.9 Type 2 diabetes mellitus without complications; E03.9 Hypothyroidism, unspecified; E55.9 Vitamin D deficiency, unspecified; Z20.822 Contact with and (suspected) exposure to COVID-19; E87.6 Hypokalemia; F20.9 Schizophrenia, unspecified; I49.9 Cardiac arrhythmia, unspecified; N40.0 Benign prostatic hyperplasia without lower urinary tract symptoms; M10.9 Gout, unspecified; M19.90 Unspecified osteoarthritis, unspecified site; L21.9 Seborrheic dermatitis, unspecified; K31.89 Other diseases of stomach and duodenum; K63.89 Other specified diseases of intestine; Z88.8 Allergy status to other drugs, medicaments and biological substances; Z79.01 Long term (current) use of anticoagulants; Z86.718 Personal history of other venous thrombosis and embolism; Z86.711 Personal history of pulmonary embolism; Z79.84 Long term (current) use of oral hypoglycemic drugs; Z79.890 Hormone replacement therapy; Z79.899 Other long term (current) drug therapy
CPT/HCPCS: 0241U; 36415; 36430; 71045; 71045-26; 74019; 74019-26; 74021; 74021-26; 74177; 74177-26; 80048; 80053; 82140; 82947; 83605; 83735; 83880; 84100; 84132; 84145; 84443; 85018; 85025; 85027; 85610; 85730; 86850; 86900; 86901; 86920; 86922; 87040; 88300; 88305; 88307; 94762; 97110-GP; 97116-GP; 97163-GP; 97530-GP; 97535-GP; 99222; 99232; 99283; A9270-GY; C9113; J0171; J0330; J0456; J0694; J1100; J1170; J1642; J1650; J1815; J2185; J2250; J2405; J2704; J2710; J2765; J2795; J3010; J3430; J3475; J3480; J3490; J7030; J7120; J7121; J7168; P9016; P9017; P9047; Q9967; U0002

== ENCOUNTER 2022-01-22 10:00 | Emergency (ER) | payer MEDICARE ==
[2022-01-22 10:30] VITALS: PULSE 79
[2022-01-22] MEDS ORDERED: Furosemide 40 MG/4 ML VIAL IVPUSH ONE (10:36)
[2022-01-22 11:27] LABS: ESTIMATED GFR > 60 (>60)
[2022-01-22 12:23] VITALS: BP 123/71
== END 2022-01-22 12:23 | disposition home or self-care (01) ==
LOC: JP.ED 10:00
DX: R60.0 Localized edema (principal); E87.6 Hypokalemia; E78.00 Pure hypercholesterolemia, unspecified; I10 Essential (primary) hypertension; K21.9 Gastro-esophageal reflux disease without esophagitis; E11.9 Type 2 diabetes mellitus without complications; E03.9 Hypothyroidism, unspecified; E66.9 Obesity, unspecified; Z68.31 Body mass index [BMI] 31.0-31.9, adult; Z88.8 Allergy status to other drugs, medicaments and biological substances; Z79.899 Other long term (current) drug therapy; Z79.84 Long term (current) use of oral hypoglycemic drugs; Z79.01 Long term (current) use of anticoagulants
CPT/HCPCS: 36415; 80053; 84484; 85025; 96374; 99283; 99284; J1940

== ENCOUNTER 2022-03-22 08:12 | Emergency (ER) | payer MEDICARE ==
[2022-03-22 08:52] VITALS: BP 137/78; PULSE 82
[2022-03-22] MEDS ORDERED: Potassium Chloride 20 MEQ in Premix Bag 1 BAG IV ONE (09:42)
[2022-03-22] MEDS ORDERED: Potassium Chloride 20 MEQ Tab.ER PO ONE (09:43)
[2022-03-22] MEDS ORDERED: Potassium Chloride 20 MEQ, Lidocaine 1% 2 ML in Sodium Chloride 0.9% 100 ML IV SCH (10:15)
[2022-03-22] MEDS ORDERED: Potassium Chloride 20 MEQ, Lidocaine 1% 2 ML in Sodium Chloride 0.9% 100 ML IV ONE (10:15)
== END 2022-03-22 12:35 | disposition home or self-care (01) ==
LOC: JP.ED 08:12
DX: E87.6 Hypokalemia (principal)
CPT/HCPCS: 36415; 80048; 96365; 96366; 99281; 99284; A9270; J3480; J3490

== ENCOUNTER 2022-04-24 07:24 | Day surgery (SDC) | payer MEDICARE ==
[2022-04-24] MEDS ORDERED: Sodium Chloride 0.9% 10 ML Syringe FLUSH PRN (08:00)
[2022-04-24 09:03] VITALS: BP 122/69; PULSE 72
== END 2022-04-24 09:30 | disposition home or self-care (01) ==
LOC: JP.SDS 07:24
PROVIDERS: ATTEND Ophthalmology
DX: E11.36 Type 2 diabetes mellitus with diabetic cataract (principal); H25.12 Age-related nuclear cataract, left eye; I10 Essential (primary) hypertension; F20.9 Schizophrenia, unspecified; Z86.73 Personal history of transient ischemic attack (TIA), and cerebral infarction without residual deficits

== ENCOUNTER 2022-05-23 16:50 | Emergency (ER) | payer MEDICARE ==
[2022-05-23] MEDS ORDERED: Diphtheria,Pertussis(Acell),Tetanus Vaccine 0.5 ML Syringe IM ONE (18:45)
[2022-05-23] MEDS ORDERED: Lidocaine 1% with EPINEPHrine 1:100,000 50 ML MDV INJECT ONE (18:45)
== END 2022-05-23 19:30 | disposition home or self-care (01) ==
LOC: JP.ED 16:50
DX: S61.412A Laceration without foreign body of left hand, initial encounter (principal); W26.0XXA Contact with knife, initial encounter
CPT/HCPCS: 12042; 90471; 90715; 99282-25

== ENCOUNTER 2022-08-06 15:09 | Inpatient (IN) | payer MEDICARE ==
[2022-08-06] MEDS ORDERED: Furosemide 40 MG/4 ML VIAL IVPUSH ONE (15:52)
[2022-08-06] MEDS: Sodium Chloride 0.9% 10 ML Syringe FLUSH PRN (16:03)
[2022-08-06 16:32] LABS: ESTIMATED GFR 74 mL/min (>60); TROPONIN I HIGH SENSITIVITY 8.9 pg/mL (<=60.3)
[2022-08-06] MEDS ORDERED: Albuterol/Ipratropium 3.0-0.5 MG/3 ML Neb Soln NEB ONE (17:07)
[2022-08-06] MEDS ORDERED: Ondansetron 4 MG/2 ML SDV IV PRN (19:40)
[2022-08-06] MEDS ORDERED: Magnesium Hydroxide 400 MG/5 ML Susp 30 ML Cup PO PRN (19:40)
[2022-08-06] MEDS ORDERED: Ondansetron 4 MG Tab.DIS PO PRN (19:40)
[2022-08-06] MEDS ORDERED: BENZTROPINE 0.5 MG PO SCH (21:00)
[2022-08-06] MEDS ORDERED: Potassium Chloride 20 MEQ Tab.ER PO ONE (21:15)
[2022-08-06] MEDS ORDERED: Benztropine 1 MG Tab PO ONE (21:15)
[2022-08-06] MEDS ORDERED: Magnesium Oxide 400 MG Tab PO ONE (21:15)
[2022-08-06] MEDS ORDERED: Insulin Lispro 100 Unit/ML 3 ML KwikPen SUBCUT SCH (21:30)
[2022-08-06] MEDS ORDERED: Warfarin 5 MG Tab PO SCH (21:30)
[2022-08-06] MEDS: Albuterol/Ipratropium 3.0-0.5 MG/3 ML Neb Soln NEB SCH (22:01)
[2022-08-06] MEDS: Insulin Lispro 100 Unit/ML 3 ML KwikPen SUBCUT SCH (22:41)
[2022-08-07] MEDS: Albuterol/Ipratropium 3.0-0.5 MG/3 ML Neb Soln NEB SCH ×4 (06:02→20:51)
[2022-08-07] MEDS: Insulin Lispro 100 Unit/ML 3 ML KwikPen SUBCUT SCH ×4 (08:26→20:53)
[2022-08-07] MEDS: Pantoprazole 40 MG Tab.CR PO SCH (08:27)
[2022-08-07] MEDS: Potassium Chloride 20 MEQ Tab.ER PO SCH ×4 (08:27→21:00)
[2022-08-07] MEDS ORDERED: SERTRALINE HCL 100 MG PO SCH (09:00)
[2022-08-07] MEDS ORDERED: Furosemide 40 MG/4 ML VIAL IVPUSH SCH (09:00)
[2022-08-07] MEDS ORDERED: Tamsulosin 0.4 MG Cap.ER PO SCH (09:00)
[2022-08-07] MEDS ORDERED: metFORMIN 500 MG Tab PO SCH (09:00)
[2022-08-07] MEDS ORDERED: Potassium Chloride 20 MEQ Tab.ER PO ONE (09:00)
[2022-08-07] MEDS ORDERED: Metoprolol Succinate 50 MG Tab.ER PO SCH (09:00)
[2022-08-07] MEDS ORDERED: Non-Formulary Medication 1 Each (Aripiprazole [Abilify] 15 MG Tablet) PO SCH (09:00)
[2022-08-07] MEDS ORDERED: Warfarin 2.5 MG Tab PO ONE (15:00)
[2022-08-07] MEDS: Metoprolol Succinate 25 MG Tab.ER PO SCH (15:43)
[2022-08-07] MEDS: Levothyroxine 50 MCG Tab PO SCH (15:44)
[2022-08-07] MEDS: ARIPiprazole 10 MG Tab PO SCH (15:44)
[2022-08-07] MEDS: Spironolactone 25 MG Tab PO SCH (15:45)
[2022-08-07] MEDS: Finasteride 5 MG Tab PO SCH (15:45)
[2022-08-07] MEDS: metFORMIN 500 MG Tab PO SCH (18:24)
[2022-08-07] MEDS: Furosemide 40 MG/4 ML VIAL IVPUSH SCH (18:25)
[2022-08-07] MEDS: hydrOXYzine HCl 25 MG Tab PO PRN (19:39)
[2022-08-07] MEDS: Magnesium Oxide 400 MG Tab PO SCH (20:54)
[2022-08-07] MEDS: Benztropine 1 MG Tab PO SCH (20:54)
[2022-08-08] MEDS: Acetaminophen 325 MG Tab PO PRN ×2 (03:11→14:50)
[2022-08-08] MEDS: hydrOXYzine HCl 25 MG Tab PO PRN ×2 (03:12→14:50)
[2022-08-08] MEDS: Furosemide 40 MG/4 ML VIAL IVPUSH SCH ×2 (05:40→17:43)
[2022-08-08] MEDS: Potassium Chloride 20 MEQ Tab.ER PO SCH ×4 (05:40→21:15)
[2022-08-08] MEDS: Albuterol/Ipratropium 3.0-0.5 MG/3 ML Neb Soln NEB SCH ×4 (06:57→21:19)
[2022-08-08] MEDS: Insulin Lispro 100 Unit/ML 3 ML KwikPen SUBCUT SCH ×4 (08:20→21:09)
[2022-08-08] MEDS: metFORMIN 500 MG Tab PO SCH ×2 (08:21→17:10)
[2022-08-08] MEDS: Sertraline 50 MG Tab PO SCH (08:22)
[2022-08-08] MEDS: Pantoprazole 40 MG Tab.CR PO SCH (08:22)
[2022-08-08] MEDS: Finasteride 5 MG Tab PO SCH (08:22)
[2022-08-08] MEDS: ARIPiprazole 10 MG Tab PO SCH (08:22)
[2022-08-08] MEDS: Benztropine 1 MG Tab PO SCH ×2 (08:22→21:15)
[2022-08-08] MEDS: Levothyroxine 50 MCG Tab PO SCH (08:22)
[2022-08-08] MEDS: Metoprolol Succinate 25 MG Tab.ER PO SCH (08:23)
[2022-08-08] MEDS: Spironolactone 25 MG Tab PO SCH (08:23)
[2022-08-08] MEDS: Sodium Chloride 0.9% 10 ML Syringe FLUSH PRN ×2 (08:28→17:45)
[2022-08-08] MEDS ORDERED: Warfarin 2.5 MG Tab PO ONE (13:00)
[2022-08-08] MEDS: Magnesium Oxide 400 MG Tab PO SCH (21:15)
[2022-08-09] MEDS: Furosemide 40 MG/4 ML VIAL IVPUSH SCH (05:44)
[2022-08-09] MEDS: Potassium Chloride 20 MEQ Tab.ER PO SCH ×4 (05:44→22:01)
[2022-08-09] MEDS: Albuterol/Ipratropium 3.0-0.5 MG/3 ML Neb Soln NEB SCH ×4 (07:11→22:06)
[2022-08-09] MEDS: Insulin Lispro 100 Unit/ML 3 ML KwikPen SUBCUT SCH ×4 (08:11→21:09)
[2022-08-09] MEDS: Metoprolol Succinate 25 MG Tab.ER PO SCH (08:12)
[2022-08-09] MEDS: ARIPiprazole 10 MG Tab PO SCH (08:12)
[2022-08-09] MEDS: metFORMIN 500 MG Tab PO SCH ×2 (08:12→17:41)
[2022-08-09] MEDS: Benztropine 1 MG Tab PO SCH ×2 (08:12→22:01)
[2022-08-09] MEDS: Finasteride 5 MG Tab PO SCH (08:12)
[2022-08-09] MEDS: Levothyroxine 50 MCG Tab PO SCH (08:12)
[2022-08-09] MEDS: Sertraline 50 MG Tab PO SCH (08:13)
[2022-08-09] MEDS: Pantoprazole 40 MG Tab.CR PO SCH (08:13)
[2022-08-09] MEDS: Spironolactone 25 MG Tab PO SCH (08:13)
[2022-08-09] MEDS: hydrOXYzine HCl 25 MG Tab PO PRN (08:25)
[2022-08-09] MEDS: Acetaminophen 325 MG Tab PO PRN (08:25)
[2022-08-09] MEDS ORDERED: Warfarin 5 MG Tab PO ONE (13:00)
[2022-08-09] MEDS: Magnesium Oxide 400 MG Tab PO SCH (22:01)
[2022-08-10] MEDS: Potassium Chloride 20 MEQ Tab.ER PO SCH ×4 (05:32→21:03)
[2022-08-10] MEDS: Acetaminophen 325 MG Tab PO PRN ×2 (05:56→13:17)
[2022-08-10] MEDS: Albuterol/Ipratropium 3.0-0.5 MG/3 ML Neb Soln NEB SCH ×4 (07:18→21:03)
[2022-08-10] MEDS: Insulin Lispro 100 Unit/ML 3 ML KwikPen SUBCUT SCH ×4 (08:05→20:59)
[2022-08-10] MEDS: metFORMIN 500 MG Tab PO SCH ×2 (08:06→17:19)
[2022-08-10] MEDS: Benztropine 1 MG Tab PO SCH ×2 (08:07→21:02)
[2022-08-10] MEDS: Levothyroxine 50 MCG Tab PO SCH (08:07)
[2022-08-10] MEDS: Finasteride 5 MG Tab PO SCH (08:07)
[2022-08-10] MEDS: Pantoprazole 40 MG Tab.CR PO SCH (08:07)
[2022-08-10] MEDS: Sertraline 50 MG Tab PO SCH (08:07)
[2022-08-10] MEDS: Spironolactone 25 MG Tab PO SCH (08:07)
[2022-08-10] MEDS: ARIPiprazole 10 MG Tab PO SCH (08:07)
[2022-08-10] MEDS: Metoprolol Succinate 25 MG Tab.ER PO SCH (08:08)
[2022-08-10] MEDS ORDERED: Hypromellose 0.3% Ophth Soln 15 ML Bottle EYEBOTH PRN (10:29)
[2022-08-10] MEDS ORDERED: Furosemide 20 MG/2 ML VIAL IVPUSH ONE (11:00)
[2022-08-10] MEDS ORDERED: Warfarin 5 MG Tab PO SCH (13:00)
[2022-08-10] MEDS: hydrOXYzine HCl 25 MG Tab PO PRN (13:17)
[2022-08-10] MEDS: Magnesium Oxide 400 MG Tab PO SCH (21:03)
[2022-08-11] MEDS: Potassium Chloride 20 MEQ Tab.ER PO SCH ×3 (05:14→20:24)
[2022-08-11] MEDS: Albuterol/Ipratropium 3.0-0.5 MG/3 ML Neb Soln NEB SCH ×4 (07:05→20:24)
[2022-08-11] MEDS: Sertraline 50 MG Tab PO SCH (08:44)
[2022-08-11] MEDS: metFORMIN 500 MG Tab PO SCH ×2 (08:44→17:38)
[2022-08-11] MEDS: Metoprolol Succinate 25 MG Tab.ER PO SCH (08:44)
[2022-08-11] MEDS: Benztropine 1 MG Tab PO SCH ×2 (08:45→20:23)
[2022-08-11] MEDS: Finasteride 5 MG Tab PO SCH (08:45)
[2022-08-11] MEDS: ARIPiprazole 10 MG Tab PO SCH (08:45)
[2022-08-11] MEDS: Spironolactone 25 MG Tab PO SCH (08:45)
[2022-08-11] MEDS: Levothyroxine 50 MCG Tab PO SCH (08:45)
[2022-08-11] MEDS: Insulin Lispro 100 Unit/ML 3 ML KwikPen SUBCUT SCH ×4 (08:46→20:57)
[2022-08-11] MEDS: Pantoprazole 40 MG Tab.CR PO SCH (08:46)
[2022-08-11] MEDS: Furosemide 40 MG Tab PO SCH (11:37)
[2022-08-11] MEDS ORDERED: Warfarin 2.5 MG Tab PO SCH (13:00)
[2022-08-11] MEDS: Magnesium Oxide 400 MG Tab PO SCH (20:24)
[2022-08-12] MEDS: Albuterol/Ipratropium 3.0-0.5 MG/3 ML Neb Soln NEB SCH ×2 (07:04→10:29)
[2022-08-12] MEDS ORDERED: Levothyroxine 25 MCG Tab PO SCH (07:30)
[2022-08-12] MEDS: ARIPiprazole 10 MG Tab PO SCH (08:01)
[2022-08-12] MEDS: Potassium Chloride 20 MEQ Tab.ER PO SCH (08:01)
[2022-08-12] MEDS: Pantoprazole 40 MG Tab.CR PO SCH (08:01)
[2022-08-12] MEDS: Furosemide 40 MG Tab PO SCH (08:01)
[2022-08-12] MEDS: Metoprolol Succinate 25 MG Tab.ER PO SCH (08:02)
[2022-08-12] MEDS: Spironolactone 25 MG Tab PO SCH (08:02)
[2022-08-12] MEDS: metFORMIN 500 MG Tab PO SCH (08:02)
[2022-08-12] MEDS: Finasteride 5 MG Tab PO SCH (08:03)
[2022-08-12] MEDS: Benztropine 1 MG Tab PO SCH (08:03)
[2022-08-12] MEDS: Insulin Lispro 100 Unit/ML 3 ML KwikPen SUBCUT SCH ×2 (08:04→13:47)
[2022-08-12] MEDS ORDERED: Sertraline 25 MG Tab PO SCH (09:00)
[2022-08-12] MEDS ORDERED: Furosemide 40 MG Tab PO SCH (09:00)
[2022-08-12] MEDS ORDERED: Furosemide 20 MG Tab PO SCH (09:00)
[2022-08-12 10:56] VITALS: BP 114/77; PULSE 85
[2022-08-12] MEDS ORDERED: Warfarin 5 MG Tab PO SCH (13:00)
== END 2022-08-12 13:40 | disposition home health service (06) | DRG 291 ==
LOC: JP.ED 15:09 → JP.MS 18:48 → OBSVTOIN 08-07 14:20
PROVIDERS: ADMIT Hospitalist; ATTEND Internal Medicine
DX: R06.02 Shortness of breath (principal); R60.0 Localized edema; I11.0 Hypertensive heart disease with heart failure; E11.51 Type 2 diabetes mellitus with diabetic peripheral angiopathy without gangrene; I10 Essential (primary) hypertension; I50.33 Acute on chronic diastolic (congestive) heart failure; I87.2 Venous insufficiency (chronic) (peripheral); H54.7 Unspecified visual loss; E66.9 Obesity, unspecified; K59.09 Other constipation; N40.0 Benign prostatic hyperplasia without lower urinary tract symptoms; K21.9 Gastro-esophageal reflux disease without esophagitis; Z79.84 Long term (current) use of oral hypoglycemic drugs; Z20.822 Contact with and (suspected) exposure to COVID-19; E78.00 Pure hypercholesterolemia, unspecified; M10.9 Gout, unspecified; M19.90 Unspecified osteoarthritis, unspecified site; F31.9 Bipolar disorder, unspecified; F41.1 Generalized anxiety disorder; E03.9 Hypothyroidism, unspecified; E11.9 Type 2 diabetes mellitus without complications; Z96.612 Presence of left artificial shoulder joint; G47.00 Insomnia, unspecified; N40.1 Benign prostatic hyperplasia with lower urinary tract symptoms; R39.14 Feeling of incomplete bladder emptying; Z86.711 Personal history of pulmonary embolism; Z91.041 Radiographic dye allergy status; Z79.890 Hormone replacement therapy; Z79.899 Other long term (current) drug therapy; Z79.01 Long term (current) use of anticoagulants; Z86.718 Personal history of other venous thrombosis and embolism
CPT/HCPCS: 36415 ×2; 71046; 80048; 80053; 82947 ×3; 83735; 83880; 84443; 84484; 85025; 85027; 85610 ×2; 94640 ×4; 96374; 96376; 97116; 97162; 99285; A9270 ×7; G0378 ×3; J1815; J1940 ×2; J3490; U0002; 97110-GP; 97165-GO; 97530-GP; J7620

== ENCOUNTER 2024-03-30 15:01 | Emergency (ER) | payer MEDICARE ==
[2024-03-30 16:04] LABS: BASOPHILS PERCENT AUTO 0.2 % (0.1-1.3); EOSINOPHILS ABSOLUTE AUTO 0.15 K/uL (0.00-0.40); EOSINOPHILS PERCENT AUTO 1.3 % (0.0-5.4); HEMATOCRIT 34.4 % (38.4-49.7); HEMOGLOBIN 12.1 g/dL (12.9-16.9); IMMATURE GRAN ABSOLUTE AUTO 0.12 K/uL (0.00-0.23); LYMPHOCYTES ABSOLUTE AUTO 1.62 K/uL (0.8-3.3); MEAN CORPUSCULAR HEMOGLOBIN 29.7 pg (31.6-35.5); MEAN CORPUSCULAR HGB CONC 35.2 g/dL (31.6-35.5); MEAN CORPUSCULAR VOLUME 84.3 fL (81.4-99.0); MONOCYTES ABSOLUTE AUTO 1.04 K/uL (0.20-0.90); NEUTROPHILS PERCENT AUTO 74.5 % (40.0-78.1); PLATELET COUNT,PLT 187 K/uL (130-375); RED BLOOD CELL COUNT 4.08 M/uL (4.14-5.76); WHITE BLOOD CELL COUNT,WBC 11.6 K/uL (3.2-11.0)
[2024-03-30 16:05] LABS: BASOPHILS ABSOLUTE AUTO 0.02 K/uL (0.00-0.10)
[2024-03-30 16:20] LABS: CALCIUM 8.9 mg/dL (8.5-10.1); CREATININE 1.3 mg/dL (0.8-1.3); EST CRCL DRUG DOSING (CG) 54.38 mL/min; POTASSIUM,K 3.6 mmol/L (3.6-5.2)
[2024-03-30 16:22] LABS: ANION GAP 14.6 mmol/L (5.0-14.0)
[2024-03-30 18:08] VITALS: BP 117/46; PULSE 80
== END 2024-03-30 18:10 | disposition home or self-care (01) ==
LOC: JP.ED 15:01
DX: L03.115 Cellulitis of right lower limb (principal); L03.116 Cellulitis of left lower limb; I10 Essential (primary) hypertension; E11.9 Type 2 diabetes mellitus without complications; E03.9 Hypothyroidism, unspecified; E66.9 Obesity, unspecified; E78.00 Pure hypercholesterolemia, unspecified; Z87.891 Personal history of nicotine dependence; Z79.899 Other long term (current) drug therapy; Z79.84 Long term (current) use of oral hypoglycemic drugs; Z91.041 Radiographic dye allergy status; Z88.8 Allergy status to other drugs, medicaments and biological substances; Z68.41 Body mass index [BMI] 40.0-44.9, adult
CPT/HCPCS: 36415; 80048; 85025; 87070; 87077; 87186; 87205; 99283

== ENCOUNTER 2024-04-03 15:48 | Inpatient (IN) | payer MEDICARE ==
[2024-04-03 17:25] LABS: BASOPHILS ABSOLUTE AUTO 0.03 K/uL (0.00-0.10); BASOPHILS PERCENT AUTO 0.2 % (0.1-1.3); EOSINOPHILS ABSOLUTE AUTO 0.12 K/uL (0.00-0.40); HEMATOCRIT 32.9 % (38.4-49.7); HEMOGLOBIN 11.8 g/dL (12.9-16.9); IMMATURE GRAN ABSOLUTE AUTO 0.08 K/uL (0.00-0.23); IMMATURE GRAN PERCENT AUTO 0.6 % (0.0-0.7); LYMPHOCYTES ABSOLUTE AUTO 1.69 K/uL (0.8-3.3); LYMPHOCYTES PERCENT AUTO 13.6 % (11.4-47.7); MEAN CORPUSCULAR HEMOGLOBIN 29.9 pg (31.6-35.5); MEAN CORPUSCULAR HGB CONC 35.9 g/dL (31.6-35.5); MEAN CORPUSCULAR VOLUME 83.5 fL (81.4-99.0); MONOCYTES ABSOLUTE AUTO 1.05 K/uL (0.20-0.90); MONOCYTES PERCENT AUTO 8.5 % (3.3-12.6); NEUTROPHILS ABSOLUTE AUTO 9.45 K/uL (1.0-7.6); NEUTROPHILS PERCENT AUTO 76.1 % (40.0-78.1); PLATELET COUNT,PLT 222 K/uL (130-375); RED BLOOD CELL COUNT 3.94 M/uL (4.14-5.76); WHITE BLOOD CELL COUNT,WBC 12.4 K/uL (3.2-11.0)
[2024-04-03 17:40] LABS: CALCIUM 8.4 mg/dL (8.5-10.1); CREATININE 1.8 mg/dL (0.8-1.3); EST CRCL DRUG DOSING (CG) 39.28 mL/min
[2024-04-03 17:52] LABS: INR 3.3; PROTHROMBIN TIME 31.7 sec (9.2-10.6)
[2024-04-03] MEDS ORDERED: Sodium Chloride 0.9% 10 ML Syringe FLUSH PRN (17:55)
[2024-04-03] MEDS: Potassium Chloride 10 MEQ in Premix Bag 1 BAG IV ONE (18:35)
[2024-04-03] MEDS: Potassium Chloride 20 MEQ Tab.ER PO ONE (18:35)
[2024-04-03] MEDS: Sodium Chloride 0.9% 1,000 ML IV ONE (18:36)
[2024-04-03 18:43] LABS: MAGNESIUM 1.7 mg/dL (1.8-2.4)
[2024-04-03] MEDS ORDERED: Levofloxacin/Dextrose 5%-Water 750 MG in Premix Bag 1 BAG IV SCH (18:45)
[2024-04-03 18:56] LABS: TSH ULTRASENSITIVE 1.414 uIU/mL (0.358-3.740)
[2024-04-03] MEDS: cefTRIAXone 1 GM in Sodium Chloride 0.9% 50 ML IV SCH (19:59)
[2024-04-03] MEDS ORDERED: Morphine 2 MG/ML SYRINGE IVPUSH PRN (20:18)
[2024-04-03] MEDS ORDERED: Ketoconazole 2% Crm 30 GM Tube TOP SCH (20:18)
[2024-04-03] MEDS ORDERED: DESONIDE TOP PRN (20:18)
[2024-04-03] MEDS ORDERED: Bisacodyl 5 MG Tab PO PRN (20:18)
[2024-04-03] MEDS ORDERED: Triamcinolone Acetonide 0.1% Crm 15 GM Tube TOP PRN (20:18)
[2024-04-03] MEDS ORDERED: Albuterol 0.083% 2.5 MG/3 ML Neb Soln NEB PRN (20:18)
[2024-04-03] MEDS ORDERED: Albuterol/Ipratropium 3.0-0.5 MG/3 ML Neb Soln NEB PRN (20:18)
[2024-04-03] MEDS ORDERED: Docusate Sodium 100 MG Cap PO PRN (20:18)
[2024-04-03] MEDS ORDERED: Naloxone 0.4 MG/ML SDV IVPUSH PRN (20:18)
[2024-04-03] MEDS ORDERED: Nystatin Topical Powder 15 GM Bottle TOP PRN (20:18)
[2024-04-03] MEDS: Levofloxacin/Dextrose 5%-Water 750 MG in Premix Bag 1 BAG IV SCH (20:53)
[2024-04-03] MEDS: Furosemide 20 MG Tab PO SCH (20:55)
[2024-04-03] MEDS: Magnesium Oxide 400 MG Tab PO SCH (20:56)
[2024-04-03] MEDS: Melatonin 3 MG Tab PO SCH (20:56)
[2024-04-03] MEDS: Acetaminophen 325 MG Tab PO PRN (20:56)
[2024-04-03] MEDS: Benztropine 1 MG Tab PO SCH (20:56)
[2024-04-03] MEDS: Insulin Lispro 100 Unit/ML 3 ML KwikPen SUBCUT SCH (21:25)
[2024-04-03] MEDS: Diclofenac Sodium 1% Gel 100 GM Tube TOP SCH (21:26)
[2024-04-04 04:00] LABS: APPEARANCE,URINE CLEAR (CLEAR); BILIRUBIN,URINE NEGATIVE (NEGATIVE); COLOR,URINE YELLOW (YELLOW); GLUCOSE,URINE NEGATIVE (NEGATIVE); KETONES,URINE NEGATIVE (NEGATIVE); LEUKOCYTE ESTERASE,URINE NEGATIVE (NEGATIVE); NITRITE,URINE NEGATIVE (NEGATIVE); OCCULT BLOOD,URINE NEGATIVE (NEGATIVE); PROTEIN,URINE NEGATIVE (NEGATIVE); UROBILINOGEN,URINE 0.2 EU/dL (0.2-1.0)
[2024-04-04 04:18] LABS: AMORPHOUS SEDIMENT,URINE NOT SEEN; BACTERIA,URINE FEW; EPITHELIAL CELLS,URINE RARE; MUCUS,URINE RARE; RBC,URINE 0-5 (0-5); WBC,URINE 0-5 (0-5)
[2024-04-04 05:31] LABS: BASOPHILS ABSOLUTE AUTO 0.03 K/uL (0.00-0.10); BASOPHILS PERCENT AUTO 0.3 % (0.1-1.3); EOSINOPHILS ABSOLUTE AUTO 0.15 K/uL (0.00-0.40); EOSINOPHILS PERCENT AUTO 1.6 % (0.0-5.4); HEMATOCRIT 29.7 % (38.4-49.7); HEMOGLOBIN 10.6 g/dL (12.9-16.9); IMMATURE GRAN ABSOLUTE AUTO 0.07 K/uL (0.00-0.23); IMMATURE GRAN PERCENT AUTO 0.7 % (0.0-0.7); LYMPHOCYTES ABSOLUTE AUTO 1.28 K/uL (0.8-3.3); LYMPHOCYTES PERCENT AUTO 13.3 % (11.4-47.7); MEAN CORPUSCULAR HEMOGLOBIN 29.9 pg (31.6-35.5); MEAN CORPUSCULAR HGB CONC 35.7 g/dL (31.6-35.5); MEAN CORPUSCULAR VOLUME 83.7 fL (81.4-99.0); MONOCYTES ABSOLUTE AUTO 0.99 K/uL (0.20-0.90); MONOCYTES PERCENT AUTO 10.3 % (3.3-12.6); NEUTROPHILS ABSOLUTE AUTO 7.09 K/uL (1.0-7.6); NEUTROPHILS PERCENT AUTO 73.8 % (40.0-78.1); PLATELET COUNT,PLT 193 K/uL (130-375); RED BLOOD CELL COUNT 3.55 M/uL (4.14-5.76); WHITE BLOOD CELL COUNT,WBC 9.6 K/uL (3.2-11.0)
[2024-04-04 05:50] LABS: CALCIUM 7.9 mg/dL (8.5-10.1); CREATININE 1.5 mg/dL (0.8-1.3); EST CRCL DRUG DOSING (CG) 47.13 mL/min
[2024-04-04 05:53] LABS: ANION GAP 12.7 mmol/L (5.0-14.0); POTASSIUM,K 2.7 mmol/L (3.6-5.2)
[2024-04-04] MEDS ORDERED: Potassium Chloride 10 MEQ in Premix Bag 2 BAG IV SCH (06:00)
[2024-04-04] MEDS: Potassium Chloride 20 MEQ Tab.ER PO ONE (06:31)
[2024-04-04 08:23] LABS: INR 3.1; PROTHROMBIN TIME 29.9 sec (9.2-10.6)
[2024-04-04] MEDS: Potassium Chloride 10 MEQ in Premix Bag 1 BAG IV SCH ×2 (08:43→15:39)
[2024-04-04] MEDS: Cyanocobalamin (Vitamin B12) 1,000 MCG Tab SL SCH (08:54)
[2024-04-04] MEDS: glipiZIDE 5 MG Tab PO SCH (08:55)
[2024-04-04] MEDS: Finasteride 5 MG Tab PO SCH (08:55)
[2024-04-04] MEDS: Cholecalciferol (Vitamin D3) 25 MCG Tab PO SCH (08:55)
[2024-04-04] MEDS: Metolazone 2.5 MG Tab PO SCH (08:55)
[2024-04-04] MEDS: Furosemide 40 MG Tab PO SCH (08:55)
[2024-04-04] MEDS: Ascorbic Acid 500 MG Tab PO SCH (08:56)
[2024-04-04] MEDS: Sertraline 50 MG Tab PO SCH (08:56)
[2024-04-04] MEDS: Spironolactone 25 MG Tab PO SCH (08:56)
[2024-04-04] MEDS: Pantoprazole 40 MG Tab.CR PO SCH (08:56)
[2024-04-04] MEDS: Ferrous Sulfate 325 MG Tab PO SCH (08:56)
[2024-04-04] MEDS: Calcium Carbonate/Vitamin D3 1500 MG-400 Units Tab PO SCH (08:56)
[2024-04-04] MEDS: Levothyroxine 50 MCG Tab PO SCH (08:56)
[2024-04-04] MEDS: atorvaSTATin 10 MG Tab PO SCH (08:56)
[2024-04-04] MEDS: Metoprolol Succinate 25 MG Tab.ER PO SCH (08:57)
[2024-04-04] MEDS: Ondansetron 4 MG Tab.DIS PO PRN (13:40)
[2024-04-04] MEDS: Furosemide 20 MG Tab PO SCH (15:41)
[2024-04-04] MEDS ORDERED: LORazepam 2 MG/ML SDV IVPUSH PRN (17:37)
[2024-04-04] MEDS: Prochlorperazine 10 MG/2 ML SDV IVPUSH PRN (17:55)
[2024-04-04] MEDS ORDERED: Warfarin 5 MG Tab PO SCH (19:30)
[2024-04-04] MEDS ORDERED: Warfarin 2.5 MG Tab PO SCH (19:30)
[2024-04-04] MEDS ORDERED: Levofloxacin/Dextrose 5%-Water 750 MG in Premix Bag 1 BAG IV SCH (21:00)
[2024-04-04] MEDS: Nystatin Topical Powder 15 GM Bottle TOP SCH (21:56)
[2024-04-05 05:33] LABS: HEMATOCRIT 32.7 % (38.4-49.7); HEMOGLOBIN 11.4 g/dL (12.9-16.9); MEAN CORPUSCULAR HEMOGLOBIN 29.2 pg (31.6-35.5); MEAN CORPUSCULAR HGB CONC 34.9 g/dL (31.6-35.5); MEAN CORPUSCULAR VOLUME 83.6 fL (81.4-99.0); RED BLOOD CELL COUNT 3.91 M/uL (4.14-5.76); WHITE BLOOD CELL COUNT,WBC 13.4 K/uL (3.2-11.0)
[2024-04-05 05:47] LABS: INR 2.4; PROTHROMBIN TIME 23.7 sec (9.2-10.6)
[2024-04-05 05:51] LABS: CALCIUM 8.9 mg/dL (8.5-10.1); CREATININE 1.4 mg/dL (0.8-1.3); EST CRCL DRUG DOSING (CG) 50.5 mL/min
[2024-04-05 05:53] LABS: ANION GAP 11.8 mmol/L (5.0-14.0); POTASSIUM,K 2.8 mmol/L (3.6-5.2)
[2024-04-05] MEDS: Potassium Chloride 10 MEQ in Premix Bag 1 BAG IV SCH ×2 (06:32→17:01)
[2024-04-05] MEDS: Magnesium Sulfate/Water 2 GM in Premix Bag 1 BAG IV SCH (06:40)
[2024-04-05] MEDS: Pantoprazole 40 MG Tab.CR PO SCH (07:36)
[2024-04-05] MEDS: Sodium Chloride 0.9% 10 ML Syringe FLUSH PRN (11:35)
[2024-04-05] MEDS: Iopamidol 612 MG/ML 100 ML Bottle IV PRN (11:35)
[2024-04-05] MEDS: Sodium Chloride 0.9% 80 ML IV ONE (11:35)
[2024-04-05] MEDS ORDERED: Magnesium Sulfate/Water 2 GM in Premix Bag 1 BAG IV ONE (12:00)
[2024-04-05] MEDS: Lidocaine 4% Top Soln 50 ML Bottle MUCMEM ONE (12:27)
[2024-04-05] MEDS: NS + KCl 20mEq/L 1,000 ML IV SCH (17:01)
[2024-04-06 05:33] LABS: HEMATOCRIT 32.6 % (38.4-49.7); HEMOGLOBIN 11.2 g/dL (12.9-16.9); MEAN CORPUSCULAR HEMOGLOBIN 29.2 pg (31.6-35.5); MEAN CORPUSCULAR HGB CONC 34.4 g/dL (31.6-35.5); MEAN CORPUSCULAR VOLUME 84.9 fL (81.4-99.0); RED BLOOD CELL COUNT 3.84 M/uL (4.14-5.76); WHITE BLOOD CELL COUNT,WBC 11.2 K/uL (3.2-11.0)
[2024-04-06 05:43] LABS: CREATININE 1.3 mg/dL (0.8-1.3); EST CRCL DRUG DOSING (CG) 54.38 mL/min
[2024-04-06 05:46] LABS: ANION GAP 9.7 mmol/L (5.0-14.0); POTASSIUM,K 2.7 mmol/L (3.6-5.2)
[2024-04-06] MEDS: Potassium Chloride 20 MEQ Tab.ER PO ONE ×2 (06:38→20:56)
[2024-04-06] MEDS: Potassium Chloride 10 MEQ in Premix Bag 1 BAG IV SCH ×3 (06:39→20:58)
[2024-04-06] MEDS: Bisacodyl 10 MG Supp RECTAL ONE (09:42)
[2024-04-06] MEDS: Iopamidol 612 MG/ML 50 ML SDV GTUBE ONE (14:49)
[2024-04-06] MEDS: oxyCODONE 5 MG Tab PO PRN (18:22)
[2024-04-07 04:42] LABS: HEMATOCRIT 33.9 % (38.4-49.7); HEMOGLOBIN 11.5 g/dL (12.9-16.9); MEAN CORPUSCULAR HGB CONC 33.9 g/dL (31.6-35.5); MEAN CORPUSCULAR VOLUME 85.6 fL (81.4-99.0); RED BLOOD CELL COUNT 3.96 M/uL (4.14-5.76); WHITE BLOOD CELL COUNT,WBC 9.6 K/uL (3.2-11.0)
[2024-04-07 04:53] LABS: CALCIUM 9.2 mg/dL (8.5-10.1); CREATININE 1.1 mg/dL (0.8-1.3); EST CRCL DRUG DOSING (CG) 64.27 mL/min; INR 1.5; MAGNESIUM 1.6 mg/dL (1.8-2.4); PROTHROMBIN TIME 14.9 sec (9.2-10.6)
[2024-04-07 04:57] LABS: ANION GAP 10.9 mmol/L (5.0-14.0); POTASSIUM,K 2.9 mmol/L (3.6-5.2)
[2024-04-07] MEDS: Potassium Chloride 20 MEQ Tab.ER PO ONE (05:21)
[2024-04-07] MEDS: Potassium Chloride 10 MEQ in Premix Bag 1 BAG IV SCH ×2 (05:30→16:03)
[2024-04-07] MEDS: Potassium Chloride 10 MEQ in Premix Bag 4 BAG IV ONE (05:46)
[2024-04-07] MEDS ORDERED: Potassium Chloride 10 MEQ in Premix Bag 1 BAG IV SCH (08:00)
[2024-04-07] MEDS: Magnesium Hydroxide 400 MG/5 ML Susp 30 ML Cup PO SCH (09:01)
[2024-04-07] MEDS: Magnesium Sulfate/Water 2 GM in Premix Bag 1 BAG IV SCH (12:54)
[2024-04-08 06:22] LABS: CALCIUM 8.3 mg/dL (8.5-10.1); CREATININE 1.1 mg/dL (0.8-1.3); EST CRCL DRUG DOSING (CG) 64.27 mL/min; POTASSIUM,K 3.6 mmol/L (3.6-5.2)
[2024-04-08 06:28] LABS: ANION GAP 12.6 mmol/L (5.0-14.0)
[2024-04-08 07:22] LABS: INR 1.3; PROTHROMBIN TIME 12.8 sec (9.2-10.6)
[2024-04-08] MEDS: Potassium Chloride 10 MEQ in Premix Bag 1 BAG IV SCH (08:32)
[2024-04-08] MEDS ORDERED: Diatrizoate Meglumine/Diatrizoate Sodium 37% 120 ML Bottle PO SCH (10:45)
[2024-04-08] MEDS: Iopamidol 612 MG/ML 500 ML Multipack Bottle IV ONE (15:08)
[2024-04-09 05:10] LABS: CALCIUM 8.3 mg/dL (8.5-10.1); CREATININE 1.1 mg/dL (0.8-1.3); EST CRCL DRUG DOSING (CG) 64.06 mL/min; POTASSIUM,K 3.7 mmol/L (3.6-5.2)
[2024-04-09 05:13] LABS: INR 1.2; PROTHROMBIN TIME 12.7 sec (9.2-10.6)
[2024-04-09 05:16] LABS: ANION GAP 11.7 mmol/L (5.0-14.0)
[2024-04-09] MEDS: Warfarin 5 MG Tab PO ONE (15:01)
[2024-04-09] MEDS: Cefdinir 300 MG Cap PO SCH (21:34)
[2024-04-10 05:01] LABS: CALCIUM 8.5 mg/dL (8.5-10.1); CREATININE 1.1 mg/dL (0.8-1.3); EST CRCL DRUG DOSING (CG) 64.06 mL/min; INR 1.3; POTASSIUM,K 3.3 mmol/L (3.6-5.2); PROTHROMBIN TIME 12.8 sec (9.2-10.6)
[2024-04-10 05:07] LABS: ANION GAP 12.3 mmol/L (5.0-14.0)
[2024-04-10] MEDS: Potassium Chloride 20 MEQ Tab.ER PO ONE (11:29)
[2024-04-10] MEDS: Warfarin 5 MG Tab PO SCH (12:57)
[2024-04-11 06:26] LABS: HEMATOCRIT 35.5 % (38.4-49.7); HEMOGLOBIN 12.1 g/dL (12.9-16.9); MEAN CORPUSCULAR HEMOGLOBIN 29.3 pg (31.6-35.5); MEAN CORPUSCULAR HGB CONC 34.1 g/dL (31.6-35.5); RED BLOOD CELL COUNT 4.13 M/uL (4.14-5.76); WHITE BLOOD CELL COUNT,WBC 8.5 K/uL (3.2-11.0)
[2024-04-11 06:41] LABS: INR 1.5; PROTHROMBIN TIME 14.9 sec (9.2-10.6)
[2024-04-11 06:43] LABS: CALCIUM 9.6 mg/dL (8.5-10.1); CREATININE 1.3 mg/dL (0.8-1.3); EST CRCL DRUG DOSING (CG) 54.2 mL/min; POTASSIUM,K 3.5 mmol/L (3.6-5.2)
[2024-04-11 06:45] LABS: ANION GAP 12.5 mmol/L (5.0-14.0)
[2024-04-11] MEDS: Potassium Chloride 20 MEQ Tab.ER PO ONE (08:40)
[2024-04-12 05:43] LABS: CALCIUM 10.3 mg/dL (8.5-10.1); CREATININE 1.3 mg/dL (0.8-1.3); EST CRCL DRUG DOSING (CG) 54.2 mL/min; MAGNESIUM 1.5 mg/dL (1.8-2.4); POTASSIUM,K 3.8 mmol/L (3.6-5.2)
[2024-04-12 05:45] LABS: ANION GAP 11.8 mmol/L (5.0-14.0)
[2024-04-12] MEDS: Magnesium Sulfate/Water 2 GM in Premix Bag 1 BAG IV SCH (08:52)
[2024-04-12] MEDS: Magnesium Oxide 400 MG Tab PO SCH (08:53)
[2024-04-12 11:33] VITALS: BP 124/77; PULSE 68
== END 2024-04-12 14:00 | disposition home health service (06) | DRG 602 ==
LOC: JP.ED 15:48 → JP.MS 19:06
PROVIDERS: ADMIT Hospitalist; ATTEND Hospitalist
PROC: 0D9670Z Drainage of Stomach with Drainage Device, Via Natural or Artificial Opening (ICD-10-PCS; principal; 2024-04-03)
DX: L03.116 Cellulitis of left lower limb (principal); I50.33 Acute on chronic diastolic (congestive) heart failure; K56.600 Partial intestinal obstruction, unspecified as to cause; R60.0 Localized edema; I10 Essential (primary) hypertension; R06.89 Other abnormalities of breathing; L03.115 Cellulitis of right lower limb; I11.0 Hypertensive heart disease with heart failure; E11.9 Type 2 diabetes mellitus without complications; E87.6 Hypokalemia; H54.7 Unspecified visual loss; E66.9 Obesity, unspecified; N40.0 Benign prostatic hyperplasia without lower urinary tract symptoms; M10.9 Gout, unspecified; M19.90 Unspecified osteoarthritis, unspecified site; K21.9 Gastro-esophageal reflux disease without esophagitis; Z68.41 Body mass index [BMI] 40.0-44.9, adult; K59.09 Other constipation; E78.00 Pure hypercholesterolemia, unspecified; G47.30 Sleep apnea, unspecified; F41.0 Panic disorder [episodic paroxysmal anxiety]; E03.9 Hypothyroidism, unspecified; L40.9 Psoriasis, unspecified; I87.2 Venous insufficiency (chronic) (peripheral); E11.59 Type 2 diabetes mellitus with other circulatory complications; F20.9 Schizophrenia, unspecified; B37.9 Candidiasis, unspecified; J44.9 Chronic obstructive pulmonary disease, unspecified; Z88.8 Allergy status to other drugs, medicaments and biological substances; Z79.01 Long term (current) use of anticoagulants; Z98.49 Cataract extraction status, unspecified eye; Z79.84 Long term (current) use of oral hypoglycemic drugs; Z91.041 Radiographic dye allergy status; Z79.899 Other long term (current) drug therapy; Z79.890 Hormone replacement therapy; Z86.73 Personal history of transient ischemic attack (TIA), and cerebral infarction without residual deficits; Z86.010 Personal history of colon polyps; Z96.619 Presence of unspecified artificial shoulder joint; Z98.890 Other specified postprocedural states; Z68.38 Body mass index [BMI] 38.0-38.9, adult
CPT/HCPCS: 36415; 71045; 80048; 82150; 83605; 83690; 83735; 83880; 84145; 84443; 85025; 85610; 87040; 96365; 99284; A9270; J3480; J7030; 74018; 74018-26; 74019; 74019-26; 74177; 81001; 82947; 84132; 85027; 97110-GO; 97110-GP; 97161-GP; 97165-GO; 97530-GP; 97535-GO; 99222; 99232; 99238; 99285; J0696; J0780; J1815; J1956; J3475; J3490; Q0162; Q9967

== ENCOUNTER 2024-04-13 15:13 | Emergency (ER) | payer MEDICARE ==
[2024-04-13 16:46] VITALS: BP 119/72; PULSE 79
== END 2024-04-13 18:52 | disposition home or self-care (01) ==
LOC: JP.ED 15:13
DX: S09.90XA Unspecified injury of head, initial encounter (principal); S40.012A Contusion of left shoulder, initial encounter; I10 Essential (primary) hypertension; E78.00 Pure hypercholesterolemia, unspecified; E11.9 Type 2 diabetes mellitus without complications; E03.9 Hypothyroidism, unspecified; K21.9 Gastro-esophageal reflux disease without esophagitis; Z91.041 Radiographic dye allergy status; Z88.8 Allergy status to other drugs, medicaments and biological substances; Z79.890 Hormone replacement therapy; Z79.899 Other long term (current) drug therapy; Z79.84 Long term (current) use of oral hypoglycemic drugs; Z79.01 Long term (current) use of anticoagulants; W01.198A Fall on same level from slipping, tripping and stumbling with subsequent striking against other object, initial encounter; Y93.89 Activity, other specified
CPT/HCPCS: 70450; 70450-26; 72125; 72125-26; 73030-26-LT; 73030-LT; 76377; 76377-26; 99284

== ENCOUNTER 2024-08-02 13:24 | Emergency (ER) | payer MEDICARE ==
[2024-08-02 15:23] LABS: BASOPHILS ABSOLUTE AUTO 0.03 K/uL (0.00-0.10); BASOPHILS PERCENT AUTO 0.3 % (0.1-1.3); EOSINOPHILS ABSOLUTE AUTO 0.13 K/uL (0.00-0.40); EOSINOPHILS PERCENT AUTO 1.2 % (0.0-5.4); HEMATOCRIT 37.5 % (38.4-49.7); HEMOGLOBIN 12.6 g/dL (12.9-16.9); IMMATURE GRAN ABSOLUTE AUTO 0.06 K/uL (0.00-0.23); IMMATURE GRAN PERCENT AUTO 0.5 % (0.0-0.7); LYMPHOCYTES ABSOLUTE AUTO 1.11 K/uL (0.8-3.3); LYMPHOCYTES PERCENT AUTO 9.9 % (11.4-47.7); MEAN CORPUSCULAR HEMOGLOBIN 28.8 pg (31.6-35.5); MEAN CORPUSCULAR HGB CONC 33.6 g/dL (31.6-35.5); MEAN CORPUSCULAR VOLUME 85.8 fL (81.4-99.0); MONOCYTES ABSOLUTE AUTO 1.12 K/uL (0.20-0.90); NEUTROPHILS ABSOLUTE AUTO 8.72 K/uL (1.0-7.6); NEUTROPHILS PERCENT AUTO 78.1 % (40.0-78.1); PLATELET COUNT,PLT 221 K/uL (130-375); RED BLOOD CELL COUNT 4.37 M/uL (4.14-5.76); WHITE BLOOD CELL COUNT,WBC 11.2 K/uL (3.2-11.0)
[2024-08-02 15:39] LABS: INR 2.6; PROTHROMBIN TIME 25.6 sec (9.2-10.6)
[2024-08-02 15:49] LABS: CALCIUM 9.8 mg/dL (8.5-10.1); CREATININE 1.7 mg/dL (0.8-1.3); EST CRCL DRUG DOSING (CG) 41.01 mL/min
[2024-08-02 15:52] LABS: ANION GAP 10.9 mmol/L (5.0-14.0); POTASSIUM,K 2.9 mmol/L (3.6-5.2)
[2024-08-02] MEDS: Potassium Chloride 10 MEQ in Premix Bag 1 BAG IV ONE (16:32)
[2024-08-02] MEDS: Potassium Chloride 20 MEQ Tab.ER PO ONE (16:32)
[2024-08-02] MEDS: Sodium Chloride 0.9% 1,000 ML IV ONE (16:32)
[2024-08-02] MEDS: Sodium Chloride 0.9% 500 ML IV ONE (16:33)
[2024-08-02 16:37] VITALS: BP 116/75; PULSE 78
== END 2024-08-02 18:30 | disposition home or self-care (01) ==
LOC: JP.ED 13:24
DX: L03.115 Cellulitis of right lower limb (principal); L03.116 Cellulitis of left lower limb; E87.6 Hypokalemia; I89.0 Lymphedema, not elsewhere classified; E78.00 Pure hypercholesterolemia, unspecified; I10 Essential (primary) hypertension; E11.9 Type 2 diabetes mellitus without complications; E03.9 Hypothyroidism, unspecified; E66.9 Obesity, unspecified; Z87.891 Personal history of nicotine dependence; Z79.899 Other long term (current) drug therapy; Z79.890 Hormone replacement therapy; Z79.82 Long term (current) use of aspirin; Z88.8 Allergy status to other drugs, medicaments and biological substances
CPT/HCPCS: 36415; 71045; 71045-26; 80048; 83880; 85025; 85610; 93970; 93970-26; 96365; 99284; 99285-25; A9270-GY; J3480; J7030

== ENCOUNTER 2024-08-24 02:14 | Emergency (ER) | payer MEDICARE ==
[2024-08-24 02:59] LABS: INR 2.6; PROTHROMBIN TIME 25.6 sec (9.2-10.6)
[2024-08-24] MEDS: Ondansetron 4 MG Tab.DIS PO ONE (03:39)
[2024-08-24 09:48] VITALS: BP 123/74; PULSE 100
== END 2024-08-24 09:48 | disposition home or self-care (01) ==
LOC: JP.ED 02:14
DX: R04.0 Epistaxis (principal); I10 Essential (primary) hypertension; E78.00 Pure hypercholesterolemia, unspecified; K21.9 Gastro-esophageal reflux disease without esophagitis; E11.9 Type 2 diabetes mellitus without complications; E03.9 Hypothyroidism, unspecified; E66.9 Obesity, unspecified; Z68.37 Body mass index [BMI] 37.0-37.9, adult; Z88.8 Allergy status to other drugs, medicaments and biological substances; Z91.041 Radiographic dye allergy status; Z79.01 Long term (current) use of anticoagulants; Z79.84 Long term (current) use of oral hypoglycemic drugs; Z79.899 Other long term (current) drug therapy
CPT/HCPCS: 30901; 36415; 85018; 85610; 99283; Q0162

== ENCOUNTER 2024-09-07 15:36 | Emergency (ER) | payer MEDICARE ==
[2024-09-07 15:53] VITALS: BP 101/49; PULSE 87
[2024-09-07] MEDS: Oxymetazoline 0.05% Nasal Spray 30 ML Bottle NAS ONE (16:01)
[2024-09-07] MEDS ORDERED: Oxymetazoline 0.05% Nasal Spray 30 ML Bottle NAS SCH (21:00)
== END 2024-09-07 16:51 | disposition home or self-care (01) ==
LOC: JP.ED 15:36
DX: R04.0 Epistaxis (principal); I10 Essential (primary) hypertension; E78.00 Pure hypercholesterolemia, unspecified; K21.9 Gastro-esophageal reflux disease without esophagitis; E11.9 Type 2 diabetes mellitus without complications; E03.9 Hypothyroidism, unspecified; E66.9 Obesity, unspecified; Z68.36 Body mass index [BMI] 36.0-36.9, adult; Z88.8 Allergy status to other drugs, medicaments and biological substances; Z91.041 Radiographic dye allergy status; Z79.01 Long term (current) use of anticoagulants; Z79.84 Long term (current) use of oral hypoglycemic drugs; Z79.890 Hormone replacement therapy; Z79.899 Other long term (current) drug therapy
CPT/HCPCS: 99283; A9270-GY

== ENCOUNTER 2024-12-25 20:21 | Emergency (ER) | payer MEDICARE ==
[2024-12-25] MEDS ORDERED: Sodium Chloride 0.9% 10 ML Syringe FLUSH PRN (20:50)
[2024-12-25 21:07] LABS: BASOPHILS PERCENT AUTO 0.2 % (0.1-1.3); EOSINOPHILS ABSOLUTE AUTO 0.08 K/uL (0.00-0.40); EOSINOPHILS PERCENT AUTO 0.8 % (0.0-5.4); HEMATOCRIT 35.1 % (38.4-49.7); HEMOGLOBIN 11.7 g/dL (12.9-16.9); IMMATURE GRAN ABSOLUTE AUTO 0.06 K/uL (0.00-0.23); IMMATURE GRAN PERCENT AUTO 0.6 % (0.0-0.7); LYMPHOCYTES ABSOLUTE AUTO 0.86 K/uL (0.8-3.3); LYMPHOCYTES PERCENT AUTO 8.7 % (11.4-47.7); MEAN CORPUSCULAR HEMOGLOBIN 27.5 pg (31.6-35.5); MEAN CORPUSCULAR HGB CONC 33.3 g/dL (31.6-35.5); MEAN CORPUSCULAR VOLUME 82.6 fL (81.4-99.0); MONOCYTES ABSOLUTE AUTO 0.89 K/uL (0.20-0.90); NEUTROPHILS ABSOLUTE AUTO 8.01 K/uL (1.0-7.6); NEUTROPHILS PERCENT AUTO 80.7 % (40.0-78.1); PLATELET COUNT,PLT 197 K/uL (130-375); RED BLOOD CELL COUNT 4.25 M/uL (4.14-5.76); WHITE BLOOD CELL COUNT,WBC 9.9 K/uL (3.2-11.0)
[2024-12-25 21:12] LABS: BASOPHILS ABSOLUTE AUTO 0.02 K/uL (0.00-0.10)
[2024-12-25 21:23] LABS: CALCIUM 9.3 mg/dL (8.5-10.1); CREATININE 1.9 mg/dL (0.8-1.3); EST CRCL DRUG DOSING (CG) 36.69 mL/min; POTASSIUM,K 3.6 mmol/L (3.6-5.2)
[2024-12-25 21:24] LABS: PROTHROMBIN TIME 20.3 sec (9.2-10.6)
[2024-12-25 21:26] LABS: ANION GAP 13.6 mmol/L (5.0-14.0)
[2024-12-26 02:28] VITALS: PULSE 77
[2024-12-26 06:28] VITALS: BP 119/61
== END 2024-12-26 09:27 | disposition home or self-care (01) ==
LOC: JP.ED 20:21
DX: S40.012A Contusion of left shoulder, initial encounter (principal); R55 Syncope and collapse; I10 Essential (primary) hypertension; E78.00 Pure hypercholesterolemia, unspecified; E11.9 Type 2 diabetes mellitus without complications; E03.9 Hypothyroidism, unspecified; E66.9 Obesity, unspecified; Z79.899 Other long term (current) drug therapy; Z79.84 Long term (current) use of oral hypoglycemic drugs; Z79.890 Hormone replacement therapy; Z88.8 Allergy status to other drugs, medicaments and biological substances; W18.30XA Fall on same level, unspecified, initial encounter
CPT/HCPCS: 36415; 71250; 80048; 83605; 85025; 85610; 93005; 93010; 99283; 99284

== ENCOUNTER 2024-12-28 13:31 | Inpatient (IN) | payer MEDICARE ==
[2024-12-28] MEDS ORDERED: Sodium Chloride 0.9% 10 ML Syringe FLUSH PRN (13:33)
[2024-12-28 14:26] LABS: BASOPHILS PERCENT AUTO 0.1 % (0.1-1.3); EOSINOPHILS PERCENT AUTO 0.1 % (0.0-5.4); HEMATOCRIT 39.8 % (38.4-49.7); HEMOGLOBIN 12.9 g/dL (12.9-16.9); IMMATURE GRAN ABSOLUTE AUTO 0.06 K/uL (0.00-0.23); IMMATURE GRAN PERCENT AUTO 0.4 % (0.0-0.7); LYMPHOCYTES ABSOLUTE AUTO 0.63 K/uL (0.8-3.3); LYMPHOCYTES PERCENT AUTO 4.7 % (11.4-47.7); MEAN CORPUSCULAR HGB CONC 32.4 g/dL (31.6-35.5); MEAN CORPUSCULAR VOLUME 83.4 fL (81.4-99.0); MONOCYTES ABSOLUTE AUTO 1.35 K/uL (0.20-0.90); MONOCYTES PERCENT AUTO 10.1 % (3.3-12.6); NEUTROPHILS ABSOLUTE AUTO 11.27 K/uL (1.0-7.6); NEUTROPHILS PERCENT AUTO 84.6 % (40.0-78.1); PLATELET COUNT,PLT 235 K/uL (130-375); RED BLOOD CELL COUNT 4.77 M/uL (4.14-5.76); WHITE BLOOD CELL COUNT,WBC 13.4 K/uL (3.2-11.0)
[2024-12-28 14:27] LABS: BASE EXCESS VENOUS 5.7 mm/L; BICARBONATE,VENOUS 29.7 mmol/L; CARBOXYHEMOGLOBIN 2.2 % (0.0-1.6); METHEMOGLOBIN 0.8 %; O2 SATURATION VENOUS 84.9; OXYHEMOGLOBIN 82.4 %; PCO2 VENOUS 42.6 mm/Hg; PH,VENOUS 7.458 (7.350-7.450); PO2 VENOUS 53.1 mm/Hg; TOTAL HEMOGLOBIN 13.4 g/dL (13.5-18.0)
[2024-12-28 14:30] LABS: BASOPHILS ABSOLUTE AUTO 0.02 K/uL (0.00-0.10); EOSINOPHILS ABSOLUTE AUTO 0.02 K/uL (0.00-0.40)
[2024-12-28 14:42] LABS: INR 1.6
[2024-12-28 14:55] LABS: A/G RATIO 0.7 (1.2-2.2); ALANINE AMINOTRANSFERASE,ALT 19 U/L (12-78); ALBUMIN 3.6 g/dL (3.4-5.0); ALKALINE PHOSPHATASE 82 U/L (46-116); ASPARTATE AMNIOTRANSFERASE,AST 21 U/L (15-37); BILIRUBIN TOTAL 0.6 mg/dL (0.2-1.0); BLOOD UREA NITROGEN,BUN 45 mg/dL (7-18); C-REACTIVE PROTEIN 5.47 mg/dL (<0.50); CALCIUM 9.8 mg/dL (8.5-10.1); CARBON DIOXIDE,CO2 30 mmol/L (21-32); CHLORIDE,CL 95 mmol/L (100-108); CREATININE 2.1 mg/dL (0.8-1.3); EST CRCL DRUG DOSING (CG) 33.09 mL/min; ESTIMATED GFR 33 mL/min (>60); GLUCOSE RANDOM 163 mg/dL (74-106); LACTIC ACID 1.7 mmol/L (0.4-2.0); POTASSIUM,K 3.3 mmol/L (3.6-5.2); PRO B-TYPE NATRIUR PEPT,BNPPRO 99 pg/mL (5-125); PROTEIN TOTAL,TP 8.7 g/dL (6.4-8.2); SODIUM,NA 138 mmol/L (140-148)
[2024-12-28] MEDS: Sodium Chloride 0.9% 1,000 ML IV ONE (14:55)
[2024-12-28 14:57] LABS: ANION GAP 16.3 mmol/L (5.0-14.0)
[2024-12-28] MEDS: Piperacillin/Tazobactam 4.5 GM in Sodium Chloride 0.9% 100 ML IV ONE (14:57)
[2024-12-28 15:00] LABS: MAGNESIUM 2.1 mg/dL (1.8-2.4); TSH ULTRASENSITIVE 1.049 uIU/mL (0.358-3.740)
[2024-12-28] MEDS: VANCOmycin 2 GM in Sodium Chloride 0.9% 500 ML IV ONE (15:16)
[2024-12-28] MEDS ORDERED: Ondansetron 4 MG Tab.DIS PO PRN (16:46)
[2024-12-28] MEDS ORDERED: Ondansetron 4 MG/2 ML SDV IV PRN (16:46)
[2024-12-28] MEDS ORDERED: Albuterol 0.083% 2.5 MG/3 ML Neb Soln NEB PRN (16:46)
[2024-12-28 17:04] LABS: APPEARANCE,URINE CLEAR (CLEAR); BILIRUBIN,URINE NEGATIVE (NEGATIVE); COLOR,URINE YELLOW (YELLOW); GLUCOSE,URINE NEGATIVE (NEGATIVE); KETONES,URINE NEGATIVE (NEGATIVE); LEUKOCYTE ESTERASE,URINE TRACE (NEGATIVE); NITRITE,URINE NEGATIVE (NEGATIVE); OCCULT BLOOD,URINE TRACE-LYSED (NEGATIVE); PH,URINE 5.5 (5.0-8.0); PROTEIN,URINE NEGATIVE (NEGATIVE); UROBILINOGEN,URINE 0.2 EU/dL (0.2-1.0)
[2024-12-28] MEDS: Warfarin 5 MG Tab PO ONE (17:11)
[2024-12-28 17:12] LABS: AMORPHOUS SEDIMENT,URINE NOT SEEN; BACTERIA,URINE NOT SEEN; EPITHELIAL CELLS,URINE RARE; MUCUS,URINE NOT SEEN; RBC,URINE 0-5 (0-5); WBC,URINE 0-5 (0-5)
[2024-12-28] MEDS: Potassium Chloride 20 MEQ Tab.ER PO ONE (17:12)
[2024-12-28] MEDS: Insulin Lispro 100 Unit/ML 3 ML KwikPen SUBCUT SCH (19:21)
[2024-12-28] MEDS: Doxycycline 100 MG Cap PO SCH (19:38)
[2024-12-28] MEDS: Lactobacillus Rhamnosus GG (Probiotic) Cap PO SCH (21:39)
[2024-12-28] MEDS: Melatonin 3 MG Tab PO SCH (21:39)
[2024-12-28] MEDS: Diclofenac Sodium 1% Gel 100 GM Tube TOP SCH (21:41)
[2024-12-28] MEDS: cefTRIAXone 2 GM in Sodium Chloride 0.9% 50 ML IV SCH (21:54)
[2024-12-29 06:32] LABS: HEMATOCRIT 37.5 % (38.4-49.7); HEMOGLOBIN 11.9 g/dL (12.9-16.9); MEAN CORPUSCULAR HEMOGLOBIN 27.1 pg (31.6-35.5); MEAN CORPUSCULAR HGB CONC 31.7 g/dL (31.6-35.5); MEAN CORPUSCULAR VOLUME 85.4 fL (81.4-99.0); RED BLOOD CELL COUNT 4.39 M/uL (4.14-5.76); WHITE BLOOD CELL COUNT,WBC 11.5 K/uL (3.2-11.0)
[2024-12-29 06:47] LABS: CALCIUM 9.3 mg/dL (8.5-10.1); CREATININE 1.8 mg/dL (0.8-1.3); EST CRCL DRUG DOSING (CG) 38.73 mL/min; POTASSIUM,K 3.2 mmol/L (3.6-5.2)
[2024-12-29 06:49] LABS: INR 1.9; PROTHROMBIN TIME 18.7 sec (9.2-10.6)
[2024-12-29 06:51] LABS: ANION GAP 12.2 mmol/L (5.0-14.0)
[2024-12-29] MEDS: Levothyroxine 50 MCG Tab PO SCH (07:29)
[2024-12-29] MEDS: Pantoprazole 40 MG Tab.CR PO SCH (07:29)
[2024-12-29] MEDS: Cyanocobalamin (Vitamin B12) 1,000 MCG Tab SL SCH (08:16)
[2024-12-29] MEDS: Metoprolol Succinate 25 MG Tab.ER PO SCH (08:16)
[2024-12-29] MEDS: Sertraline 50 MG Tab PO SCH (08:16)
[2024-12-29] MEDS: atorvaSTATin 10 MG Tab PO SCH (08:17)
[2024-12-29] MEDS: Benztropine 1 MG Tab PO SCH (08:17)
[2024-12-29] MEDS: Finasteride 5 MG Tab PO SCH (08:17)
[2024-12-29] MEDS: Tamsulosin 0.4 MG Cap.ER PO SCH (08:17)
[2024-12-29] MEDS ORDERED: Metoprolol Succinate 50 MG Tab.ER PO SCH (09:00)
[2024-12-29] MEDS ORDERED: SERTRALINE HCL 100 MG PO SCH (09:00)
[2024-12-29] MEDS ORDERED: CYANOCOBALAMIN 500 MCG SL SCH (09:00)
[2024-12-29] MEDS ORDERED: VANCOmycin 1.5 GM in Sodium Chloride 0.9% 250 ML IV SCH (09:15)
[2024-12-29] MEDS: Potassium Chloride 20 MEQ Tab.ER PO ONE (09:32)
[2024-12-29] MEDS: VANCOmycin 1.5 GM in Sodium Chloride 0.9% 250 ML IV SCH (09:45)
[2024-12-29] MEDS: predniSONE 20 MG Tab PO ONE (12:09)
[2024-12-29] MEDS: Warfarin 2.5 MG Tab PO SCH (12:09)
[2024-12-30] MEDS: Loperamide 2 MG Cap PO PRN (03:27)
[2024-12-30 06:00] LABS: HEMATOCRIT 35.7 % (38.4-49.7); HEMOGLOBIN 11.4 g/dL (12.9-16.9); MEAN CORPUSCULAR HEMOGLOBIN 27.1 pg (31.6-35.5); MEAN CORPUSCULAR HGB CONC 31.9 g/dL (31.6-35.5); RED BLOOD CELL COUNT 4.2 M/uL (4.14-5.76); WHITE BLOOD CELL COUNT,WBC 11.6 K/uL (3.2-11.0)
[2024-12-30 06:17] LABS: INR 2.5; PROTHROMBIN TIME 24.7 sec (9.2-10.6)
[2024-12-30 06:21] LABS: CALCIUM 9.9 mg/dL (8.5-10.1); CREATININE 1.4 mg/dL (0.8-1.3); EST CRCL DRUG DOSING (CG) 49.8 mL/min; POTASSIUM,K 3.2 mmol/L (3.6-5.2)
[2024-12-30 06:25] LABS: ANION GAP 15.2 mmol/L (5.0-14.0)
[2024-12-30] MEDS: predniSONE 20 MG Tab PO SCH (07:32)
[2024-12-30] MEDS: Potassium Chloride 20 MEQ Tab.ER PO SCH (09:02)
[2024-12-30] MEDS: Sodium Chloride 0.9% 1,000 ML IV SCH (22:26)
[2024-12-31 05:59] LABS: HEMATOCRIT 37.5 % (38.4-49.7); HEMOGLOBIN 11.8 g/dL (12.9-16.9); MEAN CORPUSCULAR HEMOGLOBIN 27.3 pg (31.6-35.5); MEAN CORPUSCULAR HGB CONC 31.5 g/dL (31.6-35.5); MEAN CORPUSCULAR VOLUME 86.6 fL (81.4-99.0); RED BLOOD CELL COUNT 4.33 M/uL (4.14-5.76); WHITE BLOOD CELL COUNT,WBC 8.1 K/uL (3.2-11.0)
[2024-12-31 06:15] LABS: INR 3.1
[2024-12-31 06:20] LABS: A/G RATIO 0.6 (1.2-2.2); ALANINE AMINOTRANSFERASE,ALT 19 U/L (12-78); ALBUMIN 2.7 g/dL (3.4-5.0); ALKALINE PHOSPHATASE 66 U/L (46-116); ASPARTATE AMNIOTRANSFERASE,AST 20 U/L (15-37); BILIRUBIN TOTAL 0.3 mg/dL (0.2-1.0); BLOOD UREA NITROGEN,BUN 37 mg/dL (7-18); C-REACTIVE PROTEIN 5.48 mg/dL (<0.50); CALCIUM 9.6 mg/dL (8.5-10.1); CARBON DIOXIDE,CO2 27 mmol/L (21-32); CHLORIDE,CL 109 mmol/L (100-108); CREATININE 1.3 mg/dL (0.8-1.3); EST CRCL DRUG DOSING (CG) 53.63 mL/min; ESTIMATED GFR 59 mL/min (>60); GLUCOSE RANDOM 95 mg/dL (74-106); POTASSIUM,K 3.6 mmol/L (3.6-5.2); PROTEIN TOTAL,TP 7.6 g/dL (6.4-8.2); SODIUM,NA 146 mmol/L (140-148)
[2024-12-31 06:22] LABS: ANION GAP 13.6 mmol/L (5.0-14.0)
[2024-12-31] MEDS: Potassium Chloride 10 MEQ in Premix Bag 1 BAG IV SCH (09:21)
[2025-01-01 05:56] LABS: CALCIUM 9.2 mg/dL (8.5-10.1); CREATININE 1.1 mg/dL (0.8-1.3); EST CRCL DRUG DOSING (CG) 63.38 mL/min; POTASSIUM,K 3.9 mmol/L (3.6-5.2)
[2025-01-01 05:58] LABS: ANION GAP 14.9 mmol/L (5.0-14.0)
[2025-01-01 06:07] LABS: INR 2.6; PROTHROMBIN TIME 25.4 sec (9.2-10.6)
[2025-01-01] MEDS: Cefdinir 300 MG Cap PO SCH (21:05)
[2025-01-01] MEDS: Acetaminophen 325 MG Tab PO PRN (21:05)
[2025-01-02 06:05] LABS: INR 3.2; PROTHROMBIN TIME 31.1 sec (9.2-10.6)
[2025-01-02] MEDS: Warfarin 2.5 MG Tab PO SCH (12:57)
[2025-01-02] MEDS ORDERED: Warfarin 2.5 MG Tab PO SCH (13:00)
[2025-01-02] MEDS: Loperamide 2 MG Cap PO PRN (13:52)
[2025-01-03 06:15] LABS: INR 2.7; PROTHROMBIN TIME 26.4 sec (9.2-10.6)
[2025-01-03 09:39] VITALS: BP 110/66; PULSE 73
[2025-01-03] MEDS ORDERED: Warfarin 2.5 MG Tab PO SCH (13:00)
== END 2025-01-03 11:06 | DRG 682 ==
LOC: JP.ED 13:31 → JP.MS 16:05
PROVIDERS: ADMIT Internal Medicine; ATTEND Hospitalist
DX: N17.9 Acute kidney failure, unspecified (principal); R09.02 Hypoxemia; J18.9 Pneumonia, unspecified organism; I10 Essential (primary) hypertension; J96.01 Acute respiratory failure with hypoxia; I50.32 Chronic diastolic (congestive) heart failure; K56.600 Partial intestinal obstruction, unspecified as to cause; E87.6 Hypokalemia; H54.7 Unspecified visual loss; E78.00 Pure hypercholesterolemia, unspecified; I11.0 Hypertensive heart disease with heart failure; G47.30 Sleep apnea, unspecified; K59.09 Other constipation; K21.9 Gastro-esophageal reflux disease without esophagitis; N40.0 Benign prostatic hyperplasia without lower urinary tract symptoms; Z68.38 Body mass index [BMI] 38.0-38.9, adult; M19.90 Unspecified osteoarthritis, unspecified site; R51.9 Headache, unspecified; F41.9 Anxiety disorder, unspecified; F31.9 Bipolar disorder, unspecified; E03.9 Hypothyroidism, unspecified; E66.9 Obesity, unspecified; L40.9 Psoriasis, unspecified; Z96.619 Presence of unspecified artificial shoulder joint; R79.1 Abnormal coagulation profile; R19.7 Diarrhea, unspecified; F20.9 Schizophrenia, unspecified; I87.2 Venous insufficiency (chronic) (peripheral); E11.59 Type 2 diabetes mellitus with other circulatory complications; Z90.79 Acquired absence of other genital organ(s); Z86.0100 Personal history of colon polyps, unspecified; Z86.711 Personal history of pulmonary embolism; Z86.718 Personal history of other venous thrombosis and embolism; Z87.81 Personal history of (healed) traumatic fracture; Z98.890 Other specified postprocedural states; Z79.890 Hormone replacement therapy; Z79.899 Other long term (current) drug therapy; Z79.01 Long term (current) use of anticoagulants; Z79.84 Long term (current) use of oral hypoglycemic drugs; Z91.041 Radiographic dye allergy status; Z88.8 Allergy status to other drugs, medicaments and biological substances; Z68.35 Body mass index [BMI] 35.0-35.9, adult
CPT/HCPCS: 36415; 71045 ×2; 80053; 81001; 82550; 82803; 83605; 83735; 83880; 84443; 85025; 85610; 86140; 87040 ×2; 87046; 87077; 87186; 87427 ×2; 87493; 89055; 93005; 96365; 96367; 99285; J2543; J7030; J7040; U0002; 74019; 74019-26; 74176; 74176-26; 80048; 80202; 82947; 85027; 97110-GO; 97110-GP; 97161-GP; 97165-GO; 97530-GP; 99222; 99232; 99238; A9270-GY; J0696; J1815; J3480; J7050; J7512

== ENCOUNTER 2025-02-17 18:13 | Inpatient (IN) | payer MEDICARE ==
[2025-02-17 18:58] LABS: BASOPHILS PERCENT AUTO 0.2 % (0.1-1.3); EOSINOPHILS ABSOLUTE AUTO 0.10 K/uL (0.00-0.40); EOSINOPHILS PERCENT AUTO 0.9 % (0.0-5.4); IMMATURE GRAN ABSOLUTE AUTO 0.06 K/uL (0.00-0.23); IMMATURE GRAN PERCENT AUTO 0.5 % (0.0-0.7); LYMPHOCYTES ABSOLUTE AUTO 0.93 K/uL (0.8-3.3); LYMPHOCYTES PERCENT AUTO 8.1 % (11.4-47.7); MONOCYTES ABSOLUTE AUTO 1.06 K/uL (0.20-0.90); MONOCYTES PERCENT AUTO 9.3 % (3.3-12.6); NEUTROPHILS ABSOLUTE AUTO 9.27 K/uL (1.0-7.6); NEUTROPHILS PERCENT AUTO 81.0 % (40.0-78.1); PLATELET COUNT,PLT 139 K/uL (130-375); RED BLOOD CELL COUNT 4.06 M/uL (4.14-5.76); WHITE BLOOD CELL COUNT,WBC 11.4 K/uL (3.2-11.0)
[2025-02-17 19:01] LABS: BASOPHILS ABSOLUTE AUTO 0.02 K/uL (0.00-0.10)
[2025-02-17 19:18] LABS: A/G RATIO 0.8 (1.2-2.2); ALANINE AMINOTRANSFERASE,ALT 18 U/L (12-78); ASPARTATE AMNIOTRANSFERASE,AST 14 U/L (15-37); BILIRUBIN TOTAL 0.4 mg/dL (0.2-1.0); BLOOD UREA NITROGEN,BUN 19 mg/dL (7-18); CARBON DIOXIDE,CO2 30 mmol/L (21-32); CHLORIDE,CL 99 mmol/L (100-108); CREATININE 1.3 mg/dL (0.8-1.3); EST CRCL DRUG DOSING (CG) 53.63 mL/min; ESTIMATED GFR 59 mL/min (>60); POTASSIUM,K 3.2 mmol/L (3.6-5.2); PROTEIN TOTAL,TP 7.1 g/dL (6.4-8.2); SODIUM,NA 139 mmol/L (140-148)
[2025-02-17 19:27] LABS: GLUCOSE RANDOM 141 mg/dL (74-106)
[2025-02-17] MEDS ORDERED: Sodium Chloride 0.9% 10 ML Syringe FLUSH PRN (22:30)
[2025-02-17] MEDS ORDERED: 50% Dextrose in Water 50 ML Syringe IV PRN (22:30)
[2025-02-17] MEDS ORDERED: Ondansetron 4 MG/2 ML SDV IV PRN (22:30)
[2025-02-17] MEDS ORDERED: Glucose Gel 15 GM in 37.5 GM Tube PO PRN (22:30)
[2025-02-17] MEDS: Bumetanide 2.5 MG/10 ML MDV IVPUSH ONE (23:03)
[2025-02-17] MEDS: Potassium Chloride 20 MEQ Tab.ER PO ONE (23:03)
[2025-02-18 01:28] LABS: APPEARANCE,URINE CLEAR (CLEAR); EPITHELIAL CELLS,URINE NOT SEEN; GLUCOSE,URINE NORMAL (NEGATIVE); OCCULT BLOOD,URINE NEGATIVE (NEGATIVE)
[2025-02-18 05:38] LABS: PLATELET COUNT,PLT 144.0 K/uL (130-375); RED BLOOD CELL COUNT 3.93 M/uL (4.14-5.76); WHITE BLOOD CELL COUNT,WBC 9.1 K/uL (3.2-11.0)
[2025-02-18 05:53] LABS: BLOOD UREA NITROGEN,BUN 18.0 mg/dL (7-18); CARBON DIOXIDE,CO2 35.0 mmol/L (21-32); CHLORIDE,CL 98.0 mmol/L (100-108); CREATININE 1.3 mg/dL (0.8-1.3); EST CRCL DRUG DOSING (CG) 53.45 mL/min; ESTIMATED GFR 59.0 mL/min (>60); GLUCOSE RANDOM 125.0 mg/dL (74-106); POTASSIUM,K 3.1 mmol/L (3.6-5.2); SODIUM,NA 139.0 mmol/L (140-148)
[2025-02-18] MEDS: Insulin Lispro 100 Unit/ML 3 ML KwikPen SUBCUT SCH (09:10)
[2025-02-18] MEDS: Potassium Chloride 20 MEQ Tab.ER PO ONE ×3 (09:12→16:36)
[2025-02-18] MEDS: Bumetanide 1 MG/4 ML MDV IVPUSH ONE (10:42)
[2025-02-18] MEDS: Magnesium Sulfate 2 GM/50 mL 2 GM in Premix Bag 1 BAG IV SCH (10:48)
[2025-02-18] MEDS: Bumetanide 1 MG/4 ML MDV IVPUSH SCH (18:16)
[2025-02-19 05:38] LABS: BLOOD UREA NITROGEN,BUN 21.0 mg/dL (7-18); CARBON DIOXIDE,CO2 32.0 mmol/L (21-32); CHLORIDE,CL 100.0 mmol/L (100-108); CREATININE 1.4 mg/dL (0.8-1.3); EST CRCL DRUG DOSING (CG) 49.63 mL/min; ESTIMATED GFR 54.0 mL/min (>60); GLUCOSE RANDOM 123.0 mg/dL (74-106); POTASSIUM,K 3.1 mmol/L (3.6-5.2); SODIUM,NA 138.0 mmol/L (140-148)
[2025-02-19] MEDS: Potassium Chloride 20 MEQ Tab.ER PO ONE ×3 (09:11→17:28)
[2025-02-20 06:02] LABS: BLOOD UREA NITROGEN,BUN 26.0 mg/dL (7-18); CARBON DIOXIDE,CO2 33.0 mmol/L (21-32); CHLORIDE,CL 100.0 mmol/L (100-108); CREATININE 1.3 mg/dL (0.8-1.3); EST CRCL DRUG DOSING (CG) 53.45 mL/min; ESTIMATED GFR 59.0 mL/min (>60); GLUCOSE RANDOM 111.0 mg/dL (74-106); POTASSIUM,K 3.7 mmol/L (3.6-5.2); SODIUM,NA 139.0 mmol/L (140-148)
[2025-02-20] MEDS: Potassium Chloride 20 MEQ Tab.ER PO SCH (09:46)
[2025-02-20] MEDS: Magnesium Sulfate 2 GM/50 mL 2 GM in Premix Bag 1 BAG IV ONE (09:47)
[2025-02-20] MEDS: Bumetanide 1 MG/4 ML MDV IVPUSH SCH (17:02)
[2025-02-21 06:31] LABS: BLOOD UREA NITROGEN,BUN 30.0 mg/dL (7-18); CARBON DIOXIDE,CO2 30.0 mmol/L (21-32); CHLORIDE,CL 99.0 mmol/L (100-108); CREATININE 1.4 mg/dL (0.8-1.3); EST CRCL DRUG DOSING (CG) 49.63 mL/min; ESTIMATED GFR 54.0 mL/min (>60); GLUCOSE RANDOM 114.0 mg/dL (74-106); POTASSIUM,K 3.2 mmol/L (3.6-5.2); SODIUM,NA 137.0 mmol/L (140-148)
[2025-02-21] MEDS: Potassium Chloride 20 MEQ Tab.ER PO ONE (08:38)
[2025-02-22 11:45] VITALS: BP 121/72; PULSE 78
== END 2025-02-22 16:45 | disposition home health service (06) | DRG 291 ==
LOC: JP.ED 18:13 → JP.MS 21:09 → OBSVTOIN 02-18 12:58
PROVIDERS: ADMIT Hospitalist; ATTEND Internal Medicine
DX: I13.0 Hypertensive heart and chronic kidney disease with heart failure and stage 1 through stage 4 chronic kidney disease, or unspecified chronic kidney disease (principal); I50.33 Acute on chronic diastolic (congestive) heart failure; J96.01 Acute respiratory failure with hypoxia; H26.9 Unspecified cataract; H54.7 Unspecified visual loss; R06.02 Shortness of breath; G47.30 Sleep apnea, unspecified; K59.09 Other constipation; R29.6 Repeated falls; K44.9 Diaphragmatic hernia without obstruction or gangrene; N40.0 Benign prostatic hyperplasia without lower urinary tract symptoms; N42.9 Disorder of prostate, unspecified; M10.9 Gout, unspecified; M19.90 Unspecified osteoarthritis, unspecified site; R51.9 Headache, unspecified; F41.9 Anxiety disorder, unspecified; F31.9 Bipolar disorder, unspecified; E78.00 Pure hypercholesterolemia, unspecified; E66.9 Obesity, unspecified; E55.9 Vitamin D deficiency, unspecified; E86.0 Dehydration; E87.6 Hypokalemia; N18.31 Chronic kidney disease, stage 3a; E11.22 Type 2 diabetes mellitus with diabetic chronic kidney disease; F20.9 Schizophrenia, unspecified; E83.42 Hypomagnesemia; I10 Essential (primary) hypertension; Z86.718 Personal history of other venous thrombosis and embolism; E11.9 Type 2 diabetes mellitus without complications; Z79.01 Long term (current) use of anticoagulants; E03.9 Hypothyroidism, unspecified; Z98.890 Other specified postprocedural states; Z96.619 Presence of unspecified artificial shoulder joint; Z68.35 Body mass index [BMI] 35.0-35.9, adult; Z99.81 Dependence on supplemental oxygen; K21.9 Gastro-esophageal reflux disease without esophagitis; Z87.891 Personal history of nicotine dependence; Z91.041 Radiographic dye allergy status; Z88.8 Allergy status to other drugs, medicaments and biological substances; Z79.890 Hormone replacement therapy; Z79.899 Other long term (current) drug therapy; Z79.84 Long term (current) use of oral hypoglycemic drugs
CPT/HCPCS: 36415 ×2; 71045 ×2; 73080 ×2; 80048; 80053; 81001; 82550; 82947 ×2; 83605; 83735; 85025; 85027; 96365; 96366; 96372; 96375; 96376; 97161; 99222; 99285 ×2; A9270 ×16; G0378 ×3; J1650; J1939; J3475; J3490; J7040; 92610-GN; 93306; 97110-GP; 97530-GP; 99232; 99239

== ENCOUNTER 2025-04-30 10:46 | Emergency (ER) | payer MEDICARE ==
[2025-04-30 13:51] LABS: BASOPHILS PERCENT AUTO 0.1 % (0.1-1.3); EOSINOPHILS PERCENT AUTO 0.0 % (0.0-5.4); IMMATURE GRAN ABSOLUTE AUTO 0.04 K/uL (0.00-0.23); IMMATURE GRAN PERCENT AUTO 0.5 % (0.0-0.7); LYMPHOCYTES ABSOLUTE AUTO 0.46 K/uL (0.8-3.3); LYMPHOCYTES PERCENT AUTO 6.0 % (11.4-47.7); MONOCYTES ABSOLUTE AUTO 0.94 K/uL (0.20-0.90); MONOCYTES PERCENT AUTO 12.2 % (3.3-12.6); NEUTROPHILS ABSOLUTE AUTO 6.28 K/uL (1.0-7.6); NEUTROPHILS PERCENT AUTO 81.2 % (40.0-78.1); PLATELET COUNT,PLT 239 K/uL (130-375); RED BLOOD CELL COUNT 4.88 M/uL (4.14-5.76); WHITE BLOOD CELL COUNT,WBC 7.7 K/uL (3.2-11.0)
[2025-04-30 14:08] LABS: BASOPHILS ABSOLUTE AUTO 0.01 K/uL (0.00-0.10); EOSINOPHILS ABSOLUTE AUTO 0.00 K/uL (0.00-0.40)
[2025-04-30 14:17] LABS: A/G RATIO 0.7 (1.2-2.2); ALANINE AMINOTRANSFERASE,ALT 15 U/L (12-78); ASPARTATE AMNIOTRANSFERASE,AST 22 U/L (15-37); BILIRUBIN TOTAL 0.4 mg/dL (0.2-1.0); BLOOD UREA NITROGEN,BUN 23 mg/dL (7-18); CARBON DIOXIDE,CO2 31 mmol/L (21-32); CHLORIDE,CL 97 mmol/L (100-108); CREATININE 1.6 mg/dL (0.8-1.3); EST CRCL DRUG DOSING (CG) 43.57 mL/min; ESTIMATED GFR 46 mL/min (>60); GLUCOSE RANDOM 257 mg/dL (74-106); POTASSIUM,K 3.8 mmol/L (3.6-5.2); PROTEIN TOTAL,TP 9.4 g/dL (6.4-8.2); SODIUM,NA 138 mmol/L (140-148)
[2025-04-30 14:26] LABS: PRO B-TYPE NATRIUR PEPT,BNPPRO 149.0 pg/mL (5-125); TROPONIN I HIGH SENSITIVITY 5.0 pg/mL (<=60.3)
[2025-04-30 14:32] LABS: LACTIC ACID 3.4 mmol/L (0.4-2.0)
[2025-04-30] MEDS ORDERED: Iopamidol 755 Mg/ML 100 ML Bottle IV SCH (14:45)
[2025-04-30 14:50] LABS: APPEARANCE,URINE CLEAR (CLEAR); GLUCOSE,URINE NEGATIVE (NEGATIVE); OCCULT BLOOD,URINE NEGATIVE (NEGATIVE)
[2025-04-30 14:56] LABS: AMPHETAMINES SCREEN, URINE NEGATIVE (NEGATIVE); METHADONE SCREEN, URINE NEGATIVE (NEGATIVE); METHAMPHETAMINES SCREEN, URINE NEGATIVE (NEGATIVE); OXYCODONE SCREEN,URINE NEGATIVE (NEGATIVE); PROPOXYPHENE SCREEN,URINE NEGATIVE (NEGATIVE); THC SCREEN,URINE 50 NG/ML NEGATIVE (NEGATIVE)
[2025-04-30 15:01] LABS: SQUAMOUS EPITHELIAL CELLS,UR RARE /HPF; UROTHELIAL CELLS,URINE NOT SEEN /HPF
[2025-04-30] MEDS ORDERED: diphenhydrAMINE 50 MG/ML SDV IM ONE (15:48)
[2025-04-30] MEDS: diphenhydrAMINE 50 MG/ML SDV IVPUSH ONE (15:57)
[2025-04-30 20:36] VITALS: BP 136/83; PULSE 80
== END 2025-04-30 21:15 ==
LOC: JP.ED 10:46
DX: U07.1 COVID-19 (principal); K91.30 Postprocedural intestinal obstruction, unspecified as to partial versus complete; I10 Essential (primary) hypertension; K21.9 Gastro-esophageal reflux disease without esophagitis; E78.00 Pure hypercholesterolemia, unspecified; E66.9 Obesity, unspecified; E11.9 Type 2 diabetes mellitus without complications; E03.9 Hypothyroidism, unspecified; Z91.041 Radiographic dye allergy status; Z88.8 Allergy status to other drugs, medicaments and biological substances; Z79.01 Long term (current) use of anticoagulants; Z79.84 Long term (current) use of oral hypoglycemic drugs; Z79.890 Hormone replacement therapy; Z79.899 Other long term (current) drug therapy; Z68.38 Body mass index [BMI] 38.0-38.9, adult
CPT/HCPCS: 36415; 71045; 71275; 74177; 80053; 80305; 81001; 83605; 83735; 83880; 84443; 84484; 85025; 85379; 86140; 87040; 87428; 93005; 96361; 96365; 96375; 99285; J0696; J1200; J7030; 93010

== ENCOUNTER 2025-06-10 12:07 | Inpatient (IN) | payer MEDICARE ==
[2025-06-10] MEDS ORDERED: Naloxone 0.4 MG/ML SDV IVPUSH PRN (12:41)
[2025-06-10 13:06] LABS: BASOPHILS PERCENT AUTO 0.2 % (0.1-1.3); EOSINOPHILS ABSOLUTE AUTO 0.23 K/uL (0.00-0.40); EOSINOPHILS PERCENT AUTO 2.3 % (0.0-5.4); IMMATURE GRAN ABSOLUTE AUTO 0.03 K/uL (0.00-0.23); IMMATURE GRAN PERCENT AUTO 0.3 % (0.0-0.7); LYMPHOCYTES ABSOLUTE AUTO 1.15 K/uL (0.8-3.3); LYMPHOCYTES PERCENT AUTO 11.7 % (11.4-47.7); MONOCYTES ABSOLUTE AUTO 0.92 K/uL (0.20-0.90); MONOCYTES PERCENT AUTO 9.3 % (3.3-12.6); NEUTROPHILS ABSOLUTE AUTO 7.51 K/uL (1.0-7.6); NEUTROPHILS PERCENT AUTO 76.2 % (40.0-78.1); PLATELET COUNT,PLT 270 K/uL (130-375); RED BLOOD CELL COUNT 3.91 M/uL (4.14-5.76); WHITE BLOOD CELL COUNT,WBC 9.9 K/uL (3.2-11.0)
[2025-06-10 13:08] LABS: BASOPHILS ABSOLUTE AUTO 0.02 K/uL (0.00-0.10)
[2025-06-10 13:27] LABS: A/G RATIO 0.5 (1.2-2.2); ALANINE AMINOTRANSFERASE,ALT 14 U/L (12-78); ASPARTATE AMNIOTRANSFERASE,AST 16 U/L (15-37); BILIRUBIN TOTAL 0.4 mg/dL (0.2-1.0); BLOOD UREA NITROGEN,BUN 14 mg/dL (7-18); CARBON DIOXIDE,CO2 31 mmol/L (21-32); CHLORIDE,CL 98 mmol/L (100-108); CREATININE 1.2 mg/dL (0.8-1.3); ESTIMATED GFR 65 mL/min (>60); GLUCOSE RANDOM 106 mg/dL (74-106); POTASSIUM,K 3.3 mmol/L (3.6-5.2); PROTEIN TOTAL,TP 8.0 g/dL (6.4-8.2); SODIUM,NA 137 mmol/L (140-148)
[2025-06-10 13:30] LABS: LACTIC ACID 0.6 mmol/L (0.4-2.0)
[2025-06-10 16:06] LABS: APPEARANCE,URINE TURBID (CLEAR); GLUCOSE,URINE NEGATIVE (NEGATIVE); OCCULT BLOOD,URINE SMALL (NEGATIVE)
[2025-06-10 16:23] LABS: SQUAMOUS EPITHELIAL CELLS,UR NOT SEEN /HPF
[2025-06-10 16:29] LABS: UROTHELIAL CELLS,URINE MODERATE /HPF
[2025-06-10] MEDS: Potassium Chloride 20 MEQ Tab.ER PO ONE (16:49)
[2025-06-10] MEDS ORDERED: Ondansetron 4 MG/2 ML SDV IV PRN (17:32)
[2025-06-10] MEDS ORDERED: Melatonin [Melatonin] 5 MG Tablet PO SCH (21:00)
[2025-06-11 05:48] LABS: PLATELET COUNT,PLT 241.0 K/uL (130-375); RED BLOOD CELL COUNT 3.77 M/uL (4.14-5.76); WHITE BLOOD CELL COUNT,WBC 9.5 K/uL (3.2-11.0)
[2025-06-11 06:02] LABS: BLOOD UREA NITROGEN,BUN 13.0 mg/dL (7-18); CARBON DIOXIDE,CO2 33.0 mmol/L (21-32); CHLORIDE,CL 100.0 mmol/L (100-108); CREATININE 1.0 mg/dL (0.8-1.3); EST CRCL DRUG DOSING (CG) 69.72 mL/min; ESTIMATED GFR 81.0 mL/min (>60); GLUCOSE RANDOM 111.0 mg/dL (74-106); POTASSIUM,K 3.8 mmol/L (3.6-5.2); SODIUM,NA 139.0 mmol/L (140-148)
[2025-06-11] MEDS: D5 1/2 NS w/ 20 mEq/L KCl 1,000 ML IV SCH (13:16)
[2025-06-11] MEDS ORDERED: Bupivacaine 0.5%/EPINEPHrine 1:200,000 50 ML MDV ONE (16:30)
[2025-06-11] MEDS ORDERED: fentaNYL 100 MCG/2 ML SDV ONE (16:56)
[2025-06-11] MEDS ORDERED: Propofol 200 MG/20 ML SDV ONE (16:56)
[2025-06-11] MEDS ORDERED: Midazolam 1 MG/ML 2 ML SDV ONE (16:56)
[2025-06-11] MEDS ORDERED: Acetaminophen/HYDROcodone 325-5 MG Tab PO PRN (17:46)
[2025-06-11] MEDS: Bupivacaine 0.5%/EPINEPHrine 1:200,000 50 ML MDV ONE (17:50)
[2025-06-12] MEDS: Lactobacillus Rhamnosus GG (Probiotic) Cap PO SCH (10:56)
[2025-06-13 07:45] LABS: CREATININE 1.1 mg/dL (0.8-1.3); EST CRCL DRUG DOSING (CG) 63.38 mL/min; ESTIMATED GFR 73.0 mL/min (>60)
[2025-06-14 05:55] LABS: BLOOD UREA NITROGEN,BUN 16.0 mg/dL (7-18); CARBON DIOXIDE,CO2 34.0 mmol/L (21-32); CHLORIDE,CL 101.0 mmol/L (100-108); CREATININE 1.2 mg/dL (0.8-1.3); EST CRCL DRUG DOSING (CG) 57.28 mL/min; ESTIMATED GFR 65.0 mL/min (>60); GLUCOSE RANDOM 100.0 mg/dL (74-106); POTASSIUM,K 3.0 mmol/L (3.6-5.2); SODIUM,NA 142.0 mmol/L (140-148)
[2025-06-14 06:03] LABS: PLATELET COUNT,PLT 281.0 K/uL (130-375); RED BLOOD CELL COUNT 3.71 M/uL (4.14-5.76); WHITE BLOOD CELL COUNT,WBC 7.6 K/uL (3.2-11.0)
[2025-06-14] MEDS: Potassium Chloride 20 MEQ Tab.ER PO ONE (08:25)
[2025-06-15 05:32] VITALS: BP 124/67; PULSE 74
== END 2025-06-15 10:31 | DRG 856 ==
LOC: JP.ED 12:07 → JP.MS 16:23
PROVIDERS: ADMIT Hospitalist; ATTEND Internal Medicine
PROC: 3E03329 Introduction of Other Anti-infective into Peripheral Vein, Percutaneous Approach (ICD-10-PCS; principal; 2025-06-10)
PROC: 0W9F0ZZ Drainage of Abdominal Wall, Open Approach (ICD-10-PCS; 2025-06-11)
DX: T81.41XA Infection following a procedure, superficial incisional surgical site, initial encounter (principal); T81.89XA Other complications of procedures, not elsewhere classified, initial encounter; I10 Essential (primary) hypertension; A41.9 Sepsis, unspecified organism; I50.32 Chronic diastolic (congestive) heart failure; L03.311 Cellulitis of abdominal wall; N30.00 Acute cystitis without hematuria; H54.7 Unspecified visual loss; Z79.890 Hormone replacement therapy; E78.00 Pure hypercholesterolemia, unspecified; I11.0 Hypertensive heart disease with heart failure; M19.90 Unspecified osteoarthritis, unspecified site; N40.0 Benign prostatic hyperplasia without lower urinary tract symptoms; E11.9 Type 2 diabetes mellitus without complications; E03.9 Hypothyroidism, unspecified; E66.9 Obesity, unspecified; F41.9 Anxiety disorder, unspecified; K21.9 Gastro-esophageal reflux disease without esophagitis; K59.09 Other constipation; Z96.619 Presence of unspecified artificial shoulder joint; Y65.8 Other specified misadventures during surgical and medical care; F20.9 Schizophrenia, unspecified; Z88.8 Allergy status to other drugs, medicaments and biological substances; Z91.041 Radiographic dye allergy status; Z79.899 Other long term (current) drug therapy; Z79.1 Long term (current) use of non-steroidal anti-inflammatories (NSAID); Z79.01 Long term (current) use of anticoagulants; Z87.81 Personal history of (healed) traumatic fracture; Z98.890 Other specified postprocedural states; Z86.711 Personal history of pulmonary embolism; Z86.0100 Personal history of colon polyps, unspecified; Z68.31 Body mass index [BMI] 31.0-31.9, adult
CPT/HCPCS: 36415; 71045 ×2; 74176; 80053; 81001; 83605; 84145; 85025; 86140; 87040 ×2; 87086; 87088; 87186; 96365; 96375; 99285; C1758; J0696; J7030; 00400-QZ; 80048; 80202; 82565; 83735; 85027; 87070; 87075; 87077; 87205; 97161-GP; 97530-GP; 99223; 99232; 99238; A9270-GY; J0665; J0690; J1171; J1271; J2250; J2704; J3010; J3373; J3374; J3480; J3490; J7050